=== PATIENT | female | born 1970 | race Two or more races ===

== ENCOUNTER 2024-09-27 08:01 | Outpatient (OUT) | payer OTHER, SELFPAY | END 2024-09-27 08:02 | disposition home or self-care (01) | LOC: PST 08:06 | PROVIDERS: PCP Internal Medicine; Visit Provider Obstetrics & Gynecology | DX: Z01.818 Encounter for other preprocedural examination (principal); N95.0 Postmenopausal bleeding; R93.89 Abnormal findings on diagnostic imaging of other specified body structures ==

== ENCOUNTER 2024-09-29 14:51 | Outpatient (OUT) | payer OTHER, SELFPAY ==
--- NOTE | 2024-09-28 12:00 | ECG_ITS ---
[facility] Test Date: 2024-09-28 Pat Name: ILDA MORAN Department: Room: - Gender: Female [employer] Observer: : 1970 Requested By: COURTNEY NEWMAN Order Number: [id number] Reading MD: CHRISTINA STRINGER Measurements Intervals [place] Rate: 60 P: 60 AK: 174 QRS: -18 QRSD: 101 T: 22 QT: 397 QTc: 397 Interpretive Statements SINUS RHYTHM Borderline sinus bradycardia No previous ECG available for comparison Electronically Signed On 09-28-2024 15:44:13 EST by CHRISTINA STRINGER
--- OUTSIDE RECORDS SUMMARY | 2024-09-29 15:05 | XMS_ITS | CCD ---
Author Organization [facility] Care Team Providers Care Production Line Manager Name Role Phone DR ABEL MURRY Attending Unavailable SHARIESTSUMMER, DR ABEL Grossman Consulting Unavailable SHARIESTSUMMER, DR ABEL Grossman Admitting Unavailable Gely Deng Unavailable Theo Woodall Attending Unavaila Theo Johns Admitting Unavaila Abel Stallings Primary Care Unavailable Theo Woodall Unavailable MD Abel Murry Primary Care Provider PREETI Woodall Attending Provider Abel Murry MD Primary Care Provider ABEL MURRY Attending Unavailable ABEL MURRY Referring Unavailable ABEL MURRY Primary Care Unavailable ABEL MURRY Attending Unavailable ABEL MURRY Referring Unavailable ABEL MURRY Primary Care Unavailable Abel Murry MD Primary Care Provider [phone] TERA MONTERO Admitting Unavailable TERA MONTERO Attending Unavailable TERA MONTERO Attending Unavailable MARIANO SEVILLA Attending Unavailable DI, MARIANO Referring Unavailable DI, MARIANO Referring Unavailable GINA RUSH Attending Unavailable JHONY, MARIANO Referring Unavailable GINA RUSH Attending Unavailable DI, MARIANO Referring Unavailable TERA MONTERO Attending Unavailable DI, MARIANO Attending Unavailable GO JOHNSON Attending Unavailable ASHOK REYES Attending Unavailable ASHOK REYES Attending Unavailable LALI COLLINS Attending Unavailable ABEL MURRY Referring Unavailable ABEL MURRY Primary Care Unavailable REINALDO MAI Admitting Unavailable REINALDO MAI Attending Unavailable ABEL MURRY Referring Unavailable ABEL MURRY Primary Care Unavailable ABEL MURRY Referring Unavailable ABEL MURRY Primary Care Unavailable REINALDO MAI Admitting Unavailable REINALDO MAI Attending Unavailable REINALDO MAI Referring Unavailable HIESTAND, ABEL Grossman Primary Care Unavailable REINALDO MAI Attending Unavailable REINALDO MAI Referring Unavailable HIESTAND, ABEL Grossman Primary Care Unavailable DINA COLLINS M Attending Unavailable HIESTAND, ABEL Grossman Referring Unavailable HIESTAND, ABEL Grossman Primary Care Unavailable DINA COLLINS M Attending Unavailable SHIVANI COLLINSA M Referring Unavailable HIESTAND, ABEL Grossman Primary Care Unavailable ROBERT, DINA M Referring Unavailable HIESTAND, ABEL Grossman Primary Care Unavailable HIESTAND, ABEL Grossman Referring Unavailable HIESTAND, ABEL Grossman Primary Care Unavailable DINA COLLINS M Referring Unavailable HIESTAND, ABEL Grossman Primary Care Unavailable DINA COLLINS M Attending Unavailable HIESTAND, ABEL Grossman Referring Unavailable HIESTAND, ABEL Grossman Primary Care Unavailable HIESTAND, ABEL Grossman Referring Unavailable HIESTAND, ABEL Grossman Primary Care Unavailable ASHOK REYES Referring Unavailable HIESTAND, ABEL Grossman Primary Care Unavailable DINA COLLINS M Referring Unavailable HIESTAND, ABEL Grossman Primary Care Unavailable DINA COLLINS M Attending Unavailable HIESTAND, ABEL Grossman Referring Unavailable HIESTAND, ABEL Grossman Primary Care Unavailable Allergies Allergy Classification Reported Allergen(s) Allergy Type Date of Onset Reaction(s) Facility (5 sources) Clarithromycin; Translations: [CLARITHROMYCIN] Drug Allergy 11-27-19 Swelling of Lip/Tongue/Thr oat [facility] (6 sources) Clarithromycin Drug Allergy 03-08-20 [facility] (2 sources) Clarithromycin Propensity to adverse reactions 03-08-20 [facility] Medications Current Medications Medication Drug Class(es) Dates Sig (Normalized) Sig (Original) amoxicillin 875 mg / clavulanate 125 mg oral tablet (1 source) Penicillin-class Antibacterial Start: 12-12-2023 End: 12-22-2023 take 1 tablet by mouth once in the morning amoxicillin-pot clavulanate (AUGMENTIN) 875-125 mg per tablet Indications: Non-recurrent acute serous otitis media of both ears Take 1 tablet by mouth in the morning and 1 tablet before bedtime. Do all this for 10 days. 20 tablet 0 12/12/2023 12/22/2023 Active baclofen 10 mg oral tablet (2 sources) gamma-Aminobutyric Acid-ergic Agonist Start: 08-10-2024 take 0.5 tablet by mouth twice daily as needed for muscle spasms and muscle spasms, then take 1-2 tablets by mouth twice daily as needed for muscle spasms and muscle spasms baclofen (LIORESAL) 10 mg tablet Indications: Thoracic spine pain , Lumbar spine pain Take 0.5 tablets (5 mg total) by mouth 2 (two) times a day as needed for muscle spasms (Take 1-2 tabs PO BID PRN muscle spasm). 60 tablet 08/10/2024 Active 12 hr buPROPion hydrochloride 90 mg / naltrexone hydrochloride 8 mg extended release oral tablet (2 sources) Opioid Antagonist, Aminoketone Start: 07-27-2024 End: 09-28-2024 naltrexone-buPROP ion 8-90 mg tablet extended release Indications: Class 3 severe obesity due to excess calories without serious comorbidity with body mass index (BMI) of 45.0 to 49.9 in adult ([facility]) 1 tablet daily for 7 days, then 1 tablet bid for 7 days 21 tablet 07/27/2024 09/28/2024 Discontinued (Patient Stopped On Own) Centrum Silver 50+Women - (2 sources) Centrum Silver 50+Women - as directed Orally Active cholecalciferol 0.025 mg oral capsule (2 sources) Vitamin D take 1 capsule by mouth in the morning cholecalciferol, vitamin D3, (VITAMIN D3) 25 mcg (1,000 unit) capsule Take 1 capsule (1,000 Units total) by mouth in the morning. Active citalopram 20 mg oral tablet (7 sources) Serotonin Reuptake Inhibitor Start: 08-15-2023 End: 11-21-2023 take 1 tablet by mouth once daily citalopram (CeleXA) 20 mg tablet Indications: Anxiety Take 1 tablet by mouth nightly 30 tablet 0 11/21/2023 Active take 1 tablet by fady th every twenty-four hours Citalopram Hydrobromide 20 MG 1 tablet Orally Once a day Active dexamethasone 4 mg oral tablet (1 source) Corticosteroid Start: 12-12-2023 End: 12-12-2023 take 2 tablets by mouth once dexAMETHasone (DECADRON) 4 mg tablet Indications: Laryngitis Take 2 tablets (8 mg total) by mouth once for 1 dose. 2 tablet 0 12/12/2023 12/12/2023 Active ergocalciferol 0.05 mg oral capsule (2 sources) Provitamin D2 Compound Start: 10-21-2023 ergocalciferol (Vitamin D-2) 50 MCG (1999 UT) capsule 10/21/2023 Active esomeprazole 20 mg delayed release oral capsule (7 sources) Proton Pump Inhibitor take 1 capsule by mouth once daily before breakfast esomeprazole (NexIUM) 20 mg capsule Take 1 capsule (20 mg total) by mouth every morning before breakfast. Active Esomeprazole Mag nesium Active fluconazole 150 mg oral tablet (1 source) Azole Antifungal Start: 12-12-2023 End: 12-12-2023 take 1 tablet by mouth once fluconazole (DIFLUCAN) 150 mg tablet Take 1 tablet (150 mg total) by mouth once for 1 dose. 1 tablet 0 12/12/2023 12/12/2023 Active levothyroxine sodium 0.05 mg oral tablet (5 sources) l-Thyroxine Start: 07-14-2024 End: 09-07-2024 take 1 tablet by mouth in the morning levothyroxine (SYNTHROID, LEVOTHROID) 50 MCG tablet Indications: Acquired hypothyroidism take 1 tablet by mouth in the morning 90 tablet 09/07/2024 Active meloxicam 15 mg oral tablet (5 sources) Nonsteroidal Anti-inflammatory Drug Start: 10-24-2023 End: 11-25-2023 take 1 tablet by mouth in the morning meloxicam (MOBIC) 15 mg tablet Take 1 tablet (15 mg total) by mouth in the morning. 30 tablet 2 11/25/2023 Active Multivitamin preparation (3 sources) multivitamin (MULTI-DAY ORAL) Take by mouth daily. Active multivitamin (MU LTI-DAY ORAL) Take by mouth daily. 0 Active multivitamin with minerals (Centrum) 9-200 mg-mcg tablet split tablet (2 sources) multivitamin wit h minerals (Centrum) 9-200 mg-mcg tablet split tablet Take by mouth Daily Active nabumetone 500 mg oral tablet (5 sources) Nonsteroidal Anti-inflammatory Drug Start: End: take 1 tablet by mouth in the morning, then take 1 tablet by mouth at bedtime nabumetone (RELAFEN) 500 mg tablet TAKE 1 TABLET BY MOUTH IN THE MORNING AND 1 AT BEDTIME 180 tablet 09/07/2024 Active nitrofurantoin, macrocrystals 25 mg / nitrofurantoin, monohydrate 75 mg oral capsule (2 sources) Nitrofuran Antibacterial Start: take 1 capsule by mouth every twelve hours Macrobid 100 MG 1 capsule with food Orally every 12 hrs for 7 day(s) March, Active phenazopyridine hydrochloride 200 mg oral tablet (2 sources) Start: take 1 tablet by mouth every eight hours Pyridium 200 MG 1 tablet after meals Orally Three times a day for 2 day(s) March, Active rivaroxaban 20 mg oral tablet (1 source) Factor Xa Inhibitor Start: take 1 tablet by mouth at dinner Rivaroxaban (Xarelto) 15 mg (42)- 20 mg (9) tablets,dose pack Active 0 PO .COMPLEX November 28, 2019 1:00am must administer with evening meal traMADol hydrochloride 50 mg oral tablet (1 source) Opioid Agonist Start: End: take 1 tablet by mouth in the morning, then take 1 tablet by mouth at bedtime traMADoL (ULTRAM) 50 mg tablet Indications: Disc displacement, lumbar , Chronic bilateral low back pain without sciatica Take 1 tablet (50 mg total) by mouth in the morning and 1 tablet (50 mg total) before bedtime. Do all this for 10 days. 20 tablet 09/28/2024 10/08/2024 Active triamcinolone acetonide 1 mg/ml topical cream (2 sources) Corticosteroid triamcinolone (Kenalog) 0.1 % cream Apply topically. Active Completed/Discontinued Medications Medication Drug Class(es) Dates Sig (Normalized) Sig (Original) [id number] 200 actuat albuterol 0.09 mg/actuat metered dose inhaler (3 sources) beta2-Adrenergic Agonist Start: 12-28-2022 take 2 puff(s) by inhalation four times daily as needed Albuterol Sulfate HFA 108 (90 Base) MCG/ACT 2 puffs Inhalation 4 times a day prn Dec, Not-Taking Norgestimate-Ethin yl Estradiol (1 source) Progestin, Estrogen Start: 11-27-2019 End: 11-28-2019 Norgestimate-Ethin yl Estradiol (Sprintec (28)) 0.25-35 mg-mcg tablet Discontinued TABLET November 27, 2019 1:00am November 28, 2019 3:22pm FLUoxetine 10 mg oral tablet (1 source) Serotonin Reuptake Inhibitor Start: 11-27-2019 End: 11-27-2019 Fluoxetine Discontinued TABLET November 27, 2019 1:00am November 27, 2019 6:33pm gabapentin 300 mg oral capsule (4 sources) Anti-epileptic Agent End: 12-12-2023 take 1 capsule by mouth once daily gabapentin (NEURONTIN) 300 mg capsule Take 1 capsule (300 mg total) by mouth nightly. 0 12/12/2023 Discontinued (Therapy completed) Ketorolac (3 sources) Nonsteroidal Anti-inflammatory Drug, Cyclooxygenase Inhibitor Start: 01-18-2021 Toradol per 15 mg Dec, 60 mg pantoprazole 40 mg delayed release oral tablet (3 sources) Proton Pump Inhibitor Start: 10-24-2023 End: 11-25-2023 take 1 tablet by mouth in the morning pantoprazole (PROTONIX) 40 mg EC tablet Take 1 tablet (40 mg total) by mouth in the morning. 30 tablet 0 10/24/2023 11/25/2023 Discontinued (Patient Stopped On Own) predniSONE 20 mg oral tablet (3 sources) Start: 12-28-2022 take 1 tablet by mouth every twelve hours predniSONE 20 MG 1 tablet Orally 2 times a day for 5 day(s) Dec, Not-Taking Problems Active Problems Problem Classification Problem Date Documented Date Episodic/Chronic Abdominal hernia (1 source) Hiatal hernia; Translations: [Diaphragmatic hernia without obstruction or gangrene] 11-28-2019 Episodic Anxiety disorders (1 source) Anxiety; Translations: [Anxiety disorder, unspecified] 11-21-2023 Chronic Benign neoplasm of uterus (4 sources) Subserous leiomyoma of uterus; Translations: [Subserosal leiomyoma of uterus] Onset: 08-09-2024 08-09-2024 Episodic Chronic obstructive pulmonary disease and bronchiectasis (1 source) Bronchitis, not specified as acute or chronic Episodic Genitourinary symptoms and ill-defined conditions (2 sources) Dysuria; Translations: [Dysuria] Onset: 04-21-2023 Episodic Headache; including migraine (6 sources) Migraine; Translations: [Migraine, unspecified, not intractable, without status migrainosus] 06-14-2021 Chronic Menopausal disorders (4 sources) Postmenopausal bleeding; Translations: [Postmenopausal bleeding] Onset: 08-09-2024 08-09-2024 Chronic Menstrual disorders (1 source) Excessive and frequent menstruation with regular cycle; Translations: [Excessive and frequent menstruation with regular cycle] Onset: 08-16-2024 Chronic Other aftercare (1 source) Long-term current use of opiate analgesic drug; 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] 09-28-2024 Episodic Other aftercare (1 source) [facility] (current) use of opiate analgesic; 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] Onset: 09-28-2024 Episodic Other connective tissue disease (2 sources) Trigger finger, unspecified finger; Translations: [Trigger finger, unspecified finger] Onset: 09-07-2024 Episodic Other nervous system disorders (3 sources) Carpal tunnel syndrome, bilateral upper limbs; Translations: [Carpal tunnel syndrome, bilateral upper limbs] Onset: 05-04-2024 Chronic Other nervous system disorders (1 source) Other chronic pain; Translations: [Other chronic pain] Onset: 11-06-2020 Chronic Other nervous system disorders (1 source) Polyneuropathy, unspecified; Translations: [Polyneuropathy, unspecified] Onset: 11-10-2023 Chronic Other nutritional; endocrine; and metabolic disorders (1 source) Morbid obesity; Translations: [Morbid (severe) obesity due to excess calories] 11-28-2019 Chronic Other nutritional; endocrine; and metabolic disorders (2 sources) Obesity; Translations: [Obesity, unspecified] 07-12-2024 Chronic Other screening for suspected conditions (not mental disorders or infectious disease) (1 source) Endometrium thickened; Translations: [Abnormal findings on diagnostic imaging of other specified body structures] 09-13-2024 Chronic Other upper respiratory infections (1 source) Sinusitis Onset: 07-12-2024 Chronic Other upper respiratory infections (1 source) Laryngitis; Translations: [Acute laryngitis] 12-12-2023 Episodic Otitis media and related conditions (1 source) Acute non-suppurative otitis media - serous; Translations: [Acute serous otitis media, bilateral] 12-12-2023 Episodic Spondylosis; intervertebral disc disorders; other back problems (10 sources) Lumbosacral spondylosis without myelopathy; Translations: [Spondylosis without myelopathy or radiculopathy, lumbosacral region] Onset: 05-04-2024 05-04-2024 Chronic Spondylosis; intervertebral disc disorders; other back problems (17 sources) Chronic low back pain; Translations: [Chronic bilateral low back pain] Onset: 11-06-2020 11-06-2020 Episodic Thyroid disorders (2 sources) Acquired hypothyroidism; Translations: [Hypothyroidism, unspecified] Onset: 07-12-2024 09-07-2024 Chronic Unclassified (1 source) discuss changing meloxicam Onset: 07-12-2024 Unclassified (1 source) Earache Onset: 12-12-2023 Unclassified (1 source) Low back pain, unspecified; Translations: [Low back pain, unspecified] Onset: 11-06-2020 Unclassified (1 source) Extremity Pain Onset: 05-04-2024 Urinary tract infections (1 source) Acute cystitis with hematuria Episodic Past or Other Problems Problem Classification Problem Date Documented Da te Episodic/Chronic Mood disorders (6 sources) Mood disorders Onset: 12-21-2022 12-21-2022 Other non-traumatic joint disorders (1 source) Shoulder pain Onset: 05-04-2024 Episodic Other upper respiratory disease (1 source) Hoarse Onset: 12-12-2023 Episodic Phlebitis; thrombophlebitis and thromboembolism (7 sources) Deep venous thrombosis of lower extremity; Translations: [Acute embolism and thrombosis of unspecified deep veins of right lower extremity] Onset: 03-10-2020 11-28-2019 Episodic Pulmonary heart disease (7 sources) Pulmonary embolism; Translations: [Other pulmonary embolism without acute cor pulmonale] Onset: 03-10-2020 11-28-2019 Episodic Residual codes; unclassified (6 sources) FH: Thrombosis; Translations: [Family history of ischemic heart disease and other diseases of the circulatory system] Onset: 03-10-2020 03-10-2020 Episodic Results Test Name Value Interpretation Reference Range Facility Office Visiton 09-07-2024 Follow-up visit [id number] Vickie Hernandez sa 1970 F Date Provider Department Center 09/07/2024 [facility] Family History Problem Relation Age of Onset Cancer Mother Cancer Father Cancer Sister Cancer Sister Diabetes Sister Family Status - Relation Status Age at Mother Father Sister Sister Sister Level of Service:07146 MO POSTOP FOLLOW UP VISIT RELATED TO ORIGINAL PX (GC) Reason for Visit and Comments: Post-op [483] Post-op [483] Normal [facility] HPon 08-25-2024 History Of Present Illness Munira Hernandez is a 54 y.o. female presenting with B CTS and a R ring trigger digit. Roberto Carlos is scheduled for B CTR and R RF trigger release. Past Medical History She has a past medical history of Adverse effect of anesthesia, Arthritis (Just recent), Back pain, CTS (carpal tunnel syndrome) (Dr Rush), Delayed emergence from general anesthesia, Foot pain, Hypothyroidism, Lumbosacral disc disease, Neck pain, Obesity, PONV (postoperative nausea and vomiting), and Trigger finger. Surgical History She has a past surgical history that includes Dilation and curettage of uterus; Hysteroscopy; and Cholecystectomy. Social History She reports that she has never smoked. She has never been exposed to tobacco smoke. She has never used smokeless tobacco. She reports that she does not drink alcohol and does not use drugs. Family History Family History Problem Relation Name Age of Onset ??? Cancer Mother Jessica Hernandez ??? Cancer Father Ty hernandez ??? Cancer Sister Marzena Aguillon ??? Cancer Sister Claribel rodriguez ??? Diabetes Sister Sharmaine perez Allergies Clarithromycin Medications Medications Prior to Admission Medication Sig Dispense Refill Last Dose ??? baclofen (Lioresal) 10 mg tablet Take by mouth at bedtime. Past Week ??? cholecalciferol, vitamin D3, (VITAMIN D3 ORAL) Take by mouth. Past Week ??? esomeprazole (NexIUM) [address] capsule Take 20 mg by mouth before breakfast. 08/25/2024 ??? levothyroxine (Synthroid, Levoxyl) 50 mcg tablet Take 50 mcg by mouth before breakfast. 08/25/2024 ??? multivit-minerals/foli c acid (CENTRUM ADULT 50 PLUS ORAL) Past Week ??? nabumetone (Relafen) 500 mg tablet Take 500 mg by mouth twice a day. Past Week ??? albuterol 90 mcg/actuation inhaler As needed for shortness of breath Unknown ??? apixaban (Eliquis) 5 mg tablet Take 2.5 mg by mouth twice a day. Unknown ??? citalopram (CeleXA) 20 mg tablet TAKE 1 TABLET BY MOUTH NIGHTLY Oral for 30 Days Unknown ??? cyclobenzaprine (Flexeril) 10 mg tablet Oral for 30 Days Unknown ??? ergocalciferol, vitamin D2, (VITAMIN D2 ORAL) Unknown ??? gabapentin (Neurontin) 100 mg capsule Take 1 capsule (100 mg) by mouth in the morning, at noon, and at bedtime for 7 days. 21 capsule 0 ??? gabapentin (Neurontin) 100 mg capsule Take 1 capsule (100 mg) by mouth three times daily. 90 capsule 0 ??? gabapentin (Neurontin) 300 mg capsule Take 1 capsule (300 mg) by mouth in the morning, at noon, and at bedtime. AFTER FINISHING 100MG SCRIPT 90 capsule 0 ??? hydrocortisone-acetic acid (Vosol-HC) otic solution Administer 3 drops into affected ear(s) twice a day. Unknown ??? ibuprofen 600 mg tablet Take 600 mg by mouth every 6 (six) hours if needed. Unknown ??? meloxicam (Mobic) 15 mg tablet TAKE 1 TABLET BY MOUTH IN THE MORNING FOR 21 DAYS Unknown ??? methylPREDNISolone (Medrol Dospak) 4 mg tablets See administration instructions. Unknown ??? omeprazole (PriLOSEC) [address] capsule 1 (one) time each day at the same time. Unknown ??? phenazopyridine (Pyridium) 200 mg tablet TAKE 1 TABLET BY MOUTH THREE TIMES DAILY AFTER A MEAL FOR 2 DAYS Unknown ??? predniSONE (Deltasone) 20 mg tablet Unknown ??? triamcinolone (Kenalog) 0.1 % cream Apply topically. Unknown Review of Systems Last Recorded Vitals Visit Vitals BP 162/67 Pulse 74 Temp 36 ???C (96.8 ???F) (Temporal) Resp 16 Ht 1.676 m (5' 6 ) Wt 129 kg (283 lb 8.2 oz) SpO2 100% BMI 45.76 kg/m??? OB Status Postmenopausal Smoking Status Never BSA 2.45 m??? Physical Exam Constitutional: Appearance: Normal appearance. Cardiovascular: Rate and Rhythm: Normal rate. Pulmonary: Effort: Pulmonary effort is normal. Musculoskeletal: Comments: B (+) Tinel's, Tender over A1 R RF. Neurological: Mental Status: She is alert. Relevant Lab Results No results found for: NA , K , CL , CO2 , BUN , CREATININE , GLUCOSE , CALCIUM , ANIONGAP , EGFR , BCR Relevant Imaging Results MR transfer of outside films This order has been auto-finalized and does not contain a result. Assessment/Plan Principal Problem: Bilateral carpal tunnel syndrome B CTR, R RF A1 release Normal [facility] OPNOTEon 08-25-2024 OPNOTE Operative Note Patient: Munira Hernandez Date of Surgery: 08/25/2024 : 1970 Pre-operative Diagnosis: 1. Carpal Tunnel Syndrome Both Hands 2. Trigger Digit Right Ring Finger Post-operative Diagnosis: same Operation: 1. Carpal Tunnel Release, Bilateral (63751) 2. Trigger Digit Release Right Ring Finger (20551) Surgeon: Tera Montero MD [employer]: Fan De Leon MD Staff: Porter [employer]: Shiloh Calvin RN Scrub Person: Ella Tapia CST [employer] Porter [employer]: Ismael Frazier RN Anesthesia Type: MAC Indications: The patient is an 54 y.o. female with a history of night pain and numbness of the both hands. The physical examination and work-up are consistent with that of carpal tunnel syndrome. This has been an ongoing, and worsening, problem despite nonoperative means of treatment. She also has a symptomatic trigger digit of the right ring finger that has not improved with nonoperative treatments. It is felt that surgical management is appropriate at this point in time. The patient is brought to the operating room today for that purpose.The risks and benefits of the procedure were explained preoperatively, and with good understanding it is agreed to proceed. Procedure: The patient is brought to the operating room and placed on the table in a supine position. The right arm was placed on a hand table. The right arm is formally prepped and draped out in a sterile fashion. To begin the procedure, after a standard timeout, she is sedated per the anesthesia service. We did a brief ultrasound examination to identify our anatomic landmarks, the median nerve, and the recurrent motor branch. Once we are satisfied with the anatomy we marked out a proposed incision site in the center of the safe zone just proximal to the wrist crease. Using a syringe and 25-gauge needle we anesthetized that skin site with 1% lidocaine with epinephrine, and then under ultrasound guidance used our lidocaine to hydrodissect along the ulnar aspect of the median nerve through the carpal tunnel. A 15 blade was used to make a 7 to 8 mm long incision. A freer elevator was inserted into the carpal tunnel and under ultrasound guidance cleared a path through the safe zone to the distal end of the ligament using the hook of the hamate as a landmark delete. The [employer] carpal tunnel release device was inserted into the carpal tunnel and advanced to the distal end of the transverse carpal ligament. The balloons were inflated. We then went back and identified the median nerve in the transverse plane and followed it distally to make sure the third common digital was safe, as well as the superficial palmar arch. Once satisfied with that the cutting blade was deployed and, using a standard inching technique, we followed the blade as it cut the ligament from distal to proximal with the median nerve being visualized throughout. The device was removed. Our freer elevator was placed in the tunnel and used to confirm that the release was complete. We then turned our attention to the ring finger. A new incision is made over the A1 region. Blunt dissection was carried out through the subcutaneous tissue, and again superficial blood vessels were cauterized with the Bovie. Three Ragnell retractors were used to expose the flexor tendon sheath. The A1 nura is initially opened up with a knife blade, in line with the tendon sheath. Switching back to a tenotomy scissor, the sheath was split distally to about the MP flexion crease on the skin and proximally until the sheath is completely free. On this finger, the tendons are also pulled out into the wound and have free excursion. This wound was irrigated with normal saline and closed with 5-0 Prolene suture. The incision on the wrist was closed with benzoin and Steri-Strips. A sterile dressing of a 2 x 2, OpSite and an Thierno bandage was applied. While the trigger injection was being closed and the dressing applied to the right hand I went and turned my attention to the left hand. I did a brief ultrasound examination to identify our anatomic landmarks, the median nerve, and the recurrent motor branch. Once we are satisfied with the anatomy we marked out a proposed incision site in the center of the safe zone just proximal to the wrist crease. Using a syringe and 25-gauge needle we anesthetized that skin site with 1% lidocaine with epinephrine, and then under ultrasound guidance used our lidocaine to hydrodissect along the ulnar aspect of the median nerve through the carpal tunnel. A 15 blade was used to make a 7 to 8 mm long incision. A freer elevator was inserted into the carpal tunnel and under ultrasound guidance cleared a path through the safe zone to the distal end of the ligament using thehook of the hamate as a landmark delete. The [employer] carpal tunnel release device was inserted into the carpal tunnel and advanced to the distal end of the transverse carpal liga (more content not included)... Normal [facility] POCT GLUCOSE METER UNSOLICIT ED RESULTSon 08-25-2024 Glucose [Mass/Vol] 92 mg/dL Normal 70-[address] [facility] Comment on above: Order Comment: Waive d Testing in the ED is performed under the ED CLIA certificate #[id number]. Result Comment: jhag eman Performed By: #### L [id number] ####[facility] [place] [address] Orders Onlyon 08-18-2024 Orders Only [id number] Vickie Hernandez sa 1970 F Date Provider Department Center 08/18/2024 803-CHINO URIAS MP ORTHO [facility] Family History Problem Relation Age of Onset Cancer Mother Cancer Father Cancer Sister Cancer Sister Diabetes Sister Family Status - Relation Status Age at Mother Father Sister Sister Sister Normal [facility] CBC AND AUTO DIFFon 08-16-20 24 ABSOLUTE BASOPHIL 0.0 X10E9/L Normal 0.0-0.2 [facility] Comment on above: Performed By: #### C BCA, THYR, 2132-9, 26010-2 #### [facility] ([id number]) [address] [facility], [address] [place] [address] #### TTAG, 2900-9 #### [facility] ([id number]) [address] [place] [address] ABSOLUTE NEUTROPHIL 4.4 X10E9/L Normal 1.5-6.6 [facility] Comment on above: Performed By: #### C PAULINA, THYR, 2132-07, 78480-6 #### [facility] ([id number]) [address] [place] [address] #### KASEY, 2909 #### [facility] ([id number]) [address] [place] [address] 66283 Basophils/100 WBC (Bld) 0.7 % Normal [facility] Comment on above: Performed By: #### C PAULINA, THYR, 2132-07, 22853-4 #### [facility] ([id number]) [address], [address] [place] [address] #### KASEY, 9 #### [facility] ([id number]) [address] [place] [address] 31381 Eosinophils (Bld) [#/Vol] 0.1 10*3/uL Normal 0.0-0.4 [facility] Comment on above: Performed By: #### C PAULINA, THYR, 2132-07, 17249-5 #### [facility] ([id number]) [address] [place] [address] #### KASEY, 2909 #### [facility] ([id number]) [address] [place] [address] 07630 Eosinophils/100 WBC (Bld) 1.8 % Normal [facility] Comment on above: Performed By: #### Velma GALLARDO, THYR, 2132-07, 32855-3 #### [facility] ([id number]) [address] [place] [address] #### KASEY, 9 #### [facility] ([id number]) [address] [place] [address] 34653 Erythrocyte distribution width (RBC) [Ratio] 14.9 % Normal 11.5-15.0 [facility] Comment on above: Performed By: #### C BCA, THYR, 2132-07, 52147-2 #### [facility] ([id number]) [address], [address] [place] [address] #### TTAG, 2900-9 #### [facility] ([id number]) [address] [place] [address] 79822 Hematocrit (Bld) [Volume fraction] 41.8 % Normal 35-47 [facility] Comment on above: Performed By: #### C BCA, THYR, 2132-07, 76996-7 #### [facility] ([id number]) [address], [address] [place] [address] #### TTAG, 2900-9 #### [facility] ([id number]) [address] [place] [address] 97343 Hemoglobin (Bld) [Mass/Vol] 13.9 g/dL Normal 11.7-15.5 [facility] Comment on above: Performed By: #### C BCA, THYR, 2132-07, 50754-3 #### [facility] ([id number]) [address], [address] [place] [address] #### TTAG, 2900-9 #### [facility] ([id number]) [address] [place] [address] 70574 Lymphocytes (Bld) [#/Vol] 1.2 10*3/uL Normal 1.0-3.5 [facility] Comment on above: Performed By: #### C BCA, THYR, 2132-07, 11829-0 #### [facility] ([id number]) [address] [facility], [address] [place] [address] #### TTAG, 2900-9 #### [facility] ([id number]) [address] [place] [address] 61553 Lymphocytes/100 WBC (Bld) 19.7 % Normal [facility] Comment on above: Performed By: #### C BCA, THYR, 2132-07, 89139-0 #### [facility] ([id number]) [address] [place] [address], [facility] [address] [place] [address] #### TTAG, 29[address] #### [facility] ([id number]) [address] [place] [address] 18302 MCH (RBC) [Entitic mass] 27.3 pg Normal 27-34 [facility] Comment on above: Performed By: #### C BCA, THYR, 2132-07, 77629-4 #### [facility] ([id number]) [address] [facility], [address] [address] #### TTAG, 29[address] #### [facility] ([id number]) [address] [place] [address] 14503 MCHC (RBC) [Mass/Vol] 33.2 g/dL Normal 32-36 [facility] Comment on above: Performed By: #### C BCA, THYR, 2132-07, 10859-7 #### [facility] ([id number]) [address] [facility], [address] [place] [address] #### TTAG, 29[address] #### [facility] ([id number]) [address] [place] [address] 81714 MCV (RBC) [Entitic vol] 82 fL Normal 80-100 [facility] Comment on above: Performed By: #### C BCA, THYR, 2132-07, 62119-2 #### [facility] ([id number]) [facility] [address], [address] [place] [address] #### TTAG, 2900-9 #### [facility] ([id number]) [address] [place] [address] 42092 Monocytes (Bld) [#/Vol] 0.5 10*3/uL Normal 0-0.9 [facility] Comment on above: Performed By: #### C BCA, THYR, 2132-07, 23126-3 #### [facility] ([id number]) [address] [facility], [address] [place] [address] #### TTAMichael, 29[address] #### [facility] ([id number]) [address] [place] [address] 39919 Monocytes/100 WBC (Bld) 7.6 % Normal [facility] Comment on above: Performed By: #### Velma BCA, THYR, 2132-07, 89740-0 #### [facility] ([id number]) [address] [facility], [address] [place] [address] #### TTAMichael, 29009 #### [facility] ([id number]) [address] [place] [address] 46833 Neutrophils/100 WBC (Bld) 70.2 % Normal [facility] Comment on above: Performed By: #### Velma BCA, THYR, 2132-07, 16848-5 #### [facility] ([id number]) [address], [address] [place] [address] #### TTAG, 29009 #### [facility] ([id number]) [address] [place] [address] 45758 Platelet mean volume (Bld) [Entitic vol] 6.9 fL Low 7-12 [facility] Comment on above: Performed By: #### C BCA, THYR, 2132-07, 42052-5 #### [facility] ([id number]) [address] [facility], [address] [place] [address] #### TTAG, 2900-9 #### [facility] ([id number]) [address] [place] [address] 04100 Platelets (Bld) [#/Vol] 245 10*3/uL Normal 150-450 [facility] Comment on above: Performed By: #### C BCA, THYR, 2132-07, 04794-5 #### [facility] ([id number]) [address] [facility], [address] [place] [address] #### TTAG, 2900-9 #### [facility] ([id number]) [address] [place] [address] 06468 RBC COUNT 5.10 X10E12/L Normal 3.80-5.20 [facility] Comment on above: Performed By: #### C BCA, THYR, 2132-07, 14603-3 #### [facility] ([id number]) [address] [facility], [address] [place] [address] #### TTAG, 2900-9 #### [facility] ([id number]) [address] [place] [address] 81101 WBC (Bld) [#/Vol] 6.3 10*3/uL Normal 4.0-11.0 [facility] Comment on above: Performed By: #### C BCA, THYR, 2132-07, 67582-0 #### [facility] ([id number]) [address] [facility], [address] [place] [address] #### TTAG, 2900-9 #### [facility] ([id number]) [address] [place] [address] 89008 HGB A1C (GLYCO-HGB)on 2023 Glucose [Mass/Vol] 114 mg/dL Normal [facility] Comment on above: Performed By: #### C BCA, THYR, 2132-07, 58951-1 #### [facility] ([id number]) [address] [facility], [address] [place] [address] #### TTAG, 29009 #### [facility] ([id number]) [address] [place] [address] 28477 HbA1c (Bld) [Mass fraction] 5.6 % Normal 4.4-5.6 [facility] Comment on above: Result Comment: NOTE ADA Guidelines Result HgbA1c Normal : less than 5.7 % Prediabetes : 5.7 % to 6.4 % Diabetes : > 6.4 % Use with caution in patients with abnormal hemoglobin variants as the half-life of red blood cells and in vivo glycation rates are affected. Performed By: #### C BCA, THYR, 2132-07, 91488-9 #### [facility] ([id number]) [address] [facility], [facility] [address] [place] [address] #### TTAMichael, 9 #### [facility] ([id number]) [address] [place] [address] 23940 THYROID PROFILEon 08-16-2024 Free T4 [Mass/Vol] 0.81 ng/dL Normal 0.61-1.60 [facility] Comment on above: Performed By: #### C BCA, THYR, 2132-07, 32191-8 #### [facility] ([id number]) [address] [facility], [facility] [address] [place] [address] #### TTAG, 29009 #### [facility] ([id number]) [address] [place] [address] TSH 3.36 uIU/mL Normal 0.49-4.67 [facility] Comment on above: Performed By: #### C BCA, THYR, 2132-9, 38857-7 #### [facility] ([id number]) [address] [place] [address] #### TTAG, 2900-9 #### [facility] ([id number]) [address] [place] [address] 29549 US PELVIC WITH TRANSVAGINALo 08-16-2024 US PELVIC WITH TRANSVAGINAL US PELVIC WITH TRANSVAGINAL PELVIC ULTRASOUND HISTORY: Postmenopausal bleeding COMPARISON: 04/14/2023 TECHNIQUE: Transabdominal and transvaginal sonographic evaluation of the pelvis. Transabdominal imaging performed to evaluate for extra adnexal pelvic pathology. Transvaginal imaging performed for better delineation of the adnexal and endometrial contents. FINDINGS: The uterus measures 8.2 x 5.7 x 4.6 cm. The endometrium measures 0.6 cm in thickness. Posterior intramural uterine fibroid measuring 3.1 x 3.2 x 2.9 cm. The left ovary measures 3.0 x 1.7 x 2.6 cm and right ovary measures 3.3 x 2.2 x 2.6 cm. The ovaries are normal. No free fluid in the pelvis. IMPRESSION: * The endometrium measures 0.6 cm in thickness, just above normal limits for a postmenopausal patient. * Posterior intramural uterine fibroid measuring 3.2 cm. Finalized by Arash Horton MD on 08/16/2024 2:30 PM Normal [facility] THYROID PROFILEon 07-12-2024 Free T4 [Mass/Vol] 0.81 ng/dL Normal 0.61-1.60 [facility] Comment on above: Performed By: #### T HYR #### [facility] ([id number]) [address] [place] [address] TSH 8.06 uIU/mL High 0.49-4.67 [facility] Comment on above: Performed By: #### T HYR #### [facility] ([id number]) [address], [address] [place] [address] XR LUMBAR SPINE AP, LATERAL, FLEXION AND EXTENSION ONLYon 07-06-2024 XR LUMBAR SPINE AP, LATERAL, FLEXION AND EXTENSION ONLY XR LUMBAR SPINE AP, LATERAL, FLEXION AND EXTENSION ONLY XR LUMBAR SPINE AP, LATERAL, FLEXION AND EXTENSION ONLY Lumbosacral spondylosis without myelopathy Findings: There is no fracture or destructive lesion. Impression: * No acute findings. * Diffuse disc disease and facet arthritis demonstrated. * Stable flexion-extension views * Consider MRI if you suspect occult process. * Finalized by Martin Bryan MD on 07/06/2024 6:05 PM Normal [facility] XR SPINE THORACIC MIN 4 VWSo n 07-06-2024 XR SPINE THORACIC MIN 4 VWS XR SPINE THORACIC MIN 4 VWS XR SPINE THORACIC MIN 4 VWS History: Thoracic spondylosis without myelopathy Impression: * No acute findings. * No fracture or destructive lesion. * Diffuse disc disease and facet arthritis. . Stable flexion-extension * Consider MRI if you suspect occult process Finalized by Martin Bryan MD on 07/06/2024 4:53 PM Normal [facility] 36on 06-22-2024 36 Sent to [facility] Follow-Upon 06-22-2024 Follow-Up [id number] Vickie Hernandez sa A 1970 F Date Provider Department Center 06/22/2024 438-TERA MONTERO MP ORTHO MPORTHO Family History Problem Relation Age of Onset Cancer Mother Cancer Father Cancer Sister Cancer Sister Diabetes Sister Family Status - Relation Status Age at Mother Father Sister Sister Sister Level of Service:85096 MO OFFICE/OUTPATIENT ESTABLISHED LOW MDM 20 MIN () Reason for Visit and Comments: Pain [136] Pain [136] Normal [facility] Follow-Upon 04-21-2024 Follow-Up [id number] Vickie Hernandez sa A 1970 F Date Provider Department Center 04/21/2024 266-MARIANO SEVILLA MP ORTHO MPORTHO No family history on file Level of Service:15083 MO OFFICE/OUTPATIENT ESTABLISHED LOW MDM 20 MIN Reason for Visit and Comments: Follow-up [121802] - Patient here today to go MRI results. Pain [136] - Patient here today to go MRI results. [facility] 3602-25-2024 36 VM left advising patient we need the actual CD, not just the report. Asked to return call with any questions/concerns. [facility] 36on 02-24-2024 36 Returned call and le ft message with patient [facility] 36 Patient wanting to know if pdi sent report of cervical spine mri [facility] 36on 01-28-2024 36 Spoke to [facility] Denial reason states need 6 weeks pt within past 6 months. I dont see that this has been completed. Will refer patient to PT. Call to patient - notified of referral, she verbalized understanding. She will call [facility] facility to cancel everything. [facility] 36 Per phone encounter on 01/02 the patient told me this was approved. Per phone encounter 01/14, message was sent back asking what they needed and I received no response. If it was denied they need to send me a denial letter so I have information to submit an appeal. [facility] 36 Mri denied and sandoval d office back on 01/16 and nothing was ever done by staff per the insurance company now urbano denney is wanting further clarity, please return call PATIENT IS SCHEDULE THIS UPCOMING Friday02/02/24 [facility] 36on 01-14-2024 36 What do they need [facility] 36 Appeals number: [phone] Tracking number :[id number] Patient reschedule :02/02/24 Khadijah Schulz precert call if needed [facility] 3601-02-2024 36 See previous encounter. [facility] 36 Patient states she h as talked to the facility and this has been approved. Advised her to call me if she has any issues. [facility] 3612-31-2023 36 [facility] pre cert calling- mri denied MRI cervical spine- peer to peer is available for up to 5 business days Denied on 12/29/2023 Wanting 6 weeks of neck pt or chiropractor treatment in the past 6 months Normal [facility] Follow-Upon 12-03-2023 Follow-Up [id number] Vickie Henrandez sa Franco 1970 F Date Provider Department Center 12/03/2023 266-MARIANO SEVILLA MP ORTHO MPORTHO No family history on file Level of Service:23093 MO OFFICE/OUTPATIENT ESTABLISHED LOW MDM 20 MIN (GC) Reason for Visit and Comments: Follow-up [975585] - EMG results Follow-up [11000124] Normal [facility] CBC AND AUTO DIFFon 11-10-20 ABSOLUTE BASOPHIL 0.0 X10E9/L Normal 0.0-0.2 [facility] Comment on above: Performed By: #### C BCA, THYR, 9, 66024-5 #### [facility] ([id number]) [address] [place] [address], [facility] [address] [place] [address] #### TTAG, 2900-9 #### [facility] ([id number]) [address] [place] [address] 13090 ABSOLUTE NEUTROPHIL 5.2 X10E9/L Normal 1.5-6.6 [facility] Comment on above: Performed By: #### C BCA, THYR, 9, 80628-6 #### [facility] ([id number]) [address] [place] [address], [address] [place] [address] #### TTAG, 2900-9 #### [facility] ([id number]) [address] [place] [address] 51143 Basophils/100 WBC (Bld) 0.4 % Normal [facility] Comment on above: Performed By: #### C BCA, THYR, 2132-07, 11179-1 #### [facility] ([id number]) [address] [place] [address], [address] [place] [address] #### TTAG, 290 #### [facility] ([id number]) [address] [place] [address] 04066 Eosinophils (Bld) [#/Vol] 0.1 10*3/uL Normal 0.0-0.4 [facility] Comment on above: Performed By: #### C BCA, THYR, 2132-07, 79020-7 #### [facility] ([id number]) [address] [place] [address], [address] [place] [address] #### TTAG, 2909 #### [facility] ([id number]) [address] [place] [address] 05156 Eosinophils/100 WBC (Bld) 1.8 % Normal [facility] Comment on above: Performed By: #### C BCA, THYR, 2132-07, 73731-9 #### [facility] ([id number]) [address] [place] [address], [address] [place] [address] #### TTAG, 29009 #### [facility] ([id number]) [address] [place] [address] 82803 Erythrocyte distribution width (RBC) [Ratio] 15.1 % High 11.5-15.0 [facility] Comment on above: Performed By: #### Velma BCA, THYR, 2132-07, 55174-5 #### [facility] ([id number]) [address] [place] [address], [address] [place] [address] #### TTAG, 29009 #### [facility] ([id number]) [address] [place] [address] 32033 Hematocrit (Bld) [Volume fraction] 38.2 % Normal 35-47 [facility] Comment on above: Performed By: #### C BCA, THYR, 2132-07, 04827-1 #### [facility] ([id number]) [address] [place] [address], [address] [place] [address] #### TTAG, 29009 #### [facility] ([id number]) [address] [place] [address] 34302 Hemoglobin (Bld) [Mass/Vol] 12.8 g/dL Normal 11.7-15.5 [facility] Comment on above: Performed By: #### C BCA, THYR, 2132-07, 02190-8 #### [facility] ([id number]) [address] [facility], [address] [place] [address] #### TTAG, 2909 #### [facility] ([id number]) [address] [place] [address] 10288 Lymphocytes (Bld) [#/Vol] 1.3 10*3/uL Normal 1.0-3.5 [facility] Comment on above: Performed By: #### Velma BCA, THYR, 2132-07, 31156-0 #### [facility] ([id number]) [address] [place] [address], [facility] [address] [place] [address] #### TTAG, 2909 #### [facility] ([id number]) [address] [place] [address] 41167 Lymphocytes/100 WBC (Bld) 18.4 % Normal [facility] Comment on above: Performed By: #### Velma BCA, THYR, 2132-07, 18897-8 #### [facility] ([id number]) [address] [facility], [address] [place] [address] #### TTAG, 2909 #### [facility] ([id number]) [address] [place] [address] 60295 MCH (RBC) [Entitic mass] 27.1 pg Normal 27-34 [facility] Comment on above: Performed By: #### C BCA, THYR, 2132-07, 50915-1 #### [facility] ([id number]) [address], [address] [place] [address] #### TTAMichael, 2900-9 #### [facility] ([id number]) [address] [place] [address] 36736 MCHC (RBC) [Mass/Vol] 33.5 g/dL Normal 32-36 [facility] Comment on above: Performed By: #### C BCA, THYR, 2132-07, 97394-9 #### [facility] ([id number]) [address], [address] [place] [address] #### TTAMichael, 29009 #### [facility] ([id number]) [address] [place] [address] 25150 MCV (RBC) [Entitic vol] 81 fL Normal 80-100 [facility] Comment on above: Performed By: #### C BCA, THYR, 2132-07, 77941-6 #### [facility] ([id number]) [address], [address] [place] [address] #### KASEY, 29009 #### [facility] ([id number]) [address] [place] [address] 72590 Monocytes (Bld) [#/Vol] 0.5 10*3/uL Normal 0-0.9 [facility] Comment on above: Performed By: #### C BCA, THYR, 2132-07, 08967-4 #### [facility] ([id number]) [address], [address] [place] [address] #### TTAG, 29009 #### [facility] ([id number]) [address] [place] [address] 54196 Monocytes/100 WBC (Bld) 7.2 % Normal [facility] Comment on above: Performed By: #### C BCA, THYR, 2132-07, 56184-8 #### [facility] ([id number]) [address] [facility], [address] [place] [address] #### TTAG, 2900-9 #### [facility] ([id number]) [address] [place] [address] 70548 Neutrophils/100 WBC (Bld) 72.2 % Normal [facility] Comment on above: Performed By: #### C BCA, THYR, 2132-07, 15354-1 #### [facility] ([id number]) [address] [facility], [address] [place] [address] #### TTAG, 2900-9 #### [facility] ([id number]) [address] [place] [address] 28635 Platelet mean volume (Bld) [Entitic vol] 6.8 fL Low 7-12 [facility] Comment on above: Performed By: #### C BCA, THYR, 2132-07, 41368-9 #### [facility] ([id number]) [address] [facility], [address] [place] [address] #### TTAG, 2900-9 #### [facility] ([id number]) [address] [place] [address] 93846 Platelets (Bld) [#/Vol] 254 10*3/uL Normal 150-450 [facility] Comment on above: Performed By: #### C BCA, THYR, 2132-07, 18602-3 #### [facility] ([id number]) [address] [facility], [facility] [address] [place] [address] #### TTAG, 2900-9 #### [facility] ([id number]) [address] [place] [address] 50094 RBC COUNT 4.73 X10E12/L Normal 3.80-5.20 [facility] Comment on above: Performed By: #### C BCA, THYR, 2132-07, 86076-9 #### [facility] ([id number]) [address] [place] [address], [address] [place] [address] #### TTAG, 2900-9 #### [facility] ([id number]) [address] [place] [address] 40268 WBC (Bld) [#/Vol] 7.2 10*3/uL Normal 4.0-11.0 [facility] Comment on above: Performed By: #### C BCA, THYR, 2132-07, 72010-3 #### [facility] ([id number]) [address] [place] [address] [address] [place] [address] #### TTAG, 2900-9 #### [facility] ([id number]) [address] [place] [address] 22891 Nuclear Ab IA Ql (S)on 11-10 SAMRA Screen w/reflex Negative Normal NEG [facility] Comment on above: Result Comment: Testing performed using multiplex flow immunoassay. Eleven different antigens associated with systemic autoimmune diseases (dsDNA,Sm,Sm/LIFE GUARD,LIFE GUARD,Chromatin, SSA,SSB,Yumiko-1,Scl70,Ribo P,Centromere B) are included in this screening test. Performed By: #### C BCA, THYR, 2132-07, 23854-4 #### [facility] ([id number]) [address] [place] [address], [facility] [address] [place] [address] #### TTAG, 2900-9 #### [facility] ([id number]) [address] [place] [address] 65435 Pyridoxine [Mass/Vol]on 10-24 VITAMIN B6 16.9 nmol/L Low 20.0-125.0 [facility] Comment on above: Result Comment: NOTE INTERPRETIVE INFORMATION: Vitamin B6 (Pyridoxal 5-Phosphate) Pyridoxal 5'-phosphate measured in a specimen collected following an 8-hour or overnight fast accurately indicates vitamin B6 nutritional status. Non-fasting specimen concentration reflects recent vitamin intake. This test was developed and its performance characteristics determined by [facility]. It has not been cleared or approved by the US Food and Drug Administration. This test was performed in a CLIA certified laboratory and is intended for clinical purposes. Performed By: [facility] [address] [place] [address] Print Finisher: Bryan Murray MD, PhD CLIA Number: [id number] Performed By: #### C BCA, THYR, 2132-9, 85908-5 #### [facility] ([id number]) [address] [place] [address] [address] [place] [address] #### TTAG, 2900-9 #### [facility] ([id number]) [address] [facility] [address], [place] [address] Reference Lab Test IDon 12- HEAVY METALS SCR See Below Normal [facility] Comment on above: Result Comment: NOTE TEST RESULT FLAG UNIT REF.RANGE ---- Arsenic Blood <10.0 ug/L <=12.0 INTERPRETIVE INFORMATION: Arsenic, Blood Elevated results may be due to skin or collection-related contamination, including the use of a noncertified metal-free collection/transport tube. If contamination concerns exist due to elevated levels of blood arsenic, confirmation with a second specimen collected in a certified metal-free tube is recommended. Potentially toxic ranges for blood arsenic: Greater than or equal to 600 ug/L. Blood arsenic is for the detection of recent exposure poisoning only. Blood arsenic levels in healthy subjects vary considerably with exposure to arsenic in the diet and the environment. A 24-hour urine arsenic is useful for the detection of chronic exposure. This test was developed and its performance characteristics determined by [facility]. It has not been cleared or approved by the [place] Food and Drug Administration. This test was performed in a CLIA certified laboratory and is intended for clinical purposes. Cadmium, Blood <1.0 ug/L <=5.0 INTERPRETATION INFORMATION: Cadmium, Blood Elevated results may be due to skin or collection-related contamination, including the use of a noncertified metal-free collection/transport tube. If contamination concerns exist due to elevated levels of blood cadmium, confirmation with a second specimen collected in a certified metal-free tube is recommended. Blood cadmium levels can be used to monitor acute toxicity and in combination with cadmium urine and B-2 microglobulin is the preferred method for monitoring occupational exposure. Symptoms associated with cadmium toxicity vary based upon route of exposure and may include tubular proteinuria, fever, headache, dyspnea, chest pain, conjunctivitis, rhinitis, sore throat and cough. Ingestion of cadmium in high concentration may cause vomiting, diarrhea, salivation, cramps, and abdominal pain. This test was developed and its performance characteristics determined by [facility]. It has not been cleared or approved by the US Food and Drug Administration. This test was performed in a CLIA certified laboratory and is intended for clinical purposes. Lead Blood <2.0 ug/dL <=4.9 INTERPRETIVE INFORMATION: Lead, Blood (Venous) Analysis performed by Inductively Coupled Plasma-Mass Spectrometry (ICP-MS). Elevated results may be due to skin or collection-related contamination, including the use of a noncertified lead-free tube. If contamination concerns exist due to elevated levels of blood lead, confirmation with a second specimen collected in a certified lead-free tube is recommended. Information sources for blood lead reference intervals and interpretive comments include the CDC's Childhood Lead Poisoning Prevention: Recommended Actions Based on Blood Lead Level and the Adult Blood Lead Epidemiology and Surveillance: Reference Blood Lead Levels (BLLs) for Adults in the [place] Thresholds and time intervals for retesting, medical evaluation, and response vary by state and regulatory body. Contact your State Department of Health and/or applicable regulatory agency for specific guidance on medical management recommendations. This test was developed and its performance characteristics determined by [facility]. It has not been cleared or approved by the U.S. Food and Drug Administration. This test was performed in a CLIA-certified laboratory and is intended for clinical purposes. Group Concentration Comment Children 3.5-19.9 ug/dL Children under the age of 6 years are the most vulnerable to the harmful effects of lead exposure. Environmental investigation and exposure history to identify potential sources of lead. Biological and nutritional monitoring are recommended. Follow-up blood lead monitoring is recommended. 20-44.9 ug/dL Lead hazard reduction and prompt medical evaluation are recommended. Contact a Pediatric Environmental Health Specialty Unit or poison control center for guidance. Greater than Critical. Immediate medical 44.9 ug/dL evaluation, including detailed neurological exam is recommended. Consider chelation therapy when symptoms of lead toxicity are present. Contact a Pediatric Environmental Health Specialty Unit or poison control center for assistance. Adult 5-19.9 ug/dL Medical removal is recommended for women or those who are trying or may become . Adverse health effects are possible. Reduced lead exposure and increased blood lead monitoring are recommended. 20-69.9 ug/dL Adverse health effects are indicated. Medical removal from lead exposure is required by OSHA if blood lead level exceeds 50 ug/dL. Prompt medical evaluation is recommended. Greater than Critical. Immediate medi (more content not included)... Performed By: #### 3 0896-5 #### [facility] ([id number]) [address] [place] [address] 66614 THYROID PROFILEon 11-10-2023 Free T4 [Mass/Vol] 0.63 ng/dL Normal 0.61-1.60 [facility] Comment on above: Performed By: #### C BCA, THYR, 2132-07, 17130-9 #### [facility] ([id number]) [address], [address] [place] [address] #### TTAG, 2900-9 #### [facility] ([id number]) [address] [place] [address] 52949 TSH 4.88 uIU/mL High 0.49-4.67 [facility] Comment on above: Performed By: #### C BCA, THYR, 2132-07, 44490-0 #### [facility] ([id number]) [address], [address] [place] [address] #### TTAG, 2900-9 #### [facility] ([id number]) [address] [place] [address] 32820 TTG AB IGA IGGon 11-10-2023 TTG AB IGA <1.2 Normal <4.0 (Negative) [facility] Comment on above: Performed By: #### C BCA, THYR, 2132-07, 49024-6 #### [facility] ([id number]) [address], [address] [place] [address] #### TTAG, 29009 #### [facility] ([id number]) [address] [place] [address] 60034 TTG AB IGG 4.9 U/mL Normal <6.0 (Negative) [facility] Comment on above: Result Comment: NOTE Test Performed by: [facility] [address] [place] [address] Hydro Excavation Operator: Reinaldo Hare M.D. Ph.D.; CLIA# [id number] Performed By: #### C BCA, THYR, 2132-07, 00896-7 #### [facility] ([id number]) [address] [facility], [address] [place] [address] #### TTAG, 29009 #### [facility] ([id number]) [address] [place] [address] 62992 VITAMIN B12on 11-10-2023 Cobalamin (Vitamin B12) [Mass/Vol] 487 pg/mL Normal 180-914 [facility] Comment on above: Performed By: #### C BCA, THYR, 2132-07, 63729-4 #### [facility] ([id number]) [address], [address] [place] [address] #### TTAG, 2900-9 #### [facility] ([id number]) [address] [place] [address] 89142 Procedure Visiton 10-27-2023 Procedure Visit [id number] Vickie Hernandez sa A 1970 F Date Provider Department Center 10/27/2023 GINA YE MP PHYS MED Medical [facility]avi No family history on file Level of Service:64620 MO OFFICE/OUTPT VISIT,PROCEDURE ONLY Reason for Visit and Comments: EMG [Other] - EMG-BLE [facility] 36on 10-02-2023 36 scheduled [facility] 36 She will need to sierra k to Dr. Sevilla at her next appointment. [facility] 36 Patient was informed and will schedule EMG. Pt was also asking about some labs for neuropathy ??? [facility] 36on 10-01-2023 36 Ordered, please let patient know. [facility] 36 Patient had bilatera l UPPER EMG done yesterday but she is now requesting bilateral LOWER as well... Are you ok to order this or do you want her to be seen first? [facility] 36on 09-30-2023 36 She had an EMG today . Please schedule her an appointment for the first available for results and I will add her to my cancellation list. [facility] 36 Patient would like t o get an order for [place] lower extremities EMG recommended by PM&R [facility] Telephoneon 09-30-2023 Telephone [id number] Vickie Hernandez sa A 1970 F Date Provider Department Center 09/30/2023 Hailee-ARTUR MORALES MP ORTHO MPORTHO No family history on file Reason for Visit and Comments: Request For Order(s) [706] [facility] Procedure Visiton 09-22-2023 Procedure Visit [id number] Vickie Hernandez sa A 1970 F Date Provider Department Center 09/22/2023 GINA YE MP PHYS MED Medical [facility] No family history on file Level of Service:91361 MO OFFICE/OUTPT VISIT,PROCEDURE ONLY Reason for Visit and Comments: EMG [Other] - BUE [facility] Urinalysis - AUTOMATEDon Appearance (U) clear [employer] Other Bilirubin Ql (U) Negative [employer] Other Color (U) yellow [employer] Other Glucose Ql (U) Negative [employer] Other Hemoglobin Ql (U) Large DLS Other Ketones Ql (U) Negative [employer] Other Leukocyte esterase Test strip Ql (U) Small [employer] Other Nitrite Ql (U) Negative [employer] Other pH (U) 6.0 [pH] [employer] Other Protein Ql (U) Negative [employer] Other Specific gravity (U) [Rel density] 1.010 [employer] Other Urobilinogen (U) [Mass/Vol] 0.2 E.U./dL [facility] Other Urinalysis - AUTOMATED [employer] Other Urine Cultureon 04-21-2023 Bacteria identified Cx Nom (U) Reason for Exam Dysuria Urine Reason for Exam: Dysuria : Urine ORGANISM: Escherichia coli (O:ESCCOL) [place] Count 20,000 Aerobic JEAN Charge ([id number]) --- SUSCEPTIBILITY -- ORGANISM: O:ESCCOL ANTIBIOTIC INTERPRETATION JEAN Amikacin S <16 Amoxacillin/K Clavulanate S <8 Ampicillin S <8 Ampicillin/Sulbactam S <4 Aztreonam S <4 Cefazolin S <2 Cefepime I 4 Ceftazidime S <1 Ceftazidime/Avibactam S <4 Ceftolozane/Tazobactam S <2 Ceftriaxone S <1 Cefuroxime S <4 Ciprofloxacin S <0.25 Ertapenem S <0.5 Gentamicin S <2 Levofloxacin S <0.5 Meropenem S <1 Meropenem/Vaborbactam S <2 Nitrofurantoin S <32 Piperacillin/Tazobacta m S <8 Tetracycline S <4 Tigecycline S <2 Tobramycin S <2 Trimethoprim/Sulfameth oxazole S <0.5 S = SUSCEPTIBLE I = INTERMEDIATE R = RESISTANT BLANK = DATA NOT AVAILABLE, OR DRUG NOT ADVISABLE OR TESTED R* = RESISTANCE DUE TO EXTENDED SPECTRUM BETA-LACTAMASES ESBL = EXTENDED SPECTRUM BETA-LACTAMASE TFG = THYMIDINE-DEPENDENT STRAIN HERMES = BETA-LACTAMASE POSITIVE IB = INDUCIBLE BETA-LACTAMASE. APPEARS IN PLACE OF 'S' WITH SPECIES KNOWN TO POSSESS INDUCIBLE BETA-LACTAMASES. POTENTIALLY THEY MAY BECOME RESISTANT TO ALL B-LACTAM DRUGS. PERFORMED BY: [place] [id number] PATHOLOGIST GEOGRAPHY TEACHER GRICEL HICKS M.D. [facility] Comment on above: Performed By: #### C UU #### [facility] [address] [place] [id number] [facility] CERVICAL SPINE 4 OR 5 VIEWS [facility] Department of Radiology [address] [place] [address] ======== Patient Name: MUNIRA HERNANDEZ : 1970 Sex: F Age: Race: White Pt. Location: Patient Status: D Ordered Date: 05/31/2022 1:25:00 PM Completed Date: 05/31/2022 01:33 PM Requesting Provider: MARIANO SEVILLA Attending Provider: MARIANO SEVILLA Report Copy To: Signs & Symptoms: M54.2 Cervicalgia I10 History: Debi Comments: Exam: CERVICAL SPINE 4 OR 5 VIEWS ======== CERVICAL SPINE 4 OR 5 VIEWS 05/31/2022 1:34 PM CLINICAL INDICATIONS: M54.2 Cervicalgia I10 TECHNOLOGIST COMMENTS: Pt stated having neck and arms numbness , no known injury. PROTOCOL: AP,Odontoid, Lateral, Flexion and Extension views. COMPARISON: None FINDINGS: No cervical ribs identified. Extreme lung apices appear clear. Mild degenerative change noted. Vertebral body heights and alignment are well-maintained. Prevertebral soft tissues appear normal. Flexion-extension views show minimal flexion. No abnormal vertebral body motion identified the odontoid process is intact and lateral masses of C1 and C2 appear well aligned. IMPRESSION: Mild degenerative disc change. No acute findings. Electronically signed: Marian Theodore. Transcribed by: [email or web address], User Resident: Electronically Signed by: MARIAN THEODORE @ 06/01/2022 07:47 AM Normal [facility] LUMBAR SPINE 4 OR 5 [facility] LUMBAR SPINE 4 OR 5 [facility] Department of Radiology [address] [place] [id number] ======== Patient Name: MUNIRA HERNANDEZ : 1970 Sex: F Age: Race: White Pt. Location: Patient Status: D Ordered Date: 05/31/2022 11:55:00 AM Completed Date: 05/31/2022 11:57 AM Requesting Provider: MARIANO SEVILLA Attending Provider: Report Copy To: Signs & Symptoms: M54.50 Low back pain, unspecified I10 History: Weld Comments: , , , Ordering Provider - MARIANO SEVILLA MD , Exam: LUMBAR SPINE 4 OR 5 VWS ======== LUMBAR SPINE 4 OR 5 S 05/31/2022 11:57 AM CLINICAL INDICATIONS: M54.50 Low back pain, unspecified I10 TECHNOLOGIST COMMENTS: Patient has lower back pain for 4-5 years. QUESTION FOR RADIOLOGIST: , , , Ordering Provider - MARIANO SEVILLA MD , PROTOCOL: AP,Lateral,L5-S1 spot,Flexion and Extension views were obtained. COMPARISON: None. FINDINGS: 5 lumbar type vertebral bodies are present. Arcuate lines of sacrum appear intact. Moderate degenerative change noted greatest at lower thoracic levels. There is increased lumbar lordosis on the neutral view. There are marked facet degenerative changes at L4-5 and L5-S1. No abnormal vertebral body motion identified with flexion and extension. IMPRESSION: Exaggerated lumbar lordosis in neutral position. Marked facet degenerative changes caudally. Degenerative disc change greatest about lower thoracic upper lumbar regions. Electronically signed: Marian Theodore. Transcribed by: [email or web address], User Resident: Electronically Signed by: MARIAN THEODORE @ 06/01/2022 07:41 AM Normal [facility] Comment on above: Order Comment: , , = ========= , Ordering Provider - MARIANO SEVILLA MD , CBC AUTO DIFFon 08-20-2021 BASO # 0.0 103/ul Normal 0.0-0.1 [facility] Comment on above: Performed By: #### C BC #### [facility] [address] [place] [address] Dr. Becky Fishman Basophils/100 WBC (Bld) 0.5 % Normal 0.2-2.0 [facility] Comment on above: Performed By: #### C BC #### [facility] [address] [place] [address] Dr. Becky Fishman EO # 0.1 103/ul Normal 0.0-0.7 [facility] Comment on above: Performed By: #### C BC #### [facility] [address] [place] [address] Dr. Becky Fishman Eosinophils/100 WBC (Bld) 1.8 % Normal 0.9-7.0 [facility] Comment on above: Performed By: #### C BC #### [facility] [address] [place] [address] Dr. Becky Fishman Erythrocyte distribution width (RBC) [Ratio] 14.6 % Normal 11.0-15.0 [facility] Comment on above: Performed By: #### C BC #### [facility] [address] [place] [address] Dr. Becky Fishman Hematocrit (Bld) [Volume fraction] 46.3 % Normal 36.0-48.0 [facility] Comment on above: Performed By: #### C BC #### [facility] [address] [place] [address] Dr. Becky Fishman Hemoglobin (Bld) [Mass/Vol] 14.4 g/dL Normal 12.0-16.0 [facility] Comment on above: Performed By: #### C BC #### [facility] [address] [place] [address] Dr. Becky Fishman IG # 0.01 10e3/ul Normal 0.00-0.03 [facility] Comment on above: Performed By: #### C BC #### [facility] [address] [place] [address] Dr. Becky Fishman IG % 0.2 % Normal 0.0-0.5 [facility] Comment on above: Performed By: #### C BC #### [facility] [address] [place] [address] Dr. Becky Fishman LYMPH # 1.4 103/ul Normal 1.2-3.8 [facility] Comment on above: Performed By: #### C BC #### [facility] [address] [place] [address] Dr. Becky Fishman Lymphocytes/100 WBC (Bld) 23.9 % Normal 20.5-60.0 [facility] Comment on above: Performed By: #### C BC #### [facility] [address] [place] [address] Dr. Becky Fishman MANUAL DIFF REQ NO Normal [facility] Comment on above: Performed By: #### C BC #### [facility] [address] [place] [address] Dr. Becky Fishman MCH (RBC) [Entitic mass] 26.4 pg Critically low 26.7-34.0 [facility] Comment on above: Performed By: #### C BC #### [facility] [address] [place] [address] Dr. Becky Fishman MCHC (RBC) [Mass/Vol] 31.1 g/dL Normal 29.9-35.2 [facility] Comment on above: Performed By: #### C BC #### [facility] [address] [place] [address] Dr. Becky Fishman MCV (RBC) [Entitic vol] 85.0 fL Normal 81.0-99.0 [facility] Comment on above: Performed By: #### C BC #### [facility] [address] [place] [address] Dr. Becky Fishman MONO # 0.5 103/ul Normal 0.3-0.8 [facility] Comment on above: Performed By: #### C BC #### [facility] [address] [place] [address] Dr. Becky Fishman Monocytes/100 WBC (Bld) 9.0 % Normal 1.7-12.0 [facility] Comment on above: Performed By: #### C BC #### [facility] [address] [place] [address] Dr. Becky Fishman NEUT # 3.7 103/ul Normal 1.4-6.5 [facility] Comment on above: Performed By: #### C BC #### [facility] [address] [address] [address] Becky Fishman Neutrophils/100 WBC (Bld) 64.6 % Normal 43.0-75.0 [facility] Comment on above: Performed By: #### C BC #### [facility] [address] [place] [address] [address] Becky Fishman Platelet mean volume (Bld) [Entitic vol] 9.1 fL Critically low 9.5-13.5 [facility] Comment on above: Performed By: #### C BC #### [facility] [address] [place] [address] Dr. Becky Fishman PLT 257 103/ul Normal 150-450 [facility] Comment on above: Performed By: #### C BC #### [facility] [address] [place] [address] Dr. Becky Fishman RBC 5.45 106/ul Critically high 4.20-5.40 [facility] Comment on above: Performed By: #### C BC #### [facility] [address] [place] [address] [address] Becky Fishman WBC 5.7 103/ul Normal 4.0-11.0 [facility] Comment on above: Performed By: #### C BC #### [facility] [address] [place] [address] Dr. Becky Fishman GLYCOHEMOGLOBIN A1Con 2020 ADA RECOMMENDATION ADA THERAPEUTIC TARG ET 6.0 - 7.0 ACTION SUGGESTED > 7.0 Normal [facility] Comment on above: Performed By: #### A 1C #### [facility] [address] [place] [address] Dr. Becky Fishman Glucose [Mass/Vol] 108 mg/dL Normal [facility] Comment on above: Performed By: #### A 1C #### [facility] [address] [place] [address] Dr. Becky Fishman HbA1c (Bld) [Mass fraction] 5.4 % Normal <=6.0 [facility] Comment on above: Performed By: #### A 1C #### [facility] [address] [place], [place] [address] Dr. Becky Fishman LIPID PROFILEon 08-20-2021 CHOL-HDL RATIO NORM SEE BELOW Normal [facility] Comment on above: Result Comment: 3.3 - 4.4 LOW RISK 4.4 - 7.1 AVERAGE RISK 7.1 - 11.0 MODERATE RISK >11.0 HIGH RISK Performed By: #### B MP, LIPID, TSH #### [facility] [address] [address] [address] Becky Fishman Cholesterol [Mass/Vol] 159 mg/dL Normal <=200 [facility] Comment on above: Performed By: #### B MP, LIPID, TSH #### [facility] [address] [address] [address] Becky Fishman Cholesterol in HDL [Mass/Vol] 53 mg/dL Normal [facility] Comment on above: Performed By: #### B MP, LIPID, TSH #### [facility] [address] [address] [address] Becky Fishman Cholesterol in LDL [Mass/Vol] 88.0 mg/dL Normal [facility] Comment on above: Performed By: #### B MP, LIPID, TSH #### [facility] [address] [address] [address] Becky Fishman Cholesterol.total/C holesterol in HDL [Mass ratio] 3.0 {ratio} Normal [facility] Comment on above: Performed By: #### B MP, LIPID, TSH #### [facility] [address] [address] [address] Becky Fishman HDL NORMAL > or = 60 mg/dl - LO W CARDIOVASCULAR RISK <40 mg/dl - HIGH CARDIOVASCULAR RISK Normal [facility] Comment on above: Performed By: #### B MP, LIPID, TSH #### [facility] [address] [address] [address] Becky Fishman LDL CALC NORMAL SEE BELOW Normal [facility] Comment on above: Result Comment: <100 mg/dl OPTIMAL 100 - 129 mg/dl NEAR OR ABOVE OPTIMAL 130 - 159 mg/dl BORDERLINE HIGH 160 - 189 mg/dl HIGH >190 mg/dl VERY HIGH Performed By: #### B MP, LIPID, TSH #### [facility] [address] [place] [address] Dr. Becky Fishman Triglyceride [Mass/Vol] 90 mg/dL Normal <=150 [facility] Comment on above: Performed By: #### B MP, LIPID, TSH #### [facility] [address] [place] [address] Dr. Becky Fishman VLDL CALC 18.0 mg/dL Normal [facility] Comment on above: Performed By: #### B MP, LIPID, TSH #### [facility] [address] [place] [address] Dr. Becky Fishman PROF CHEM 8 (BAS METB)on Anion gap [Moles/Vol] 10.0 mmol/L Normal [facility] Comment on above: Performed By: #### B MP, LIPID, TSH #### [facility] [address] [place] [address] Dr. Becky Fishman Calcium [Mass/Vol] 9.4 mg/dL Normal 8.4-10.2 [facility] Comment on above: Performed By: #### B MP, LIPID, TSH #### [facility] [address] [place] [address] Dr. Becky Fishman Chloride [Moles/Vol] 106 mmol/L Normal 98-107 [facility] Comment on above: Performed By: #### B MP, LIPID, TSH #### [facility] [address] [place] [address] Dr. Becky Fishman CO2 [Moles/Vol] 28.0 mmol/L Normal 22.0-30.0 [facility] Comment on above: Performed By: #### B MP, LIPID, TSH #### [facility] [address] [place] [address] Dr. Becky Fishman Creatinine [Mass/Vol] 0.99 mg/dL Normal 0.52-1.04 [facility] Comment on above: Performed By: #### B MP, LIPID, TSH #### [facility] [address] [address] [address] Becky Fishman EGFR-AF MALAYSIAN >60 Normal >=60 [facility] Comment on above: Performed By: #### B MP, LIPID, TSH #### [facility] [address] [address] [address] Becky Fishman EGFR-NON AF MALAYSIAN 59 mL/min/1.73m2 Critically low >=60 [facility] Comment on above: Performed By: #### B MP, LIPID, TSH #### [facility] [address] [address] [address] Becky Fishman Glucose [Mass/Vol] 88 mg/dL Normal 74-106 [facility] Comment on above: Performed By: #### B MP, LIPID, TSH #### [facility] [address] [place] [address] Dr. Becky Fishman Potassium [Moles/Vol] 4.0 mmol/L Normal 3.4-5.0 [facility] Comment on above: Performed By: #### B MP, LIPID, TSH #### [facility] [address] [place] [address] Dr. Becky Fishman Sodium [Moles/Vol] 140 mmol/L Normal 137-145 [facility] Comment on above: Performed By: #### B MP, LIPID, TSH #### [facility] [address] [place] [address] Dr. Becky Fishman Urea nitrogen [Mass/Vol] 20.0 mg/dL Critically high 7.0-17.0 [facility] Comment on above: Performed By: #### B MP, LIPID, TSH #### [facility] [address] [place] [address] Dr. Becky Fishman Urea nitrogen/Creatinine [Mass ratio] 20.2 mg/mg Normal [facility] Comment on above: Performed By: #### B MP, LIPID, TSH #### [facility] [address] [place] [address] Dr. Becky Fishman TSHon 08-20-2021 TSH 5.466 uIU/mL Critically high 0.470-4.680 [facility] Comment on above: Performed By: #### B MP, LIPID, TSH #### [facility] [address] [place], [place] [address] Dr. Becky Fishman TSH RANGE SEE BELOW Normal [facility] Comment on above: Result Comment: <0.3 4 UIU/ml HYPERTHYROID 0.34-5.60 UIU/ml EUTHYROID >5.60 UIU/ml HYPOTHYROID Performed By: #### B MP, LIPID, TSH #### [facility] [id number] Becky Fishman Vital Signs Date Time Vital Sign Value Performing Clinician Facility 09-28-2024 08:46-0500 Body height 167.6 cm Dina Collins VETERINARY LABORATORY DIAGNOSTICIAN-TAXONOMY TEACHER Work Phone: [facility] 09-28-2024 08:46-0500 Body mass index (BMI) [Ratio] 46.79 kg/m2 Dina Collins VETERINARY LABORATORY DIAGNOSTICIAN-TAXONOMY TEACHER Work Phone: [facility] 09-28-2024 08:46-0500 Body weight 131.5 kg Dina Collins VETERINARY LABORATORY DIAGNOSTICIAN-TAXONOMY TEACHER Work Phone: [facility] 09-28-2024 08:46-0500 Diastolic blood pressure 74 mm[Hg] Dina Collins VETERINARY LABORATORY DIAGNOSTICIAN-TAXONOMY TEACHER Work Phone: [facility] 09-28-2024 08:46-0500 Heart rate 62 /min Dina Collins VETERINARY LABORATORY DIAGNOSTICIAN-TAXONOMY TEACHER Work Phone: [facility] 09-28-2024 08:46-0500 Respiratory rate 18 /min Dina Collins VETERINARY LABORATORY DIAGNOSTICIAN-TAXONOMY TEACHER Work Phone: [facility] 09-28-2024 08:46-0500 SaO2% (BldA) [Mass fraction] 98 % Dina Collins VETERINARY LABORATORY DIAGNOSTICIAN-TAXONOMY TEACHER Work Phone: [facility] 09-28-2024 08:46-0500 Systolic blood pressure 120 mm[Hg] Dina Collins VETERINARY LABORATORY DIAGNOSTICIAN-TAXONOMY TEACHER Work Phone: [facility] 09-13-2024 11:52-0400 Body mass index (BMI) [Ratio] 47.19 kg/m2 Ashok Eric DO Work Phone: [facility] 09-13-2024 11:52-0400 Body weight 132.63 kg Ashok Eric DO Work Phone: [facility] 09-13-2024 11:52-0400 Diastolic blood pressure 72 mm[Hg] Ashok Eric DO Work Phone: [facility] 09-13-2024 11:52-0400 Systolic blood pressure 116 mm[Hg] Ashok Eric DO Work Phone: [facility] 12-12-2023 14:25-0500 Body mass index (BMI) [Ratio] 47.61 kg/m2 Abel Murry MD Work Phone: [facility] 12-12-2023 14:25-0500 Body temperature 90.81 [degF] Abel Murry MD Work Phone: [facility] 12-12-2023 14:25-0500 Body weight 133.81 kg Abel Murry MD Work Phone: [facility] 12-12-2023 14:25-0500 Diastolic blood pressure 73 mm[Hg] Abel Murry MD Work Phone: [facility] 12-12-2023 14:25-0500 Heart rate 65 /min Abel Murry MD Work Phone: [facility] 12-12-2023 14:25-0500 Systolic blood pressure 131 mm[Hg] Abel Murry MD Work Phone: [facility] [employer] 04-21-2023 14:25-0400 Body height 167.64 cm Theo Woodall Other [facility] Other 04-21-2023 14:25-0400 Body mass index (BMI) [Ratio] 43.57 kg/m2 Theo Woodall Other [facility] Other 04-21-2023 14:25-0400 Body temperature 98.1 [degF] Theo Woodall Other [facility] Other 04-21-2023 14:25-0400 Body weight 122.47 kg Theo Woodall Other [facility] Other 04-21-2023 14:25-0400 Respiratory rate 18 /min Theo Woodall Other [facility] Other 04-21-2023 14:25-0400 SaO2% (BldA) [Mass fraction] 98 % Theo Woodall Other [facility] Other 12-28-2022 14:25-0500 Body height 167.64 cm Gely Deng Other [facility] Other 12-28-2022 14:25-0500 Body mass index (BMI) [Ratio] 42.77 kg/m2 Gely Valenciamond Other [facility] Other 12-28-2022 14:25-0500 Body temperature 98.2 [degF] Gely Valenciamond Other [facility] Other 12-28-2022 14:25-0500 Body weight 120.2 kg Gely Valenciamond Other [facility] Other 12-28-2022 14:25-0500 Diastolic blood pressure 72 mm[Hg] Gely Sowmya Other [facility] Other 12-28-2022 14:25-0500 Respiratory rate 16 /min Gely Valenciamond Other [facility] Other 12-28-2022 14:25-0500 SaO2% (BldA) [Mass fraction] 100 % Gely Deng Other [facility] Other 12-28-2022 14:25-0500 Systolic blood pressure 115 mm[Hg] Gely Deng Other [facility] Other Encounters Encounter Date Encounter Type Care Provider Facility Start: 09-28-2024 End: 09-28-2024 ambulatory [facility] Start: 09-28-2024 End: 09-28-2024 Office outpatient visit 25 minutes Dina Kristine Quinonesmathew VETERINARY LABORATORY DIAGNOSTICIAN-TAXONOMY TEACHER Work Phone: [facility] Comment on above: Disc displacement, l umbar (Primary Dx); Chronic bilateral low back pain without sciatica; [facility] current use of opiate analgesic Start: 09-13-2024 End: 09-13-2024 Bamboo flowsheet Ashok Eric DO Work Phone: [facility] Start: 09-13-2024 End: 09-13-2024 Bamboo flowsheet Ashok Eric DO Work Phone: [facility] Start: 09-13-2024 End: 09-13-2024 Office outpatient visit 15 minutes Ashok Eric DO Work Phone: [facility] Comment on above: Pre-op examination; Postmenopausal bleeding; Thickened endometrium; Uterine leiomyoma, unspecified location Start: 09-13-2024 End: 09-13-2024 Preprocedural examination done Ashok Eric DO Work Phone: [facility] Start: 09-13-2024 End: 09-13-2024 ambulatory ASHOK ERIC Not Available Start: 09-07-2024 End: 09-07-2024 Refjanina Murry MD Work Phone: [facility] Comment on above: Acquired hypothyroid ism Start: 09-07-2024 ambulatory [facility] Start: 08-25-2024 End: 08-25-2024 ambulatory [facility] Start: 08-24-2024 ambulatory [facility] Start: 08-16-2024 End: 08-16-2024 ambulatory ASHOK REYES [facility] Start: 08-10-2024 End: 08-10-2024 ambulatory [facility] Start: 08-09-2024 End: 08-09-2024 ambulatory ASHOK REYES Not Available Start: 07-27-2024 ambulatory [facility] Start: 07-12-2024 End: 07-12-2024 ambulatory [facility] Start: 07-12-2024 End: 07-12-2024 ambulatory [facility] Ambulatory [facility] Start: 07-06-2024 End: 07-25-2024 ambulatory [facility] Start: 07-06-2024 End: 07-06-2024 ambulatory [facility] Start: 06-25-2024 End: 06-25-2024 ambulatory [facility] Start: 06-22-2024 ambulatory [facility] Start: 05-21-2024 End: 05-21-2024 ambulatory [facility] Start: 05-04-2024 End: 05-04-2024 ambulatory [facility] Start: 04-30-2024 End: 04-30-2024 ambulatory [facility] Start: 04-27-2024 End: 04-27-2024 ambulatory [facility] Start: 04-21-2024 End: 04-21-2024 ambulatory [facility] Start: 12-22-2023 End: 12-22-2023 ambulatory GO JOHNSON Not Available Start: 12-12-2023 End: 12-12-2023 Office outpatient visit 15 minutes Abel Murry MD Work Phone: [facility] Comment on above: Laryngitis (Primary Dx); Non-recurrent acute serous otitis media of both ears Start: 12-12-2023 End: 12-12-2023 ambulatory [facility] Start: 12-03-2023 End: 12-03-2023 ambulatory [facility] Start: 11-25-2023 Telephone encounter Mamie Lobato [facility] Start: 11-21-2023 Refill Abel beck MD Work Phone: [facility] Comment on above: Anxiety Start: 11-19-2023 Telephone encounter Lili Diaz [facility] Comment on above: Results Start: 11-10-2023 End: 11-10-2023 ambulatory [facility] Start: 10-27-2023 ambulatory [facility] Start: 09-22-2023 ambulatory [facility] Start: 04-26-2023 End: 04-26-2023 ambulatory Theo Woodall Other [facility] Other Start: 04-26-2023 Telephone encounter [facility] [address] Start: 04-21-2023 End: 04-21-2023 ambulatory MD Abel Murry Work Phone: [facility] Work Phone: Start: 04-21-2023 End: 04-21-2023 Departed Referred MD Abel Murry Work Phone: [facility] [place] Work Phone: Start: 04-21-2023 End: 04-21-2023 ambulatory Theo Woodall Facility:[facility] Start: 04-21-2023 Office outpatient vi sit 15 minutes Theo Talisha [facility] Start: 12-28-2022 End: 12-28-2022 ambulatory Gely Deng Other [facility] Other Start: 12-28-2022 Office outpatient vi sit 15 minutes Gely Deng [facility] Start: 08-20-2021 End: 08-21-[address] ABEL MURRY Facility:[facility] Procedures Date Procedure Procedure Detail Performing Clinician Start: 10-27-2023 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 Start: 12-21-2022 Adult depression scr eening assessment Lili Diaz 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 Start: 05-30-2022 Colonoscopy Lili Diaz 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 Plan of Treatment Date Care Activity Detail Author Start: 05-30-2032 Screening for malign ant neoplasm of colon [facility] Start: 09-28-2025 Adult BMI Screening Adult BMI Screen ing [facility] Start: 09-28-2025 Tobacco Screening Tobacco Screening [facility] Start: 08-10-2025 Adult BMI Screening Adult BMI Screen ing [facility] Start: 08-10-2025 Tobacco Screening Tobacco Screening [facility] Start: 10-27-2024 Adult BMI Screening Adult BMI Screen ing [facility] Start: 10-27-2024 Screening for malign ant neoplasm of breast Mammogram [facility] Start: 10-25-2024 End: 10-25-2024 Patient encounter procedure 10/25/2024 8:40 AM EST [facility] Visit [facility] [address] [facility] [place] [id number] Ashok Reyes, DO [address] [place] [address] [facility] Start: 10-20-2024 Tobacco Screening Tobacco Screening [facility] Start: 09-28-2024 End: 09-28-2025 MR Lumbar spine WO contrast MR lumbar spine without contrast Imaging Routine Disc displacement, lumbar Chronic bilateral low back pain without sciatica Expected: 09/28/2024, Expires: 09/28/2025 [facility] Work Phone: Comment on above: Expected: 09/28/2024 , Expires: 09/28/2025 Start: 09-28-2024 End: 09-28-2024 Patient encounter procedure 09/28/2024 8:15 AM EST Office Visit [facility] [address] [place] [id number] Dina Collins, VETERINARY LABORATORY DIAGNOSTICIAN-TAXONOMY TEACHER [address] [place] [address] [facility] Start: 09-13-2024 End: 09-13-2024 Patient encounter procedure 09/13/2024 11:20 AM EDT Consult [facility] [address] [facility] [phone] Ashok Reyes DO [address] [facility] [place] [address] Arrived [facility] Comment on above: Arrived Start: 07-25-2024 COVID-19 Vaccine ( season) COVID-19 Vaccine ( season) [facility] Start: 07-25-2024 COVID-19 Vaccine ( season) COVID-19 Vaccine ( season) [facility] Start: 07-25-2024 Influenza vaccination [facility] Start: 12-21-2023 Depression Screening Depression Scre ening [facility] Start: 07-25-2023 COVID-19 Vaccine ( season) COVID-19 Vaccine ( season) [facility] Start: 07-25-2023 Influenza vaccination Influenza Vacc ine [facility] Start: 04-21-2023 Bacteria identified in Urine by Culture [facility] Start: 2019 Administration of varicella zoster vaccine Zoster (Shingles) Vaccine (1 of 2) [facility] Start: 1999 Screening for malign ant neoplasm of cervix [facility] Start: 1990 Screening for malign ant neoplasm of cervix Pap Smear [facility] Start: 02-01-1988 DTaP,Tdap and Td Vac cines (1 - Tdap) DTaP,Tdap and Td Vaccines (1 - Tdap) [facility] Start: 1987 Adult BMI Follow Up Plan Adult BMI Follow Up Plan [facility] Start: 1969 Screening for malign ant neoplasm of colon [facility] End: 09-28-2025 Controlled Substance Monitoring, U Controlled Substance Monitoring, U Lab Routine [facility] current use of opiate analgesic 1 Occurrences starting 09/28/2024 until 09/28/2025 [facility] Comment on above: 1 Occurrences starti ng 09/28/2024 until 09/28/2025 Immunizations Immunization Date Immunization Notes Care Provider Laura rhodesty 10-19-2022 influenza, injectabl e, quadrivalent, preservative free Ashok Eric DO Work Phone: [facility] 10-19-2022 influenza virus vaccine, unspecified formulation Lili Emily [facility] 09-24-2021 influenza, injectabl e, quadrivalent, preservative free Lili Emily [facility] 10-16-2020 influenza, injectabl e, quadrivalent, preservative free Ashok Eric DO Work Phone: [facility] 09-11-2020 influenza, seasonal, injectable, preservative free Lili Emily [facility] 10-20-2018 influenza, injectabl e, quadrivalent, preservative free Lili Emily [facility] Payers Date Payer Category Payer Self-pay 2022 Private Health Insurance [employer] [id number] 2021 Managed Care HMO (unspecified) [facility] [id number] 2021 Unknown [facility] [id number] 2021-Present [phone] [address] [place] [address] [id number] 2021 Unknown [id number] 2..[id number] 1970 Unknown [id number] 2.16840.1.882909.3.579. 2.1286 1969 Unknown [id number] 2.16.840.1.774815.3.579. 2.1286 1969 Unknown [id number] 2.16.840.1.882982.3.579. 2.1259 1969 Unknown [id number] 2.16.840.1.740724.3.579. 2.1259 1969 Unknown [id number] 2.16.840.1.065975.3.579. 2.1259 1969 Unknown [id number] 2.16.840.1.214814.3.579. 2.1285 1969 Unknown [id number] 2.16.840.1.588225.3.579. 2.1285 1969 Unknown [id number] 2.16.840.1.866697.3.579. 2.1285 1969 Unknown [id number] 2.16.840.1.495325.3.579. 2.1285 1969 Unknown [id number] 2.16.840.1.038676.3.579. 2.1285 1969 Unknown [id number] 2..840.1.565958.3.579. 2.1285 1969 Unknown [id number] 2.16.840.1.985572.3.579. 2.1285 1969 Unknown [id number] 2..840.1.768907.3.579. 2.1285 1969 Unknown [id number] 2.16.840.1.887026.3.579. 2.1285 1969 Unknown [id number] 2.16.840.1.012647.3.579. 2.1285 1969 Unknown [id number] 2.16.840.1.508354.3.579. 2.1285 1969 Unknown [id number] 2.16.840.1.094166.3.579. 2.1285 1969 Unknown [id number] 2.16.840.1.067354.3.579. 2.1285 1969 Unknown [id number] 2.16.840.1.981421.3.579. 2.1285 1969 Unknown [id number] 2.16.840.1.291762.3.579. 2.1285 1969 Unknown [id number] 2.16.840.1.881029.3.579. 2.1286 1959 Self-pay [id number] Unknown [id number] 2.16.840.1.823821.3.579. 2.593 Unknown [id number] 2.16.840.1.985867.3.579. 2.531 Unknown HCAP/HFA/FAP Active [id number] Social History Date Type Detail Facility Unknown if ever smoked [facility] Other Start: 12-21-2022 End: 09-28-2024 Sex Assigned At [facility] Start: 11-27-2019 End: 12-03-2022 Tobacco smoking status NHIS Never smoked tobacco (finding) [facility] Start: 1970 Sex Assigned At Female [facility] Start: 12-03-2022 End: 05-19-2023 Tobacco use and exposure Smokeless tobacco non-user [facility] Start: 10-27-2023 End: 09-28-2024 Alcohol intake Current drinker of alcohol (finding) [facility] Start: 12-21-2022 End: 09-28-2024 History of Social function [facility] Do you belong to any clubs or organizations such as restoration groups, unions, fraternal or athletic groups, or school groups? No [facility] Are you now , , , , never or living with a partner? Living with partner [facility] How often to you hav e a drink containing alcohol? Monthly or less [facility] How many standard dr inks containing alcohol do you have on a typical day? 1 or 2 [facility] How often do you hav e 6 or more drinks on 1 occasion? Less than monthly [facility] How hard is it for y ou to pay for the very basics like food, housing, medical care, and heating Somewhat hard [facility] Adolescent depressio n screening assessment 0 [facility] Do you feel stress - tense, restless, nervous, or anxious, or unable to sleep at night because your mind is troubled all the time - these days [OSQ] To some extent [facility] Start: 12-21-2022 Education 15 [facility] [employer] [facility] Start: 05-29-2022 Alcohol Comment occasional [facility] Start: 1970 Sex Assigned At Not on file [facility] Start: 08-09-2024 Alcohol Comment Not very often [facility] Start: 06-29-2015 Sex Female (finding) [facility] Clinical Notes 12-13-2022 to 09-28-2024 Dina Collins, VETERINARY LABORATORY DIAGNOSTICIAN-TAXONOMY TEACHER - 09/28/2024 8:15 AM ESTMiranda Cici - 09/13/2024 11:20 AM EDTTelephone Encounter - Lili Diaz CMA - 09/07/2024 5:41 AM EDT Note Date & Type Note Facility 09-28-2024 History of Present illness Narrative [facility] [address] [place] [address] Patient: Munira Hernandez Sex: female : 1970 Age: 54 y.o. PCP: Abel Murry MD 09/28/2024 Munira Hernandez is here for a(n) follow up. Patient completed PT in August and was given home exercises to do at home that she continues to do. Patient rates pain 4/10 currently and can increase to 8/10 with increased activity. She reports no relief from Baclofen. Chief Complaint Patient presents with Neck Pain Back Pain HPI: 09/28/24 Patient has completed PT for her low back with HEP daily- little relief 2022- Chiropractor visit x2 for neck pain with minimal relief then didn't help anymore PT 2022- Massage therapy x3-4 visits with relief for that day TENS unit used randomly with minimal relief Back: 06-25-2024 Bilateral L 4/5, 5/1 Medial Branch Block with 10% relief x 2 hours and 0% relief today. Pre procedure pain 4/10. Post procedure pain 3/10. Neck: Patient had surgery consult and having bilateral carpal tunnel surgery on 08/25/[address] [facility] [address] Montero Back Pain This is a chronic problem. The current episode started more than 1 year ago (5+ years (as of 2023)). The problem occurs constantly (worsens with activity). The problem has been gradually worsening since onset. The pain is present in the lumbar spine, thoracic spine, sacro-iliac and gluteal (right side is worse than left). Quality: nagging , aching, take your breath away pain , occasional sharp pain left buttock. The pain does not radiate. The pain is at a severity of 3/10 (4/10 currently and can increase to 8/10 with activity). The pain is moderate. The pain is The same all the time (varies thoughout). The symptoms are aggravated by stress (transitioning from laying/sitting to standing, bending, twisting, standing, sitting,). Stiffness is present In the morning. Associated symptoms include numbness (bilateral feet, center of neck spine, left shoulder), tingling (bilateral feet, center of neck spine, left shoulder) and weakness (bilateral arms and hands). Pertinent negatives include no abdominal pain, fever or leg pain. Treatments tried: meloxicam, tylenol, advil, aleve w/ no relief; ice/heat with moderate relief; Neck Pain This is a chronic problem. Episode onset: 2021. The problem occurs intermittently. The problem has been unchanged. The pain is associated with nothing. The pain is present in the left side and midline. The quality of the pain is described as burning. The pain is at a severity of 0/10 (numbing sensation). The patient is experiencing no pain. Exacerbated by: work, lifting arms at shoulder level, stress, stairs, standing, walking, stairs, bending, lifting, lying, twisting, pushing/pulling, cough/sneeze, transitioning. The pain is Worse during the day (when working pain is worse). Stiffness is present: na. Associated symptoms include numbness (bilateral feet, center of neck spine, left shoulder), tingling (bilateral feet, center of neck spine, left shoulder) and weakness (bilateral arms and hands). Pertinent negatives include no fever or leg pain. Associated symptoms comments: . Treatments tried: Heat with moderate relief; ice, Mobic, seth topical cream with minimal relief; tylenol, NSAIDs (ibuprofen, aleve), gabapentin, salonpas with no relief; The effect of pain on patient's ADLS: Moderate Impairment. Past Medical History: Diagnosis Date Deep vein thrombosis ([facility]) Extremity pain GERD (gastroesophageal reflux disease) Hiatal hernia Hypothyroid Low back pain Migraine Neck pain Obesity PONV (postoperative nausea and vomiting) Pulmonary embolism ([facility]) Visual impairment Past Surgical History: Procedure Laterality Date BIOPSY VULVA, labia majora and minora Right 12/18/2022 Performed by Lucien Clarke MD at [facility] CARPAL TUNNEL RELEASE Bilateral and trigger finger release CHOLECYSTECTOMY COLONOSCOPY COLONOSCOPY N/A 05/30/2022 Performed by Laci Jackson MD at [facility] HYSTEROSCOPY DILATION CURETTAGE N/A 07/16/2023 Performed by Lucien Clarke MD at [facility] HYSTEROSCOPY DILATION CURETTAGE N/A 12/18/2022 Performed by Lucien Clarke MD at [facility] HYSTEROSCOPY MYOMECTOMY MYOSURE N/A 07/16/2023 Performed by Lucien Clarke MD at [facility] HYSTEROSCOPY MYOMECTOMY MYOSURE N/A 12/18/2022 Performed by Lucien Clarke MD at [facility] INCISION DRAINAGE GROIN Right 07/16/2023 Performed by Lucien Clarke MD at [facility] INJECTION BLOCK NERVE MEDIAL BRANCH: bilat L 4, 03/24 Bilateral 06/25/2024 Performed by Reinaldo Mai MD at [facility] Allergies Allergen Reactions Clarithromycin Hives Biaxin Family History Problem Relation Age of Onset Kidney disease Mother COPD Mother Heart failure Mother Macular degeneration Mother Cancer Father esophageal with brain mets, prostate Heart disease Father Atrial fibrillation Father Deep vein thrombosis Sister Breast cancer Sister 50 Breast cancer Sister 68 Deep vein thrombosis Brother [place] Breast Cancer Neg Hx Social History Socioeconomic History Marital status: Single Spouse name: Not on file Number of children: Not on file Years of education: Not on file Highest education level: Associate degree: occupational, technical, or vocational program Occupational History Not on file Tobacco Use Smoking status: Never Smokeless tobacco: Never Vaping Use Vaping status: Never Used Substance and Sexual Activity Alcohol use: Yes Comment: occasional Drug use: Never Sexual activity: Defer Partners: Male Other Topics Concern Not on file Social History Narrative Not on file Social Drivers of Health Financial Resource Strain: Low Risk (07/11/2024) Overall Financial Resource Strain (CARDIA) Difficulty of Paying Living Expenses: Not hard at all Food Insecurity: No Food Insecurity (09/28/2024) Hunger Screening Food Insecurity - Worry: Never True Food Insecurity - Inability: Never True Transportation Needs: No Transportation Needs (07/11/2024) PRAPARE - Transportation Lack of Transportation (Medical): No Lack of Transportation (Non-Medical): No Physical Activity: Patient Declined (12/21/2022) Exercise Vital Sign Days of Exercise per Week: Patient declined Minutes of Exercise per Session: Patient declined Stress: Stress Concern Present (12/21/2022) [employer] [place] [employer] - Occupational Stress Questionnaire Feeling of Stress : To some extent Social Connections: Moderately Isolated (12/21/2022) Social Connection and Isolation Panel [NHANES] Frequency of Communication with Friends and Family: More than three times a week Frequency of Social Gatherings with Friends and Family: Three times a week Attends Caodaism Services: Never Active Member of Clubs or Organizations: No Attends Club or Organization Meetings: Never Marital Status: Living with partner Interpersonal Safety: Not At Risk (06/22/2024) Received from [facility] Humiliation, Afraid, Rape, and Kick questionnaire Fear of Current or Ex-Partner: No Emotionally Abused: No Physically Abused: No Sexually Abused: No Housing Instability: Low Risk (07/11/2024) Housing Instability Housing Instability: No Review of Systems Constitutional: Negative. Negative for chills, fatigue and fever. HENT: Negative. Negative for congestion and sore throat. Eyes: Negative. Respiratory: Negative. Negative for shortness of breath. Cardiovascular: Negative. Gastrointestinal: Negative. Negative for abdominal pain. Endocrine: Negative. Genitourinary: Negative. Musculoskeletal: Positive for back pain and neck pain. Skin: Negative. Allergic/Immunologic: Negative. Neurological: Positive for tingling (bilateral feet, center of neck spine, left shoulder), weakness (bilateral arms and hands) and numbness (bilateral feet, center of neck spine, left shoulder). Hematological: Negative. Psychiatric/Behavioral: Negative. Vital Signs: BP 120/74 (BP Site: Right Arm, BP Postition: Sitting) Pulse 62 Resp 18 Ht 167.6 cm (5' 6 ) Wt 131.5 kg (289 lb 14.4 oz) LMP 07/10/2023 (Exact Date) Comment: constant bleeding SpO2 98% BMI 46.79 kg/m Physical Exam: GENERAL - Healthy patient that appears stated age. HEENT - Normocephalic / Atraumatic, Extraoccular movements intact, trachea midline, thyroid within normal limits. CV - pulse regular, Warm extremities with appropriate color of nailbeds. RESP - No obvious wheezing, No Shortness of Breath, No overexertion response to exam maneuvers. COORDINATION - remains intact. PSYCH - Alert and Oriented x4, Attentive and appropriate, constitutionally normal, displays normal mood and affect per situation, answered questions appropriately during examination, demonstrated appropriate attention during discussion, demonstrated appropriate cognitive reasoning and understanding of the medical condition by asking appropriate questions regarding the diagnosis and risks/benefits/alternatives of treatment modalities. No obvious deficits in memory, reasoning, or intellect. Lumbar: SKIN - No rashes or bruising in the area of the patient s pain. LYMPH NODES - demonstrate no obvious enlargement. EXTREMITIES - Lower extremities are warm, with minimal edema and palpable pulses. Tenderness to palpation noted in the lumbar spine and paraspinal musculature. Pain is elicited with flexion, extension, and lateral rotation of the lumbar spine. Range of motion is diminished with these motions due to pain. Facet palpation is noted to be somewhat tender and facet loading maneuvers are mildly positive, but not concordant with the patient s normal pain complaints. STRENGTH - noted to be 5 out of 5 all muscle groups bilateral lower extremities including muscles involving hip flexion and abduction, knee flexion and extension, as well as foot dorsiflexion and plantarflexion. No notable atrophy, fasciculations or spasm. SENSORY - No notable sensory deficits in the bilateral lower extremities to touch or pinprick in all dermatomal distributions with exception to increased sensation in the Bilateral L4 levels. Straight Leg Raise is negative. Gait is antalgic. Assessment/Treatment Plan: Munira was seen today for neck pain and back pain. Diagnoses and all orders for this visit: Disc displacement, lumbar - MR lumbar spine without contrast; Future - traMADoL (ULTRAM) 50 mg tablet; Take 1 tablet (50 mg total) by mouth in the morning and 1 tablet (50 mg total) before bedtime. Do all this for 10 days. Chronic bilateral low back pain without sciatica - MR lumbar spine without contrast; Future - traMADoL (ULTRAM) 50 mg tablet; Take 1 tablet (50 mg total) by mouth in the morning and 1 tablet (50 mg total) before bedtime. Do all this for 10 days. 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 This should provide symptomatic pain relief as part of the comprehensive pain management strategy outlined. Risks, Benefits, Side effects, and possible interactions of these medications were reviewed and the medication agreement has been discussed, agreed upon, and signed. The patient understands compliance concerns and the requirement of pill counts and drug screens while taking medications prescribed by this clinic. Urine Drug Screen - To monitor the safety of chronic medication therapy, we will order a Urine Drug Screen. This screen will test for illegal substances as well as prescription medications that we are providing to the patient. As part of our medication policy and contract, the patient has agreed to use only the medications provided by our office in the manner recommended and any deviation of that use can result in discontinuation of the medications from our clinic. Lumbar spine MRI - It is felt that additional diagnostic testing is necessary to further evaluate the patients current pain pathology. For this reason, we will order additional imaging noted above. It is hopeful that this study will identify a significant pain generator that will be amenable to therapy. It is felt that this modality is necessary due to the severity and chronicity of symptoms and physical exam findings combined with the lack of recent imaging of the area. An MRI is specifically felt to be necessary due to the physical exam findings noted above and the patient s description of refractory pain in a neuropathic distribution that is not relieved by change in body position and interferes with the patient s activities of daily living Follow up after MRI The medications I have prescribed have been reviewed for medication interactions/contraindications and/or for upcoming procedures: continue current medication regimen without any changes. DISCUSSION: Treatment options discussed with patient and all questions answered to patient's satisfaction. Discussed the rules and regulations surrounding prescription of opioids and compliance at length. Failure to follow the rules and regulation will result in tapering and discontinuation of medications if applicable. Prescribed medication that requires intensive monitoring for toxicity Tramadol. Treatment plans discussed but not opted for at this time: Lumbar epidural steroid injections. Patient would like to proceed with the current outlined treatment plan before moving forward with any other options. The spine model was demonstrated and Xray, MRI, and EMG was reviewed and used to explain the condition. Chronic conditions not treated during this visit that affected my overall medical decision making: Obesity OARRS: Reviewed. Scribe Statement: Scribed for and in the presence of KAREN REEVES by Mamie Mcgowan CNA. Provider Statement: I, KAREN REEVES, personally performed the services described in the documentation, as scribed by Mamie Mcgowan CNA in my presence, and it is both accurate and complete. Mamie Mcgowan CNA 09/28/24 0939 KAREN Reeves 09/28/24 1004 documented in this encounter [facility] 09-13-2024 History of Present illness Narrative Reason for Appointment: Patient ID: Munira Hernandez is a 54 y.o. female who presents for Pre-op Visit Patient presents today for Pre Op appointment. Patient is scheduled to undergo D&C Hysteroscopy, possible Myosure on 10/08/[address] Reyes at [facility]. MEDICATIONS Current Outpatient Medications Medication Instructions ergocalciferol (Vitamin D-2) 50 MCG (1999) capsule esomeprazole (NEXIUM) 20 mg, Oral, Daily before breakfast levothyroxine (SYNTHROID, LEVOXYL) 50 mcg, Oral, Daily RT multivitamin with minerals (Centrum) 9-200 mg-mcg tablet split tablet Oral, Daily RT nabumetone (Relafen) 500 MG tablet triamcinolone (Kenalog) 0.1 % cream Topical ALLERGIES Allergies Allergen Reactions Clarithromycin Hives Other Reaction(s): Unknown Biaxin PROBLEMS Active Ambulatory Problems Diagnosis Date Noted Postmenopausal bleeding 08/09/2024 Subserous leiomyoma of uterus 08/09/2024 Resolved Ambulatory Problems Diagnosis Date Noted No Resolved Ambulatory Problems Past Medical History: Diagnosis Date Abnormal Pap smear of cervix Disease of thyroid gland (CMS/HCC) -2023 DVT (deep venous thrombosis) (CMS/HCC) Fibroid Foot fracture, right History of DVT (deep vein thrombosis) History of pulmonary embolism Hypothyroidism (CMS/HCC) Hypothyroidism (CMS/HCC) Irregular menses 3 yrs ago Menopause ovarian failure Peripheral neuropathy HISTORY PAST MEDICAL HISTORY SOCIAL HISTORY Past Medical History: Diagnosis Date Abnormal Pap smear of cervix Disease of thyroid gland (CMS/HCC) DVT (deep venous thrombosis) (CMS/HCC) PE Fibroid Foot fracture, right History of DVT (deep vein thrombosis) History of pulmonary embolism Hypothyroidism (CMS/HCC) Hypothyroidism (CMS/HCC) Irregular menses 3 yrs ago Menopause ovarian failure Peripheral neuropathy pt relates not diabetic Social History Tobacco Use Smoking status: Never Smokeless tobacco: Never Vaping Use Vaping status: Never Used Substance Use Topics Alcohol use: Yes Alcohol/week: 2.0 standard drinks of alcohol Types: 2 Standard drinks or equivalent per week Comment: Not very often Drug use: Never FAMILY HISTORY Family History Problem Relation Name Age of Onset Cancer Mother Jessica hernandez Hypertension Mother Jessica hernandez Cancer Father Ty Hernandez SURGICAL HISTORY Past Surgical History: Procedure Laterality Date CHOLECYSTECTOMY [address] Guerra COLPOSCOPY DILATION AND CURETTAGE OF UTERUS 12/18/2022 HYSTEROSCOPY REVIEW OF SYSTEMS Review of Systems: Review of Systems Constitutional: Negative. HENT: Negative. Eyes: Negative. Respiratory: Negative. Cardiovascular: Negative. Gastrointestinal: Negative. Genitourinary: Positive for pelvic pain and vaginal bleeding. Musculoskeletal: Negative. Skin: Negative. Neurological: Negative. All other systems reviewed and are negative. Hematological: Negative. Endocrine: Negative. Allergic/Immunologic: Negative. OBJECTIVE Objective: Physical Exam Constitutional: Appearance: Normal appearance. She is well-developed. Cardiovascular: Rate and Rhythm: Normal rate and regular rhythm. Pulmonary: Effort: Pulmonary effort is normal. Breath sounds: Normal breath sounds. Abdominal: General: Bowel sounds are normal. There is no distension. Palpations: Abdomen is soft. Tenderness: There is no abdominal tenderness. There is no guarding or rebound. Musculoskeletal: General: No swelling. Normal range of motion. Right lower leg: No edema. Left lower leg: No edema. Neurological: Mental Status: She is alert and oriented to person, place, and time. Skin: General: Skin is warm and dry. Psychiatric: Mood and Affect: Mood normal. Behavior: Behavior normal. Vitals and nursing note reviewed. Exam conducted with a legal billing clerk present. Vitals: Estimated body mass index is 47.45 kg/m as calculated from the following: Height as of 08/09/24: 5' 6 . Weight as of 08/09/24: 294 lb. BP: No LMP recorded. Patient is postmenopausal. ASSESSMENT & PLAN ICD-10-CM 1. Pre-op examination Z01.818 2. Postmenopausal bleeding N95.0 3. Thickened endometrium R93.89 4. Uterine leiomyoma, unspecified location D25.9 Pre Op: Patient is doing well but has complaints of postmenopausal bleeding. I have discussed conservative management vs. surgical management with the patient in detail and patient desires surgical management at this time. Patient will undergo D&C Hysteroscopy, possible Myosure on 10/08/2024. Surgical consents were signed, mmc was reviewed, and patient is to proceed to [facility] OR. Reviewed patients results of ultrasound with patient and PVU results and plan of care with procedure. Follow Up: Patient is to follow up between 1-2 weeks post operative to assess proper healing and recovery from procedure. Documented by Allyssa Salcedo LPN on behalf of: Ashok Reyes DO documented in this encounter [facility] 09-07-2024 Note Orthopedic Surgery Subjective 08/25/2024 Release,carpal Tunnel Ultrasound Guided (sonex) - Bilateral and Release, Trigger Finger-ring - Right 09/07/24 Munira Hernandez is here for two week post-op visit after Release,carpal Tunnel Ultrasound Guided (sonex) - Bilateral and Release, Trigger Finger-ring - Right. States that she is doing with minimal concerns. Does have some stiffness in the right ring finger after trigger finger release, but this is improving. Previous numbness her hands has resolved with carpal tunnel procedure and can sleep throughout the night without disturbance. She is very happy with her surgical results. Patient History Past Surgical History: Procedure Laterality Date CHOLECYSTECTOMY DILATION AND CURETTAGE OF UTERUS HYSTEROSCOPY Past Medical History: Diagnosis Date Adverse effect of anesthesia Arthritis Just recent Back pain CTS (carpal tunnel syndrome) Dr Rush Delayed emergence from general anesthesia Foot pain Hypothyroidism Lumbosacral disc disease Neck pain Obesity PONV (postoperative nausea and vomiting) Trigger finger Objective Exam: - Incision clean, dry, and intact. No drainage or erythema - Mild pain around incision sites No triggering, palpable nodule, or extensor tendon subluxation of right ring finger - Reasonable post-surgical ROM, swelling, and tenderness - Sensation grossly intact distally - Brisk capillary refill Assessment/Plan Munira Hernandez is a 54 y.o. 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 Kale Mcgregor MS4 Department of Orthopedic Surgery 09/07/24 9:21 AM [place] Avery MD Orthopedic Surgery Resident Orthopedic Surgery Pager: [phone] 09/07/24 9:40 AM I did not personally examine the patient. I discussed the case with the resident and agree with the plan. [facility] 09-07-2024 Miscellaneous Notes Refill request documented in this encounter [facility] 09-07-2024 Telephone encounter Note Refill request [facility] 08-25-2024 Note Patient: Munira montes Procedure Summary Date: 08/25/24 Room / Location: [facility] OR [address] [place] [address] GIS OR Anesthesia Start: 919 Anesthesia Stop: 100 Procedures: RELEASE,CARPAL TUNNEL ULTRASOUND GUIDED (SONEX) (Bilateral: Wrist) RELEASE, TRIGGER FINGER-RING (Right: Ring Finger) Diagnosis: Bilateral carpal tunnel syndrome (Bilateral carpal tunnel syndrome [G56.03]) Surgeons: Tera Montero MD Responsible Provider: Jewel Garner MD Anesthesia Type: MAC ASA Status: 3 Anesthesia Type: MAC Vitals Value Taken Time BP 141/70 08/25/24 1050 Temp 36 ???C (96.8 ???F) 08/25/24 1005 Pulse 64 08/25/24 1050 Resp 16 08/25/24 1050 SpO2 100 % 08/25/24 1050 Anesthesia Post Evaluation Patient location during evaluation: PACU Patient participation: complete - patient participated Level of consciousness: awake Pain score: 1 Pain management: adequate Airway patency: patent Cardiovascular status: acceptable Respiratory status: acceptable Patient is hemodynamically stable and is able to be discharged from PACU per anesthesia protocol. No notable events documented. [facility] 08-25-2024 Note Patient: Munira montes Procedure Summary Date: 08/25/24 Room / Location: [address] OR Anesthesia Start: 919 Anesthesia Stop: 1004 Procedures: RELEASE,CARPAL TUNNEL ULTRASOUND GUIDED (SONEX) (Bilateral: Wrist) RELEASE, TRIGGER FINGER-RING (Right: Ring Finger) Diagnosis: Bilateral carpal tunnel syndrome (Bilateral carpal tunnel syndrome [G56.03]) Surgeons: Tera Montero MD Responsible Provider: Jewel Garner MD Anesthesia Type: MAC ASA Status: 3 Anesthesia Post Transport Note Transport to: [facility] PACU O2 Route: face mask Oxygen Flow (L/min): 8 Patient Monitor: direct observation Transport: uneventful Patient condition is: stable Comments: Patient arousable, VSS, SV well, report to RN [facility] 08-25-2024 Note Patient: Munira montes Procedure Information Date/Time: 08/25/24 0930 Procedures: RELEASE,CARPAL TUNNEL ULTRASOUND GUIDED (SONEX) (Bilateral: Wrist) RELEASE, TRIGGER FINGER-RING (Right: Ring Finger) Location: [address] OR Surgeons: Tera Montero MD Relevant Problems Anesthesia (within normal limits) Cardio Denies chest pain/SOB Endo BMI 46, not known to have DM /Renal (within normal limits) Neuro/Psych (within normal limits) Pulmonary (within normal limits) Clinical information reviewed: Tobacco Allergies Meds Med Hx Surg Hx Fam Hx Soc Hx Physical Exam Airway Mallampati: II TM distance: >3 FB Neck ROM: full Cardiovascular - normal exam Dental - normal exam Pulmonary - normal exam Abdominal Anesthesia Plan ASA 3 MAC The patient is not a current smoker. Patient was not previously instructed to abstain from smoking on day of procedure. Patient did not smoke on day of procedure. intravenous induction Anesthetic plan and risks discussed with patient. Plan discussed with CAA. Additional Equipment Requests [facility] 06-22-2024 Note Subjective 06/22/24 Munira Hernandez is a 54 y.o. year old female presents for evaluation of her bilateral hands. 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 She has tried bracing which has not been helpful in alleviating her symptoms. She also has a trigger finger on the right ring finger. She notes that she previously did have an injection at the ring finger trigger finger but her symptoms have returned. She denies any numbness or tingling to her small finger. Patient History History reviewed. No pertinent surgical history. Past Medical History: Diagnosis Date Arthritis Just recent CTS (carpal tunnel syndrome) Dr Rush Lumbosacral disc disease Trigger finger Objective General: Body mass index is 45.19 kg/m???. No acute distress, comfortable Respiratory: Unlabored breathing with normal rate, no cough Cardiovascular: Warm well perfused extremities Psych: Appropriate mood and behavior Right hand: Positive carpal compression test, negative Tinel's test at the elbow. The digits are warm well-perfused. She does have a palpable nodule at the right ring finger A1 nura with triggering. Sensation grossly intact light touch in median, ulnar, radial nerves. Digits are warm and well-perfused. Left hand: Positive carpal compression test, negative Tinel's of the elbow. No palpable nodules at the A1 pulleys or triggering. Sensation grossly intact tolight touch in the median, ulnar, radial nerves. Digits are warm and well-perfused. Left hand: Positive carpal compression test, negative Tinel's test at the elbow. Imaging: None Assessment/Plan Munira Hernandez is a 54 y.o. year old female with bilateral carpal tunnel syndrome, right ring finger trigger finger which have failed conservative treatment. -Informed consent obtained today for ultrasound-guided bilateral carpal tunnel release, right ring finger trigger release. Saqib Pitt, PGY5 Orthopedic Surgery Resident By using the attestations below, the signing clinician agrees that I have read and verify that the documentation has been personally reviewed by me and ensure that the documentation accurately reflects the encounter. GC: I personally saw this patient on the day of the encounter, performed the rhodes portion(s) of the service and participated in the management and confirm the resident's documentation. Please note there may be an additional personal documentation from me. [facility] 04-21-2024 Note Chief Complaint: nec k and low back pain HPI When did this problem begin: Long time Timing/frequency of occurrence: Constant Pain description: dull ache Pain severity: 5 Radicular pain: both arms Numbness/tingling: both hands Pain is getting: rapidly worsening Weakness: No What improves symptoms: Rest What makes symptoms worse: Activity Gait disturbance: No Fine hand dexterity problem: No Previous treatment for this problem: No ROS Constitutional: Fatigue: No Weight loss: No Fever: No Chills: No No past surgical history on file. No past medical history on file. No past surgical history on file. Allergies Allergen Reactions Clarithromycin Hives Other Reaction(s): Unknown Biaxin Biaxin Current Outpatient Medications: apixaban (Eliquis) 5 mg tablet, Take 2.5 mg by mouth twice a day., Disp: , Rfl: citalopram (CeleXA) 20 mg tablet, TAKE 1 TABLET BY MOUTH NIGHTLY Oral for 30 Days, Disp: , Rfl: ergocalciferol, vitamin D2, (VITAMIN D2 ORAL), , Disp: , Rfl: esomeprazole (NexIUM) [address] capsule, Take 20 mg by mouth., Disp: , Rfl: ibuprofen 600 mg tablet, Take 600 mg by mouth every 6 (six) hours if needed., Disp: , Rfl: meloxicam (Mobic) 15 mg tablet, TAKE 1 TABLET BY MOUTH IN THE MORNING FOR 21 DAYS, Disp: , Rfl: multivit-minerals/folic acid (CENTRUM ADULT 50 PLUS ORAL), , Disp: , Rfl: triamcinolone (Kenalog) 0.1 % cream, Apply topically., Disp: , Rfl: albuterol 90 mcg/actuation inhaler, As needed for shortness of breath, Disp: , Rfl: cyclobenzaprine (Flexeril) 10 mg tablet, Oral for 30 Days, Disp: , Rfl: gabapentin (Neurontin) 100 mg capsule, Take 1 capsule (100 mg) by mouth in the morning, at noon, and at bedtime for 7 days., Disp: 21 capsule, Rfl: 0 gabapentin (Neurontin) 100 mg capsule, Take 1 capsule (100 mg) by mouth three times daily., Disp: 90 capsule, Rfl: 0 gabapentin (Neurontin) 300 mg capsule, Take 1 capsule (300 mg) by mouth in the morning, at noon, and at bedtime. AFTER FINISHING 100MG SCRIPT, Disp: 90 capsule, Rfl: 0 hydrocortisone-acetic acid (Vosol-HC) otic solution, Administer 3 drops into affected ear(s) twice a day., Disp: , Rfl: methylPREDNISolone (Medrol Dospak) 4 mg tablets, See administration instructions., Disp: , Rfl: omeprazole (PriLOSEC) [address] capsule, 1 (one) time each day at the same time., Disp: , Rfl: phenazopyridine (Pyridium) 200 mg tablet, TAKE 1 TABLET BY MOUTH THREE TIMES DAILY AFTER A MEAL FOR 2 DAYS, Disp: , Rfl: predniSONE (Deltasone) 20 mg tablet, , Disp: , Rfl: Social History Socioeconomic History Marital status: Single Spouse name: Not on file Number of children: Not on file Years of education: Not on file Highest education level: Not on file Occupational History Not on file Tobacco Use Smoking status: Never Passive exposure: Never Smokeless tobacco: Never Vaping Use Vaping Use: Never used Substance and Sexual Activity Alcohol use: Never Drug use: Never Sexual activity: Defer Other Topics Concern Not on file Social History Narrative Not on file Social Determinants of Health Financial Resource Strain: Low Risk (10/27/2023) Overall Financial Resource Strain (CARDIA) Difficulty of Paying Living Expenses: Not hard at all Food Insecurity: No Food Insecurity (10/27/2023) Hunger Vital Sign Worried About Running Out of Food in the Last Year: Never true Ran Out of Food in the Last Year: Not on file Transportation Needs: No Transportation Needs (10/27/2023) Transportation Lack of Transportation (Medical): No Lack of Transportation (Non-Medical): Not on file Physical Activity: Not on file Stress: Not on file Social Connections: Not on file Intimate Partner Violence: Not At Risk (12/03/2023) [place] Safety & [place] Fear of Current or Ex-Partner: No Emotionally Abused: No Physically Abused: No Sexually Abused: No Physically or Sexually Abused: Not on file Housing Stability: Low Risk (10/27/2023) Housing Stability Vital Sign Unable to Pay for Housing in the Last Year: Not on file Number of Places Lived in the Last Year: Not on file Unstable Housing in the Last Year: No No family history on file. Physical Exam There were no vitals taken for this visit. Musculoskeletal Ortho spine musculoskeletal examination: Alignment spine: normal Tenderness: cervical and lumbar paraspinal Range of motion Cervical spine: limited Range of motion lumbar spine: limited Spurling Test: Positive Neurological Biceps strength: 5 Wrist extension: 5 Triceps strength: 5 Finger flexor: 5 Finger abduction strength: 5 Flexion at the hip strength: 5 Quadriceps strength: 5 Tibialis anterior strength: 5 Plantar flexion strength: 5 Extensor Hallicis Longus strength: 5 Sensory Exam: intact Straight leg raising: Negative DTR/ Pathologic reflexes Biceps reflex- 2 Brachioradialis reflex- 2 Triceps reflex- 2 Patellar reflex- 2 Achilles reflex- 2 Babins (more content not included)... [facility] 12-12-2023 History of Present illness Narrative Subjective Patient ID: Munira Hernandez is a 53 y.o. female. She has been having upper respiratory congestion in the last couple of days her voice has been hoarse and squeaky. A little bit of sore throat but not intense. No high fever. She feels congestion and pressure in her ears. No chest symptoms. Surprisingly little cough. The following portions of the patient's history were reviewed and updated as appropriate: allergies, current medications, past medical history, past social history, and problem list. Review of Systems Objective Physical Exam Constitutional: Comments: Afebrile. Not toxic. HENT: Ears: Comments: Fluid in both ears, the left TM has some erythema. Nose: Congestion present. Mouth/Throat: Comments: Voice is hoarse. No erythema or exudate. Pulmonary: Effort: Pulmonary effort is normal. Breath sounds: Normal breath sounds. Lymphadenopathy: Cervical: No cervical adenopathy. Neurological: Mental Status: She is alert. Assessment/Plan She tends to get yeast infections with antibiotics and will send her a Diflucan. If her laryngitis and otitis symptoms are not resolved she will let me know. Diagnoses and all orders for this visit: Laryngitis - dexAMETHasone (DECADRON) 4 mg tablet; Take 2 tablets (8 mg total) by mouth once for 1 dose. Non-recurrent acute serous otitis media of both ears - amoxicillin-pot clavulanate (AUGMENTIN) 875-125 mg per tablet; Take 1 tablet by mouth in the morning and 1 tablet before bedtime. Do all this for 10 days. Other orders - fluconazole (DIFLUCAN) 150 mg tablet; Take 1 tablet (150 mg total) by mouth once for 1 dose. documented in this encounter [facility] 12-03-2023 Note Attestation signed by Mariano Sevilla MD at 12/03/2023 6:00 PM I personally saw and examined the patient on the same date of service as resident/fellow [place] A[place]. I discussed the findings and therapeutic plan with the resident/fellow [place] Avery. I agree with the documentation, except for any edits/updates below. Orthopedic Outpatient Visit Visit Description: follow up Chief Complaint: neck and back pain Patient is a 53-year-old female who presents for follow-up evaluation of bilateral neck radicular pain and low back pain. Patient states that her neck pain is present on and off all day long and worse at night she will occasionally go ahead and shake her hands out. She has seen Dr. Elizabeth in the past with told her that she has carpal tunnel syndrome is mild. Patient states that she has tried using ice packs with out any significant relief. 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 She denies any significant instability or of her gait while ambulating. Patient states that her low back pain is present in the middle of her back and is not on radiating nature. She does feel like her gait slightly wobbly. She was sent for EMG of her bilateral upper extremities which did show evidence of peripheral neuropathy. Patient does report she has decreased in fine motor skills of her hand and worsening of her handwriting. She also continues to have some lumbar back pain which radiates along her bilateral hips. When did this problem begin: last 1.5 years Timing/frequency of occurrence: Constant Pain description: dull ache, burning Pain severity: 2 Radicular pain: yes Numbness/tingling: No Pain is getting: gradually worsening Weakness: No What improves symptoms: Rest What makes symptoms worse: Activity Gait disturbance: No Fine hand dexterity problem: No Previous surgeries for this problem: No ROS Constitutional: Fatigue: No Weight loss: No Fever: No Chills: No Musculoskeletal: Neck Stiffness: No Neck Pain: No Back Stiffness: No Back Pain: No Neurologic: Headache: No Weakness: No Numbness: No Paresthesia: No Tremor: No Physical Exam Musculoskeletal Ortho spine musculoskeletal examination: Alignment spine: normal Tenderness: paraspinal Range of motion Cervical spine: normal Range of motion lumbar spine: not tested Spurling Test: negative Neurological Left Side Biceps strength: 5 Wrist extension: 5 Triceps strength: 5 Finger flexors: 5 Finger abduction strength: 5 Flexion at the hip strength: 5 Quadriceps strength: 5 Tibialis anterior strength: 5 Plantar flexion strength: 5 Extensor Hallicis Longus strength: 5 Sensory Exam: intact Straight leg raising: negative DTR/ Pathologic reflexes Biceps reflex- 2 Brachioradialis reflex- 2 Triceps reflex- 2 Patellar reflex- 2 Achilles reflex- 2 Babinski- negative Flores reflex: Absent Right Side Biceps strength: 5 Wrist extension: 5 Triceps strength: 5 Finger flexor: 5 Finger abduction strength: 5 Flexion at the hip strength: 5 Quadriceps strength: 5 Tibialis anterior strength: 5 Plantar flexion strength: 5 Extensor Hallicis Longus strength: 5 Sensory Exam: intact Straight leg raising: negative DTR/ Pathologic reflexes Biceps reflex- 2 Brachioradialis reflex- 2 Triceps reflex- 2 Patellar reflex- 2 Achilles reflex- 2 Babinski- negative Flores reflex: Absent Gait and station Gait and station: normal Tandem gait: not tested Patient also has positive Tinel's sign and Phalen's bilaterally in her wrist. Images: X-ray patient's cervical spine x-ray was obtained in clinic was reviewed demonstrated patient to have mild degenerative changes in the C6-7 disc with anterior osteophytes as well as facet hypertrophy. Patient has appropriate alignment of her cervical spine. 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 Patient has no significant evidence of spondylolisthesis Assessment and Plan Patient is a 53-year-old female who presents with worsening radicular cervical neck pain bilaterally as well as low back pain without radiculopathy concerning evidence of possible stenosis. Patient also has evidence of bilateral carpal tunnel syndrome. Discussed clinical and radiographic findings along with the EMG findings. Due to the patient's continued symptoms of neck pain along with upper extremity numbness and tingling and decreased in fine motor dexterity we will order MRI of the cervical spine. Will see the patient octaviano (more content not included)... [facility] 11-25-2023 Miscellaneous Notes Patient wanted to know if she could get a refill of the meloxicam if okay to continue taking. She believes it is helping with her hips. She also states she is not taking pantoprazole anymore, flagged for removal. Please advise. documented in this encounter [facility] 11-25-2023 Telephone encounter Note Patient wanted to know if she could get a refill of the meloxicam if okay to continue taking. She believes it is helping with her hips. She also states she is not taking pantoprazole anymore, flagged for removal. Please advise. [facility] 11-21-2023 Miscellaneous Notes Refill request documented in this encounter [facility] 11-21-2023 Telephone encounter Note Refill request [facility] 11-19-2023 Miscellaneous Notes Patient is concerned about her abnormal results, specifically her B6 level. Any changes to do. I think a multivitamin daily should be sufficient. Spoke with patient, gave results and told to take a multivitamin documented in this encounter [facility] 11-19-2023 Telephone encounter Note Patient is concerned about her abnormal results, specifically her B6 level. Any changes to do. [facility] 11-19-2023 Telephone encounter Note I think a multivitamin daily should be sufficient. [facility] 11-19-2023 Telephone encounter Note Spoke with patient, gave results and told to take a multivitamin [facility] 10-27-2023 Note ASSESSMENT/PLAN: Munira was seen today for emg. 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 But if patient were to develop back pain with radicular symptoms, consider MRI of the lumbar spine to correlate for L4/5 findings. Plan: EMG and NCS was consistent with peripheral neuropathy. Some work up has already been ordered for this condition, and she demonstrated low Vitamin D and is getting replacement by mouth. Additional lab studies to consider would be: Heavy metal screening, SAMRA, Celiac sprue testing, CBC, B6, B1, TSH. Could consider treatment for symptoms including physical therapy focusing on balance deficits as well as medications for pain. She did not tolerate gabapentin, so could consider alpha lipoic acid. Gina Rush MD SUBJECTIVE: Munira Hernandez is a 53 y.o. female who presents to [facility] today for EMG nerve conduction study HPI: This patient has a longstanding history of numbness and tingling in the hands, EMG nerve conduction study was consistent with possible peripheral neuropathy. Patient also reported numbness and tingling in the lower limbs as well as balance deficits. For this reason EMG and nerve conduction study was ordered of the lower extremities. Review of Systems No fever no chills Patient Active Problem List Diagnosis Bilateral carpal tunnel syndrome Outpatient Medications Prior to Visit Medication Sig Dispense Refill albuterol 90 mcg/actuation inhaler As needed for shortness of breath apixaban (Eliquis) 5 mg tablet Take 2.5 mg by mouth twice a day. citalopram (CeleXA) 20 mg tablet TAKE 1 TABLET BY MOUTH NIGHTLY Oral for 30 Days cyclobenzaprine (Flexeril) 10 mg tablet Oral for 30 Days esomeprazole (NexIUM) [address] capsule Take 20 mg by mouth. gabapentin (Neurontin) 100 mg capsule Take 1 capsule (100 mg) by mouth in the morning, at noon, and at bedtime for 7 days. 21 capsule 0 gabapentin (Neurontin) 300 mg capsule Take 1 capsule (300 mg) by mouth in the morning, at noon, and at bedtime. AFTER FINISHING 100MG SCRIPT 90 capsule 0 hydrocortisone-acetic acid (Vosol-HC) otic solution Administer 3 drops into affected ear(s) twice a day. ibuprofen 600 mg tablet Take 600 mg by mouth every 6 (six) hours if needed. meloxicam (Mobic) 15 mg tablet TAKE 1 TABLET BY MOUTH IN THE MORNING FOR 21 DAYS methylPREDNISolone (Medrol Dospak) 4 mg tablets See administration instructions. omeprazole (PriLOSEC) [address] capsule 1 (one) time each day at the same time. phenazopyridine (Pyridium) 200 mg tablet TAKE 1 TABLET BY MOUTH THREE TIMES DAILY AFTER A MEAL FOR 2 DAYS predniSONE (Deltasone) 20 mg tablet triamcinolone (Kenalog) 0.1 % cream Apply topically. No facility-administered medications prior to visit. Allergies Allergen Reactions Clarithromycin Hives Other Reaction(s): Unknown Biaxin Biaxin OBJECTIVE: Vitals: 10/27/23 1406 BP: 123/61 Pulse: 62 Weight: 122 kg (270 lb) Height: 1.676 m (5' 6 ) Body mass index is 43.58 kg/m???. Physical Exam: No obvious atrophy, decreased sensation in the feet and to the mid julio area Studies Reviewed: X-ray of the lumbar spine, no MRI Procedures: Patient ID: Munira Hernandez is a 53 y.o. female. EMG Date/Time: 10/27/2023 3:25 PM Performed by: Gina Rush MD Authorized by: Mariano Sevilla MD [place] Protocol / Time: Immediately prior to the procedure a time out was called. Relevant documents were present and verified. Site/side verified. Patient identity confirmed verbally with patient. This timeout verifies correct patient, procedure, equipment, lab support service tech and site/side were marked as required. Verbal consent was obtained, and consent given by patient. Risks of the procedure and alternatives discussed as below and include bleeding, infection and pain. Pneumothorax is an additional risk for needle studies near the lung area. Patient was agreeable to proceed with testing. Please see the scanned copy of the EMG report in the chart for additional details regarding the findings on today's electrodiagnostic study. Peroneal motor: Normal bilaterally Tibial motor: Low amplitude bilaterally, normal latency Sural: Absent bilaterally Needle findings: Some subtle recruitment changes in the tibialis anterior Impression: See above This note was completed using a voice pocket grinder operator system. Every effort was made to ensure accuracy; however, inadvertent computerized pocket grinder operator errors may be present, please contact MD if any information is unclear. [facility] 09-22-2023 Note ASSESSMENT/PLAN: Munira was seen today for emg . Diagnoses and all orders for this visit: Bilateral carpal tunnel syndrome (Primary) Intervertebral disc disorders with radiculopathy, lumbar region - EMG Assessment: Bilateral severe carpal tunnel syndrome Evidence of sensory peripheral neuropathy, consider testing lower limbs (to confirm this DX) and peripheral neuropathy work up No clear evidence to support a cervical radiculopathy at this time, however it is important to note that cervical myelopathy typically does not demonstrate significant electrodiagnostic findings (if this is being considered as a cause to her gait abnormalities and upper limb symptoms). It is also pertinent to note that patient had evidence of peripheral neuropathy on today's study, which could account for some of her difficulties with balance. Plan: - Follow up with Dr Sevilla Risks, benefits, and alternatives to all new medications were discussed with patient. Continue all other medications as prescribed. All questions answered to patient's satisfaction. The patient was instructed to call if symptoms are worsening or not improving. The patient was counseled regarding impressions, instructions for management and importance of compliance with treatment. No follow-ups on file. Procedure Attestation: I was present for the entire procedure, or at minimum was present for rhodes and critical portions and I was otherwise immediately available to assist. The EMG nerve conduction study demonstrated severe carpal tunnel syndrome, with some evidence to support an underlying sensory peripheral neuropathy. Consider work-up for this condition or at minimum testing a lower limb to confirm the diagnosis. Gina Rush MD SUBJECTIVE: Munira Hernandez is a 53 y.o. female who presents to [facility] today for bilateral UE EMG/NCS Patient reports numbness, tingling, pain, and weakness for the past year and a half that starts in the neck and goes to bilateral fingers. She also notes difficulty walking on occasion as the feet feel different and can have weakness. Review of Systems Constitutional: Positive for fatigue. Negative for diaphoresis and fever. Respiratory: Negative for shortness of breath. Cardiovascular: Negative for chest pain and palpitations. Gastrointestinal: Negative for abdominal pain, nausea and vomiting. Musculoskeletal: Positive for back pain and neck pain. Neurological: Positive for dizziness and weakness. Negative for syncope, light-headedness and headaches. Psychiatric/Behavioral: Negative for confusion. Denies fevers, chills, nausea Patient Active Problem List Diagnosis Bilateral carpal tunnel syndrome Outpatient Medications Prior to Visit Medication Sig Dispense Refill albuterol 90 mcg/actuation inhaler As needed for shortness of breath apixaban (Eliquis) 5 mg tablet Take 2.5 mg by mouth twice a day. citalopram (CeleXA) 20 mg tablet TAKE 1 TABLET BY MOUTH NIGHTLY Oral for 30 Days cyclobenzaprine (Flexeril) 10 mg tablet Oral for 30 Days esomeprazole (NexIUM) [address] capsule Take 20 mg by mouth. gabapentin (Neurontin) 100 mg capsule Take 1 capsule (100 mg) by mouth in the morning, at noon, and at bedtime for 7 days. 21 capsule 0 gabapentin (Neurontin) 300 mg capsule Take 1 capsule (300 mg) by mouth in the morning, at noon, and at bedtime. AFTER FINISHING 100MG SCRIPT 90 capsule 0 hydrocortisone-acetic acid (Vosol-HC) otic solution Administer 3 drops into affected ear(s) twice a day. ibuprofen 600 mg tablet Take 600 mg by mouth every 6 (six) hours if needed. meloxicam (Mobic) 15 mg tablet TAKE 1 TABLET BY MOUTH IN THE MORNING FOR 21 DAYS methylPREDNISolone (Medrol Dospak) 4 mg tablets See administration instructions. omeprazole (PriLOSEC) [address] capsule 1 (one) time each day at the same time. phenazopyridine (Pyridium) 200 mg tablet TAKE 1 TABLET BY MOUTH THREE TIMES DAILY AFTER A MEAL FOR 2 DAYS predniSONE (Deltasone) 20 mg tablet triamcinolone (Kenalog) 0.1 % cream Apply topically. No facility-administered medications prior to visit. Allergies Allergen Reactions Clarithromycin Hives Other Reaction(s): Unknown Biaxin Biaxin OBJECTIVE: Vitals: 09/22/23 1428 BP: 153/77 BP Location: Right arm Patient Position: Sitting BP Cuff Size: Adult Pulse: 58 Weight: 122 kg (270 lb) Height: 1.676 m (5' 6 ) Body mass index is 43.58 kg/m???. Physical Exam: General: Pleasant, sitting comfortably in the room in no acute distress HEENT: No obvious deformities CVS: Extremities well perfused, no peripheral cyanosis in exposed areas Lung: Normal effort of breathing, no accessory muscle usage Psyche: Mood and affect appropriate and normal Skin: There is no petechiae, purpura noted. Skin is also warm and dry to touch. No erythema, infection, or wound at EMG/NCS sites Neurologically: Alert, oriented, followed commands, decreased sens (more content not included)... [facility] 04-21-2023 Evaluation note Encounter Date Diagnosis Assessment Notes March, Dysuria (ICD-10 - R30.0) March, Acute cystitis with hematuria (ICD-10 - N30.01) Take medication as directed. Urine analysis shows abnormalities today in office. Urine culture will be sent to lab. Will call with results if resistance present to antibiotic. Increase fluid intake. Follow hygiene guidelines such as wiping front to back, avoid using perfumed lotions, bath beads, bubble bath. Prevention tips inlcude urinating after sexual intercourse. Follow up with primary care provider or equipment technician if no improvement of symptoms. [facility] Other 02-04-2023 Evaluation note* Encounter Date Diagnosis Assessment Notes Treatment Notes Treatment Clinical Notes Dec, Bronchitis (ICD-10 - J40) Acute bronchitis material was printed Drink plenty fluids, get plenty of rest. Take the prednisone as prescribed until gone. Use the albuterol inhaler as prescribed as needed for cough or shortness of breath. Follow-up with your family physician if no improvement in 2 to 3 days. [facility] Other 01-20-2023 History general Narrative - Reported* Type Description Date Medical History acid reflux Medical History hx of blood clots in right leg a nd lung Medical History vertigo Surgical History cholecystectomy 1998 Hospitalization History blood clot in leg and rhina ngs 12/13 [facility] Other Evaluation noteNo assessment information available [facility] Work Phone: Evhmqtowrd noteNo InformationNort [facility] Other evaluation note* Diagnosis Anxiety Anxiety state, unspecified documented in this encounter [facility]* Diagnosis Laryngitis- Primary Acute laryngitis, without mention of obstruction Non-recurrent acute serous otitis media of both ears documented in this encounter [facility]* Diagnosis Acquired hypothyroidism Unspecified hypothyroidism [facility] Diagnosis Pre-op examination Postmenopausal bleeding Thickened endometrium Nonspecific (abnormal) findings on radiological and other examination of genitourinary organs Uterine leiomyoma, unspecified location [facility] Diagnosis Disc displacement, lumbar- Primary Displacement of lumbar intervertebral disc without myelopathy Chronic bilateral low back pain without sciatica [facility] current use of opiate analgesic [facility] N[facility]ative - Reported* Type Description Date Medical History acid reflux Medical History hx of blood clots in right leg a nd lung Medical History vertigo Medical History Anxiety Surgical History cholecystectomy 1998 Hospitalization History blood clot in leg and rhina ngs 12/13 [facility] Other InstructionsNot on filedocumented in this encounter [facility] filedocumented in this encounter [facility] on filedocumented in this encounter [facility] filedocumented in this [facility] filedocumented in this [facility] Summary Purpose Family History No Family History Records Found Relationship Condition Age at Onset Recorded Date/T lara father Heart disease Unknown Not Specified Deep vein thrombosis (DVT) Unknown Advance Directives No Advanced Directives Records Found Advance Directive Response Recorded Date/ Time Advance Directives No November 27, 2019 12:40pm Chief Complaint and Reason for Visit Chief Complaint R30.0 Additional Source Comments INFORMATION SOURCE (unrecogn ized section and content) DATE CREATED AUTHOR 08/20/2021 [facility] DATE CREATED AUTHOR AUTHOR'S ORGANIZ ATION 06/13/2022 [facility] DATE CREATED AUTHOR AUTHOR'S ORGANIZ ATION 05/02/2023 [facility] DATE CREATED AUTHOR AUTHOR'S ORGANIZ ATION 07/13/2024 [facility] DATE CREATED AUTHOR AUTHOR'S ORGANIZ ATION 09/13/2024 [facility] DATE CREATED AUTHOR AUTHOR'S ORGANIZ ATION 09/14/2024 [facility] DATE CREATED AUTHOR AUTHOR'S ORGANIZ ATION 09/29/2024 [facility] REASON FOR VISIT (unrecogniz ed section and content) Reason Onset Date Comments Results 11/19/2023 Reason Comments Med Refill Reason Comments Hoarse Feels like vocal cor ds are strained, no other symptoms Earache bilateral Reason Comments Pre-op Visit Reason Comments Neck Pain Back Pain Care Teams (unrecognized sec tion and content) Team Status: Active Member Role Status Dates Abel Murry MD Primary Care Provider Active Team Status: Inactive Member Role Status Dates Abel Murry MD Primary Care Provider Active Theo Woodall , WEB DESIGNER-C Attending Provider Activ e Production Line Manager Relationship Specialty Start Date End Date Abel Murry MD [address] [place] [address], [address] [place] [address] PCP - General Pediatrics 08/03/18 Production Line Manager Relationship Specialty Start Date End Date Abel Murry MD [address] [place] [address], [address] [place] [address] PCP - General Pediatrics 08/03/18 Production Line Manager Relationship Specialty Start Date End Date Abel Murry MD [address] [place] [address], [address] [place] [address] PCP - General Pediatrics 08/03/18 Production Line Manager Relationship Specialty Start Date End Date Abel Murry MD [address] [place] [address], [address] [place] [address] PCP - General Pediatrics 08/03/18 Production Line Manager Relationship Specialty Start Date End Date Abel Murry MD [address] [place] [address], [address] [place] [address] PCP - General Pediatrics 08/03/18 Production Line Manager Relationship Specialty Start Date End Date Abel Murry MD [address] [place] [address], [address] [place] [address] PCP - General Family Medicine 05/02/23 Production Line Manager Relationship Specialty Start Date End Date Abel Murry MD [address] [place] [address], [address] [place] [address] PCP - General Family Medicine 05/02/23 Production Line Manager Relationship Specialty Start Date End Date Abel Murry MD [address] [place] [address], [address] [place], [place] [id number] PCP - General Pediatrics 08/03/18 Goals (unrecognized section and content) Goals may be documented in a n alternate section FOR RECORDS PERTAINING TO PATIENTS WHO ARE OR HAVE BEEN ENROLLED IN A CHEMICAL DEPENDENCY/SUBSTANCEABUSE PROGRAM, SOME INFORMATION MAY BE OMITTED. This clinical summary was aggregated from multiple sources. Caution should be exercised in using it in the provision of clinical care. This summary normalizes information from multiple sources, and as a consequence, information in this document may materially change the coding, format and clinical context of patient data. In addition, data may be omitted in some cases. CLINICAL DECISIONS SHOULD BE BASED ON THE PRIMARY CLINICAL RECORDS. [employer] provides no warranty or guarantee of the accuracy or completeness of information in this document.
== END 2024-09-29 14:52 | disposition home or self-care (01) ==
LOC: PST 14:51
PROVIDERS: PCP Internal Medicine; Visit Provider Obstetrics & Gynecology
DX: Z01.810 Encounter for preprocedural cardiovascular examination (principal); N95.0 Postmenopausal bleeding; R93.89 Abnormal findings on diagnostic imaging of other specified body structures; D25.9 Leiomyoma of uterus, unspecified
CPT/HCPCS: 93005

== ENCOUNTER 2024-10-08 08:39 | Day surgery (SDC) | payer OTHER, SELFPAY ==
[2024-09-27 08:52] VITALS: BP 118/82; PULSE 52; TEMP 36.3; O2SAT 99; BMI 46.6
[2024-10-08] VITALS (9 sets, daily range): BP systolic 128–159; BP diastolic 69–91; PULSE 67–78; TEMP 36.4; O2SAT 93–98; BMI 46.4
--- OUTSIDE RECORDS SUMMARY | 2024-10-08 08:54 | XMS_ITS | CCD ---
Author Organization [facility] Care Team Providers Care Assembler Finger Buffs Name Role Phone DR ABEL MURRY Attending Unavailable LOVELY, DR ABEL Grossman Consulting Unavailable LOVELY, DR ABEL Grossman Admitting Unavailable Gely Deng Unavailable Theo Woodall Attending Unavaila Theo Johns Admitting UnavailAbel Lenz Primary Care Unavailable Theo Woodall Unavailable MD Abel Murry Primary Care Provider PREETI Woodall Attending Provider Abel Murry MD Primary Care Provider ABEL MURRY Attending Unavailable ABEL MURRY Referring Unavailable ABEL MURRY Primary Care Unavailable ABEL MURRY Attending Unavailable ABEL MURRY Referring Unavailable ABEL MURRY Primary Care Unavailable Abel Murry MD Primary Care Provider TERA MONTERO Admitting Unavailable TERA MONTERO Attending Unavailable TERA MONTERO Attending Unavailable MARIANO BURCH Attending Unavailable DI, MARIANO Referring Unavailable ID, MARIANO Referring Unavailable GINA SANTANA Attending Unavailable DI, MARIANO Referring Unavailable GINA SANTANA Attending Unavailable DI, MARIANO Referring Unavailable TERA MONTERO Attending Unavailable KEVIN BURCHIN Attending Unavailable GO JOHNSON Attending Unavailable ASHOK REYES Attending Unavailable ASHOK REYES Attending Unavailable LALI JONES Attending Unavailable ABEL MURRY Referring Unavailable ABEL MURRY Primary Care Unavailable REINALDO MAI Admitting Unavailable REINALDO MAI Attending Unavailable ABEL MURRY Referring Unavailable MILANDABEL Primary Care Unavailable HICKAND, ABEL Grossman Referring Unavailable HIESTAND, ABEL Grossman Primary Care Unavailable REINALDO MAI Admitting Unavailable REINALDO MAI Attending Unavailable REINALDO MAI Referring Unavailable HIESTAND, ABEL Grossman Primary Care Unavailable REINALDO MAI Attending Unavailable REINALDO MAI Referring Unavailable HIESTAND, ABEL Grossman Primary Care Unavailable DINA JONES Attending Unavailable HIESTAND, ABEL Grossman Referring Unavailable HIESTAND, ABEL Grossman Primary Care Unavailable DINA JONES M Attending Unavailable SHIVANI JONESA M Referring Unavailable HIESTAND, ABEL Grossman Primary Care Unavailable DINA JONES M Referring Unavailable HIESTAND, ABEL Grossman Primary Care Unavailable HIESTAND, ABEL Grossman Referring Unavailable HIESTAND, ABEL Grossman Primary Care Unavailable ROBERT, DINA M Referring Unavailable HIESTAND, ABEL Grossman Primary Care Unavailable DINA JONES M Attending Unavailable HIESTAND, ABEL Grossman Referring Unavailable HIESTAND, ABEL Grossman Primary Care Unavailable HIESTAND, ABEL Grossman Referring Unavailable HIESTAND, ABEL Grossman Primary Care Unavailable ASHOK REYES Referring Unavailable HIESTAND, ABEL Grossman Primary Care Unavailable SHIVANI JONESA M Referring Unavailable HIESTAND, ABEL Grossman Primary Care Unavailable DINA JONES M Attending Unavailable MILANDABEL Referring Unavailable HIESTAND, ABEL Grossman Primary Care Unavailable ROBERT, DINA M Referring Unavailable HIESTAND, ABEL Grossman Primary Care Unavailable Allergies Allergy Classification Reported Allergen(s) Allergy Type Date of Onset Reaction(s) Facility (6 sources) Clarithromycin; Translations: [CLARITHROMYCIN] Drug Allergy 11-27-19 Swelling of Lip/Tongue/Thr oat [facility] Repository (6 sources) Clarithromycin Drug Allergy 03-08-20 [facility] (2 sources) Clarithromycin Propensity to adverse reactions 03-08-20 [facility] Healthcare Medications Current Medications Medication Drug [...] (BMI) of 45.0 to 49.9 in adult (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 Creatinine, U 217.3 mg/dL Specific [place] 1.027 pH 5.6 Oxidants Negative -- REFERENCE VALUE -- Cutoff: 200 mg/L Comment Normal Barbiturates Negative ng/mL Cutoff: 200 Cocaine Negative ng/mL Cutoff: 150 This cocaine immunoassay targets benzoylecgonine the primary metabolite of cocaine. Tetrahydrocannabinol Negative ng/mL Cutoff: 50 This immunoassay targets delta-9 tetrahydrocannabinol carboxylic acid (THC-COOH), a metabolite of delta-9 tetrahydrocannabinol the main psychoactive ingredient of marijuana. ADDITIONAL INFORMATION This report is intended for use in clinical monitoring or management of patients. It is not intended for use in employment-related testing. Codeine Not Detected ng/mL Cutoff: 25 Tylenol 3 Ctwyklf-5-jepy- Not Detected ng/mL Cutoff: 100 glucuronide Metabolite of codeine Morphine Not Detected ng/mL Cutoff: 25 Rhianna Cole, MS Contin; Also a minor metabolite (10%) of codeine and can be seen in low concentrations (<2,000 ng/mL) with poppy seed ingestion. Ogythcfq-6-vlmb- Not Detected ng/mL Cutoff: 100 glucuronide Metabolite of morphine 6-monoacetylmorphine Not Detected ng/mL Cutoff: 25 Metabolite of heroin Hydrocodone Not Detected ng/mL Cutoff: 25 Lortab, [place], Vicodin; Also a very minor metabolite of codeine and impurity (<1%) of oxycodone. Norhydrocodone Not Detected ng/mL Cutoff: 25 Metabolite of hydrocodone Dihydrocodeine Not Detected ng/mL Cutoff: 25 Metabolite of hydrocodone Hydromorphone Not Detected ng/mL Cutoff: 25 Dilaudid, Exalgo; Also a metabolite of hydrocodone and a minor (<5%) metabolite of morphine. Fzaqlofrnucoa-2-qknq- Not Detected ng/mL Cutoff: 100 glucuronide Metabolite of hydromorphone Oxycodone Not Detected ng/mL Cutoff: 25 Endocet, Percocet, Oxycontin Noroxycodone Not Detected ng/mL Cutoff: 25 Metabolite of oxycodone Oxymorphone Not Detected ng/mL Cutoff: 25 Numorphan, Opana; Also a metabolite of oxycodone. Dijiqzyzmnu-4-klmi- Not Detected ng/mL Cutoff: 100 glucuronide Metabolite of oxymorphone and/or naloxone (nornaloxone) Noroxymorphone Not Detected ng/mL Cutoff: 25 Metabolite of oxymorphone and/or naloxone (nornaloxone) Fentanyl Not Detected ng/mL Cutoff: 2 Actiq, Duragesic, Fentora Norfentanyl Not Detected ng/mL Cutoff: 2 Metabolite of fentanyl Meperidine Not Detected ng/mL Cutoff: 25 Demerol Normeperidine Not Detected ng/mL Cutoff: 25 Metabolite of meperidine Naloxone Not Detected ng/mL Cutoff: 25 Narcan Fxuwbhfg-2-kdys- Not Detected ng/mL Cutoff: 100 glucuronide Metabolite of naloxone Methadone Not Detected ng/mL Cutoff: 25 Dolophine EDDP Not Detected ng/mL Cutoff: 25 Metabolite of methadone Propoxyphene Not Detected ng/mL Cutoff: 25 Darvon, Darvocet Norpropoxyphene Not Detected ng/mL Cutoff: 25 Metabolite of propoxyphene Tramadol Not Detected ng/mL Cutoff: 25 Tradol, Ultram, Ultracet O-desmethyltramadol Not Detected ng/mL Cutoff: 25 Metabolite of tramadol Tapentadol Not Detected ng/mL Cutoff: 25 Nucynta N-desmethyltapentadol Not Detected ng/mL Cutoff: 50 Metabolite of tapentadol Tapentadol-beta- Not Detected ng/mL Cutoff: 100 glucuronide Metabolite of tapentadol Buprenorphine Not Detected ng/mL Cutoff: 5 Buprenex, Suboxone Norbuprenorphine See Note ng/mL Cutoff: 5 Metabolite of buprenorphine Unknown interfering substance present; unable to obtain results. Norbuprenorphine Not Detected ng/mL Cutoff: 20 glucuronide Metabolite of buprenorphine Opioid Interpretation See Note No opioids were detected. The absence of expected drug(s) and/or drug metabolite(s) may indicate non-compliance, altered pharmacokinetics, inappropriate timing of specimen collection relative to drug administration, diluted/adulterated urine, or limitations of testing. ADDITIONAL INFORMATION This test was developed and its performance characteristics determined by [facility] in a manner consistent with CLIA requirements. This test has not been cleared or approved by the U.S. Food and Drug Administration. Alprazolam Not Detected ng/mL Cutoff: 10 Xanax Alpha-Hydroxyalprazolam Not Detected ng/mL Cutoff: 10 Metabolite of Alprazolam Alpha-Hydroxyalprazolam Not Detected ng/mL Cutoff: 50 Glucuronide Metabolite of Alprazolam Chlordiazepoxide Not Detected ng/mL Cutoff: 10 Librium Clobazam Not Detected ng/mL Cutoff: 10 Frisium, Onfi N-Desmethylclobazam Not Detected ng/mL Cutoff: 200 Metabolite of (more content not included)... Office Visiton 09-07-2024 Follow-up visit [id number] IsabelleVickiekellen Franco 1970 F Date Provider Department Center 09/07/2024 TERA [facility] Family History Problem Relation Age of Onset Cancer Mother Cancer Father Cancer Sister Cancer Sister Diabetes Sister Family Status - Relation Status Age at Mother Father Sister Sister Sister Level of Service:73190 [place] POSTOP FOLLOW UP VISIT RELATED TO ORIGINAL PX (GC) Reason for Visit and Comments: Post-op [483] Post-op [483] Normal [facility] HPon 08-25-2024 HP History Of Present Illness Munira Hernandez is a 54 y.o. female presenting with B CTS and a R ring trigger digit. [facility] is scheduled for B CTR and R RF trigger release. Past Medical History She has a past medical history of Adverse effect of anesthesia, Arthritis (Just recent), Back pain, CTS (carpal tunnel syndrome) (Dr Santana), Delayed emergence from general anesthesia, Foot pain, [...] mcg by mouth before breakfast. 08/25/2024 ??? multivit-minerals/folic acid (CENTRUM ADULT 50 PLUS ORAL) Past [...] B CTR, R RF A1 release Normal [facility] OPNOTEon 08-25-2024 OPNOTE Operative Note Patient: Munira Hernandez Date of Surgery: 08/25/2024 : 1970 Pre-operative Diagnosis: 1. Carpal Tunnel Syndrome Both Hands 2. Trigger Digit Right Ring Finger Post-operative Diagnosis: same Operation: 1. Carpal Tunnel Release, Bilateral (85507) 2. Trigger Digit Release Right Ring Finger (81971) Surgeon: Tera Montero MD Printing Agent: Fan De Leon MD Staff: Indian Trader: Shiloh Calvin RN Scrub Person: Ella Tapia CST [place] Indian Trader: Ismael Frazier RN Anesthesia Type: MAC Indications: [...] the hamate as a landmark delete. The ScoopStake carpal tunnel release device was inserted into [...] a 2 x 2, OpSite and an Binh bandage was applied. While the trigger injection [...] the hamate as a landmark delete. The ScoopStake carpal tunnel release device was inserted into the carpal tunnel and advanced to the distal end of the transverse carpal liga (more content not included)... Normal [facility] POCT GLUCOSE METER UNSOLICIT ED RESULTSon 08-25-2024 Glucose [Mass/Vol] 92 mg/dL Normal 70-105 [facility] Comment on above: Order Comment: Waive d Testing in the ED is performed under the ED CLIA certificate #[id number]. Result Comment: jhag eman Performed By: #### L [id number] ####[facility] ([facility]AK[facility])[address] [place] [address] Orders Onlyon 08-18-2024 Orders Only [id number] Vickie Hernandez sa A 1970 F Date Provider Department Center 08/18/2024 803-CASE, CHINO RAO ORTHO MPORTHO Family History Problem Relation Age of Onset Cancer Mother Cancer Father Cancer Sister Cancer Sister Diabetes Sister Family Status - Relation Status Age at Mother Father Sister Sister Sister Normal [facility] CBC AND AUTO DIFFon 08-16-20 24 ABSOLUTE BASOPHIL 0.0 X10E9/L Normal 0.0-0.2 [facility] Comment on above: Performed By: #### C BCA, THYR, 2132-07, 01735-6 #### [facility] ([id number]) [address] [place] [address], [address] [place] [address] #### TTAG, 2900-9 #### [facility] ([id number]) [address] [place] [address] ABSOLUTE NEUTROPHIL 4.4 X10E9/L Normal 1.5-6.6 [facility] Comment on above: Performed By: #### C BCA, THYR, 2132-07, 60032-1 #### [facility] ([id number]) [address] [place] [address], [address] [place] [address] #### TTAG, 2900-9 #### [facility] ([id number]) [address] [place] [address] 82878 Basophils/100 WBC (Bld) 0.7 % Normal [facility] Comment on above: Performed By: #### C PAULINA, THYR, 2132-07, 89916-3 #### [facility] ([id number]) [address], [address] [place] [address] #### KASEY, 2909 #### [facility] ([id number]) [address] [place] [address] 86549 Eosinophils (Bld) [#/Vol] 0.1 10*3/uL Normal 0.0-0.4 [facility] Comment on above: Performed By: #### C PAULINA, THYR, 2132-07, 45075-9 #### [facility] ([id number]) [address] [facility], [address] [place] [address] #### KASEY, 9 #### [facility] ([id number]) [address] [place] [address] 21659 Eosinophils/100 WBC (Bld) 1.8 % Normal [facility] Comment on above: Performed By: #### C PAULINA, THYR, 2132-07, 03343-0 #### [facility] ([id number]) [address] [facility], [address] [place] [address] #### KASEY, 9 #### [facility] ([id number]) [address] [place] [address] 92163 Erythrocyte distribution width (RBC) [Ratio] 14.9 % Normal 11.5-15.0 [facility] Comment on above: Performed By: #### Velma GALLARDO, THYR, 2132-07, 80239-5 #### [facility] ([id number]) [address], [address] [place] [address] #### KASEY, 9 #### [facility] ([id number]) [address] [place] [address] 82441 Hematocrit (Bld) [Volume fraction] 41.8 % Normal 35-47 [facility] Comment on above: Performed By: #### C BCA, THYR, 2132-07, 79575-9 #### [facility] ([id number]) [address], [address] [place] [address] #### TTAG, 29009 #### [facility] ([id number]) [address] [place] [address] 76452 Hemoglobin (Bld) [Mass/Vol] 13.9 g/dL Normal 11.7-15.5 [facility] Comment on above: Performed By: #### C BCA, THYR, 2132-07, 79190-1 #### [facility] ([id number]) [address] [facility], [address] [place] [address] #### TTAG, 29009 #### [facility] ([id number]) [address] [place] [address] 69529 Lymphocytes (Bld) [#/Vol] 1.2 10*3/uL Normal 1.0-3.5 [facility] Comment on above: Performed By: #### C BCA, THYR, 2132-07, 41852-5 #### [facility] ([id number]) [address], [address] [place] [address] #### TTAG, 2900-9 #### [facility] ([id number]) [address] [place] [address] 58306 Lymphocytes/100 WBC (Bld) 19.7 % Normal [facility] Comment on above: Performed By: #### C BCA, THYR, 2132-07, 37660-3 #### [facility] ([id number]) [address], [address] [place] [address] #### TTAG, 29009 #### [facility] ([id number]) [address] [place] [address] 11376 MCH (RBC) [Entitic mass] 27.3 pg Normal 27-34 [facility] Comment on above: Performed By: #### C BCA, THYR, 2132-07, 66718-2 #### [facility] ([id number]) [address] [place] [address], [address] [place] [address] #### TTAG, 29009 #### [facility] ([id number]) [address] [place] [address] 24476 MCHC (RBC) [Mass/Vol] 33.2 g/dL Normal 32-36 [facility] Comment on above: Performed By: #### Velma BCA, THYR, 2132-07, 88780-1 #### [facility] ([id number]) [address] [place] [address], [address] [place] [address] #### TTAG, 29009 #### [facility] ([id number]) [address] [place] [address] 09191 MCV (RBC) [Entitic vol] 82 fL Normal 80-100 [facility] Comment on above: Performed By: #### C BCA, THYR, 2132-07, 79846-0 #### [facility] ([id number]) [address] [place] [address], [address] [place] [address] #### TTAG, 29009 #### [facility] ([id number]) [address] [place] [address] 69581 Monocytes (Bld) [#/Vol] 0.5 10*3/uL Normal 0-0.9 [facility] Comment on above: Performed By: #### Velma BCA, THYR, 2132-07, 63056-5 #### [facility] ([id number]) [address] [facility], [address] [place] [address] #### TTAG, 2900-9 #### [facility] ([id number]) [address] [place] [address] 63590 Monocytes/100 WBC (Bld) 7.6 % Normal [facility] Comment on above: Performed By: #### C BCA, THYR, 2132-07, 65008-2 #### [facility] ([id number]) [address] [facility], [address] [place] [address] #### TTAG, 2900-9 #### [facility] ([id number]) [address] [place] [address] 66405 Neutrophils/100 WBC (Bld) 70.2 % Normal [facility] Comment on above: Performed By: #### Velma GALLARDO, THYR, 2132-07, 28670-4 #### [facility] ([id number]) [address] [facility], [address] [place] [address] #### TTAG, 2900-9 #### [facility] ([id number]) [address] [place] [address] 52554 Platelet mean volume (Bld) [Entitic vol] 6.9 fL Low 7-12 [facility] Comment on above: Performed By: #### Velma BCA, THYR, 2132-07, 91441-8 #### [facility] ([id number]) [address] [facility], [address] [place] [address] #### TTAG, 2900-9 #### [facility] ([id number]) [address] [place] [address] 55345 Platelets (Bld) [#/Vol] 245 10*3/uL Normal 150-450 [facility] Comment on above: Performed By: #### C BCA, THYR, 2132-07, 61897-1 #### [facility] ([id number]) [address], [address] [place] [address] #### TTAG, 29009 #### [facility] ([id number]) [address] [place] [address] 74840 RBC COUNT 5.10 X10E12/L Normal 3.80-5.20 [facility] Comment on above: Performed By: #### C BCA, THYR, 2132-07, 37482-7 #### [facility] ([id number]) [address] [facility], [address] [place] [address] #### TTAG, 2909 #### [facility] ([id number]) [address] [place] [address] 04517 WBC (Bld) [#/Vol] 6.3 10*3/uL Normal 4.0-11.0 [facility] Comment on above: Performed By: #### C BCA, THYR, 2132-07, 02818-3 #### [facility] ([id number]) [address] [facility], [address] [place] [address] #### TTAG, 2909 #### [facility] ([id number]) [address] [place] [address] 54580 HGB A1C (GLYCO-HGB)on 2023 Glucose [Mass/Vol] 114 mg/dL Normal [facility] Comment on above: Performed By: #### C BCA, THYR, 2132-07, 47028-4 #### [facility] ([id number]) [address], [address] [place] [address] #### TTAG, 29009 #### [facility] ([id number]) [address] [place] [address] 27957 HbA1c (Bld) [Mass fraction] 5.6 % Normal 4.4-5.6 [facility] Comment on above: Result Comment: NOTE ADA Guidelines Result HgbA1c Normal : less than 5.7 % Prediabetes : 5.7 % to 6.4 % Diabetes : > 6.4 % Use with caution in patients with abnormal hemoglobin variants as the half-life of red blood cells and in vivo glycation rates are affected. Performed By: #### C BCA, THYR, 2132-07, 23309-9 #### [facility] ([id number]) [address] [facility], [address] [place] [address] #### TTAG, 2900-9 #### [facility] ([id number]) [address] [place] [address] 22434 THYROID PROFILEon 08-16-2024 Free T4 [Mass/Vol] 0.81 ng/dL Normal 0.61-1.60 [facility] Comment on above: Performed By: #### C BCA, THYR, 2132-07, 48538-7 #### [facility] ([id number]) [address] [facility], [address] [place] [address] #### TTAG, 2900-9 #### [facility] ([id number]) [address] [place] [address] 11244 TSH 3.36 uIU/mL Normal 0.49-4.67 [facility] Comment on above: Performed By: #### C BCA, THYR, 2132-07, 19034-7 #### [facility] ([id number]) [address] [facility], [address] [place] [address] #### TTAG, 2900-9 #### [facility] ([id number]) [address] [place] [address] 98715 US PELVIC WITH TRANSVAGINALo 08-16-2024 US PELVIC [...] Horton MD on 08/16/2024 2:30 PM Normal [facility] THYROID PROFILEon 07-12-2024 Free T4 [Mass/Vol] 0.81 ng/dL Normal 0.61-1.60 [facility] Comment on above: Performed By: #### T HYR #### [facility] ([id number]) [address], [address] [place] [address] TSH 8.06 uIU/mL High 0.49-4.67 [facility] Comment on above: Performed By: #### T HYR #### [facility] ([id number]) [address], [address] [place] [address] XR LUMBAR SPINE AP, LATERAL, FLEXION AND [...] Bryan MD on 07/06/2024 6:05 PM Normal [facility] XR SPINE THORACIC MIN 4 VWSo [...] Martin Bryan MD on 07/06/2024 4:53 PM [facility] 36on 06-22-2024 36 Sent to [facility] Follow-Upon 06-22-2024 Follow-Up [id number] Vickie Hernandez sa A 1970 F Date Provider Department Center 06/22/2024 438-TERA MONTERO MP ORTHO MPORTHO Family History Problem Relation Age of Onset Cancer Mother Cancer Father Cancer Sister Cancer Sister Diabetes Sister Family Status - Relation Status Age at Mother Father Sister Sister Sister Level of Service:96026 [place] OFFICE/OUTPATIENT ESTABLISHED LOW MDM 20 MIN (GC) Reason for Visit and Comments: Pain [136] Pain [136] [facility] Follow-Upon 04-21-2024 Follow-Up [id number] IsabelleVickie ralph A 1970 F Date Provider Department Center 04/21/2024 266-MARIANO BURCH MP ORTHO MPORTHO No family history on file Level of Service:78714 [place] OFFICE/OUTPATIENT ESTABLISHED LOW MDM 20 MIN Reason for Visit and Comments: Follow-up [167498] - Patient here today to go MRI results. Pain [136] - Patient here today to go MRI results. Normal [facility] 36on 02-25-2024 36 VM left advising patient we need the actual CD, not just the report. Asked to return call with any questions/concerns. Normal [facility] 36on 02-24-2024 36 Returned call and le ft message with patient [facility] 36 Patient wanting to k now if pdi sent report of cervical spine mri Normal [facility] 36on 01-28-2024 36 Spoke to Chase Estes reason states need 6 weeks pt within past 6 months. I dont see that this has been completed. Will refer patient to PT. Call to patient - notified of referral, she verbalized understanding. She will call [facility] facility to cancel everything. [facility] 36 Per phone encounter on 01/02 the patient told me this was approved. Per phone encounter 01/14, message was sent back asking what they needed and I received no response. If it was denied they need to send me a denial letter so I have information to submit an appeal. [facility] 36 Mri denied and sandoval d office back on 01/16 and nothing was ever done by staff per the insurance company now [facility] precert is wanting further clarity, please return call PATIENT IS SCHEDULE THIS UPCOMING Friday02/02/24 [facility] 36on 01-14-2024 36 What do they need [facility] 36 Appeals number: [phone] Tracking number :[id number] Patient reschedule :02/02/24 [facility] precert call if needed [facility] 36on 01-02-2024 36 [facility] encounter. [facility] Patient states she h as talked to the facility and this has been approved. Advised her to call me if she has any issues. [facility] 36on 12-31-2023 36 [facility] pre cert calling- mri denied MRI cervical spine- peer to peer is available for up to 5 business days Denied on 12/29/2023 Wanting 6 weeks of neck pt or chiropractor treatment in the past 6 months [facility] Follow-Upon 12-03-2023 Follow-Up [id number] Vickie Hernandez sa 1970 F Date Provider Department Center 12/03/2023 Jackeline-MARIANO BURCH MP ORTHO MPORTHO No family history on file Level of Service:24876 [place] OFFICE/OUTPATIENT ESTABLISHED LOW MDM 20 MIN (GC) Reason for Visit and Comments: Follow-up [575841] - EMG results Follow-up [505632] Normal [facility] CBC AND AUTO DIFFon 11-10-20 23 ABSOLUTE BASOPHIL 0.0 X10E9/L Normal 0.0-0.2 [facility] Comment on above: Performed By: #### C PAULINA, THYR, 2132-07, 56331-3 #### [facility] ([id number]) [address] [facility], [address] [place] [address] #### KASEY, 29009 #### [facility] ([id number]) [address] [place] [address] 22253 ABSOLUTE NEUTROPHIL 5.2 X10E9/L Normal 1.5-6.6 [facility] Comment on above: Performed By: #### C PAULINA, THYR, 2132-07, 40968-9 #### [facility] ([id number]) [address] [facility], [address] [place] [address] #### KASEY, 29009 #### [facility] ([id number]) [address] [place] [address] 32704 Basophils/100 WBC (Bld) 0.4 % Normal [facility] Comment on above: Performed By: #### C PAULINA, THYR, 2132-07, 38245-6 #### [facility] ([id number]) [address] [facility], [address] [place] [address] #### TTAG, 29009 #### [facility] ([id number]) [address] [place] [address] 20802 Eosinophils (Bld) [#/Vol] 0.1 10*3/uL Normal 0.0-0.4 [facility] Comment on above: Performed By: #### C BCA, THYR, 2132-07, 32917-6 #### [facility] ([id number]) [address] [facility], [address] [place] [address] #### TTAG, 29009 #### [facility] ([id number]) [address] [place] [address] 97109 Eosinophils/100 WBC (Bld) 1.8 % Normal [facility] Comment on above: Performed By: #### C BCA, THYR, 2132-07, 76862-9 #### [facility] ([id number]) [address] [facility], [address] [place] [address] #### TTAG, 2909 #### [facility] ([id number]) [address] [place] [address] 03908 Erythrocyte distribution width (RBC) [Ratio] 15.1 % High 11.5-15.0 [facility] Comment on above: Performed By: #### C BCA, THYR, 2132-07, 65694-4 #### [facility] ([id number]) [address] [facility], [address] [place] [address] #### TTAG, 29009 #### [facility] ([id number]) [address] [place] [address] 60394 Hematocrit (Bld) [Volume fraction] 38.2 % Normal 35-47 [facility] Comment on above: Performed By: #### C BCA, THYR, 2132-07, 57542-3 #### [facility] ([id number]) [address] [facility], [address] [place] [address] #### TTAG, 29009 #### [facility] ([id number]) [address] [place] [address] 81552 Hemoglobin (Bld) [Mass/Vol] 12.8 g/dL Normal 11.7-15.5 [facility] Comment on above: Performed By: #### C BCA, THYR, 2132-07, 10752-8 #### [facility] ([id number]) [address] [place] [address], [address] [place] [address] #### TTAG, 29009 #### [facility] ([id number]) [address] [place] [address] 78373 Lymphocytes (Bld) [#/Vol] 1.3 10*3/uL Normal 1.0-3.5 [facility] Comment on above: Performed By: #### C BCA, THYR, 2132-07, 56413-1 #### [facility] ([id number]) [address] [place] [address], [address] [place] [address] #### TTAMichael, 2909 #### [facility] ([id number]) [address] [place] [address] 01607 Lymphocytes/100 WBC (Bld) 18.4 % Normal [facility] Comment on above: Performed By: #### C BCA, THYR, 2132-07, 75436-2 #### [facility] ([id number]) [address] [place] [address], [address] [place] [address] #### KASEY, 2909 #### [facility] ([id number]) [address] [place] [address] 47262 MCH (RBC) [Entitic mass] 27.1 pg Normal 27-34 [facility] Comment on above: Performed By: #### Velma BCA, THYR, 2132-07, 12316-1 #### [facility] ([id number]) [address] [place] [address], [address] [place] [address] #### TTAG, 29009 #### [facility] ([id number]) [address] [place] [address] 33591 MCHC (RBC) [Mass/Vol] 33.5 g/dL Normal 32-36 [facility] Comment on above: Performed By: #### C BCA, THYR, 2132-07, 27788-0 #### [facility] ([id number]) [address], [address] [place] [address] #### TTAG, 29009 #### [facility] ([id number]) [address] [place] [address] 65808 MCV (RBC) [Entitic vol] 81 fL Normal 80-100 [facility] Comment on above: Performed By: #### C BCA, THYR, 2132-07, 84644-5 #### [facility] ([id number]) [address] [facility], [address] [place] [address] #### KASEY, 29009 #### [facility] ([id number]) [address] [place] [address] 01263 Monocytes (Bld) [#/Vol] 0.5 10*3/uL Normal 0-0.9 [facility] Comment on above: Performed By: #### C BCA, THYR, 2132-07, 19406-7 #### [facility] ([id number]) [address] [facility], [address] [place] [address] #### KASEY, 9 #### [facility] ([id number]) [address] [place] [address] 44361 Monocytes/100 WBC (Bld) 7.2 % Normal [facility] Comment on above: Performed By: #### C BCA, THYR, 2132-07, 74022-6 #### [facility] ([id number]) [address] [facility], [address] [place] [address] #### TTAG, 2909 #### [facility] ([id number]) [address] [place] [address] 62750 Neutrophils/100 WBC (Bld) 72.2 % Normal [facility] Comment on above: Performed By: #### C BCA, THYR, 2132-07, 83271-4 #### [facility] ([id number]) [address] [place] [address] #### TTAG, 2900-9 #### [facility] ([id number]) [address] [place] [address] 33320 Platelet mean volume (Bld) [Entitic vol] 6.8 fL Low 7-12 [facility] Comment on above: Performed By: #### C BCA, THYR, 2132-07, 44931-5 #### [facility] ([id number]) [address] [facility], [address] [place] [address] #### TTAMichael, 2900-9 #### [facility] ([id number]) [address] [place] [address] 31428 Platelets (Bld) [#/Vol] 254 10*3/uL Normal 150-450 [facility] Comment on above: Performed By: #### C BCA, THYR, 2132-07, 83488-5 #### [facility] ([id number]) [address] [facility], [facility] [address] [place] [address] #### TTAG, 2900-9 #### [facility] ([id number]) [address] [place] [address] 33363 RBC COUNT 4.73 X10E12/L Normal 3.80-5.20 [facility] Comment on above: Performed By: #### C BCA, THYR, 2132-07, 53786-6 #### [facility] ([id number]) [address] [facility], [facility] [address] [place] [address] #### TTAG, 2900-9 #### [facility] ([id number]) [address] [place] [address] 08417 WBC (Bld) [#/Vol] 7.2 10*3/uL Normal 4.0-11.0 [facility] Comment on above: Performed By: #### C BCA, THYR, 2132-07, 81575-8 #### [facility] ([id number]) [address] [place] [address], [address] [place] [address] #### TTAG, 2900-9 #### [facility] ([id number]) [address] [place] [address] 19620 Nuclear Ab IA Ql (S)on 11-10 SAMRA Screen w/reflex Negative Normal NEG [facility] Comment on above: Result Comment: Testing performed using multiplex flow immunoassay. Eleven different antigens associated with systemic autoimmune diseases (dsDNA,Sm,Sm/EMPLOYEE RELATION MANAGER,EMPLOYEE RELATION MANAGER,Chromatin, SSA,SSB,Yumiko-1,Scl70,Ribo P,Centromere B) are included in this screening test. Performed By: #### C BCA, THYR, 2132-07, 71775-8 #### [facility] ([id number]) [address] [place] [address], [facility] [address] [place] [address] #### TTAG, 29009 #### [facility] ([id number]) [address] [place] [address] 64278 Pyridoxine [Mass/Vol]on 10-24 VITAMIN B6 16.9 nmol/L Low 20.0-125.0 [facility] Comment on above: Result Comment: NOTE INTERPRETIVE INFORMATION: Vitamin B6 (Pyridoxal 5-Phosphate) Pyridoxal 5'-phosphate measured in a specimen collected following an 8-hour or overnight fast accurately indicates vitamin B6 nutritional status. Non-fasting specimen concentration reflects recent vitamin intake. This test was developed and its performance characteristics determined by [employer]. It has not been cleared or approved by the US Food and Drug Administration. This test was performed in a CLIA certified laboratory and is intended for clinical purposes. Performed By: [employer] [address] [place] [address] College And Career Counselor: Bryan Murray MD, PhD CLIA Number: [id number] Performed By: #### C BCA, THYR, 2132-07, 25536-1 #### [facility] ([id number]) [address] [facility], [address] [place] [address] #### TTAG, 2900-9 #### [facility] ([id number]) [address] [facility] [place] [address] Reference Lab Test IDon 12-1 HEAVY METALS SCR See Below Normal [facility] Comment on above: Result Comment: [...] developed and its performance characteristics determined by [employer]. It has not been cleared or approved [...] developed and its performance characteristics determined by [employer]. It has not been cleared or approved [...] developed and its performance characteristics determined by [employer]. It has not been cleared or approved [...] included)... Performed By: #### 3 0896-5 #### [facility] ([id number]) [address] [place] [address] 33452 THYROID PROFILEon 11-10-2023 Free T4 [Mass/Vol] 0.63 ng/dL Normal 0.61-1.60 [facility] Comment on above: Performed By: #### C BCA, THYR, 2132-07, 47176-9 #### [facility] ([id number]) [address] [facility], [address] [place] [address] #### TTAG, 29009 #### [facility] ([id number]) [address] [place] [address] 82782 TSH 4.88 uIU/mL High 0.49-4.67 [facility] Comment on above: Performed By: #### C BCA, THYR, 2132-07, 06606-2 #### [facility] ([id number]) [address] [facility], [address] [place] [address] #### TTAG, 29009 #### [facility] ([id number]) [address] [place] [address] 03070 TTG AB IGA IGGon 11-10-2023 TTG AB IGA <1.2 Normal <4.0 (Negative) [facility] Comment on above: Performed By: #### C BCA, THYR, 2132-07, 86747-9 #### [facility] ([id number]) [address] [facility], [address] [place] [address] #### TTAG, 29009 #### [facility] ([id number]) [address] [place] [address] 61165 TTG AB IGG 4.9 U/mL Normal <6.0 (Negative) [facility] Comment on above: Result Comment: NOTE Test Performed by: [facility] [address] [place] [address] Roll Forming Supervisor: Reinaldo Hare M.D. Ph.D.; CLIA# [id number] Performed By: #### C BCA, THYR, 9, 17349-7 #### [facility] ([id number]) [address] [place] [address], [address] [place] [address] #### TTAG, 2900-9 #### [facility] ([id number]) [address] [place] [address] 60044 VITAMIN B12on 11-10-2023 Cobalamin (Vitamin B12) [Mass/Vol] 487 pg/mL Normal 180-914 [facility] Comment on above: Performed By: #### C BCA, THYR, 2132-07, 36974-3 #### [facility] ([id number]) [address] [place] [address], [address] [place] [address] #### TTAG, 2900-9 #### [facility] ([id number]) [address] [place] [address] 85590 Procedure Visiton 10-27-2023 Procedure Visit [id number] Vickie Hernandez sa A 1970 F Date Provider Department Center 10/27/2023 GINA YE MP PHYS MED Medical Pavi No family history on file Level of Service:43242 [place] OFFICE/OUTPT VISIT,PROCEDURE ONLY Reason for Visit and Comments: EMG [Other] - EMG-BLE [facility] 36on 10-02-2023 36 scheduled [address] [facility] 36 She will need to sierra k to Dr. Burch at her next appointment. Normal [facility] 36 Patient was informed and will schedule EMG. Pt was also asking about some labs for neuropathy ??? [facility] 36on 10-01-2023 36 Ordered, please let patient know. [facility] 36 Patient had bilatera l UPPER EMG done yesterday but she is now requesting bilateral LOWER as well... Are you ok to order this or do you want her to be seen first? [facility] 36on 09-30-2023 36 She had an EMG today . Please schedule her an appointment for the first available for results and I will add her to my cancellation list. [facility] 36 Patient would like t o get an order for [place] lower extremities EMG recommended by PM&R [facility] Telephoneon 09-30-2023 Telephone [id number] Vickie Hernandez sa A 1970 F Date Provider Department Center 09/30/2023 ARTUR CHRISTIE MP ORTHO MPORTHO No family history on file Reason for Visit and Comments: Request For Order(s) [706] [facility] Procedure Visiton 09-22-2023 Procedure Visit [id number] Vickie Hernandez sa A 1970 F Date Provider Department Center 09/22/2023 GINA YE MP PHYS MED Medical Pavi No family history on file Level of Service:12310 [place] OFFICE/OUTPT VISIT,PROCEDURE ONLY Reason for Visit and Comments: EMG [Other] - BUE [facility] Urinalysis - AUTOMATEDon Appearance (U) clear [employer] Other Bilirubin Ql (U) Negative [employer] Other Color (U) yellow [employer] Other Glucose Ql (U) Negative [employer] Other Hemoglobin Ql (U) Large [employer] Other Ketones Ql (U) Negative [employer] Other Leukocyte esterase Test strip Ql (U) Small [employer] Other Nitrite Ql (U) Negative [employer] Other pH (U) 6.0 [pH] [employer] Other Protein Ql (U) Negative [employer] Other Specific gravity (U) [Rel density] 1.010 [employer] Other Urobilinogen (U) [Mass/Vol] 0.2 E.U./dL [employer] Other Urinalysis - AUTOMATED [employer] Other Urine Cultureon 04-21-2023 Bacteria identified Cx Nom (U) Reason for Exam Dysuria Urine Reason for Exam: Dysuria : Urine ORGANISM: Escherichia coli (O:ESCCOL) Barnard Count 20,000 Aerobic JEAN Charge (NMIC56) -- SUSCEPTIBILITY - ORGANISM: O:ESCCOL ANTIBIOTIC INTERPRETATION JEAN Amikacin S <16 Amoxacillin/K Clavulanate S <8 Ampicillin S <8 Ampicillin/Sulbactam S <4 Aztreonam S <4 Cefazolin S <2 Cefepime I 4 Ceftazidime S <1 Ceftazidime/Avibactam S <4 Ceftolozane/Tazobactam S <2 Ceftriaxone S <1 Cefuroxime S <4 Ciprofloxacin S <0.25 Ertapenem S <0.5 Gentamicin S <2 Levofloxacin S <0.5 Meropenem S <1 Meropenem/Vaborbactam S <2 Nitrofurantoin S <32 Piperacillin/Tazobactam S <8 Tetracycline S <4 Tigecycline S <2 Tobramycin S <2 Trimethoprim/Sulfametho xazole S <0.5 S = SUSCEPTIBLE I = [...] RESISTANT TO ALL B-LACTAM DRUGS. PERFORMED BY: [facility] [address] [place] [address] PATHOLOGIST BULLET ASSEMBLY PRESS SETTER OPERATOR GRICEL HICKS M.D. Normal [facility] Comment on above: Performed By: #### C UU #### [facility] [id number] [facility] CERVICAL SPINE 4 OR [address] [facility] Department of Radiology [address] [place] [address] ===== Patient Name: MUNIRA HERNANDEZ : 1970 Sex: F Age: Race: White Pt. Location: Patient Status: D Ordered Date: 05/31/2022 1:25:00 PM Completed Date: 05/31/2022 01:33 PM Requesting Provider: MARIANO BURCH Attending Provider: MARIANO BURCH Report Copy To: Signs & Symptoms: M54.2 Cervicalgia I10 History: [place] Comments: Exam: CERVICAL SPINE 4 OR 5 VIEWS ===== CERVICAL SPINE 4 OR 5 VIEWS 05/31/2022 [...] change. No acute findings. Electronically signed: Marian Bacon. Transcribed by: [email or web address], User Resident: Electronically Signed by: MARIAN BACON @ 06/01/2022 07:47 AM Normal [facility] LUMBAR SPINE 4 OR 5 [facility] LUMBAR SPINE 4 OR 5 [facility] Department of Radiology [address] [place] [address] ===== Patient Name: MUNIRA HERNANDEZ : 1970 Sex: F Age: Race: White Pt. Location: Patient Status: D Ordered Date: 05/31/2022 11:55:00 AM Completed Date: 05/31/2022 11:57 AM Requesting Provider: MARIANO BURCH Attending Provider: Report Copy To: Signs & Symptoms: M54.50 Low back pain, unspecified I10 History: Debi Comments: , , , Ordering Provider - MARIANO BURCH MD , Exam: LUMBAR SPINE 4 OR 5 [facility] ===== LUMBAR SPINE 4 OR 5 VWS 05/31/2022 11:57 AM CLINICAL INDICATIONS: M54.50 Low back pain, unspecified I10 TECHNOLOGIST COMMENTS: Patient has lower back pain for 4-5 years. QUESTION FOR RADIOLOGIST: , , , Ordering Provider - MARIANO BURCH MD , PROTOCOL: AP,Lateral,L5-S1 spot,Flexion and Extension [...] thoracic upper lumbar regions. Electronically signed: Marian Bacon. Transcribed by: [email or web address], User Resident: Electronically Signed by: MARIAN BACON @ 06/01/2022 07:41 AM Normal [facility] Comment on above: Order Comment: , , = ========= , Ordering Provider - MARIANO BURCH MD , CBC AUTO DIFFon 08-20-2021 BASO # 0.0 103/ul Normal 0.0-0.[address] [facility] Comment on above: Performed By: #### C BC #### [facility] [address] [place] [address] Dr. Becky Fishman Basophils/100 WBC (Bld) 0.5 % Normal 0.2-2.[address] [facility] Comment on above: Performed By: #### C BC #### [facility] [address] [place] [address] Dr. Becky Fishman EO # 0.1 103/ul Normal 0.0-0.[address] [facility] Comment on above: Performed By: #### C BC #### [facility] [address] [place] [address] Dr. Becky Fishman Eosinophils/100 WBC (Bld) 1.8 % Normal 0.9-7.[address] [facility] Comment on above: Performed By: #### C BC #### [facility] [address] [place] [address] Dr. Becky Fishman Erythrocyte distribution width (RBC) [Ratio] 14.6 % Normal 11.0-15.[address] [facility] Comment on above: Performed By: #### C BC #### [facility] [address] [place] [address] Dr. Becky Fishman Hematocrit (Bld) [Volume fraction] 46.3 % Normal 36.0-48.[address] [facility] Comment on above: Performed By: #### C BC #### [facility] [address] [place] [address] Dr. Becky Fishman Hemoglobin (Bld) [Mass/Vol] 14.4 g/dL Normal 12.0-16.[address] [facility] Comment on above: Performed By: #### C BC #### [facility] [address] [place] [address] Dr. Becky Fishman IG # 0.01 10e3/ul Normal 0.00-0.[address] [facility] Comment on above: Performed By: #### C BC #### [facility] [address] [place] [address] Dr. Becky Fishman IG % 0.2 % Normal 0.0-0.[address] [facility] Comment on above: Performed By: #### C BC #### [facility] [address] [place] [address] Dr. Becky Fishman LYMPH # 1.4 103/ul Normal 1.2-3.[address] [facility] Comment on above: Performed By: #### C BC #### [facility] [address] [place] [address] Dr. Becky Fishman Lymphocytes/100 WBC (Bld) 23.9 % Normal 20.5-60.[address] [facility] Comment on above: Performed By: #### C BC #### [facility] [address] [place] [address] Dr. Becky Fishman MANUAL DIFF REQ NO Normal [facility] Comment on above: Performed By: #### C BC #### [facility] [address] [place] [address] Dr. Becky Fishman MCH (RBC) [Entitic mass] 26.4 pg Critically low 26.7-34.[address] [facility] Comment on above: Performed By: #### C BC #### [facility] [address] [place] [address] Dr. Becky Fishman MCHC (RBC) [Mass/Vol] 31.1 g/dL Normal 29.9-35.[address] [facility] Comment on above: Performed By: #### C BC #### [facility] [address] [place] [address] Dr. Becky Fishman MCV (RBC) [Entitic vol] 85.0 fL Normal 81.0-99.[address] [facility] Comment on above: Performed By: #### C BC #### [facility] [address] [place] [address] Dr. Becky Fishman MONO # 0.5 103/ul Normal 0.3-0.[address] [facility] Comment on above: Performed By: #### C BC #### [facility] [address] [place] [address] Dr. Becky Fishman Monocytes/100 WBC (Bld) 9.0 % Normal 1.7-12.[address] [facility] Comment on above: Performed By: #### C BC #### [facility] [address] [place] [address] Dr. Becky Fishman NEUT # 3.7 103/ul Normal 1.4-6.[address] [facility] Comment on above: Performed By: #### C BC #### [facility] [address] [place] [address] Dr. Becky Fishman Neutrophils/100 WBC (Bld) 64.6 % Normal 43.0-75.[address] [facility] Comment on above: Performed By: #### C BC #### [facility] [address] [place] [address] Dr. Becky Fishman Platelet mean volume (Bld) [Entitic vol] 9.1 fL Critically low 9.5-13.[address] [facility] Comment on above: Performed By: #### C BC #### [facility] [address] [address] [address] Becky Fishman PLT 257 103/ul Normal 150-[address] [facility] Comment on above: Performed By: #### C BC #### [facility] [address] [address] [address] Becky Fishman RBC 5.45 106/ul Critically high 4.20-5.40 [facility] Comment on above: Performed By: #### C BC #### [facility] [address] [address] [address] Becky Fishman WBC 5.7 103/ul Normal 4.0-11.[address] [facility] Comment on above: Performed By: #### C BC #### [facility] [address] [address] [address] Becky Fishman GLYCOHEMOGLOBIN A1Con 2020 ADA RECOMMENDATION ADA THERAPEUTIC TARG ET 6.0 - 7.0 ACTION SUGGESTED > 7.[address] [facility] Comment on above: Performed By: #### A 1C #### [facility] [address] [place] [address] Dr. Becky Fishman Glucose [Mass/Vol] 108 mg/dL Normal [facility] Comment on above: Performed By: #### A 1C #### [facility] [address] [address] [address] Becky Fishman HbA1c (Bld) [Mass fraction] 5.4 % Normal <=6.[address] [facility] Comment on above: Performed By: #### A 1C #### [facility] [address] [address] [address] Becky Fishman LIPID PROFILEon 08-20-2021 CHOL-HDL RATIO NORM SEE BELOW Normal [facility] Comment on above: Result Comment: 3.3 - 4.4 LOW RISK 4.4 - 7.1 AVERAGE RISK 7.1 - 11.0 MODERATE RISK >11.0 HIGH RISK Performed By: #### B MP, LIPID, TSH #### [facility] [address] [address] [address] Becky Fishman Cholesterol [Mass/Vol] 159 mg/dL Normal <=[address] [facility] Comment on above: Performed By: #### B MP, LIPID, TSH #### [facility] [address] [address] [address] Becky Fishman Cholesterol in HDL [Mass/Vol] 53 mg/dL Normal [facility] Comment on above: Performed By: #### B MP, LIPID, TSH #### [facility] [address] [address] [address] Becky Fishman Cholesterol in LDL [Mass/Vol] 88.0 mg/dL Normal [facility] Comment on above: Performed By: #### B MP, LIPID, TSH #### [facility] [address] [address] [address] Becky Fishman Cholesterol.total/C holesterol in HDL [Mass ratio] 3.0 {ratio} Normal [facility] Comment on above: Performed By: #### B MP, LIPID, TSH #### [facility] [address] [address] [address] Becky Fishman HDL NORMAL > or = 60 mg/dl - LO W CARDIOVASCULAR RISK <40 mg/dl - HIGH CARDIOVASCULAR RISK Normal [facility] Comment on above: Performed By: #### B MP, LIPID, TSH #### [facility] [address] [address] [address] Becky Fishman LDL CALC NORMAL SEE BELOW Normal [facility] Comment on above: Result Comment: <100 mg/dl OPTIMAL 100 - 129 mg/dl NEAR OR ABOVE OPTIMAL 130 - 159 mg/dl BORDERLINE HIGH 160 - 189 mg/dl HIGH >190 mg/dl VERY HIGH Performed By: #### B MP, LIPID, TSH #### [facility] [address] [address] [address] Becky Fishman Triglyceride [Mass/Vol] 90 mg/dL Normal <=[address] [facility] Comment on above: Performed By: #### B MP, LIPID, TSH #### [facility] [address] [address] [address] Becky Fishman VLDL CALC 18.0 mg/dL Normal [facility] Comment on above: Performed By: #### B MP, LIPID, TSH #### [facility] [address] [place] [address] Dr. Becky Fishman PROF CHEM 8 (BAS METB)on Anion gap [Moles/Vol] 10.0 mmol/L Normal [facility] Comment on above: Performed By: #### B MP, LIPID, TSH #### [facility] [address] [place] [address] Dr. Becky Fishman Calcium [Mass/Vol] 9.4 mg/dL Normal 8.4-10.2 [facility] Comment on above: Performed By: #### B MP, LIPID, TSH #### [facility] [address] [place] [address] Dr. Becky Fishman Chloride [Moles/Vol] 106 mmol/L Normal 98-107 [facility] Comment on above: Performed By: #### B MP, LIPID, TSH #### [facility] [address] [place] [address] Dr. Becky Fishman CO2 [Moles/Vol] 28.0 mmol/L Normal 22.0-30.0 [facility] Comment on above: Performed By: #### B MP, LIPID, TSH #### [facility] [address] [place] [address] Dr. Becky Fishman Creatinine [Mass/Vol] 0.99 mg/dL Normal 0.52-1.[address] [facility] Comment on above: Performed By: #### B MP, LIPID, TSH #### [facility] [address] [place] [address] Dr. Becky Fishman EGFR-AF MACANESE >60 Normal >=60 [facility] Comment on above: Performed By: #### B MP, LIPID, TSH #### [facility] [address] [place] [address] Dr. Becky Fishman EGFR-NON AF MACANESE 59 mL/min/1.73m2 Critically low >=60 [facility] Comment on above: Performed By: #### B MP, LIPID, TSH #### [facility] [address] [place] [address] Dr. Becky Fishman Glucose [Mass/Vol] 88 mg/dL Normal 74-106 [facility] Comment on above: Performed By: #### B MP, LIPID, TSH #### [facility] [address] [place] [address] Dr. Becky Fishman Potassium [Moles/Vol] 4.0 mmol/L Normal 3.4-5.[address] [facility] Comment on above: Performed By: #### B MP, LIPID, TSH #### [facility] [address] [place] [address] Dr. Becky Fishman Sodium [Moles/Vol] 140 mmol/L Normal 137-145 [facility] Comment on above: Performed By: #### B MP, LIPID, TSH #### [facility] [address] [place] [address] Dr. Becky Fishman Urea nitrogen [Mass/Vol] 20.0 mg/dL Critically high 7.0-17.[address] [facility] Comment on above: Performed By: #### B MP, LIPID, TSH #### [facility] [address] [place] [address] Dr. Becky Fishman Urea nitrogen/Creatinine [Mass ratio] 20.2 mg/mg Normal [facility] Comment on above: Performed By: #### B MP, LIPID, TSH #### [facility] [address] [place] [address] Dr. Becky Fishman TSHon 08-20-2021 TSH 5.466 uIU/mL Critically high 0.470-4.680 [facility] Comment on above: Performed By: #### B MP, LIPID, TSH #### [facility] [address] [place] [address] Dr. Becky Fishman TSH RANGE SEE BELOW Normal [facility] Comment on above: Result Comment: <0.3 4 UIU/ml HYPERTHYROID 0.34-5.60 UIU/ml EUTHYROID >5.60 UIU/ml HYPOTHYROID Performed By: #### B MP, LIPID, TSH #### [facility] [address] [place] [address] Dr. Becky Fishman Vital Signs Date Time Vital Sign Value Performing Clinician Facility 09-28-2024 08:46-0500 Body height 167.6 cm Dina Jones DOOR TO DOOR FUNDRAISING COLLECTOR-DISHROOM ATTENDANT Work Phone: [facility] 09-28-2024 08:46-0500 Body mass index (BMI) [Ratio] 46.79 kg/m2 Dina Nienberg DOOR TO DOOR FUNDRAISING COLLECTOR-DISHROOM ATTENDANT Work Phone: [facility] 09-28-2024 08:46-0500 Body weight 131.5 kg Dina Nienberg DOOR TO DOOR FUNDRAISING COLLECTOR-DISHROOM ATTENDANT Work Phone: [facility] 09-28-2024 08:46-0500 Diastolic blood pressure 74 mm[Hg] Dina Nienberg DOOR TO DOOR FUNDRAISING COLLECTOR-DISHROOM ATTENDANT Work Phone: [facility] 09-28-2024 08:46-0500 Heart rate 62 /min Dina Nienberg DOOR TO DOOR FUNDRAISING COLLECTOR-DISHROOM ATTENDANT Work Phone: [facility] 09-28-2024 08:46-0500 Respiratory rate 18 /min Dina Nienberg DOOR TO DOOR FUNDRAISING COLLECTOR-DISHROOM ATTENDANT Work Phone: [facility] 09-28-2024 08:46-0500 SaO2% (BldA) [Mass fraction] 98 % Dina Nienberg DOOR TO DOOR FUNDRAISING COLLECTOR-DISHROOM ATTENDANT Work Phone: [facility] 09-28-2024 08:46-0500 Systolic blood pressure 120 mm[Hg] Dina Nienberg DOOR TO DOOR FUNDRAISING COLLECTOR-DISHROOM ATTENDANT Work Phone: [facility] 09-13-2024 11:52-0400 Body mass index (BMI) [Ratio] 47.19 kg/m2 Ashok Eric DO Work Phone: [facility] 09-13-2024 11:52-0400 Body weight 132.63 kg Ashok Eric DO Work Phone: [facility] 09-13-2024 11:52-0400 Diastolic blood pressure 72 mm[Hg] Ashok Eric DO Work Phone: [facility] 09-13-2024 11:52-0400 Systolic blood pressure 116 mm[Hg] Ashok Reyes DO Work Phone: [facility] 12-12-2023 14:25-0500 Body mass index (BMI) [Ratio] 47.61 kg/m2 Abel Murry MD Work Phone: [facility] [employer] 12-12-2023 14:25-0500 Body temperature 90.81 [degF] Abel Murry MD Work Phone: [facility] [employer] 12-12-2023 14:25-0500 Body weight 133.81 kg Abel [facility] 12-12-2023 14:25-0500 Diastolic blood pressure 73 mm[Hg] Abel Murry MD Work Phone: [facility] [employer] 12-12-2023 14:25-0500 Heart rate 65 /min Abel Murry MD Work Phone: [facility] [employer] 12-12-2023 14:25-0500 Systolic blood pressure 131 mm[Hg] Abel [facility] 04-21-2023 14:25-0400 Body height 167.64 cm Theo Woodall Other [employer] Other 04-21-2023 14:25-0400 Body mass index (BMI) [Ratio] 43.57 kg/m2 Theo Woodall Other [facility] Other 04-21-2023 14:25-0400 Body temperature 98.1 [degF] Theo Woodall Other [employer] Other 04-21-2023 14:25-0400 Body weight 122.47 kg Theo Woodall Other [facility] Other 04-21-2023 14:25-0400 Respiratory rate 18 /min Theo Woodall Other [employer] Other 04-21-2023 14:25-0400 SaO2% (BldA) [Mass fraction] 98 % Theo Woodall Other [facility] Other 12-28-2022 14:25-0500 Body height 167.64 cm Gely Sowmya Other [employer] Other 12-28-2022 14:25-0500 Body mass index (BMI) [Ratio] 42.77 kg/m2 Gely Sowmya Other [facility] Other 12-28-2022 14:25-0500 Body temperature 98.2 [degF] Gely Sowmya Other [employer] Other 12-28-2022 14:25-0500 Body weight 120.2 kg Gely Sowmya Other [employer] Other 12-28-2022 14:25-0500 Diastolic blood pressure 72 mm[Hg] Gely Sowmya Other [employer] Other 12-28-2022 14:25-0500 Respiratory rate 16 /min Gely Sowmya Other [facility] Other 12-28-2022 14:25-0500 SaO2% (BldA) [Mass fraction] 100 % Gely Sowmya Other [employer] Other 12-28-2022 14:25-0500 Systolic blood pressure 115 mm[Hg] Gely Sowmya Other [employer] Other Encounters Encounter Date Encounter Type Care Provider Facility Start: 09-28-2024 End: 09-28-2024 ambulatory [facility] Start: 09-28-2024 End: 09-28-2024 ambulatory [facility] Start: 09-28-2024 End: 09-28-2024 Office outpatient visit 25 minutes Dina Jones DOOR TO DOOR FUNDRAISING COLLECTOR-DISHROOM ATTENDANT Work Phone: [facility] Comment on above: Disc displacement, l umbar (Primary Dx); Chronic bilateral low back pain without sciatica; 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 Start: 09-13-2024 End: 09-13-2024 Bamboo flowsheet Ashok Eric DO Work Phone: [facility] Start: 09-13-2024 End: 09-13-2024 Bamboo flowsheet Ashok Eric DO Work Phone: [facility] Start: 09-13-2024 End: 09-13-2024 Office outpatient visit 15 minutes Ashok Eric DO Work Phone: [facility] Comment on above: Pre-op examination; Postmenopausal bleeding; Thickened endometrium; Uterine leiomyoma, unspecified location Start: 09-13-2024 End: 09-13-2024 Preprocedural examination done Ashok Eric DO Work Phone: [facility] Start: 09-13-2024 End: 09-13-2024 ambulatory ASHOK ERIC Not Available Start: 09-07-2024 End: 09-07-2024 Jesus Murry MD Work Phone: [facility] Comment on above: Acquired hypothyroid ism Start: 09-07-2024 ambulatory [facility] Start: 08-25-2024 End: 08-25-2024 ambulatory [facility] Start: 08-24-2024 ambulatory [facility] Start: 08-16-2024 End: 08-16-2024 ambulatory ASHOK R ERIC [facility] Start: 08-10-2024 End: 08-10-2024 ambulatory [facility] Start: 08-09-2024 End: 08-09-2024 ambulatory ASHOK REYES Not Available Start: 07-27-[address] [facility] Start: 07-12-2024 End: 07-12-2024 ambulatory [facility] Start: 07-12-2024 End: 07-12-2024 ambulatory [facility] Start: 07-06-2024 End: 07-25-2024 ambulatory [facility] Start: 07-06-2024 End: 07-06-2024 ambulatory [facility] Start: 06-25-2024 End: 06-25-2024 ambulatory [facility] Start: 06-22-2024 ambulatory [facility] Start: 05-21-2024 End: 05-21-2024 ambulatory [facility] Start: 05-04-2024 End: 05-04-2024 ambulatory [facility] Start: 04-30-2024 End: 04-30-[address] [facility] Start: 04-27-2024 End: 04-27-[address] [facility] Start: 04-21-2024 End: 04-21-[address] [facility] Start: 12-22-2023 End: 12-22-2023 ambulatory GO JOHNSON Not Available Start: 12-12-2023 End: 12-12-2023 Office outpatient visit 15 minutes Abel Murry MD Work Phone: [facility] Comment on above: Laryngitis (Primary Dx); Non-recurrent acute serous otitis media of both ears Start: 12-12-2023 End: 12-12-2023 ambulatory ABEL Grossman [facility] Start: 12-03-2023 End: 12-03-2023 [facility] Start: 11-25-2023 Telephone encounter Mamie Lobato [facility] Start: 11-21-2023 Refill Abel beck MD Work Phone: [facility] Comment on above: Anxiety Start: 11-19-2023 Telephone encounter Lilialfreda Diaz CMA [facility] Comment on above: Results Start: 11-10-2023 End: 11-10-2023 ambulatory [facility] Start: 10-27-2023 ambulatory [facility] Start: 09-22-2023 ambulatory [facility] Start: 04-26-2023 End: 04-26-2023 ambulatory Theo Woodall Other [employer] Other Start: 04-26-2023 Telephone encounter Theo Rosales [facility] Start: 04-21-2023 End: 04-21-2023 ambulatory MD Abel Murry Work Phone: [facility] Work Phone: Start: 04-21-2023 End: 04-21-2023 Departed Referred MD Abel Murry Work Phone: [facility] [place] Work Phone: Start: 04-21-2023 End: 04-21-2023 ambulatory Theo Woodall Facility:[facility] Start: 04-21-2023 Office outpatient vi sit 15 minutes Theo Woodall [facility] Start: 12-28-2022 End: 12-28-2022 ambulatory Gely Deng Other [facility] Other Start: 12-28-2022 Office outpatient vi sit 15 minutes Gely Deng [facility] [place] Start: 08-20-2021 End: 08-21-[address] ABEL MURRY Facility: Procedures Date Procedure Procedure Detail Performing Clinician Start: 10-27-2023 Mammography Lili Diaz TRACTOR DISTRIBUTOR Start: 12-21-2022 Adult depression scr eening assessment Lili Diaz TRACTOR DISTRIBUTOR Start: 05-30-2022 Colonoscopy Lili Diaz TRACTOR DISTRIBUTOR Plan of Treatment Date Care Activity Detail Author Start: 05-30-2032 Screening for malign ant neoplasm of colon [facility] Start: 09-28-2025 Adult BMI Screening Adult BMI Screen ing [facility] Start: 09-28-2025 Tobacco Screening Tobacco Screening [facility] Start: 08-10-2025 Adult BMI Screening Adult BMI Screen ing [facility] Start: 08-10-2025 Tobacco Screening Tobacco Screening [facility] Start: 10-27-2024 Adult BMI Screening Adult BMI Screen ing [facility] Start: 10-27-2024 Screening for malign ant neoplasm of breast Mammogram [facility] Start: 10-25-2024 End: 10-25-2024 Patient encounter procedure 10/25/2024 8:40 AM EST Office Visit [facility] [address] [place] [address] Ashok Reyes, DO [address] [place] [address] [facility] Start: 10-20-2024 Tobacco Screening Tobacco Screening [facility] Start: 09-28-2024 End: 09-28-2025 MR Lumbar spine WO contrast MR lumbar spine without contrast Imaging Routine Disc displacement, lumbar Chronic bilateral low back pain without sciatica Expected: 09/28/2024, Expires: 09/28/2025 [facility] Work Phone: Comment on above: Expected: 09/28/2024 , Expires: 09/28/2025 Start: 09-28-2024 End: 09-28-2024 Patient encounter procedure 09/28/2024 8:15 AM EST Office Visit [facility] [address] [place] [id number] Dina Jones, DOOR TO DOOR FUNDRAISING COLLECTOR-DISHROOM ATTENDANT [address] [place] [address] [facility] Start: 09-13-2024 End: 09-13-2024 Patient encounter procedure 09/13/2024 11:20 AM EDT Consult [facility] [address] [place] [address] Ashok Reyes, DO [address] [place] [address] Arrived [facility] Comment on above: Arrived Start: 07-25-2024 COVID-19 Vaccine ( season) COVID-19 Vaccine ( season) [facility] Start: 07-25-2024 COVID-19 Vaccine ( season) COVID-19 Vaccine ( season) [facility] Start: 07-25-2024 Influenza vaccination [facility] Start: 12-21-2023 [facility]: 07-25-2023 COVID-19 Vaccine ( season) COVID-19 Vaccine ( season) [facility] Start: 07-25-2023 Influenza vaccination Influenza Vacc ine [facility] Start: 04-21-2023 Bacteria identified in Urine by Culture [facility] Start: 2019 Administration of varicella zoster vaccine Zoster (Shingles) Vaccine (1 of 2) [facility] Start: 1999 Screening for malign ant neoplasm of cervix [facility] Start: 1990 Screening for malign ant neoplasm of cervix Pap Smear [facility] Start: 02-01-1988 DTaP,Tdap and Td Vac cines (1 - Tdap) DTaP,Tdap and Td Vaccines (1 - Tdap) [facility] Start: 1987 Adult BMI Follow Up Plan Adult BMI Follow Up Plan [facility] Start: 1969 Screening for malign ant neoplasm of colon [facility] End: 09-28-2025 Controlled Substance Monitoring, U Controlled Substance Monitoring, U Lab Routine 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 1 Occurrences starting 09/28/2024 until 09/28/2025 [facility] Comment on above: 1 Occurrences starti ng 09/28/2024 until 09/28/2025 Immunizations Immunization Date Immunization Notes Care Provider Fa cility 10-19-2022 influenza, injectabl e, quadrivalent, preservative free Asohk Eric DO Work Phone: [facility] 10-19-2022 influenza virus vaccine, unspecified formulation Lili Emily [facility] 09-24-2021 influenza, injectabl e, quadrivalent, preservative free Lili Emily [facility] 10-16-2020 influenza, injectabl e, quadrivalent, preservative free Ashok Eric DO Work Phone: [facility] 09-11-2020 influenza, seasonal, injectable, preservative free Lili Emily [facility] 10-20-2018 influenza, injectabl e, quadrivalent, preservative free Lili Emily [facility] Payers Date Payer Category Payer Self-pay 2022 Private Health Insurance [employer] [id number] 2021 Managed Care O (unspecified) [employer] [id number] 2021 Unknown [facility] [id number] 2021-Present [phone] [address] [facility] [place] [address] [id number] [id number] 2021 Unknown [id number] 2.16.840.1.922493.19 1969 Unknown [id number] 2.16.840.1.982053.3.579. 2.1285 1969 Unknown [id number] 2.16.840.1.912836.3.579. 2.1285 1969 Unknown [id number] 2.16.840.1.020209.3.579. 2.1258 1969 Unknown [id number] 2.16.840.1.167594.3.579. 2.1259 1969 Unknown [id number] 2.16.840.1.519440.3.579. 2.1258 1969 Unknown [id number] 2.16.840.1.344057.3.579. 2.1285 1969 Unknown [id number] 2.16.840.1.368815.3.579. 2.1285 1969 Unknown [id number] 2.16.840.1.749857.3.579. 2.1285 1969 Unknown [id number] 2.16.840.1.837037.3.579. 2.1285 1969 Unknown [id number] 2.16.840.1.169612.3.579. 2.1285 1969 Unknown [id number] 2.16.840.1.608808.3.579. 2.1285 1969 Unknown [id number] 2.16.840.1.545626.3.579. 2.1285 1969 Unknown [id number] 2.16.840.1.662033.3.579. 2.1285 1969 Unknown [id number] 2.16.840.1.603807.3.579. 2.1285 1969 Unknown [id number] 2..840.1.518239.3.579. 2.1285 1969 Unknown [id number] 2.16.840.1.876683.3.579. 2.1285 1969 Unknown [id number] 2.16.840.1.782663.3.579. 2.1285 1969 Unknown [id number] 2.16.840.1.738065.3.579. 2.1285 1969 Unknown [id number] 2.16.840.1.250850.3.579. 2.1285 1969 Unknown [id number] 2.16.840.1.138136.3.579. 2.1285 1969 Unknown [id number] 2.16.840.1.212869.3.579. 2.1285 1969 Unknown [id number] 2.16.840.1.479794.3.579. 2.1285 1959 Self-pay [id number] Unknown [id number] 2.16.840.1.942787.3.579. 2.593 Unknown [id number] 2.16.840.1.295807.3.579. 2.531 Unknown HCAP/HFA/FAP Active [id number] Social History Date Type Detail Facility Unknown if ever smoked [employer] Other Start: 12-21-2022 End: 09-28-2024 [facility] Start: 11-27-2019 End: 12-03-2022 Tobacco smoking status NHIS Never smoked tobacco (finding) [facility] Start: 1970 Sex Assigned At Female [facility] Start: 12-03-2022 End: 05-19-2023 Tobacco use and exposure Smokeless tobacco non-user [facility] Start: 10-27-2023 End: 09-28-2024 Alcohol intake Current drinker of alcohol (finding) [facility] [employer] Start: 12-21-2022 End: 09-28-2024 History of Social function [facility] Do you belong to any clubs or organizations such as christianity groups, unions, fraternal or athletic groups, or school groups? No [facility] Are you now , , , , never or living with a partner? Living with partner [facility] How often to you hav e a drink containing alcohol? Monthly or less [facility] How many standard dr inks containing alcohol do you have on a typical day? 1 or 2 [facility] How often do you hav e 6 or more drinks on 1 occasion? Less than monthly [facility] How hard is it for y ou to pay for the very basics like food, housing, medical care, and heating Somewhat hard [facility] Adolescent depressio n screening assessment 0 [facility] Do you feel stress - tense, restless, nervous, or anxious, or unable to sleep at night because your mind is troubled all the time - these days [OSQ] To some extent [facility] Start: 12-21-2022 Education [facility] Start: 05-29-2022 Alcohol Comment occasional [facility] Start: 1970 Sex Assigned At Not on file [facility] Start: 08-09-2024 Alcohol Comment Not very often [facility] Start: 06-29-2015 Sex Female (finding) [facility] Clinical Notes 12-13-2022 to 09-28-2024 Dina Jones, DOOR TO DOOR FUNDRAISING COLLECTOR-DISHROOM ATTENDANT - 09/28/2024 8:15 AM ESTMiranda Angelone - 09/13/2024 11:20 AM EDTTelephone Encounter - Lili Lamson, NEENA - 09/07/2024 5:41 AM EDT Note Date & Type Note Facility 09-28-2024 History of Present illness Narrative [facility] [address] [place] [address] Patient: Munira Hernandez Sex: female : 1970 [...] minimal relief Back: 06-25-2024 Bilateral L 4/5, 5/ Medial Branch Block with 10% relief x 2 hours and 0% relief today. Pre procedure pain 4/10. Post procedure pain 3/10. Neck: Patient had surgery consult and having bilateral carpal tunnel surgery on 08/25/2024 at [facility] per Dr Montero Back Pain This is [...] Medical History: Diagnosis Date Deep vein thrombosis ([facility]) Extremity pain GERD (gastroesophageal reflux disease) Hiatal hernia Hypothyroid Low back pain Migraine Neck pain Obesity PONV (postoperative nausea and vomiting) Pulmonary embolism ([facility]) Visual impairment Past Surgical History: Procedure Laterality Date BIOPSY VULVA, labia majora and minora Right 12/18/2022 Performed by Lucien Clakre MD at [facility] CARPAL TUNNEL RELEASE Bilateral and trigger finger release CHOLECYSTECTOMY COLONOSCOPY COLONOSCOPY N/A 05/30/2022 Performed by Laci Jackson MD at [facility] HYSTEROSCOPY DILATION CURETTAGE N/A 07/16/2023 Performed by Lucien Clarke MD at [facility] HYSTEROSCOPY DILATION CURETTAGE N/A 12/18/2022 Performed by Lucien Clarke MD at [facility] HYSTEROSCOPY MYOMECTOMY MYOSURE N/A 07/16/2023 Performed by Lucien Clarke MD at [facility] HYSTEROSCOPY MYOMECTOMY MYOSURE N/A 12/18/2022 Performed by Lucien Clarke MD at [facility] INCISION DRAINAGE GROIN Right 07/16/2023 Performed by Lucien Clarke MD at [facility] INJECTION BLOCK NERVE MEDIAL BRANCH: bilat L 4, 03/24 Bilateral 06/25/2024 Performed by Reinaldo Mai MD at [facility] Allergies Allergen Reactions Clarithromycin Hives Biaxin [...] Patient declined Stress: Stress Concern Present (12/21/2022) [facility] [employer] Occupational Health - Occupational Stress Questionnaire Feeling of Stress : To some extent Social Connections: Moderately Isolated (12/21/2022) Social Connection and Isolation Panel [NHANES] Frequency of Communication with Friends and Family: More than three times a week Frequency of Social Gatherings with Friends and Family: Three times a week Attends Anglican Services: Never Active Member of Clubs or Organizations: No Attends Club or Organization Meetings: Never Marital Status: Living with partner Interpersonal Safety: Not At Risk (06/22/2024) Received from [facility] Humiliation, Afraid, Rape, and Kick questionnaire Fear [...] bedtime. Do all this for 10 days. nursing home current use of opiate analgesic - Controlled [...] Scribed for and in the presence of DINA JONES APRNHAFSA by Mamie Mcgowan CNA. Provider Statement: I, KAREN GARCIA, personally performed the services described in the documentation, as scribed by Mamie Mcgowan CNA in my presence, and it is both accurate and complete. Mamie Mcgowan CNA 09/28/24 0939 KAREN Garcia 09/28/24 1004 documented in this encounter [facility] 09-13-2024 History of Present illness Narrative Reason for Appointment: Patient ID: Munira Hernandez is a 54 y.o. female who presents for Pre-op Visit Patient presents today for Pre Op appointment. Patient is scheduled to undergo D&C Hysteroscopy, possible Myosure on 10/08/[address] Reyes at [facility]. MEDICATIONS Current Outpatient Medications Medication Instructions ergocalciferol [...] (CMS/HCC) -2023 DVT (deep venous thrombosis) (CMS/HCC) PE Fibroid [...] nursing note reviewed. Exam conducted with a stove installer present. Vitals: Estimated body mass index is [...] reviewed, and patient is to proceed to [facility] OR. Reviewed patients results of ultrasound with patient and PVU results and plan of care with procedure. Follow Up: Patient is to follow up between 1-2 weeks post operative to assess proper healing and recovery from procedure. 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 Kale Mcgregor, MS4 Department of Orthopedic Surgery 09/07/24 9:21 AM Montana Avery MD Orthopedic Surgery Resident Orthopedic Surgery Pager: [phone] 09/07/24 9:40 AM I did not personally examine the patient. I discussed the case with the resident and agree with the plan. [facility] 09-07-2024 Miscellaneous Notes Refill request [facility]24 [facility]phone [facility] Note Patient: Munira montes Procedure Summary Date: 08/25/24 Room / Location: [facility] OR [address] [place] [address] GIS OR Anesthesia Start: 919 Anesthesia Stop: [...] per anesthesia protocol. No notable events documented. [facility] 08-25-2024 Note Patient: Munira montes Procedure Summary Date: 08/25/24 Room / Location: [facility] OR [address] [place] [address] OR Anesthesia Start: 919 Anesthesia Stop: 1004 Procedures: RELEASE,CARPAL TUNNEL ULTRASOUND GUIDED (SONEX) (Bilateral: Wrist) RELEASE, TRIGGER FINGER-RING (Right: Ring Finger) Diagnosis: Bilateral carpal tunnel syndrome (Bilateral carpal tunnel syndrome [G56.03]) Surgeons: Tera Montero MD Responsible Provider: Jewel Garner MD Anesthesia Type: MAC ASA Status: 3 Anesthesia Post Transport Note Transport to: [place] PACU O2 Route: face mask Oxygen Flow (L/min): 8 Patient Monitor: direct observation Transport: uneventful Patient condition is: stable Comments: Patient arousable, VSS, SV well, report to RN [facility] 08-25-2024 Note Patient: Munira montes Procedure Information Date/Time: 08/25/24 09 Procedures: RELEASE,CARPAL TUNNEL ULTRASOUND GUIDED (SONEX) (Bilateral: Wrist) RELEASE, TRIGGER FINGER-RING (Right: Ring Finger) Location: [facility] OR [address] [place] [address] OR Surgeons: Tera Montero MD Relevant Problems [...] Plan discussed with CAA. Additional Equipment Requests [facility] 06-22-2024 Note Subjective 06/22/24 Munira Hernandez is [...] Just recent CTS (carpal tunnel syndrome) Dr Santana Lumbosacral disc disease Trigger finger Objective General: [...] be an additional personal documentation from me. [facility] 04-21-2024 Note Chief Complaint: nec k and [...] Intimate Partner Violence: Not At Risk (12/03/2023) [place] Safety & Environment Fear of Current or [...] reflex- 2 Babins (more content not included)... [facility] 12-12-2023 History of Present illness Narrative Subjective [...] for 1 dose. documented in this encounter [facility] [employer] 12-03-2023 Note Attestation signed by Mariano Burch MD at 12/03/2023 6:00 PM I personally [...] the patient octaviano (more content not included)... [facility] 11-25-2023 Miscellaneous Notes Patient wanted to know if she could get a refill of the meloxicam if okay to continue taking. She believes it is helping with her hips. She also states she is not taking pantoprazole anymore, flagged for removal. Please advise. documented in this encounter [facility] 11-25-2023 Telephone encounter Note Patient wanted to know if she could get a refill of the meloxicam if okay to continue taking. She believes it is helping with her hips. She also states she is not taking pantoprazole anymore, flagged for removal. Please advise. [facility] 11-21-2023 Miscellaneous Notes Refill request documented in this encounter [facility] 11-21-2023 Telephone encounter Note Refill request [facility] 11-19-2023 Miscellaneous Notes Patient is concerned about her abnormal results, specifically her B6 level. Any changes to do. I think a multivitamin daily should be sufficient. Spoke with patient, gave results and told to take a multivitamin documented in this encounter [facility] 11-19-2023 Telephone encounter Note Patient is concerned about her abnormal results, specifically her B6 level. Any changes to do. [facility] 11-19-2023 Telephone encounter Note I think a multivitamin daily should be sufficient. [facility] 11-19-2023 Telephone encounter Note Spoke with patient, gave results and told to take a multivitamin [facility] 10-27-2023 Note ASSESSMENT/PLAN: Munira was seen today for emg. Diagnoses and all orders for this visit: Intervertebral disc disorders with radiculopathy, lumbar region - EMG Mariano Burch MD Assessment: Bilateral lower extremity numbness and [...] so could consider alpha lipoic acid. Gina Santana MD SUBJECTIVE: Munira Hernandez is a 53 y.o. female who presents to [facility] today for EMG nerve conduction [...] Date/Time: 10/27/2023 3:25 PM Performed by: Gina Santana MD Authorized by: Mariano Burch MD [place] Protocol / Time: Immediately prior to the procedure a time out was called. Relevant documents were present and verified. Site/side verified. Patient identity confirmed verbally with patient. This timeout verifies correct patient, procedure, equipment, supportive employment case manager and site/side were marked as required. Verbal [...] This note was completed using a voice gatekeeper system. Every effort was made to ensure accuracy; however, inadvertent computerized gatekeeper errors may be present, please contact MD if any information is unclear. [facility] 09-22-2023 Note ASSESSMENT/PLAN: Munira was seen today [...] balance. Plan: - Follow up with Dr Burch Risks, benefits, and alternatives to all new [...] lower limb to confirm the diagnosis. Gina Santana MD SUBJECTIVE: Munira Hernandez is a 53 y.o. female who presents to [facility] today for bilateral UE EMG/NCS [...] commands, decreased sens (more content not included)... [facility] 04-21-2023 Evaluation note Encounter Date Diagnosis Assessment [...] Follow up with primary care provider or emergency department physician if no improvement of symptoms. [facility] Other 02-04-2023 Evaluation note* Encounter Date Diagnosis [...] no improvement in 2 to 3 days. [facility] Other 01-20-2023 History general Narrative - Reported* Type Description Date Medical History acid reflux Medical History hx of blood clots in right leg a nd lung Medical History vertigo Surgical History cholecystectomy 1998 Hospitalization History blood clot in leg and rhina ngs 12/13 [facility] Other evaluation noteNo assessment information available [facility] Work Phone: evaluation noteNo InformationNort [employer] Other evaluation note* Diagnosis Anxiety Anxiety state, unspecified [facility] Diagnosis Laryngitis- Primary Acute laryngitis, without mention of obstruction Non-recurrent acute serous otitis media of both ears [facility] Diagnosis Acquired hypothyroidism Unspecified hypothyroidism [facility]* Diagnosis Pre-op examination Postmenopausal bleeding Thickened endometrium Nonspecific (abnormal) findings on radiological and other examination of genitourinary organs Uterine leiomyoma, unspecified location documented in this encounter [facility]* Diagnosis Disc displacement, lumbar- Primary Displacement of lumbar intervertebral disc without myelopathy Chronic bilateral low back pain without sciatica nursing home current use of opiate analgesic [facility] - [facility]* Type Description Date Medical History acid reflux Medical History hx of blood clots in right leg a nd lung Medical History vertigo Medical History Anxiety Surgical History cholecystectomy 1998 Hospitalization History blood clot in leg and rhina ngs 12/13 [facility] Other InstructionsNot on filedocumented in this encounter [facility] filed[facility]ed in this [facility] filedocumented in this encounter [facility] filedocumented in this [facility] filedocumented in this [facility] filedocumented in this encounter [facility] Summary Purpose Family History No Family [...] section and content) DATE CREATED AUTHOR 08/20/2021 [facility] DATE CREATED AUTHOR AUTHOR'S ORGANIZ ATION 06/13/2022 [facility] DATE CREATED AUTHOR AUTHOR'S ORGANIZ ATION 05/02/2023 [facility] DATE CREATED AUTHOR AUTHOR'S ORGANIZ ATION 07/13/2024 [facility] DATE CREATED AUTHOR AUTHOR'S ORGANIZ ATION 09/13/2024 [facility] DATE CREATED AUTHOR AUTHOR'S ORGANIZ ATION 09/14/2024 [facility] EPIC DATE CREATED AUTHOR AUTHOR'S ORGANIZ ATION 09/29/2024 [facility] DATE CREATED AUTHOR AUTHOR'S ORGANIZ ATION 10/04/2024 [facility] REASON FOR VISIT (unrecogniz ed section and [...] Primary Care Provider Active Theo Woodall , ELECTRIC CONTAINER TESTER-C Attending Provider Activ e Assembler Finger Buffs Relationship Specialty Start Date End Date Abel Murry MD [address] [place] [address], [address] [place] [address] PCP - General Pediatrics 08/03/18 Assembler Finger Buffs Relationship Specialty Start Date End Date Abel Murry MD [address] [place] [address], [address] [place] [address] PCP - General Pediatrics 08/03/18 Assembler Finger Buffs Relationship Specialty Start Date End Date Abel Murry MD [address] [place] [address], [address] [place] [address] PCP - General Pediatrics 08/03/18 Assembler Finger Buffs Relationship Specialty Start Date End Date Abel Murry MD [address] [place] [address], [address] [place] [address] PCP - General Pediatrics 08/03/18 Assembler Finger Buffs Relationship Specialty Start Date End Date Abel Murry MD [address] [place] [address], [address] [place] [address] PCP - General Pediatrics 08/03/18 Assembler Finger Buffs Relationship Specialty Start Date End Date Abel Murry MD [address] [place] [address], [address] [place] [address] PCP - General Family Medicine 05/02/23 Assembler Finger Buffs Relationship Specialty Start Date End Date Abel Murry MD [address] [place] [address], [address] [place] [address] PCP - General Family Medicine 05/02/23 Assembler Finger Buffs Relationship Specialty Start Date End Date Abel Murry MD [address] [place] [address], [address] [place], [place] [id number] PCP - General Pediatrics 08/03/18 Goals (unrecognized [...] BE BASED ON THE PRIMARY CLINICAL RECORDS. [employer] provides no warranty or guarantee of the accuracy or completeness of information in this document.
[2024-10-08 09:00] LABS: Basophils Percent Auto 0.5 % (0.2-2.0); Eosinophils Absolute Auto 0.1 10^3/uL (0.0-0.7); Eosinophils Percent Auto 1.4 % (0.9-7.0); Hemoglobin 13.8 g/dL (12.0-16.0); Immature Granulocytes Abs Auto 0.05 10^3/uL (0.00-0.03); Immature Granulocytes Pct Auto 0.7 % (0.0-0.5); Lymphocytes Absolute Auto 1.4 10^3/uL (1.2-3.8); Lymphocytes Percent Auto 17.8 % (20.5-60.0); Mean Corpuscular HGB Conc 32.9 g/dL (29.9-35.2); Mean Corpuscular Hemoglobin 27.3 pg (26.7-34.0); Mean Corpuscular Volume 83.2 fL (81.0-99.0); Mean Platelet Volume 8.2 fL (9.5-13.5); Monocytes Absolute Auto 0.7 10^3/uL (0.3-0.8); Monocytes Percent Auto 8.6 % (1.7-12.0); Neutrophils Absolute Auto 5.4 10^3/uL (1.4-6.5); Platelet Count 227 10^3/uL (150-450); Red Blood Count 5.05 10^6/uL (4.20-5.40); Red Cell Distribution Width 13.9 % (11.0-15.0); White Blood Count 7.7 10^3/uL (4.0-11.0)
[2024-10-08] MEDS: SCOPOLAMINE 1 MG/3 DAYS TRANSDERM PATCH 1 PATCH TD (09:44)
[2024-10-08] MEDS: LACTATED RINGER'S SOLUTION 1,000 ML 50 ML IV ×2 (09:44→11:36)
[2024-10-08] MEDS: FAMOTIDINE/PF 20 MG/2 ML VIAL IV (09:45)
--- NOTE | 2024-10-08 11:02 | PM.ONB ---
Brief Operative Note Date of procedure: 10/08/24 Pre-op diagnosis general: pmb, uterine fibroids Post-op diagnosis: same as pre-op Procedure: NAME OF PROCEDURE: [ D&c hysteroscopy with myosure] PROCEDURE: The patient was taken back to the Operating Room where she was prepped and draped in normal sterile fashion after being placed under general anesthesia without difficulty. She was also placed in the dorsal lithotomy position. A weighted speculum was placed in the patient?s vagina. The anterior lip of the cervix was identified and grasped with a single tooth tenaculum. The patient?s uterus was then sounded roughly to [? 8] cm. The patient was then gently dilated using Hegar dilators. The hysteroscope was passed through the patient?s cervix into the uterus. Both ostia were identified. fluffy appearing endometrium. No gross evidence of malignancy, no gross evidence of polyps or fibroids. The myosure apparatus was placed through the scope, The myosure was engaged and endometrial curretting were removed along with endometrial polyp, The hysteroscope was then removed from the uterus. The endometrial curettings were sent out to pathology. The single tooth tenaculum was then removed from the patient's anterior lip of the cervix where excellent hemostasis was noted. All instruments were removed from the patient?s vagina. The patient tolerated the procedure well. Sponge, lap and needle counts were correct times two. The patient was taken to the Recovery Room in stable condition.Room in stable condition. Anesthesia: PRATIBHA Surgeon: Ashok Reyes Estimated blood loss (mL): 10 Pathology: other (endometrial currettings) Condition: stable Disposition: PACU
[2024-10-08] MEDS: HYDROCODONE/ACET 5-325 MG TABLET 1 TAB PO (12:11)
== END 2024-10-08 12:30 | disposition home or self-care (01) ==
PROVIDERS: PCP Internal Medicine; Visit Provider Obstetrics & Gynecology
PROC: (CPT 952; principal; 2024-10-08 10:05)
DX: N95.0 Postmenopausal bleeding (principal); N84.0 Polyp of corpus uteri; R93.89 Abnormal findings on diagnostic imaging of other specified body structures; D25.9 Leiomyoma of uterus, unspecified
CPT/HCPCS: 58558; 36415; 85025; 88305; J1100; J1885; J2250; J2405; J2704; J3010

== ENCOUNTER 2024-11-08 07:52 | Outpatient (OUT) | payer OTHER, SELFPAY ==
--- OUTSIDE RECORDS SUMMARY | 2024-11-08 08:07 | XMS_ITS | CCD ---
Author Organization [facility] Inform ion [facility] Care Team Providers Care Broaching Machine Set Up Operator Name Role Phone DR ABEL MURRY Attending Unavailable LOVELY, DR ABEL Grossman Consulting Unavailable LOVELY, DR ABEL Grossman Admitting Unavailable Gely Deng Unavailable Theo Woodall Unavailable MD Abel Murry [...] MONTERO Attending Unavailable TERA MONTERO Attending Unavailable DI, MARIANO Attending Unavailable DI, MARIANO Referring Unavailable DI, MARIANO Referring Unavailable GINA SANTANA Attending Unavailable ROMMELFY, MARIANO Referring Unavailable GINA SANTANA Attending Unavailable RAFFAELEGAFY, MARIANO Referring Unavailable TERA MONTERO Attending Unavailable DI, MARIANO Attending Unavailable DINA JONES Referring Unavailable ABEL MURRY Primary Care Unavailable Abel Murry MD Primary Care Provider Ashok Reyes DO Attending Provider [phone] Abel Murry Primary Care Unavailable Ashok Reyes Attending Unavailable Ashok Reyes Admitting Unavailable GO JOHNSON Attending Unavailable ASHOK REYES Attending Unavailable ASHOK REYES Attending Unavailable ASHOK REYES Attending Unavailable SHARIESTANDABEL Referring Unavailable HIESTAND, ABEL Grossman Primary Care Unavailable LALI JONES Attending Unavailable HIESTAND, ABEL Grossman Referring Unavailable HIESTAND, ABEL Grossman Primary Care Unavailable REINALDO MAI Admitting Unavailable REINALDO MAI Attending Unavailable HIESTAND, ABEL Grossman Referring Unavailable HIESTAND, ABEL Grossman Primary Care Unavailable HIESTAND, ABEL Grossman Primary Care Unavailable REINALDO MAI Admitting Unavailable REINALDO MAI Attending Unavailable REINALDO MAI Referring Unavailable HIESTAND, ABEL Grossman Primary Care Unavailable REINALDO MAI Attending Unavailable REINALDO MAI Referring Unavailable HIESTAND, ABEL Grossman Referring Unavailable HIESTAND, ABEL Grossman Primary Care Unavailable DINA JONES M Attending Unavailable HIESTAND, ABEL Grossman Primary Care Unavailable DINA JONES M Attending Unavailable SHIVANI JONESA M Referring Unavailable HIESTAND, ABEL Grossman Primary Care Unavailable DINA JONES M Referring Unavailable HIESTAND, ABEL Grossman Referring Unavailable HIESTAND, ABEL Grossman Primary Care Unavailable HIESTAND, ABEL Grossman Primary Care Unavailable ROBERT, DINA M Referring Unavailable HIESTAND, ABEL Grossman Referring Unavailable HIESTAND, ABEL Grossman Primary Care Unavailable DINA JONES M Attending Unavailable HIESTABEL WHEELER Referring Unavailable HIESTAND, ABEL Grossman Primary Care Unavailable HIESTAND, ABEL Grossman Primary Care Unavailable ASHOK REYES Referring Unavailable HIESTAND, ABEL Grossman Primary Care Unavailable ROBERT, DINA M Referring Unavailable HIESTAND, ABEL Grossman Referring Unavailable HIESTAND, ABEL Grossman Primary Care Unavailable DINA JONES M Attending Unavailable HIESTAND, ABEL Grossman Primary Care Unavailable ROBERT, DINA M Attending Unavailable ROBERT, DINA M Referring Unavailable HIESTAND, ABEL Grossman Referring Unavailable HIESTAND, ABEL Grossman Primary Care Unavailable DINA JONES M Attending Unavailable SHARIESTABEL WHEELER Referring Unavailable HIESTAND, ABEL Grossman Primary Care Unavailable ISAURA COSTELLO Attending Unavailable HIESTAND, ABEL Grossman Attending Unavailable HIESTAND, ABEL Grossman Referring Unavailable HIESTAND, ABEL Grossman Primary Care Unavailable HIESTAND, ABEL Grossman Referring Unavailable HIESTAND, ABEL Grossman Primary Care Unavailable Allergies Allergy Classification Reported Allergen(s) Allergy Type Date of Onset Reaction(s) Facility (20 sources) Clarithromycin; Translations: [CLARITHROMYCIN] Drug Allergy 11-27-2019 [facility] Medications Current Medications Medication Drug Class(es) Dates [...] days. 20 tablet 0 12/12/2023 12/22/2023 Active apixaban 5 mg oral tablet (7 sources) Factor Xa Inhibitor Start: 10-28-2024 End: 11-27-2024 take 1 tablet by mouth in the morning, then take 1 tablet by mouth at bedtime apixaban (ELIQUIS) 5 mg tablet Take 1 tablet (5 mg total) by mouth in the morning and 1 tablet (5 mg total) before bedtime. Do all this for 30 days. 60 tablet 10/28/2024 11/27/2024 Active End: 08-09-2024 take 2.5 mg by mouth in the morning apixaban (Eliquis) 5 MG tablet Take 2.5 mg by mouth in the morning and 2.5 mg before bedtime. 08/09/2024 Discontinued baclofen 10 mg oral tablet (8 sources) gamma-Aminobutyric Acid-ergic Agonist Start: 08-10-2024 take [...] (BMI) of 45.0 to 49.9 in adult ([facility]) 1 tablet daily for 7 days, then 1 tablet bid for 7 days 21 tablet 07/27/2024 09/28/2024 Discontinued (Patient Stopped On Own) Centrum Silver 50+Women - (2 sources) Centrum Silver 50+Women - as directed Orally Active cholecalciferol 0.025 mg oral capsule (8 sources) Vitamin D take 1 capsule by mouth in the morning cholecalciferol, vitamin D3, (VITAMIN D3) 25 mcg (1,000 unit) capsule Take 1 capsule (1,000 Units total) by mouth in the morning. Active citalopram 20 mg oral tablet (10 sources) Serotonin Reuptake Inhibitor Start: 08-15-2023 End: 08-09-2024 take 1 tablet by mouth once daily citalopram (CeleXA) 20 mg tablet Indications: Anxiety Take 1 tablet by mouth nightly 30 tablet 0 11/21/2023 Active dexamethasone 4 mg oral tablet (1 source) Corticosteroid Start: 12-12-2023 End: 12-12-2023 take 2 tablets by mouth once dexAMETHasone (DECADRON) 4 mg tablet Indications: Laryngitis Take 2 tablets (8 mg total) by mouth once for 1 dose. 2 tablet 0 12/12/2023 12/12/2023 Active 0.4 ml enoxaparin sodium 100 mg/ml prefilled syringe (4 sources) Low Molecular Weight Heparin Start: 10-28-2024 inject 0.4 mL by subcutaneous injection in the morning enoxaparin (LOVENOX) 40 mg/0.4 mL syringe Indications: Acute deep vein thrombosis (DVT) of distal vein of right lower extremity ([facility]) , Other acute pulmonary embolism without acute cor pulmonale ([facility]) Inject 0.4 mL (40 mg total) under the skin in the morning. 2 mL 10/28/2024 Active ergocalciferol 0.05 mg oral capsule (9 sources) Provitamin D2 Compound Start: 10-21-2023 ergocalciferol (Vitamin D-2) 50 MCG (1999 UT) capsule 10/21/2023 Active esomeprazole 20 mg delayed release oral capsule (20 sources) Proton Pump Inhibitor take 1 capsule [...] Active levothyroxine sodium 0.05 mg oral tablet (17 sources) l-Thyroxine Start: 07-14-2024 End: 09-07-2024 take 1 tablet by mouth in the morning levothyroxine (SYNTHROID, LEVOTHROID) 50 MCG tablet Indications: Acquired hypothyroidism take 1 tablet by mouth in the morning 90 tablet 09/07/2024 Active meloxicam 15 mg oral tablet (8 sources) Nonsteroidal Anti-inflammatory Drug Start: 05-19-2023 End: 08-09-2024 take 1 tablet by mouth in the morning meloxicam (MOBIC) 15 mg tablet Take 1 tablet (15 mg total) by mouth in the morning. 30 tablet 2 11/25/2023 Active Multivitamin preparation (9 sources) multivitamin (MULTI-DAY ORAL) Take by mouth daily. Active multivitamin (MU LTI-DAY ORAL) Take by mouth daily. 0 Active multivitamin with minerals (Centrum) 9-200 mg-mcg tablet split tablet (9 sources) multivitamin wit h minerals (Centrum) 9-200 mg-mcg tablet split tablet Take by mouth Daily Active nabumetone 500 mg oral tablet (17 sources) Nonsteroidal Anti-inflammatory Drug Start: 024 End: 024 take 1 tablet by mouth in the morning, then take 1 tablet by mouth at bedtime nabumetone (RELAFEN) 500 mg tablet TAKE 1 TABLET BY MOUTH IN THE MORNING AND 1 AT BEDTIME 180 tablet 09/07/2024 Active nitrofurantoin, macrocrystals 25 mg / nitrofurantoin, monohydrate 75 mg oral capsule (2 sources) Nitrofuran Antibacterial Start: 023 take 1 capsule by mouth every twelve hours Macrobid 100 MG 1 capsule with food Orally every 12 hrs for 7 day(s) March, Active phenazopyridine hydrochloride 200 mg oral tablet (2 sources) Start: 023 take 1 tablet by mouth every eight hours Pyridium 200 MG 1 tablet after meals Orally Three times a day for 2 day(s) March, Active rivaroxaban 20 mg oral tablet (2 sources) Factor Xa Inhibitor Start: 020 take 1 tablet by mouth at dinner Rivaroxaban (Xarelto) 15 mg (42)- 20 mg (9) tablets,dose pack Active 0 PO .COMPLEX 51 November 28, 2019 12:00am must administer with evening meal traMADol hydrochloride 50 mg oral tablet (6 sources) Opioid Agonist Start: End: take 1 tablet [...] Active triamcinolone acetonide 1 mg/ml topical cream (9 sources) Corticosteroid triamcinolone (Kenalog) 0.1 % cream Apply topically. Active Completed/Discontinued Medications Medication Drug Class(es) Dates Sig (Normalized) Sig (Original) [id number] 200 actuat albuterol 0.09 mg/actuat metered dose inhaler (3 sources) beta2-Adrenergic Agonist Start: 12-28-2022 take 2 puff(s) by inhalation four times daily as needed Albuterol Sulfate HFA 108 (90 Base) MCG/ACT 2 puffs Inhalation 4 times a day prn Dec, Not-Taking Norgestimate-Ethin yl Estradiol (2 sources) Progestin, Estrogen Start: 11-27-2019 End: 11-28-2019 Norgestimate-Ethiny l Estradiol (Sprintec (28)) 0.25-35 mg-mcg tablet Discontinued TABLET November 27, 2019 12:00am November 28, 2019 2:22pm Start: 11-27-2019 End: 11-28-2019 Norgestimate-Ethinyl Estradi ol (Sprintec (28)) 0.25-35 mg-mcg tablet Discontinued TABLET November 27, 2019 1:00am November 28, 2019 3:22pm fexofenadine (3 sources) Histamine-1 Receptor Antagonist End: 08-09-2024 take 1 tablet by mouth once daily in the morning Fexofenadine HCl (JORY PO) 1 tablet Orally daily, in the morning for 30 day(s) 08/09/2024 Discontinued take 1 tablet by fady th once daily in the morning Fexofenadine HCl (JORY PO) 1 tablet Orally daily, in the morning for 30 day(s) Active FLUoxetine 10 mg oral tablet (2 sources) Serotonin Reuptake Inhibitor Start: 11-27-2019 End: 11-27-2019 Fluoxetine 10 mg tablet Discontinued TABLET November 27, 2019 12:00am November 27, 2019 5:33pm Start: 11-27-2019 End: 11-27-2019 Fluoxetine Discontinued TABL ET November 27, 2019 1:00am November 27, 2019 6:33pm gabapentin 300 mg oral capsule (4 sources) Anti-epileptic Agent End: 12-12-2023 take 1 capsule by mouth once daily gabapentin (NEURONTIN) 300 mg capsule Take 1 capsule (300 mg total) by mouth nightly. 0 12/12/2023 Discontinued (Therapy completed) Ketorolac (3 sources) Nonsteroidal Anti-inflammatory Drug, Cyclooxygenase Inhibitor Start: 01-18-2021 Toradol per 15 mg Dec, 60 mg methylPREDNISolone (3 sources) Corticosteroid Start: 05-19-2023 End: 08-09-2024 methylPREDNISolone (Medrol Dospak) 4 MG tablets Indications: Posterior tibialis tendinitis of both lower extremities Take as directed on package. 21 tablet 05/19/2023 08/09/2024 Discontinued Start: 05-19-2023 methylPREDNISo lone (Medrol Dospak) 4 MG tablets Indications: Posterior tibialis tendinitis of both lower extremities Take as directed on package. 21 tablet 05/19/2023 Active pantoprazole 40 mg delayed release oral tablet [...] Problem Date Documented Date Episodic/Chronic Abdominal hernia (2 sources) Hiatal hernia; Translations: [Diaphragmatic hernia without obstruction or gangrene] 11-28-2019 Episodic Comment on above: Problem List clean-u p per request of Phys. EHR Cmte Abdominal pain (2 sources) Pain in female pelvis; Translations: [Pelvic and perineal pain] 10-25-2024 Episodic Anxiety disorders (1 source) Anxiety; Translations: [Anxiety disorder, unspecified] 11-21-2023 Chronic Benign neoplasm of uterus (12 sources) Subserous leiomyoma of uterus; Translations: [Subserosal leiomyoma of uterus] Onset: 08-09-2024 08-09-2024 Episodic Chronic obstructive pulmonary disease and bronchiectasis (1 source) Bronchitis, not specified as acute or chronic Episodic Genitourinary symptoms and ill-defined conditions (1 source) Dysuria Episodic Headache; including migraine (12 sources) Migraine; Translations: [Migraine, unspecified, not intractable, without status migrainosus] 06-14-2021 Chronic Menopausal disorders (14 sources) Postmenopausal bleeding; Translations: [Postmenopausal bleeding] Onset: 08-09-2024 08-09-2024 Chronic Menstrual disorders (5 sources) Menorrhagia; Translations: [Excessive and frequent menstruation with regular cycle] Onset: 08-16-2024 10-25-2024 Chronic Other aftercare (1 source) Long-term current use of opiate analgesic drug; Translations: [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) use of opiate analgesic] 09-28-2024 Episodic Other aftercare (2 sources) 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) use of 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 analgesic; Translations: [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) use of opiate analgesic] Onset: 09-28-2024 Episodic Other connective tissue disease (2 sources) Trigger finger, unspecified finger; Translations: [Trigger finger, unspecified finger] Onset: 09-07-2024 Episodic Other diseases of kidney and ureters (1 source) Renal mass; Translations: [Other specified disorders of kidney and ureter] 10-28-2024 Chronic Other diseases of kidney and ureters (1 source) Other specified disorders of kidney and ureter; Translations: [Other specified disorders of kidney and ureter] Onset: 11-01-2024 Chronic Other female genital disorders (2 sources) Pain in female genitalia on intercourse; Translations: [Unspecified dyspareunia] 10-25-2024 Chronic Other nervous system disorders (3 sources) Carpal tunnel syndrome, bilateral upper limbs; Translations: [Carpal tunnel syndrome, bilateral upper limbs] Onset: 05-04-2024 Chronic Other nervous system disorders (1 source) Other chronic pain; Translations: [Other chronic pain] Onset: 11-06-2020 Chronic Other nervous system disorders (1 source) Polyneuropathy, unspecified; Translations: [Polyneuropathy, unspecified] Onset: 11-10-2023 Chronic Other nutritional; endocrine; and metabolic disorders (2 sources) Morbid obesity; Translations: [Morbid (severe) obesity due to excess calories] 11-28-2019 Chronic Comment on above: Problem List clean-u p per request of Phys. EHR Cmte Other nutritional; endocrine; and metabolic disorders (8 sources) Obesity; Translations: [Obesity, unspecified] 07-12-2024 Chronic Other screening for suspected conditions (not mental disorders or infectious disease) (1 source) Endometrium thickened; Translations: [Abnormal findings on diagnostic imaging of other specified body structures] 09-13-2024 Chronic Other screening for suspected conditions (not mental disorders or infectious disease) (1 source) Encounter for screening mammogram for malignant neoplasm of breast; Translations: [Encounter for screening mammogram for malignant neoplasm of breast] Onset: 11-01-2024 Episodic Other upper respiratory infections (1 source) Sinusitis Onset: 07-12-2024 Chronic Other upper respiratory infections (1 source) Laryngitis; Translations: [Acute laryngitis] 12-12-2023 Episodic Otitis media and related conditions (1 source) Acute non-suppurative otitis media - serous; Translations: [Acute serous otitis media, bilateral] 12-12-2023 Episodic Spondylosis; intervertebral disc disorders; other back problems (16 sources) Lumbosacral spondylosis without myelopathy; Translations: [Spondylosis without myelopathy or radiculopathy, lumbosacral region] Onset: 05-04-2024 05-04-2024 Chronic Spondylosis; intervertebral disc disorders; other back problems (20 sources) Chronic low back pain; Translations: [Chronic [...] Date Documented Da te Episodic/Chronic Mood disorders (12 sources) Mood disorders Onset: 12-21-2022 12-21-2022 Other non-traumatic joint disorders (1 source) Shoulder pain Onset: 05-04-2024 Episodic Other upper respiratory disease (1 source) Hoarse Onset: 12-12-2023 Episodic Phlebitis; thrombophlebitis and thromboembolism (16 sources) Deep venous thrombosis of lower extremity; Translations: [Acute embolism and thrombosis of unspecified deep veins of right lower extremity] Onset: 03-10-2020 11-28-2019 Episodic Comment on above: Problem List clean-u p per request of Phys. EHR Cmte Pulmonary heart disease (16 sources) Pulmonary embolism; Translations: [Other pulmonary embolism without acute cor pulmonale] Onset: 03-10-2020 11-28-2019 Episodic Comment on above: Problem List clean-u p per request of Phys. 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 Computer aided detection was utilized. FINDINGS: The breasts are almost entirely fatty. There are no suspicious masses, calcifications, or areas of architectural distortion. IMPRESSION: No mammographic evidence of malignancy. BI-RADS: BI-RADS 1 - Negative RECOMMENDATION: Routine screening mammogram in 1 year. Given personal elevated risk of malignancy (see below), MRI may be considered for supplemental screening. This is recommended to be performed at alternating 6 month intervals with screening mammography. RISK ASSESSMENT: TC Lifetime risk: 24.2%. The patient's reported personal and family medical history was used calculate their Tyrer-zi lifetime risk of malignancy. Scores greater than 20% are considered high risk, and patient should consider supplemental screening with MRI per ACR guidelines. Patient may discuss this option with their healthcare provider. Finalized by Siddharth Lowery MD on 11/02/2024 12:13 PM 1 a MAMM 1 YR Normal [facility] US RETROPERITONEAL COMPLETEo n 11-01-2024 US RETROPERITONEAL COMPLETE US RETROPERITONEAL COMPLETE US RETROPERITONEAL COMPLETE HISTORY: Right renal mass COMPARISON: MRI 10/18/2024 TECHNIQUE: Grayscale and color Doppler sonographic images of the urinary bladder and bilateral kidneys. FINDINGS: Exam limited by patient body habitus and overlying bowel gas. Right kidney: Not visualized on this exam. Normal right kidney also not visualized on the MRI. Left kidney: * 12.4 x 5.5 x 5.2 cm * Cortex: 1.1 cm. Normal echogenicity. * No hydronephrosis, mass, or calculi. The urinary bladder is within normal limits. Only the left ureteral jet was visualized. No visualization of right ureteral jet. Bladder volume estimated at 474 mL. Post void residual measured at 61 mL. IMPRESSION: No left hydronephrosis. Nonvisualization of right kidney, may be absent or atrophied. Consider CT if clinically indicated. Approved by Tommy Harris DO on 11/01/2024 9:29 AM Siddharth Doyle MD have personally reviewed the image(s) and agree with and/or edited the report Finalized by Siddharth Lowery MD on 11/01/2024 10:22 AM Normal [facility] MR LUMBAR SPINE WO CONTon 11 -25-2024 MR LUMBAR SPINE WO CONT MR LUMBAR SPINE WO CONT MR LUMBAR SPINE WO CONT 10/18/2024 7:32 AM INDICATION: Disc displacement, lumbar; Chronic bilateral low back pain without sciatica COMPARISON: None TECHNIQUE: Multiplanar multisequence MR images of the lumbar spine without contrast were obtained. FINDINGS: NUMBERING/ALIGNMENT: There are 5 lumbar type vertebrae. Mild approximately 2 mm of anterolisthesis of L4 and L5. Facet alignment is appropriate. Vertebral body heights are well-maintained. BONE MARROW: Bone marrow signal is heterogeneous throughout. Focal T1 bright lesion of the L2 vertebral body, likely hemangioma. There are degenerative endplate changes present. Suggestion of small synovial cyst adjacent to lower lumbar facets. SPINAL CORD: Visualized portions of the spinal cord are unremarkable. Conus medullaris tip is at L1-2. Cauda equina nerve roots are normal in morphology and configuration. SACRUM: Visualized portions of the sacrum are unremarkable. SOFT TISSUES: Multiple indeterminate lesions of the right and kidney versus adrenal gland measuring up to at least 17 mm, majority a T2 bright. Prominence of the common bile duct, favored to be due to postcholecystectomy state. DEGENERATIVE FINDINGS: Mild to moderate degenerative disc disease throughout. Mild intraspinous degenerative changes. L1-L2: No significant neural foraminal or thecal sac narrowing. L2-L3: No significant neural foraminal or thecal sac narrowing. Minimal disc bulge. Mild facet degeneration. L3-L4: Mild disc bulge and mild facet degeneration as well as mild ligamentum flavum hypertrophy. There is mild spinal canal stenosis. There is mild bilateral neural foraminal stenosis. L4-L5: Mild disc bulge, mild to moderate facet degeneration, and mild to moderate ligamentum flavum vertebrae. There is mild to moderate spinal canal stenosis. There is mild to moderate bilateral neural foraminal stenosis. L5-S1: Mild disc bulge and mild facet degeneration. There is mild bilateral neural foraminal stenosis. IMPRESSION: 1. Multiple mild to moderate degenerative changes of the lumbar spine as described, most prominent at L4-L5. 2. Multiple indeterminate right kidney or adrenal lesions. If arising from right kidney, would be severely atrophic kidney. Further evaluation with MRI with and without contrast versus ultrasound recommended.? Finalized by Thomas Dempsey DO on 10/18/2024 1:54 PM Normal [facility] ALL CBC WITH AUTO DIFFon BASOPHILS ABSOLUTE AUTO 0 [facility] Basophils/100 WBC (Bld) 0.5 % 0.2 - 2.0 % [facility] Eosinophils/100 WBC (Bld) 1.4 % 0.9 - 7.0 % [facility] Erythrocyte distribution width (RBC) [Ratio] 13.9 % 11.0 - 15.0 % [facility] Hematocrit (Bld) [Volume fraction] 42 % 36.0 - 48.0 % [facility] Hemoglobin (Bld) [Mass/Vol] 13.8 g/dL 12.0 - 16.0 g/dL [facility] IMMATURE GRANULOCYTES ABS AUTO 0.05 High [facility] Immature granulocytes/100 WBC (Bld) 0.7 % High 0.0 - 0.5 % [facility] Interpretation and review of laboratory results [facility] LYMPHOCYTES ABSOLUTE AUTO 1.4 [facility] Lymphocytes/100 WBC (Bld) 17.8 % Low 20.5 - 60.0 % [facility] MCH (RBC) [Entitic mass] 27.3 pg 26.7 - 34.0 pg [facility] MCHC (RBC) [Mass/Vol] 32.9 g/dL 29.9 - 35.2 g/dL [facility] MCV (RBC) [Entitic vol] 83.2 fL 81.0 - 99.0 fL [facility] MONOCYTES ABSOLUTE AUTO 0.7 [facility] Monocytes/100 WBC (Bld) 8.6 % 1.7 - 12.0 % [facility] NEUTROPHILS ABSOLUTE AUTO 5.4 [facility] Neutrophils/100 WBC (Bld) 71 % 43.0 - 75.0 % [facility] Platelet mean volume (Bld) [Entitic vol] 8.2 fL Low 9.5 - 13.5 fL [facility] TBH EO # 0.1 [facility] PLT 227 [facility] TB RBC 5.05 [facility] WBC 7.7 [facility] Brian 10-08-2024 L --- Specimen: [id number] Received: 10/11/24 Status: OG Jw Num: [id number] Spec Type: Surgical Subm Dr: Ashok Reyes Tissues: A Endometrium - Curettings (ENDOMETRIAL CURETTINGS) Procedures: HE/2, Gross/Micro L4 Age/ Patient Sex Location Account Attending Physician Munira Hernandez 54/F [facility] [id number] Ashok Reyes SPEC NUM: [id number] RECD: 10/11/24 STATUS: OG JW NUM: [id number] GREGORY: 10/08/24-[address]: Ashok Reyes ENTERED: 10/11/[address]: Cori Jones SPEC TYPE: Surgical DEPT: YANET REYES ENTERED BY: [id number] RECV BY: [id number] ORDERED: HE/2, Gross/Micro L4 ORDERED: HE/2, Gross/Micro L4 Pathological Diagnosis Endometrial curettings, -Multiple small strips of slightly disordered proliferative type endometrium, including at least 4 small polypoid strips of endometrial polyp, and with patchy mildly associated simple cystic hyperplasia, and at least 2 small foci of atypical complex hyperplasia (1.5 mm each) are also identified, suggesting a need for continuous close patient surveillance follow-up as appropriate Clinical Information Postmenopausal bleeding, thickened endometrium, uterine fibroid Gross Description Part A is received in formalin labeled with the patients name, date of , and endometrial curettings is an aspiration device with wilson-regan to pink, focally erythematous, delicate tissue fragments, 1.5 x 1 x 0.2 cm in aggregate. The specimen is filtered and entirely submitted in a single cassette. (1, ns, [id number]) PRINCESS Specimen: [id number] Received: 10/11/24 Status: OG Awad Num: [id number] Spec Type: Surgical Subm Dr: Ashok Reyes Tissues: A Endometrium - Curettings (ENDOMETRIAL CURETTINGS) Procedures: /2, Gross/Micro L4 Patient: Munira Hernandez [id number] (Continued) Specimen: [id number] Received: 10/11/24 (Continued) Signed (signature on file) Rin Fishman MD 10/12/24 1359 Specimen: [id number] Received: 10/11/24 Status: OG Awad Num: [id number] Spec Type: Surgical Subm Dr: Ashok Reyes Tissues: A Endometrium - Curettings (ENDOMETRIAL CURETTINGS) Procedures: MICHELLE/Cesar Haile/Filiberto L4 Patient: Munira Hernandez [id number] (Continued) Specimen: [id number] Received: 10/11/24 (Continued) Microscopic Description Microscopic examinations are performed supporting the above interpretation CPT Codes 33144 Specimen: [id number] Received: 10/11/24 Status: OG Awad Num: [id number] Spec Type: Surgical Subm Dr: Ashok Reyes Tissues: A Endometrium - Curettings (ENDOMETRIAL CURETTINGS) Procedures: Cesar MOORE/Filiberto L4 Patient: Munira Hernandez [id number] (Continued) Signed (signature on file) Rin Fishman MD 10/12/24 8453 Normal [facility] Drugs of abuse panel Screen (U)on 09-28-2024 Control Substance Panel, Urine SEE COMMENTS 10/02/2024 11:08 AM Normal [facility] Comment on above: Result Comment: NOTE Test Result Flag Unit RefValue Controlled Substance Monitoring, U List Patient's Current SEE ATTACHMENT Medications ADDITIONAL INFORMATION Accuracy and completeness of declared medications on reports solely dependent on information submitted by client. Creatinine, U 217.3 mg/dL Specific [place] 1.027 pH 5.6 Oxidants Negative -- REFERENCE [...] Not Detected ng/mL Cutoff: 25 Tylenol 3 Elygmxm-5-dhhp- Not Detected ng/mL Cutoff: 100 glucuronide Metabolite of codeine Morphine Not Detected ng/mL Cutoff: 25 Rhianna Cole, Contin; Also a minor metabolite (10%) of codeine and can be seen in low concentrations (<2,000 ng/mL) with poppy seed ingestion. Rxabxwof-2-fdau- Not Detected ng/mL Cutoff: 100 glucuronide Metabolite of morphine 6-monoacetylmorphine Not Detected ng/mL Cutoff: 25 Metabolite of heroin Hydrocodone Not Detected ng/mL Cutoff: 25 Lortab, [place], Vicodin; Also a very minor metabolite of codeine and impurity (<1%) of oxycodone. Norhydrocodone Not Detected ng/mL Cutoff: 25 Metabolite of hydrocodone Dihydrocodeine Not Detected ng/mL Cutoff: 25 Metabolite of hydrocodone Hydromorphone Not Detected ng/mL Cutoff: 25 Dilaudid, Exalgo; Also a metabolite of hydrocodone and a minor (<5%) metabolite of morphine. Mvonrldvbzymn-6-tkuq- Not Detected ng/mL Cutoff: 100 glucuronide Metabolite of hydromorphone Oxycodone Not Detected ng/mL Cutoff: 25 Endocet, Percocet, Oxycontin Noroxycodone Not Detected ng/mL Cutoff: 25 Metabolite of oxycodone Oxymorphone Not Detected ng/mL Cutoff: 25 Numorphan, Opana; Also a metabolite of oxycodone. Rtpkvkwnxjp-4-wjpv- Not Detected ng/mL Cutoff: 100 glucuronide Metabolite [...] Naloxone Not Detected ng/mL Cutoff: 25 Narcan Ytcdiagh-8-uqor- Not Detected ng/mL Cutoff: 100 glucuronide Metabolite [...] developed and its performance characteristics determined by [facility] in a manner consistent with CLIA [...] not included)... Office Visiton 09-07-2024 Follow-up visit [id number] Vickie Hernandez sa Franco 1970 F Date Provider Department Center 09/07/2024 [facility] Family History Problem Relation Age of Onset Cancer Mother Cancer Father Cancer Sister Cancer Sister Diabetes Sister Family Status - Relation Status Age at Mother Father Sister Sister Sister Level of Service:92196 [place] POSTOP FOLLOW UP VISIT RELATED TO ORIGINAL PX (GC) Reason for Visit and Comments: Post-op [483] Post-op [483] Normal [facility] HPon 08-25-2024 HP History Of Present Illness Munira Hernandez is a 54 y.o. female presenting with B CTS and a R ring trigger digit. [facility] is scheduled for B CTR and R [...] B CTR, R RF A1 release Normal [facility] OPNOTEon 08-25-2024 OPNOTE Operative Note Patient: Munira Hernandez Date of Surgery: 08/25/2024 : 1970 Pre-operative Diagnosis: 1. Carpal Tunnel Syndrome Both Hands 2. Trigger Digit Right Ring Finger Post-operative Diagnosis: same Operation: 1. Carpal Tunnel Release, Bilateral (51183) 2. Trigger Digit Release Right Ring Finger (31989) Surgeon: Tera Montero MD Fabrication Specialist: Fan De Leon MD Staff: Manager Data Center: Shiloh Calvin RN Scrub Person: Ella Tapia CST Orientee Manager Data Center: Ismael Frazier RN Anesthesia Type: MAC Indications: [...] the hamate as a landmark delete. The Rosum carpal tunnel release device was inserted into [...] the hamate as a landmark delete. The Rosum carpal tunnel release device was inserted into the carpal tunnel and advanced to the distal end of the transverse carpal liga (more content not included)... Normal [facility] POCT GLUCOSE METER UNSOLICIT ED RESULTSon 08-25-2024 Glucose [Mass/Vol] 92 mg/dL Normal 70-105 [facility] Comment on above: Order Comment: Waive d Testing in the ED is performed under the ED CLIA certificate #[id number]. Result Comment: jhag eman Performed By: #### L [id number] ####[facility] (BEAK[facility])[address] [place] [address] Orders Onlyon 08-18-2024 Orders Only [id number] Vickie Hernandez sa A 1970 F Date Provider Department Center 08/18/2024 803-CHINO URIAS MP [facility] Family History Problem Relation Age of Onset Cancer Mother Cancer Father Cancer Sister Cancer Sister Diabetes Sister Family Status - Relation Status Age at Mother Father Sister Sister Sister Normal [facility] CBC AND AUTO DIFFon 08-16-20 24 ABSOLUTE BASOPHIL 0.0 X10E9/L Normal 0.0-0.2 [facility] Comment on above: Performed By: #### C BCA, THYR, 9, 80894-6 #### [facility] ([id number]) [address] [place] [address], [address] [address] #### TTAG, 2900-9 #### [facility] ([id number]) [address] [place] [address] ABSOLUTE NEUTROPHIL 4.4 X10E9/L Normal 1.5-6.6 [facility] Comment on above: Performed By: #### C BCA, THYR, 2132-07, 15631-4 #### [facility] ([id number]) [address] [place] [address], [address] [place] [address] #### TTAG, 2900-9 #### [facility] ([id number]) [address] [place] [address]131 Basophils/100 WBC (Bld) 0.7 % Normal [facility] Comment on above: Performed By: #### C PAULINA, THYR, 2132-07, 09008-5 #### [facility] ([id number]) [address] [facility] [address], [address] [place] [address] #### TTAG, 2909 #### [facility] ([id number]) [address] [place] [address] Eosinophils (Bld) [#/Vol] 0.1 10*3/uL Normal 0.0-0.4 [facility] Comment on above: Performed By: #### C PAULINA, THYR, 2132-07, 08007-6 #### [facility] ([id number]) [address] [place] [address], [address] [place] [address] #### KASEY, 9 #### [facility] ([id number]) [address] [place] [address]57 Eosinophils/100 WBC (Bld) 1.8 % Normal [facility] Comment on above: Performed By: #### C PAULINA, THYR, 2132-07, 58702-2 #### [facility] ([id number]) [address] [facility], [address] [place] [address] #### KASEY, 9 #### [facility] ([id number]) [address] [place] [address]65[address] Erythrocyte distribution width (RBC) [Ratio] 14.9 % Normal 11.5-15.0 [facility] Comment on above: Performed By: #### Velma GALLARDO, THYR, 2132-07, 61340-7 #### [facility] ([id number]) [address], [address] [place] [address] #### KASEY, 9 #### [facility] ([id number]) [address] [place] [address] Hematocrit (Bld) [Volume fraction] 41.8 % Normal 35-47 [facility] Comment on above: Performed By: #### C PAULINA, THYR, 2132-07, 39781-2 #### [facility] ([id number]) [address], [address] [place] [address] #### TTAMichael, 2909 #### [facility] ([id number]) [address] [place] [address]9814 Hemoglobin (Bld) [Mass/Vol] 13.9 g/dL Normal 11.7-15.5 [facility] Comment on above: Performed By: #### C PAULINA, THYR, 2132-07, 88590-3 #### [facility] ([id number]) [address], [address] [place] [address] #### TTAMichael, 9 #### [facility] ([id number]) [address] [place] [address] Lymphocytes (Bld) [#/Vol] 1.2 10*3/uL Normal 1.0-3.5 [facility] Comment on above: Performed By: #### C PAULINA, THYR, 2132-07, 59054-0 #### [facility] ([id number]) [address], [address] [place] [address] #### TTAG, 2909 #### [facility] ([id number]) [address] [place] [address] 67224 Lymphocytes/100 WBC (Bld) 19.7 % Normal [facility] Comment on above: Performed By: #### C BCA, THYR, 2132-07, 80731-5 #### [facility] ([id number]) [address], [address] [place] [address] #### TTAG, 9 #### [facility] ([id number]) [address] [place] [address] 97527 MCH (RBC) [Entitic mass] 27.3 pg Normal 27-34 [facility] Comment on above: Performed By: #### C BCA, THYR, 2132-07, 62526-5 #### [facility] ([id number]) [address] [place] [address], [address] [place] [address] #### TTAG, 9 #### [facility] ([id number]) [address] [place] [address] 80749 MCHC (RBC) [Mass/Vol] 33.2 g/dL Normal 32-36 [facility] Comment on above: Performed By: #### C BCA, THYR, 2132-07, 68320-5 #### [facility] ([id number]) [address] [place] [address], [facility] [address] [place] [address] #### TTAG, 9 #### [facility] ([id number]) [address] [place] [address] 59626 MCV (RBC) [Entitic vol] 82 fL Normal 80-100 [facility] Comment on above: Performed By: #### C BCA, THYR, 2132-07, 03850-9 #### [facility] ([id number]) [address] [place] [address], [address] [place] [address] #### TTAG, [address] #### [facility] ([id number]) [address] [place] [address] 86551 Monocytes (Bld) [#/Vol] 0.5 10*3/uL Normal 0-0.9 [facility] Comment on above: Performed By: #### Velma BCA, THYR, 2132-07, 13002-5 #### [facility] ([id number]) [address] [place] [address], [address] [place] [address] #### TTAG, 2900-9 #### [facility] ([id number]) [address] [place] [address] 64772 Monocytes/100 WBC (Bld) 7.6 % Normal [facility] Comment on above: Performed By: #### C BCA, THYR, 2132-07, 40645-5 #### [facility] ([id number]) [address] [place] [address], [address] [place] [address] #### TTAG, 2900-9 #### [facility] ([id number]) [address] [place] [address] 19257 Neutrophils/100 WBC (Bld) 70.2 % Normal [facility] Comment on above: Performed By: #### Velma GALLARDO, THYR, 2132-07, 25305-9 #### [facility] ([id number]) [address] [place] [address], [address] [place] [address] #### TTAG, 2900-9 #### [facility] ([id number]) [address] [place] [address]1173 Platelet mean volume (Bld) [Entitic vol] 6.9 fL Low 7-12 [facility] Comment on above: Performed By: #### Velma BCA, THYR, 2132-07, 91777-6 #### [facility] ([id number]) [address] [place] [address], [address] [place] [address] #### TTAG, 2900-9 #### [facility] ([id number]) [address] [place] [address] 34683 Platelets (Bld) [#/Vol] 245 10*3/uL Normal 150-450 [facility] Comment on above: Performed By: #### C BCA, THYR, 2132-07, 71027-3 #### [facility] ([id number]) [address], [address] [place] [address] #### TTAG, 29009 #### [facility] ([id number]) [address] [place] [address]403 RBC COUNT 5.10 X10E12/L Normal 3.80-5.20 [facility] Comment on above: Performed By: #### C BCA, THYR, 2132-07, 89432-2 #### [facility] ([id number]) [address], [address] [place] [address] #### TTAG, 29009 #### [facility] ([id number]) [address] [place] [address] 620[address] WBC (Bld) [#/Vol] 6.3 10*3/uL Normal 4.0-11.0 [facility] Comment on above: Performed By: #### C BCA, THYR, 2132-07, 26020-0 #### [facility] ([id number]) [address], [address] [place] [address] #### TTAG, 29009 #### [facility] ([id number]) [address] [place] [address] 96946 HGB A1C (GLYCO-HGB)on 2023 Glucose [Mass/Vol] 114 mg/dL Normal [facility] Comment on above: Performed By: #### C BCA, THYR, 2132-07, 80478-6 #### [facility] ([id number]) [address] [facility] [address], [address] [place] [address] #### TTAG, 29009 #### [facility] ([id number]) [address] [place] [address] 84611 HbA1c (Bld) [Mass fraction] 5.6 % Normal 4.4-5.6 [facility] Comment on above: Result Comment: NOTE ADA Guidelines Result HgbA1c Normal : less than 5.7 % Prediabetes : 5.7 % to 6.4 % Diabetes : > 6.4 % Use with caution in patients with abnormal hemoglobin variants as the half-life of red blood cells and in vivo glycation rates are affected. Performed By: #### C BCA, THYR, 2132-07, 62335-4 #### [facility] ([id number]) [address] [place] [address], [address] [place] [address] #### TTAMichael, 2900-9 #### [facility] ([id number]) [address] [place] [address]47[address] THYROID PROFILEon 08-16-2024 Free T4 [Mass/Vol] 0.81 ng/dL Normal 0.61-1.60 [facility] Comment on above: Performed By: #### C BCA, THYR, 2132-07, 80069-9 #### [facility] ([id number]) [address] [place] [address], [address] [place] [address] #### TTAG, 2900-9 #### [facility] ([id number]) [address] [place] [address] 34984 TSH 3.36 uIU/mL Normal 0.49-4.67 [facility] Comment on above: Performed By: #### C BCA, THYR, 2132-07, 42940-1 #### [facility] ([id number]) [address] [facility] [facility] [address], [address] [place] [address] #### TTAG, 2900-9 #### [facility] ([id number]) [address] [place] [address]157 US PELVIC WITH TRANSVAGINALo 08-16-2024 US PELVIC [...] Horton MD on 08/16/2024 2:30 PM Normal [facility] THYROID PROFILEon 07-12-2024 Free T4 [Mass/Vol] 0.81 ng/dL Normal 0.61-1.60 [facility] Comment on above: Performed By: #### T HYR #### [facility] ([id number]) [address], [address] [place] [address] TSH 8.06 uIU/mL High 0.49-4.67 [facility] Comment on above: Performed By: #### T HYR #### [facility] ([id number]) [address], [address] [place] [address] XR LUMBAR SPINE AP, LATERAL, FLEXION AND [...] Bryan MD on 07/06/2024 6:05 PM Normal [facility] XR SPINE THORACIC MIN 4 VWSo [...] Martin Bryan MD on 07/06/2024 4:53 PM [facility] 36on 06-22-2024 36 Sent to [facility] Follow-Upon 06-22-2024 Follow-Up [id number] HernandezThalia fraserkellen ralph A 1970 F Date Provider Department Center 06/22/2024 Clara-TERA MONTERO MP ORTHO MPORTHO Family History Problem Relation Age of Onset Cancer Mother Cancer Father Cancer Sister Cancer Sister Diabetes Sister Family Status - Relation Status Age at Mother Father Sister Sister Sister Level of Service:48913 [place] OFFICE/OUTPATIENT ESTABLISHED LOW MDM 20 MIN (GC) Reason for Visit and Comments: Pain [136] Pain [136] [facility] Follow-Upon 04-21-2024 Follow-Up [id number] HernandezVickie fraser A 1970 F Date Provider Department Center 04/21/2024 266-MARIANO BURCH MP ORTHO MPORTHO No family history on file Level of Service:60762 [place] OFFICE/OUTPATIENT ESTABLISHED LOW MDM 20 MIN Reason for Visit and Comments: Follow-up [[id number]] - Patient here today to go MRI results. Pain [136] - Patient here today to go MRI results. [facility] 3602-25-2024 36 VM left advising patient we need the actual CD, not just the report. Asked to return call with any questions/concerns. [facility] 3602-24-2024 36 Returned call and le ft message with patient [facility] 36 Patient wanting to k now if pdi sent report of cervical spine mri [facility] 36on 01-28-2024 36 Spoke to Chase Estes reason states need 6 weeks pt within past 6 months. I dont see that this has been completed. Will refer patient to PT. Call to patient - notified of referral, she verbalized understanding. She will call [facility] facility to cancel everything. [facility] 36 Per phone encounter on 01/02 the patient told me this was approved. Per phone encounter 01/14, message was sent back asking what they needed and I received no response. If it was denied they need to send me a denial letter so I have information to submit an appeal. [facility] 36 Mri denied and sandoval d office back on 01/16 and nothing was ever done by staff per the insurance company now [facility] precert is wanting further clarity, please return call PATIENT IS SCHEDULE THIS UPCOMING Friday02/02/24 [facility] 36on 01-14-2024 36 What do they need [facility] 36 Appeals number: [phone] Tracking number :[id number] Patient reschedule :02/02/24 [facility] needed [facility] 36on 01-02-2024 36 [facility] encounter[facility] Patient states she h as talked to the facility and this has been approved. Advised her to call me if she has any issues. [facility] 36on 12-31-2023 36 [facility] pre cert calling- mri denied MRI cervical spine- peer to peer is available for up to 5 business days Denied on 12/29/2023 Wanting 6 weeks of neck pt or chiropractor treatment in the past 6 months [facility] Follow-Upon 12-03-2023 Follow-Up [id number] Vickie Hernandez sa 1970 F Date Provider Department Center 12/03/2023 266-MARIANO BURCH MP ORTHO MPORTHO No family history on file Level of Service:69523 [place] OFFICE/OUTPATIENT ESTABLISHED LOW MDM 20 MIN (GC) Reason for Visit and Comments: Follow-up [115230] - EMG results Follow-up [293765] [facility] CBC AND AUTO DIFFon 11-10-20 ABSOLUTE BASOPHIL 0.0 X10E9/L Normal 0.0-0.2 [facility] Comment on above: Performed By: #### C PAULINA, THYR, 2132-07, 39980-9 #### [facility] ([id number]) [address], [address] [place] [address] #### KASEY, 2909 #### [facility] ([id number]) [address] [place] [address]40[address] ABSOLUTE NEUTROPHIL 5.2 X10E9/L Normal 1.5-6.6 [facility] Comment on above: Performed By: #### C PAULINA, THYR, 2132-07, 72726-1 #### [facility] ([id number]) [address], [address] [place] [address] #### KASEY, 9 #### [facility] ([id number]) [address] [place] [address] 30541 Basophils/100 WBC (Bld) 0.4 % Normal [facility] Comment on above: Performed By: #### C PAULINA, THYR, 2132-07, 50717-4 #### [facility] ([id number]) [address], [address] [place] [address] #### KASEY, 9 #### [facility] ([id number]) [address] [place] [address] 36645 Eosinophils (Bld) [#/Vol] 0.1 10*3/uL Normal 0.0-0.4 [facility] Comment on above: Performed By: #### C PAULINA, THYR, 2132-07, 29097-9 #### [facility] ([id number]) [address], [address] [place] [address] #### TTAG, 9 #### [facility] ([id number]) [address] [place] [address] 20543 Eosinophils/100 WBC (Bld) 1.8 % Normal [facility] Comment on above: Performed By: #### C BCA, THYR, 2132-07, 06532-3 #### [facility] ([id number]) [address], [address] [place] [address] #### TTAG, 2909 #### [facility] ([id number]) [address] [place] [address] 73365 Erythrocyte distribution width (RBC) [Ratio] 15.1 % High 11.5-15.0 [facility] Comment on above: Performed By: #### C BCA, THYR, 2132-07, 43258-0 #### [facility] ([id number]) [address], [address] [place] [address] #### TTAG, 29009 #### [facility] ([id number]) [address] [place] [address] 75208 Hematocrit (Bld) [Volume fraction] 38.2 % Normal 35-47 [facility] Comment on above: Performed By: #### C BCA, THYR, 2132-07, 55918-7 #### [facility] ([id number]) [address], [address] [place] [address] #### TTAG, 2900-9 #### [facility] ([id number]) [address] [place] [address] 64765 Hemoglobin (Bld) [Mass/Vol] 12.8 g/dL Normal 11.7-15.5 [facility] Comment on above: Performed By: #### C BCA, THYR, 2132-07, 40572-7 #### [facility] ([id number]) [address] [facility] [address], [address] [place] [address] #### TTAG, 29009 #### [facility] ([id number]) [address] [place] [address] 90191 Lymphocytes (Bld) [#/Vol] 1.3 10*3/uL Normal 1.0-3.5 [facility] Comment on above: Performed By: #### C BCA, THYR, 2132-07, 47390-5 #### [facility] ([id number]) [address] [facility], [address] [place] [address] #### TTAG, 2909 #### [facility] ([id number]) [address] [place] [address] 66105 Lymphocytes/100 WBC (Bld) 18.4 % Normal [facility] Comment on above: Performed By: #### C BCA, THYR, 2132-07, 74936-1 #### [facility] ([id number]) [address] [facility], [address] [place] [address] #### TTAG, 29009 #### [facility] ([id number]) [address] [place] [address] 14166 MCH (RBC) [Entitic mass] 27.1 pg Normal 27-34 [facility] Comment on above: Performed By: #### Velma BCA, THYR, 2132-07, 32813-2 #### [facility] ([id number]) [address] [facility], [address] [place] [address] #### TTAG, 29009 #### [facility] ([id number]) [address] [place] [address] 69228 MCHC (RBC) [Mass/Vol] 33.5 g/dL Normal 32-36 [facility] Comment on above: Performed By: #### C BCA, THYR, 2132-07, 10974-6 #### [facility] ([id number]) [address], [address] [place] [address] #### KASEY, 29009 #### [facility] ([id number]) [address] [place] [address] 30912 MCV (RBC) [Entitic vol] 81 fL Normal 80-100 [facility] Comment on above: Performed By: #### C BCA, THYR, 2132-07, 51829-6 #### [facility] ([id number]) [address], [address] [place] [address] #### KASEY, [id number] #### [facility] ([id number]) [address] [place] [id number] Monocytes (Bld) [#/Vol] 0.5 10*3/uL Normal 0-0.9 [facility] Comment on above: Performed By: #### Velma BCA, THYR, 2132-07, 53221-0 #### [facility] ([id number]) [address], [address] [place] [address] #### KASEY, [id number] #### [facility] ([id number]) [address] [place] [id number] Monocytes/100 WBC (Bld) 7.2 % Normal [facility] Comment on above: Performed By: #### C BCA, THYR, 2132-07, 76803-7 #### [facility] ([id number]) [address], [address] [place] [address] #### TTAG, 29009 #### [facility] ([id number]) [address] [place] [address] Neutrophils/100 WBC (Bld) 72.2 % Normal [facility] Comment on above: Performed By: #### C BCA, THYR, 2132-07, 15059-0 #### [facility] ([id number]) [address], [address] [place] [address] #### TTAG, 2900-9 #### [facility] ([id number]) [address] [place] [address] Platelet mean volume (Bld) [Entitic vol] 6.8 fL Low 7-12 [facility] Comment on above: Performed By: #### C BCA, THYR, 2132-07, 14994-5 #### [facility] ([id number]) [address], [address] [place] [address] #### TTAMichael, 2900-9 #### [facility] ([id number]) [address] [place] [address] Platelets (Bld) [#/Vol] 254 10*3/uL Normal 150-450 [facility] Comment on above: Performed By: #### C BCA, THYR, 2132-07, 50672-9 #### [facility] ([id number]) [address], [address] [place] [address] #### TTAG, 2900-9 #### [facility] ([id number]) [address] [place] [address] RBC COUNT 4.73 X10E12/L Normal 3.80-5.20 [facility] Comment on above: Performed By: #### C BCA, THYR, 2132-07, 67853-9 #### [facility] ([id number]) [address], [address] [place] [address] #### TTAG, 2900-9 #### [facility] ([id number]) [address] [place] [address] WBC (Bld) [#/Vol] 7.2 10*3/uL Normal 4.0-11.0 [facility] Comment on above: Performed By: #### C BCA, THYR, 2132-07, 42549-6 #### [facility] ([id number]) [address] [place] [address], [address] [place] [address] #### TTAG, 2909 #### [facility] ([id number]) [address] [place] [address] Nuclear Ab IA Ql (S)on 11-10 SAMRA Screen w/reflex Negative Normal NE[facility] Comment on above: Result Comment: Testing performed using multiplex flow immunoassay. Eleven different antigens associated with systemic autoimmune diseases (dsDNA,Sm,Sm/TICKETING CLERK,TICKETING CLERK,Chromatin, SSA,SSB,Yumiko-1,Scl70,Ribo P,Centromere B) are included in this screening test. Performed By: #### C BCA, THYR, 2132-07, 34914-0 #### [facility] ([id number]) [address] [place] [address], [facility] [address] [place] [address] #### TTAG, 2909 #### [facility] ([id number]) [address] [place] [address] Pyridoxine [Mass/Vol]on 10-24 VITAMIN B6 16.9 nmol/L Low 20.0-125.0 [facility] Comment on above: Result Comment: NOTE INTERPRETIVE INFORMATION: Vitamin B6 (Pyridoxal 5-Phosphate) Pyridoxal 5'-phosphate measured in a specimen collected following an 8-hour or overnight fast accurately indicates vitamin B6 nutritional status. Non-fasting specimen concentration reflects recent vitamin intake. This test was developed and its performance characteristics determined by [facility]. It has not been cleared or approved by the [place] Food and Drug Administration. This test was performed in a CLIA certified laboratory and is intended for clinical purposes. Performed By: [facility] [address] [place] [address] Diabetes Education Coordinator: Bryan Murray MD, PhD CLIA Number: [id number] Performed By: #### C BCA, THYR, 2132-07, 83225-1 #### [facility] ([id number]) [address] [facility] [address], [address] [place] [address] #### TTAG, 2900-9 #### [facility] ([id number]) [address] [facility], [place] [address] Reference Lab Test IDon 12- HEAVY METALS SCR See Below Normal [facility] Comment on above: Result Comment: NOTE TEST [...] developed and its performance characteristics determined by [facility]. It has not been cleared or approved [...] developed and its performance characteristics determined by [facility]. It has not been cleared or approved [...] developed and its performance characteristics determined by [facility]. It has not been cleared or approved [...] included)... Performed By: #### 3 0896-5 #### [facility] ([id number]) [address] [place] [address] THYROID PROFILEon 11-10-2023 Free T4 [Mass/Vol] 0.63 ng/dL Normal 0.61-1.60 [facility] Comment on above: Performed By: #### C BCA, THYR, 2132-07, 11264-1 #### [facility] ([id number]) [address] [facility] [facility], [address] [place] [address] #### TTAG, 29009 #### [facility] ([id number]) [address] [place] [address] TSH 4.88 uIU/mL High 0.49-4.67 [facility] Comment on above: Performed By: #### C BCA, THYR, 2132-07, 57732-7 #### [facility] ([id number]) [address], [address] [place] [address] #### TTAG, 2909 #### [facility] ([id number]) [address] [place] [address] TTG AB IGA IGGon 11-10-2023 TTG AB IGA <1.2 Normal <4.0 (Negative) [facility] Comment on above: Performed By: #### C BCA, THYR, 2132-07, 66637-9 #### [facility] ([id number]) [address], [address] [place] [address] #### TTAG, 29009 #### [facility] ([id number]) [address] [place] [address] TTG AB IGG 4.9 U/mL Normal <6.0 (Negative) [facility] Comment on above: Result Comment: NOTE Test Performed by: [facility] [address] [place] [address] Medical Resident: Reinaldo Hare M.D. Ph.D.; CLIA# [id number] Performed By: #### C BCA, THYR, 2132-07, 12012-2 #### [facility] ([id number]) [address] [place] [address], [address] [place] [address] #### TTAG, 2900-9 #### [facility] ([id number]) [address] [place] [address] VITAMIN B12on 11-10-2023 Cobalamin (Vitamin B12) [Mass/Vol] 487 pg/mL Normal 180-914 [facility] Comment on above: Performed By: #### C BCA, THYR, 2132-07, 60378-5 #### [facility] ([id number]) [address] [place] [address], [address] [place] [address] #### TTAG, 2909 #### [facility] ([id number]) [address] [place] [address] Procedure Visiton 10-27-2023 Procedure Visit [id number] Vickie Hernandez sa A 1970 F Date Provider Department Center 10/27/2023 GINA YE MP PHYS MED Medical [facility]avi No family history on file Level of Service:34293 [place] OFFICE/OUTPT VISIT,PROCEDURE ONLY Reason for Visit and Comments: EMG [Other] - EMG-BLE [facility] 36on 10-02-2023 36 scheduled [facility] 36 She will need to sierra k to Dr. Burch at her next appointment. [facility] 36 Patient was informed and will schedule EMG. Pt was also asking about some labs for neuropathy ??? [facility] 36on 10-01-2023 36 Ordered, please let patient know. [facility] 36 Patient had bilatera l UPPER EMG done yesterday but she is now requesting bilateral LOWER as well... Are you ok to order this or do you want her to be seen first? [facility] 36on 09-30-2023 36 She had an EMG today . Please schedule her an appointment for the first available for results and I will add her to my cancellation list. [facility] 36 Patient would like t o get an order for [place] lower extremities EMG recommended by PM&R [facility] Telephoneon 09-30-2023 Telephone [id number] Vickie Hernandez sa A 1970 F Date Provider Department Center 09/30/2023 ARTUR CHRISTIE MP ORTHO MPORTHO No family history on file Reason for Visit and Comments: Request For Order(s) [706] [facility] Procedure Visiton 09-22-2023 Procedure Visit [id number] Vickie Hernandez sa A 1970 F Date Provider Department Center 09/22/2023 GINA YE MP PHYS MED Medical [facility]avi No family history on file Level of Service:47026 [place] OFFICE/OUTPT VISIT,PROCEDURE ONLY Reason for Visit and Comments: EMG [Other] - BUE [facility] Urinalysis - AUTOMATEDon Appearance (U) clear [employer] Other Bilirubin Ql (U) Negative [employer] Other Color (U) yellow [employer] Other Glucose Ql (U) Negative [employer] Other Hemoglobin Ql (U) Large [employer] C [employer] Other Ketones Ql (U) Negative [employer] Other Leukocyte esterase Test strip Ql (U) Small [employer] Other Nitrite Ql (U) Negative [employer] Other pH (U) 6.0 [pH] [employer] Other Protein Ql (U) Negative [employer] Other Specific gravity (U) [Rel density] 1.010 [employer] Other Urobilinogen (U) [Mass/Vol] 0.2 E.U./dL [employer] Other Urinalysis - AUTOMATED [employer] Other CERVICAL SPINE 4 OR 5 VIEWSo n 05-31-2022 CERVICAL SPINE [address] [facility] Department of Radiology [address] [place] [phone] ===== Patient Name: MUNIRA HERNANDEZ : [...] findings. Electronically signed: Marian Bacon. Transcribed by: [email or web address], User Resident: Electronically Signed by: MARIAN BACON @ 06/01/2022 07:[address] [facility] LUMBAR SPINE 4 OR 5 [facility] LUMBAR SPINE 4 OR 5 [facility] Department of Radiology [address] [place] [phone] ===== Patient Name: MUNIRA HERNANDEZ : [...] , Exam: LUMBAR SPINE 4 OR 5 [facility] ===== LUMBAR SPINE 4 OR 5 VWS [...] regions. Electronically signed: Marian Bacon. Transcribed by: [email or web address], User Resident: Electronically Signed by: MARIAN BACON @ 06/01/2022 07:[address] [facility] Comment on above: Order Comment: , , = ========= , Ordering Provider - MARIANO BURCH MD , CBC AUTO DIFFon 08-20-2021 BASO # 0.0 103/ul Normal 0.0-0.1 [facility] Comment on above: Performed By: #### C BC #### [facility] [address] [place] [address] Dr. Becky Fishman Basophils/100 WBC (Bld) 0.5 % Normal 0.2-2.0 [facility] Comment on above: Performed By: #### C BC #### [facility] [address] [place] [address] Dr. Becky Fishman EO # 0.1 103/ul Normal 0.0-0.7 [facility] Comment on above: Performed By: #### C BC #### [facility] [address] [place] [address] Dr. Becky Fishman Eosinophils/100 WBC (Bld) 1.8 % Normal 0.9-7.0 [facility] Comment on above: Performed By: #### C BC #### [facility] [address] [place] [address] Dr. Becky Fishman Erythrocyte distribution width (RBC) [Ratio] 14.6 % Normal 11.0-15.0 [facility] Comment on above: Performed By: #### C BC #### [facility] [address] [place] [address] Dr. Becky Fishman Hematocrit (Bld) [Volume fraction] 46.3 % Normal 36.0-48.0 [facility] Comment on above: Performed By: #### C BC #### [facility] [address] [place] [address] Dr. Becky Fishman Hemoglobin (Bld) [Mass/Vol] 14.4 g/dL Normal 12.0-16.0 [facility] Comment on above: Performed By: #### C BC #### [facility] [address] [place] [address] Dr. Becky Fishman IG # 0.01 10e3/ul Normal 0.00-0.03 [facility] Comment on above: Performed By: #### C BC #### [facility] [address] [place] [address] Dr. Becky Fishman IG % 0.2 % Normal 0.0-0.5 [facility] Comment on above: Performed By: #### C BC #### [facility] [address] [place] [address] Dr. Becky Fishman LYMPH # 1.4 103/ul Normal 1.2-3.8 [facility] Comment on above: Performed By: #### C BC #### [facility] [address] [place] [address] Dr. Becky Fishman Lymphocytes/100 WBC (Bld) 23.9 % Normal 20.5-60.0 [facility] Comment on above: Performed By: #### C BC #### [facility] [address] [place] [address] Dr. Becky Fishman MANUAL DIFF REQ NO Normal [facility] Comment on above: Performed By: #### C BC #### [facility] [address] [place] [address] Dr. Becky Fishman MCH (RBC) [Entitic mass] 26.4 pg Critically low 26.7-34.0 [facility] Comment on above: Performed By: #### C BC #### [facility] [address] [place] [address] Dr. Becky Fishman MCHC (RBC) [Mass/Vol] 31.1 g/dL Normal 29.9-35.2 [facility] Comment on above: Performed By: #### C BC #### [facility] [address] [place] [address] Dr. Becky Fishman MCV (RBC) [Entitic vol] 85.0 fL Normal 81.0-99.0 [facility] Comment on above: Performed By: #### C BC #### [facility] [address] [place] [address] Dr. Becky Fishman MONO # 0.5 103/ul Normal 0.3-0.8 [facility] Comment on above: Performed By: #### C BC #### [facility] [address] [place] [address] Dr. Becky Fishman Monocytes/100 WBC (Bld) 9.0 % Normal 1.7-12.0 [facility] Comment on above: Performed By: #### C BC #### [facility] [address] [place] [address] Dr. Becky Fishman NEUT # 3.7 103/ul Normal 1.4-6.5 [facility] Comment on above: Performed By: #### C BC #### [facility] [address] [place] [address] Dr. Becky Fishman Neutrophils/100 WBC (Bld) 64.6 % Normal 43.0-75.0 [facility] Comment on above: Performed By: #### C BC #### [facility] [address] [address] [address] Becky Fishman Platelet mean volume (Bld) [Entitic vol] 9.1 fL Critically low 9.5-13.5 [facility] Comment on above: Performed By: #### C BC #### [facility] [address] [address] [address] Becky Fishman PLT 257 103/ul Normal 150-450 [facility] Comment on above: Performed By: #### C BC #### [facility] [address] [address] [address] Becky Fishman RBC 5.45 106/ul Critically high 4.20-5.40 [facility] Comment on above: Performed By: #### C BC #### [facility] [address] [address] [address] Becky Fishman WBC 5.7 103/ul Normal 4.0-11.0 [facility] Comment on above: Performed By: #### C BC #### [facility] [address] [address] [address] Becky Fishman GLYCOHEMOGLOBIN A1Con 2020 ADA RECOMMENDATION ADA THERAPEUTIC TARG ET 6.0 - 7.0 ACTION SUGGESTED > 7.0 Normal [facility] Comment on above: Performed By: #### A 1C #### [facility] [address] [address] [address] Becky Fishman Glucose [Mass/Vol] 108 mg/dL Normal [facility] Comment on above: Performed By: #### A 1C #### [facility] [address] [place] [address] Dr. Becky Fishman HbA1c (Bld) [Mass fraction] 5.4 % Normal <=6.0 [facility] Comment on above: Performed By: #### A 1C #### [facility] [address] [place] [address] Dr. Becky Fishman LIPID PROFILEon 08-20-2021 CHOL-HDL RATIO NORM SEE BELOW Normal [facility] Comment on above: Result Comment: 3.3 - 4.4 LOW RISK 4.4 - 7.1 AVERAGE RISK 7.1 - 11.0 MODERATE RISK >11.0 HIGH RISK Performed By: #### B MP, LIPID, TSH #### [facility] [address] [address] [address] Becky Fishman Cholesterol [Mass/Vol] 159 mg/dL Normal <=200 [facility] Comment on above: Performed By: #### B MP, LIPID, TSH #### [facility] [address] [address] [address] Becky Fishman Cholesterol in HDL [Mass/Vol] 53 mg/dL Normal [facility] Comment on above: Performed By: #### B MP, LIPID, TSH #### [facility] [address] [address] [address] Becky Fishman Cholesterol in LDL [Mass/Vol] 88.0 mg/dL Normal [facility] Comment on above: Performed By: #### B MP, LIPID, TSH #### [facility] [address] [address] [address] Becky Fishman Cholesterol.total/C holesterol in HDL [Mass ratio] 3.0 {ratio} Normal [facility] Comment on above: Performed By: #### B MP, LIPID, TSH #### [facility] [address] [address] [address] Becky Fishman HDL NORMAL > or = 60 mg/dl - LO W CARDIOVASCULAR RISK <40 mg/dl - HIGH CARDIOVASCULAR RISK Normal [facility] Comment on above: Performed By: #### B MP, LIPID, TSH #### [facility] [address] [address] [address] Becky Fishman LDL CALC NORMAL SEE BELOW Normal [facility] Comment on above: Result Comment: <100 mg/dl OPTIMAL 100 - 129 mg/dl NEAR OR ABOVE OPTIMAL 130 - 159 mg/dl BORDERLINE HIGH 160 - 189 mg/dl HIGH >190 mg/dl VERY HIGH Performed By: #### B MP, LIPID, TSH #### [facility] [address] [address] [address] Becky Fishman Triglyceride [Mass/Vol] 90 mg/dL Normal <=150 [facility] Comment on above: Performed By: #### B MP, LIPID, TSH #### [facility] [address] [address] [address] Becky Fishman VLDL CALC 18.0 mg/dL Normal [facility] Comment on above: Performed By: #### B MP, LIPID, TSH #### [facility] [address] [address] [address] Becky Fishman PROF CHEM 8 (BAS METB)on Anion gap [Moles/Vol] 10.0 mmol/L Normal [facility] Comment on above: Performed By: #### B MP, LIPID, TSH #### [facility] [address] [address] [address] Becky Fishman Calcium [Mass/Vol] 9.4 mg/dL Normal 8.4-10.2 [facility] Comment on above: Performed By: #### B MP, LIPID, TSH #### [facility] [address] [place] [address] Dr. Becky Fishman Chloride [Moles/Vol] 106 mmol/L Normal 98-107 [facility] Comment on above: Performed By: #### B MP, LIPID, TSH #### [facility] [address] [address] [address] Becky Fishman CO2 [Moles/Vol] 28.0 mmol/L Normal 22.0-30.0 [facility] Comment on above: Performed By: #### B MP, LIPID, TSH #### [facility] [address] [address] [address] Becky Fishman Creatinine [Mass/Vol] 0.99 mg/dL Normal 0.52-1.04 [facility] Comment on above: Performed By: #### B MP, LIPID, TSH #### [facility] [address] [address] [address] Becky Fishman EGFR-AF TANZANIAN >60 Normal >=60 [facility] Comment on above: Performed By: #### B MP, LIPID, TSH #### [facility] [address] [place] [address] Dr. Becky Fishman EGFR-NON AF TANZANIAN 59 mL/min/1.73m2 Critically low >=60 [facility] Comment on above: Performed By: #### B MP, LIPID, TSH #### [facility] [address] [address] [address] Becky Fishman Glucose [Mass/Vol] 88 mg/dL Normal 74-106 [facility] Comment on above: Performed By: #### B MP, LIPID, TSH #### [facility] [address] [place] [address] Dr. Becky Fishman Potassium [Moles/Vol] 4.0 mmol/L Normal 3.4-5.0 [facility] Comment on above: Performed By: #### B MP, LIPID, TSH #### [facility] [address] [place] [address] Dr. Becky Fishman Sodium [Moles/Vol] 140 mmol/L Normal 137-145 [facility] Comment on above: Performed By: #### B MP, LIPID, TSH #### [facility] [address] [place] [address] Dr. Becky Fishman Urea nitrogen [Mass/Vol] 20.0 mg/dL Critically high 7.0-17.0 [facility] Comment on above: Performed By: #### B MP, LIPID, TSH #### [facility] [address] [place] [address] Dr. Becky Fishman Urea nitrogen/Creatinine [Mass ratio] 20.2 mg/mg Normal [facility] Comment on above: Performed By: #### B MP, LIPID, TSH #### [facility] [address] [place] [address] Dr. Becky Fishman TSHon 08-20-2021 TSH 5.466 uIU/mL Critically high 0.470-4.680 [facility] Comment on above: Performed By: #### B MP, LIPID, TSH #### [facility] [address] [place] [address] Dr. Becky Fishman TSH RANGE SEE BELOW Normal [facility] Comment on above: Result Comment: <0.3 4 UIU/ml HYPERTHYROID 0.34-5.60 UIU/ml EUTHYROID >5.60 UIU/ml HYPOTHYROID Performed By: #### B MP, LIPID, TSH #### [facility] [address] [place] [address] Dr. Becky Fishman Vital Signs Date Time Vital Sign Value Performing Clinician Facility 10-28-2024 08:50-0500 Body height 167.6 cm Isaura Costello MD Work Phone: [facility] 10-28-2024 08:50-0500 Body mass index (BMI) [Ratio] 46.38 kg/m2 Isaura Costello MD Work Phone: [facility] 10-28-2024 08:50-0500 Body temperature 97.3 [degF] Isaura Costello MD Work Phone: [facility] 10-28-2024 08:50-0500 Body weight 130.27 kg Isaura Costello MD Work Phone: [facility] 10-28-2024 08:50-0500 Diastolic blood pressure 62 mm[Hg] Isaura Costello MD Work Phone: [facility] 10-28-2024 08:50-0500 Heart rate 66 /min Isaura Costello MD Work Phone: [facility] 10-28-2024 08:50-0500 Respiratory rate 18 /min Isaura Costello MD Work Phone: [facility] 10-28-2024 08:50-0500 SaO2% (BldA) [Mass fraction] 100 % Isaura Costello MD Work Phone: [facility] 10-28-2024 08:50-0500 Systolic blood pressure 105 mm[Hg] Isaura Costello MD Work Phone: [facility] 10-26-2024 14:31-0500 Diastolic blood pressure 89 mm[Hg] Dina Jones OLDER WORKER SPECIALIST-IT WEB DEVELOPMENT CONSULTANT Work Phone: [facility] 10-26-2024 14:31-0500 Heart rate 64 /min Dina Jones OLDER WORKER SPECIALIST-IT WEB DEVELOPMENT CONSULTANT Work Phone: [facility] 10-26-2024 14:31-0500 Respiratory rate 18 /min Dina Jones OLDER WORKER SPECIALIST-IT WEB DEVELOPMENT CONSULTANT Work Phone: [facility] 10-26-2024 14:31-0500 SaO2% (BldA) [Mass fraction] 100 % Dina Jones OLDER WORKER SPECIALIST-IT WEB DEVELOPMENT CONSULTANT Work Phone: [facility] 10-26-2024 14:31-0500 Systolic blood pressure 145 mm[Hg] Dina Jones OLDER WORKER SPECIALIST-IT WEB DEVELOPMENT CONSULTANT Work Phone: [facility] 10-25-2024 08:49-0500 Body mass index (BMI) [Ratio] 46.55 kg/m2 Ashok Eric DO Work Phone: [facility] 10-25-2024 08:49-0500 Body weight 130.82 kg Ashok Eric DO Work Phone: [facility] 10-25-2024 08:49-0500 Diastolic blood pressure 76 mm[Hg] Ashok Eric DO Work Phone: [facility] 10-25-2024 08:49-0500 Systolic blood pressure 114 mm[Hg] Ashok Eric DO Work Phone: [facility] 09-28-2024 08:46-0500 Body height 167.6 cm Dina Jones OLDER WORKER SPECIALIST-IT WEB DEVELOPMENT CONSULTANT Work Phone: [facility] 09-28-2024 08:46-0500 Body mass index (BMI) [Ratio] 46.79 kg/m2 Dina Jones OLDER WORKER SPECIALIST-IT WEB DEVELOPMENT CONSULTANT Work Phone: [facility] 09-28-2024 08:46-0500 Body weight 131.5 kg Dina Jones OLDER WORKER SPECIALIST-IT WEB DEVELOPMENT CONSULTANT Work Phone: [facility] 09-28-2024 08:46-0500 Diastolic blood pressure 74 mm[Hg] Dina Jones OLDER WORKER SPECIALIST-IT WEB DEVELOPMENT CONSULTANT Work Phone: [facility] 09-28-2024 08:46-0500 Heart rate 62 /min Dina Jones OLDER WORKER SPECIALIST-IT WEB DEVELOPMENT CONSULTANT Work Phone: [facility] 09-28-2024 08:46-0500 Respiratory rate 18 /min Dina Jones APRN-IT WEB DEVELOPMENT CONSULTANT Work Phone: [facility] 09-28-2024 08:46-0500 SaO2% (BldA) [Mass fraction] 98 % Dina Jones APRN-IT WEB DEVELOPMENT CONSULTANT Work Phone: [facility] 09-28-2024 08:46-0500 Systolic blood pressure 120 mm[Hg] Dina Jones APRN-IT WEB DEVELOPMENT CONSULTANT Work Phone: [facility] 09-13-2024 11:52-0400 Body mass index (BMI) [Ratio] 47.19 kg/m2 Ashok Eric DO Work Phone: [facility] 09-13-2024 11:52-0400 Body weight 132.63 kg Ashok Eric DO Work Phone: [facility] 09-13-2024 11:52-0400 Diastolic blood pressure 72 mm[Hg] Ashok Eric DO Work Phone: [facility] 09-13-2024 11:52-0400 Systolic blood pressure 116 mm[Hg] Ashok Eric DO Work Phone: [facility] 08-09-2024 08:48-0400 Body height 167.6 cm Ashok Eric DO Work Phone: [facility] 08-09-2024 08:48-0400 Body mass index (BMI) [Ratio] 47.45 kg/m2 Ashok Eric DO Work Phone: [facility] 08-09-2024 08:48-0400 Body weight 133.36 kg Ashok Eric DO Work Phone: [facility] 08-09-2024 08:48-0400 Diastolic blood pressure 82 mm[Hg] Ashok Eric DO Work Phone: [facility] 08-09-2024 08:48-0400 Systolic blood pressure 128 mm[Hg] Ashok Eric DO Work Phone: [facility] 12-12-2023 14:25-0500 Body mass index (BMI) [Ratio] 47.61 kg/m2 Abel [facility] MD [facility] 12-12-2023 14:25-0500 Body temperature 90.81 [degF] Abel Murry MD Work Phone: [facility] 12-12-2023 14:25-0500 Body weight 133.81 kg Abel Murry MD Work Phone: [employer] 12-12-2023 14:25-0500 Diastolic blood pressure 73 mm[Hg] Abel Murry MD Work [facility] 12-12-2023 14:25-0500 Heart rate 65 /min Abel Murry MD Work Phone: [employer] 12-12-2023 14:25-0500 Systolic blood pressure 131 mm[Hg] Abel Murry MD Work Phone: [employer] 04-21-2023 14:25-0400 Body height 167.64 cm Theo Woodall Other [employer] Other 04-21-2023 14:25-0400 Body mass index (BMI) [Ratio] 43.57 kg/m2 Theo Woodall Other [employer] Other 04-21-2023 14:25-0400 Body temperature 98.1 [degF] Theo Woodall Other [employer] Other 04-21-2023 14:25-0400 Body weight 122.47 kg Theo Woodall Other [employer] Other 04-21-2023 14:25-0400 Respiratory rate 18 /min Theo Woodall Other [employer] Other 04-21-2023 14:25-0400 SaO2% (BldA) [Mass fraction] 98 % Theo Woodall Other [employer] Other 12-28-2022 14:25-0500 Body height 167.64 cm Gely Valenciamond Other [employer] Other 12-28-2022 14:25-0500 Body mass index (BMI) [Ratio] 42.77 kg/m2 Gely Valenciamond Other [employer] Other 12-28-2022 14:25-0500 Body temperature 98.2 [degF] Gely Valenciamond Other [employer] Other 12-28-2022 14:25-0500 Body weight 120.2 kg Gely Valenciamond Other [employer] Other 12-28-2022 14:25-0500 Diastolic blood pressure 72 mm[Hg] Gely Sowmya Other [employer] Other 12-28-2022 14:25-0500 Respiratory rate 16 /min Gely Sowmya Other [employer] Other 12-28-2022 14:25-0500 SaO2% (BldA) [Mass fraction] 100 % Gely Sowmya Other [employer] Other 12-28-2022 14:25-0500 Systolic blood pressure 115 mm[Hg] Gely Sowmya Other [employer] Other Encounters Encounter Date Encounter Type Care Provider Facility Start: 11-01-2024 End: 11-01-2024 ambulatory [facility] Start: 11-01-2024 End: 11-01-2024 ambulatory [facility] Start: 10-29-2024 End: 10-29-2024 Telephone encounter Lili Diaz CMA [facility] Internal [facility]ediatric[facility] Comment on above: US schedule Start: 10-28-2024 End: 10-28-2024 Documentation procedure Mireya Jaramillo [facility] Comment on above: Right kidney mass (P rimary Dx) Start: 10-28-2024 End: 10-28-2024 ambulatory [facility] Start: 10-28-2024 End: 10-28-2024 Office outpatient visit 40 minutes Isaura Costello MD Work Phone: Nayeli Jaramillo [facility] Comment on above: Acute deep vein thro mbosis (DVT) of distal vein of right lower extremity (CMS-HCC) (Primary Dx); Other acute pulmonary embolism without acute cor pulmonale (CMS-HCC) Start: 10-26-2024 End: 10-26-2024 Office outpatient visit 15 minutes Dina Jones APRN-IT WEB DEVELOPMENT CONSULTANT Work Phone: [facility] Comment on above: Spinal stenosis of l umbar region with neurogenic claudication (Primary Dx) Start: 10-26-2024 End: 10-26-2024 ambulatory [facility] Start: 10-25-2024 End: 10-25-2024 Bamboo flowsheet Ashok Eric DO Work Phone: [facility] Start: 10-25-2024 End: 10-25-2024 Bamboo flowsheet Ashok Eric DO Work Phone: [facility] Start: 10-25-2024 End: 10-25-2024 Office outpatient visit 15 minutes Ashok Eric DO Work Phone: [facility] Comment on above: Pre-op examination; Menorrhagia with regular cycle; Pelvic pain in female; Dyspareunia in female; Dysmenorrhea; Postmenopausal bleeding Start: 10-25-2024 End: 10-25-2024 Preprocedural examination done Ashok Caballeroo DO Work Phone: [facility] Start: 10-25-2024 End: 10-25-2024 ambulatory ASHOK CABALLEROO Not Available Start: 10-18-2024 End: 10-19-2024 Telephone encounter Dina Jones OLDER WORKER SPECIALIST-IT WEB DEVELOPMENT CONSULTANT Work Phone: [facility] Start: 10-18-2024 End: 10-18-2024 ambulatory ABEL Grossman [facility] Start: 10-08-2024 End: 10-08-2024 Clinisync Result Encounter Ashok Caballeroo DO Work Phone: [facility] Unsolicited Start: 10-08-2024 End: 10-08-2024 Clinisync Result Encounter Ashok Caballeroo DO Work Phone: [facility] Unsolicited Start: 10-08-2024 End: 10-08-2024 ambulatory Abel Murry MD Work Phone: [facility] Work Phone: Start: 10-08-2024 End: 10-08-2024 Departed Referred Abel Murry MD Work Phone: [facility] Start: 09-28-2024 End: 09-28-2024 ambulatory [facility] Kristine JONES [facility] Start: 09-28-2024 End: 09-28-2024 ambulatory ABEL Grossman [facility] Start: 09-28-2024 End: 09-28-2024 Office outpatient visit 25 minutes Dina Jones OLDER WORKER SPECIALIST-IT WEB DEVELOPMENT CONSULTANT Work Phone: [facility] Comment on above: Disc displacement, l umbar (Primary Dx); Chronic bilateral low back pain without sciatica; alf current use of opiate analgesic Start: 09-13-2024 End: 09-13-2024 Bamboo flowsheet Ashok Eric DO Work Phone: [facility] Start: 09-13-2024 End: 09-13-2024 Bamboo flowsheet Ashok Eric DO Work Phone: [facility] Start: 09-13-2024 End: 09-13-2024 Office outpatient visit 15 minutes Ashok Eric DO Work Phone: [facility] Comment on above: Pre-op examination; Postmenopausal bleeding; Thickened endometrium; Uterine leiomyoma, unspecified location Start: 09-13-2024 End: 09-13-2024 Preprocedural examination done Ashok Eric DO Work Phone: [facility] Start: 09-13-2024 End: 09-13-2024 ambulatory ASHOK ERIC Not Available Start: 09-07-2024 End: 09-07-2024 Refill Abel Murry MD Work Phone: [facility] Internal Medicine/Pediatric[facility] Comment on above: Acquired hypothyroid ism Start: 09-07-2024 ambulatory [facility] Start: 08-25-2024 End: 08-25-2024 ambulatory [facility] Start: 08-24-2024 ambulatory BR[facility]KS [facility] Start: 08-16-2024 End: 08-16-2024 ambulatory ABEL Grossman [facility] Start: 08-10-2024 End: 08-10-2024 ambulatory [facility] Start: 08-09-2024 End: 08-09-2024 Bamboo flowsheet Ashok Eric DO Work Phone: [facility] Start: 08-09-2024 End: 08-09-2024 Bamboo flowsheet Ashok Eric DO Work Phone: [facility] Start: 08-09-2024 End: 08-09-2024 Office outpatient visit 15 minutes Ashok Eric DO Work Phone: [facility] Comment on above: Postmenopausal bleed ing; Subserous leiomyoma of uterus Start: 08-09-2024 End: 08-09-2024 ambulatory ASHOK REYES Not Available Start: 07-27-2024 ambulatory [facility] Start: 07-12-2024 End: 07-12-2024 ambulatory [facility] Start: 07-12-2024 End: 07-12-2024 ambulatory [facility] Start: 07-06-2024 End: 07-25-2024 ambulatory [facility] Start: 07-06-2024 End: 07-06-2024 ambulatory [facility] Start: 06-25-2024 End: 06-25-2024 ambulatory [facility] Start: 06-22-2024 ambulatory [facility] Start: 05-21-2024 End: 05-21-2024 ambulatory [facility] Start: 05-04-2024 End: 05-04-2024 ambulatory [facility] Start: 04-30-2024 End: 04-30-2024 ambulatory [facility] Start: 04-27-2024 End: 04-27-2024 ambulatory [facility] Start: 04-21-2024 End: 04-21-2024 ambulatory [facility] Start: 12-22-2023 End: 12-22-2023 ambulatory GO JOHNSON Not Available Start: 12-12-2023 End: 12-12-2023 Office outpatient visit 15 minutes Abel Murry MD Work Phone: [facility] Comment on above: Laryngitis (Primary Dx); Non-recurrent acute serous otitis media of both ears Start: 12-12-2023 End: 12-12-2023 ambulatory [facility] Start: 12-03-2023 End: 12-03-2023 ambulatory MARIANO [facility] Start: 11-25-2023 Telephone encounter Mamie TINEO [facility] Start: 11-21-2023 Refill Abel beck MD Work Phone: [facility] Comment on above: Anxiety Start: 11-19-2023 Telephone encounter Lili Diaz [facility] Medicine[facility] Comment on above: Results Start: 11-10-2023 End: 11-10-2023 ambulatory [facility] Start: 10-27-2023 ambulatory [facility] Start: 09-22-2023 ambulatory [facility] Start: 04-26-2023 End: 04-26-2023 ambulatory Theo Woodall Other [employer] Other Start: 04-26-2023 Telephone encounter Theo Rosales [facility] Start: 04-21-2023 End: 04-21-2023 Departed Referred MD Abel Murry Work Phone: [facility] [place] Work Phone: Start: 04-21-2023 End: 04-21-2023 ambulatory MD Abel Murry Work Phone: [employer] Other Start: 04-21-2023 Office outpatient vi sit 15 minutes Theo Woodall [facility] Start: 12-28-2022 End: 12-28-2022 ambulatory Gely Deng Other [employer] Other Start: 12-28-2022 Office outpatient vi sit 15 minutes Gely Deng [facility] Start: 08-20-2021 End: 08-21-[address] ABEL MURRY Facility:H1 Procedures Date Procedure Procedure Detail Performing Clinician Start: 10-08-2024 ALL CBC WITH AUTO DIFF Ashok Reyes DO Work Phone: Start: 10-27-2023 Mammography Lili Diaz ZONE MAINTENANCE TECHNICIAN Start: 12-21-2022 Adult depression scr eening assessment Lili Diaz ZONE MAINTENANCE TECHNICIAN Start: 05-30-2022 Colonoscopy Lili Diaz ZONE MAINTENANCE TECHNICIAN Plan of Treatment Date Care Activity Detail Author Start: 05-30-2032 Screening for malign ant neoplasm of colon [facility] Start: 10-28-2025 Adult BMI Screening Adult BMI Screen ing [facility] Start: 10-28-2025 Tobacco Screening Tobacco Screening [facility] Start: 09-28-2025 Adult BMI Screening Adult BMI Screen ing [facility] Start: 09-28-2025 Tobacco Screening Tobacco Screening [facility] Start: 08-10-2025 Adult BMI Screening Adult BMI Screen ing [facility] Start: 08-10-2025 Tobacco Screening Tobacco Screening [facility] Start: 12-28-2024 End: 12-28-2024 Patient encounter procedure 12/28/2024 8:00 AM EST Office Visit [facility] [address] [place] [phone] Dina Jones, OLDER WORKER SPECIALIST-[facility] [address] [place] [address] [facility] Start: 11-01-2024 End: 11-01-2024 Patient encounter procedure 11/01/2024 1:30 PM EST Appointment [facility] [address] [place] [phone] [facility] Start: 11-01-2024 Subsequent hospital visit by physician 11/01/2024 1:30 PM EST Hospital Encounter [facility] [address] [place] [phone] [facility] Start: 10-28-2024 End: 10-28-2025 US Retroperitoneum Ultrasound retroperitoneal complete Imaging Routine Right kidney mass Expected: 10/28/2024, Expires: 10/28/2025 [facility] Work Phone: Comment on above: Expected: 10/28/2024 , Expires: 10/28/2025 Start: 10-27-2024 Adult BMI Screening Adult BMI Screen ing [facility] Start: 10-27-2024 Screening for malign ant neoplasm of breast Mammogram [facility] Start: 10-26-2024 End: 10-26-2024 Patient encounter procedure 10/26/2024 2:30 PM EST Office Visit [facility] [address] [place] [phone] Dina Jones, OLDER WORKER SPECIALIST-IT WEB DEVELOPMENT CONSULTANT [address] [facility] [place] [address] [facility] Start: 10-25-2024 End: 10-25-2024 Patient encounter procedure [facility] Comment on above: Arrived Start: 10-20-2024 Tobacco Screening Tobacco Screening [facility] Start: 09-28-2024 End: 09-28-2025 MR Lumbar spine WO contrast MR lumbar spine without contrast Imaging Routine Disc displacement, lumbar Chronic bilateral low back pain without sciatica Expected: 09/28/2024, Expires: 09/28/2025 [employer] Work Phone: Comment on above: Expected: 09/28/2024 , Expires: 09/28/2025 Start: 09-28-2024 End: 09-28-2024 Patient encounter procedure 09/28/2024 8:15 AM EST Office Visit [facility] [address] [place] [phone] Dina Jones, OLDER WORKER SPECIALIST-IT WEB DEVELOPMENT CONSULTANT [address] [facility] [place] [address] [facility] Start: 09-13-2024 End: 09-13-2024 Patient encounter procedure [facility] Comment on above: Arrived Start: 08-09-2024 End: 08-09-2025 CBC W Auto Differential panel - Blood CBC and differential Lab Routine Postmenopausal bleeding Subserous leiomyoma of uterus Expected: 08/09/2024 (Approximate), Expires: 08/09/2025 [facility] Comment on above: Expected: 08/09/2024 (Approximate), Expires: 08/09/2025 Start: 08-09-2024 End: 08-09-2025 Hemoglobin A1c/Hemoglobin.total in Blood Hemoglobin A1c Lab Routine Postmenopausal bleeding Subserous leiomyoma of uterus Expected: 08/09/2024 (Approximate), Expires: 08/09/2025 [facility] Comment on above: Expected: 08/09/2024 (Approximate), Expires: 08/09/2025 Start: 08-09-2024 End: 08-09-2025 US for US PELVIS-TRANSVAG IF INDICATED Imaging Routine Postmenopausal bleeding Expected: 08/09/2024 (Approximate), Expires: 08/09/2025 [facility] Work Phone: Comment on above: Expected: 08/09/2024 (Approximate), Expires: 08/09/2025 Start: 08-09-2024 End: 08-09-2024 Patient encounter procedure 08/09/2024 8:50 AM EDT Office Visit [facility] [address] [address] Ashok Reyes DO [address] [place] [address] Arrived [facility] Comment on above: Arrived Start: 07-25-2024 COVID-19 Vaccine ( season) COVID-19 Vaccine ( season) [facility] Start: 07-25-2024 COVID-19 Vaccine () COVID-19 Vaccine ( season) [facility] Start: 07-25-2024 Influenza vaccination P [facility] Start: 12-21-2023 Depression Screening Depression Scre ening [facility] Start: 07-25-2023 COVID-19 Vaccine ( season) COVID-19 Vaccine ( season) [facility] Start: 07-25-2023 Influenza vaccination Influenza Vacc ine [facility] Start: 04-21-2023 Bacteria identified in Urine by Culture [facility] Start: 2019 Administration of varicella zoster vaccine Zoster (Shingles) Vaccine (1 of 2) [facility] Start: 1999 Screening for malign ant neoplasm of cervix [facility] Start: 1990 Screening for malign ant neoplasm of cervix Pap Smear [facility] Start: 02-01-1988 DTaP,Tdap and Td Vac cines (1 - Tdap) DTaP,Tdap and Td Vaccines (1 - Tdap) [facility] Start: 1987 Adult BMI Follow Up Plan Adult BMI F ollow Up Plan [facility] Start: 1969 Screening for malign ant neoplasm of colon [facility] End: 09-28-2025 Controlled Substance Monitoring, U Controlled Substance Monitoring, U Lab Routine 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 current use of opiate analgesic 1 Occurrences starting 09/28/2024 until 09/28/2025 [facility] Comment on above: 1 Occurrences starti ng 09/28/2024 until 09/28/2025 End: 10-28-2025 D-Dimer D-Dimer Lab Routine Acute deep vein thrombosis (DVT) of distal vein of right lower extremity (CMS-HCC) Other acute pulmonary embolism without acute cor pulmonale (CMS-HCC) prn for 5 Occurrences starting 10/28/2024 until 10/28/2025 [facility] Work Phone: Comment on above: prn for 5 Occurrence s starting 10/28/2024 until 10/28/2025 Immunizations Immunization Date Immunization Notes Care Provider Fa mary ann 10-19-2022 influenza, injectabl e, quadrivalent, preservative free Ashok Reyes DO Work Phone: [facility] 10-19-2022 influenza virus vaccine, unspecified formulation [facility] 09-24-2021 influenza, injectabl e, quadrivalent, preservative free L[facility] 10-16-2020 influenza, injectabl e, quadrivalent, preservative free Ashok Reyes DO Work Phone: [facility] 09-11-2020 influenza, seasonal, injectable, preservative free Lili [facility] 10-20-2018 influenza, injectabl e, quadrivalent, preservative free Lili [facility] Payers Date Payer Category Payer Self-pay [id number] 2022 Private Health Insurance [employer]ATIE [employer]IE [id number] 5 2021 Managed Care O (unspecified) [facility] [id number] .[id number] 2021 Unknown [id number] 1.13.424 .2.7.3.562164.315 2021 Unknown [id number] 2.16840.1.535442.19 2021 Other Government (Federal, State, Local not specified) [facility] [id number] .[id number] 1969 Unknown [id number] 2.16840.1.436727.3.579 .2.1285 1969 Unknown [id number] 2.16.840.1.415073.3.579 .2.1285 1969 Unknown [id number] 2.16.840.1.959046.3.579 .2.1285 1969 Unknown [id number] 2.16.840.1.352517.3.579 .2.1258 1969 Unknown [id number] 2.16.840.1.929402.3.579 .2.1259 1969 Unknown [id number] 2.16.840.1.257931.3.579 .2.125 1969 Unknown [id number] 2.16.840.1.604878.3.579 .2.1258 1969 Unknown [id number] 2.16.840.1.268144.3.579 .2.1285 1969 Unknown [id number] 2.16.840.1.554247.3.579 .2.1285 1969 Unknown [id number] 2.16.840.1.746795.3.579 .2.1285 1969 Unknown [id number] 2.16.840.1.956886.3.579 .2.1285 1969 Unknown [id number] 2.16.840.1.245332.3.579 .2.1285 1969 Unknown [id number] 2.16.840.1.875907.3.579 .2.1285 1969 Unknown [id number] 2.16.840.1.944480.3.579 .2.1285 1969 Unknown [id number] 2..840.1.642689.3.579 .2.1285 1969 Unknown [id number] 2..840.1.043686.3.579 .2.1285 1969 Unknown [id number] 2.840.1.378362.3.579 .2.1285 1969 Unknown [id number] 2.840.1.209017.3.579 .2.1285 1969 Unknown [id number] 2..840.1.349365.3.579 .2.1285 1969 Unknown [id number] 2.16.840.1.328269.3.579 .2.1285 1969 Unknown [id number] 2.16.840.1.842595.3.579 .2.1285 1969 Unknown [id number] 2.16.840.1.092588.3.579 .2.1285 1969 Unknown [id number] .16.840.1.142416.3.579 .2.1285 1969 Unknown [id number] 2.16.840.1.898554.3.579 .2.1285 1969 Unknown [id number] 2.16.840.1.920483.3.579 .2.1286 1969 Unknown [id number] 2..840.1.812939.3.579 .2.1286 1969 Unknown [id number] 2.840.1.347871.3.579 .2.1286 1969 Unknown [id number] 2.840.1.853072.3.579 .2.1286 1959 Self-pay [id number] Unknown [id number] 2.840.1.178568.3.579 .2.593 Unknown HCAP/HFA/FAP Active [id number] Unknown [id number] 2.840.1.344390.3.579 .2.531 Social History Date Type Detail Facility Unknown if ever smoked [employer] Other Start: 12-21-2022 End: 12-22-2023 Sex Assigned At [facility] Start: 11-27-2019 End: 05-19-2023 Tobacco smoking status NHIS Never smoked tobacco (finding) [facility] Start: 1970 Sex Assigned At Female [facility] Start: 12-03-2022 End: 05-19-2023 Tobacco use and exposure Smokeless tobacco non-user [facility] Start: 10-27-2023 End: 12-22-2023 Alcohol intake Current drinker of alcohol (finding) [facility] Start: 12-21-2022 End: 12-22-2023 History of Social function [facility] Do you belong to any clubs or organizations such as scientology groups, unions, fraternal or athletic groups, or school groups? No [facility] Are you now , , , , never or living with a partner? Living with partner [facility] How often to you hav e a drink containing alcohol? Monthly or less [facility] How many standard dr inks containing alcohol do you have on a typical day? 1 or 2 [facility] How often do you hav e 6 or more drinks on 1 occasion? Less than monthly [facility] [facility] How hard is it for y ou to pay for the very basics like food, housing, medical care, and heating Somewhat hard [facility] Adolescent depressio n screening assessment 0 [facility] Do you feel stress - tense, restless, nervous, or anxious, or unable to sleep at night because your mind is troubled all the time - these days [OSQ] To some extent [facility] Start: 12-21-2022 [facility] Start: 05-29-2022 Alcohol Comment occasional [facility] Start: 1970 [facility] At [facility] file [facility] Start: 08-09-2024 Alcohol Comment Not very often [facility] Start: 06-29-2015 End: 10-12-2024 Sex Female (finding) [facility] Start: 06-13-2023 Alcohol Comment 1-2 drinks less than monthly in the past year [facility] Clinical Notes 12-13-2022 to 10-29-2024 Telephone Encounter - Lili Diaz CMA - 10/29/2024 11:43 AM ESTTelephone Encounter - Lili Diaz CMA - 10/29/2024 11:43 AM Stevo Monet RN - 10/28/2024 9:20 AM EST Note Date & Type Note Facility 10-29-2024 Miscellaneous Notes Spoke with patient, Dr Murry looked at MRI and ordered an US of the kidney. Patient said she will call and get it scheduled. documented in this encounter [facility] 10-29-2024 Telephone encounter Note Spoke with patient, Dr Murry looked at MRI and ordered an US of the kidney. Patient said she will call and get it scheduled. [facility] 10-28-2024 History of Present illness Narrative Patient is here today to see Dr. Costello for surgical clearance prior to hysterectomy surgery. Received the following orders: Lovenox 40 mg daily from 11/12-11/16. Teach pt how to do self injection. Start eliquis 5 mg bid from 11/17/2025 for 30 days. Check d-dimer 12/13/24. Patient will have overnight stay after surgery. She will have nurse instruct on how to administer Lovenox injections. She will start eliquis as directed and call the office with any questions or concerns regarding Lovenox or Eliquis. Lab order provided for D-dimer along with AVS. Patient will follow up as needed. Discharged in stable condition to private vehicle. documented in this encounter [facility] 10-28-2024 History of Present illness Narrative Images from the original note were not included. [facility] 10/28/24 Munira Hernandez is a 54 y.o. year old female seen today in the oncology clinic. History of Present Illness: Mrs. Hernandez is a 54 y.o. female with family history of thrombosis who presented with severe right lower leg pain and progressive shortness of breath in November 2019 while she is taking control pill. She has been on control pill for several years, recently was changed to a generic form. Lower extremity Doppler showed right superficial and popliteal thrombosis. CT angiogram showed multisegmental pulmonary embolism, no evidence of heart strain. The patient was initially started on Xarelto, switching to Eliquis 5 mg b.i.d. recently. The patient does not have insurance, she has been getting free treatment samples from doctor's office. Interval history: The patient received Eliquis 5 mg b.i.d. supply for a whole year until 04/2020. She is doing very well on Eliquis. Off control pill completely, no menstrual period since 11/2019. The patient continue her Eliquis until 04/2021 then she stopped. She is scheduled to have a hysterectomy for fibroids 11/11/24. Over the past 3 years she has no recurrent DVT or pulmonary embolism. She has been off control completely. Still has occasional right lower leg pain, occasional swelling after standing for long period of time. No shortness of breath, denies dyspnea during exertion. 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 Past Medical History: Diagnosis Date Deep vein thrombosis (CMS-HCC) Extremity pain GERD (gastroesophageal reflux disease) Hiatal hernia Hypothyroid Low back pain Migraine Neck pain Obesity PONV (postoperative nausea and vomiting) Pulmonary embolism (CMS-HCC) Visual impairment Past Surgical History: Procedure Laterality Date BIOPSY VULVA, labia majora and minora Right 12/18/2022 Performed by Lucien Clarke MD at [facility] CARPAL TUNNEL RELEASE Bilateral and trigger finger release CHOLECYSTECTOMY COLONOSCOPY COLONOSCOPY N/A 05/30/2022 Performed by Laci Jackson MD at [facility] HYSTEROSCOPY DILATION CURETTAGE N/A 07/16/2023 Performed by Lucien Clarke MD at [facility] HYSTEROSCOPY DILATION CURETTAGE N/A 12/18/2022 Performed by Lucien Clarke MD at [facility] HYSTEROSCOPY MYOMECTOMY MYOSURE N/A 07/16/2023 Performed by Lucien Clarke MD at [facility] HYSTEROSCOPY MYOMECTOMY MYOSURE N/A 12/18/2022 Performed by Lucien Clarke MD at [facility] INCISION DRAINAGE GROIN Right 07/16/2023 Performed by Lucien Clarke MD at [facility] INJECTION BLOCK NERVE MEDIAL BRANCH: bilat L 4/5, 5/1 Bilateral 06/25/2024 Performed by Reinaldo Mai MD at [facility] Family History Problem Relation Age of Onset Kidney disease Mother COPD Mother Heart failure Mother Macular degeneration Mother Cancer Father esophageal with brain mets, prostate Heart disease Father Atrial fibrillation Father Deep vein thrombosis Sister Breast cancer Sister 50 Breast cancer Sister 68 Deep vein thrombosis Brother [place] Breast Cancer Neg Hx Social History Socioeconomic History Marital status: Single Highest education level: Associate degree: occupational, technical, or vocational program Tobacco Use Smoking status: Never Smokeless tobacco: Never Vaping Use Vaping status: Never Used Substance and Sexual Activity Alcohol use: Yes Comment: occasional Drug use: Never Sexual activity: Defer Partners: Male Social Drivers of Health Financial Resource Strain: Low Risk (07/11/2024) Overall Financial Resource Strain (CARDIA) Difficulty of Paying Living Expenses: Not hard at all Food Insecurity: No Food Insecurity (10/26/2024) Hunger Screening Food Insecurity - Worry: Never True Food Insecurity - Inability: Never True Transportation Needs: No Transportation Needs (07/11/2024) PRAPARE - Transportation Lack of Transportation (Medical): No Lack of Transportation (Non-Medical): No Physical Activity: Patient Declined (12/21/2022) Exercise Vital Sign Days of Exercise per Week: Patient declined Minutes of Exercise per Session: Patient declined Stress: Stress Concern Present (12/21/2022) [employer] [place] [employer] - Occupational Stress Questionnaire Feeling of Stress : To some extent Social Connections: Moderately Isolated (12/21/2022) Social Connection and Isolation Panel [NHANES] Frequency of Communication with Friends and Family: More than three times a week Frequency of Social Gatherings with Friends and Family: Three times a week Attends Sikhism Services: Never Active Member of Clubs or Organizations: No Attends Club or Organization Meetings: Never Marital Status: Living with partner Interpersonal Safety: Not At Risk (06/22/2024) Received from [facility] Humiliation, Afraid, Rape, and Kick questionnaire Fear of Current or Ex-Partner: No Emotionally Abused: No Physically Abused: No Sexually Abused: No Housing Instability: Low Risk (07/11/2024) Housing Instability Housing Instability: No Allergies Allergen Reactions Clarithromycin Hives Biaxin Medication List Accurate as of October 28, 2024 10:38 AM. If you have any questions, ask your nurse or doctor. New Medications Ordered This Visit apixaban 5 mg tablet Quantity: 60 tablet Refills: 0 Dose: 5 mg Signed by: Isaura Costello 5 mg, oral, 2 times daily Commonly known as: ELIQUIS Started by: Isaura Costello enoxaparin 40 mg/0.4 mL syringe Quantity: 2 mL Refills: 0 For diagnoses: Acute deep vein thrombosis (DVT) of distal vein of right lower extremity (CMS-HCC), Other acute pulmonary embolism without acute cor pulmonale (CMS-HCC) Dose: 40 mg Signed by: Isaura Costello 40 mg, subcutaneous, Daily Commonly known as: LOVENOX Started by: Isaura Costello Medications Continued This Visit baclofen 10 mg tablet Quantity: 60 tablet Refills: 0 For diagnoses: Thoracic spine pain, Lumbar spine pain Dose: 5 mg Signed by: KAREN Minaya 5 mg, oral, 2 times daily PRN Commonly known as: LIORESAL esomeprazole 20 mg capsule Refills: 0 Dose: 20 mg Commonly known as: NexIUM levothyroxine 50 MCG tablet Quantity: 90 tablet Refills: 0 For diagnoses: Acquired hypothyroidism Dose: 50 mcg Signed by: Dr. Murry 50 mcg, oral Commonly known as: SYNTHROID, LEVOTHROID MULTI-DAY ORAL Refills: 0 nabumetone 500 mg tablet Quantity: 180 tablet Refills: 0 Signed by: Dr. Murry TAKE 1 TABLET BY MOUTH IN THE MORNING AND 1 AT BEDTIME Commonly known as: RELAFEN traMADoL 50 mg tablet Refills: 0 Dose: 50 mg Commonly known as: ULTRAM VITAMIN D3 25 mcg (1,000 unit) capsule Refills: 0 Dose: 1,000 Units Generic drug: cholecalciferol (vitamin D3) Review of Symptoms: Review of Systems Constitutional: Positive for fatigue. Respiratory: Positive for shortness of breath. Cardiovascular: Positive for leg swelling. All other systems reviewed and are negative. ECO- Symptomatic; fully ambulatory Physical Exam: General: Well appearing, in no acute distress. Vitals: BP 105/62 Pulse 66 Temp 36.3 C (97.3 F) (Oral) Resp 18 Ht 167.6 cm (5' 5.98 ) Wt 130.3 kg (287 lb 3.2 oz) LMP 07/10/2023 (Exact Date) Comment: constant bleeding SpO2 100% BMI 46.38 kg/m Body mass index is 46.38 kg/m . Eyes: No icterus, no conjuctival erythema ENT: Pharyngeal mucosa was moist without exudate and inflammation or ulcerations. Tongue was midline and appeared normal.Gums were unremarkable. Lymph nodes: No palpable adenopathy Neck: Supple. There were no masses, tenderness. Trachea was midline. Respiratory: Respirations were non-labored. Lungs were clear to auscultation. There was no dullness to percussion. Cardiac: Regular rate and rhythm, S1 and S2 sounds were normal. There were no rubs or gallops. Abdomen: Soft, non-tender, Nondistended. Bowel sounds audible in all four quadrants. There were no palpable masses. The liver and spleen were not enlarged. Extremities: There was no clubbing, Cyanosis, edema. Skin: There was no obvious rashes, bruising or ecchymosis. Back exam: No palpable tenderness was appreciated. Neurologic: There was no unilateral weakness. Mood and affect: Normal. Recent Imaging: No results found. Recent Labs: No results found for this or any previous visit (from the past 2 weeks). Diagnosis Problem list: Problem List Items Addressed This Visit Cardiovascular and Mediastinum Acute deep vein thrombosis (DVT) of distal vein of right lower extremity ([facility]) - Primary Relevant Medications enoxaparin (LOVENOX) 40 mg/0.4 mL syringe Other Relevant Orders D-Dimer Acute pulmonary embolism without acute cor pulmonale (CMS-HCC) Relevant Medications enoxaparin (LOVENOX) 40 mg/0.4 mL syringe Other Relevant Orders D-Dimer Impression: Provoked right lower extremity DVT while taking control pill 11/2019 Pulmonary embolism 11/2019 Family history of thrombosis (brother and sister, postop) Plan: I reviewed the patient's initial diagnosis, Doppler and CT scan imaging. Agree with full-dose anticoagulation for total of at least 6 months. Repeat Doppler study showed no evidence of DVT over left lower extremity, chronic thrombotic changes in right lower extremity. Given family history of thrombosis, consider hypercoagulable workup including factor 5 leiden, prothrombin gene mutation. Patient would like to defer the workup due to high cost of test. The patient will continue to finish a whole year of anticoagulation. She stopped anticoagulation after 04/2021. She is cleared for her hysterectomy, postop DVT prophylaxis was recommended as follow Lovenox 40 mg daily from 11/12-11/16. Teach pt how to do self injection. Start eliquis 5 mg bid from 11/17/2025 for 30 days. Check d-dimer 12/13/24, if patient's D-dimer is markedly elevated she will continue Eliquis for another 2 months. Otherwise she can stop Eliquis if her D-dimer is within normal range. Follow-up with Hematology as needed. Isaura Costello MD Please note that portions of this note were generated using voice recognition [employer]*Modal dictation software. Although every effort was made to ensure the accuracy of this automated rfid technician, some errors in rfid technician may have occurred. CC: Patient Care Team: Abel Murry MD as PCP - General (Pediatrics) Isaura Costello MD as Consulting Physician (Hematology) Melissa Forman APRN-MED SPA MANAGER as Nurse Practitioner (Internal Medicine) Ashok Reyes DO as Referring Physician (Obstetrics & Gynecology) PCP:Abel Murry Referring MD: Abel Murry MD documented in this encounter [facility] 10-28-2024 Instructions Isaura Costello MD - 10/28/2024 8:45 AM EST Lovenox 40 mg daily from 11/12-11/16. Teach pt how to do self injection. Start eliquis 5 mg bid from 11/17/2025 for 30 days. Check d-dimer 12/13/24 documented in this encounter [facility] 10-26-2024 History of Present illness Narrative [facility] [address] [place] [address] Patient: Munira Hernandez Sex: female : 1970 Age: 54 y.o. PCP: Abel Murry MD 10/26/2024 Munira Hernandez is here for a(n) follow up MRI lumbar spine. Patient reports back pain remains unchanged at a 3/10 and can increase to 10/10 with activity. Chief Complaint Patient presents with Back Pain HPI: 09/28/24 Patient has completed [...] bilateral carpal tunnel surgery on 08/25/2024 at [facility] per Dr Montero Back Pain [...] pain is at a severity of 3/10 (can increase to 8/10 with activity). The pain [...] Medical History: Diagnosis Date Deep vein thrombosis (CMS-HCC) Extremity pain GERD (gastroesophageal reflux disease) Hiatal hernia Hypothyroid Low back pain Migraine Neck pain Obesity PONV (postoperative nausea and vomiting) Pulmonary embolism (CMS-HCC) Visual impairment Past Surgical History: Procedure Laterality Date BIOPSY VULVA, labia majora and minora Right 12/18/2022 Performed by Lucien Clarke MD at [facility] CARPAL TUNNEL RELEASE Bilateral and trigger finger release CHOLECYSTECTOMY COLONOSCOPY COLONOSCOPY N/A 05/30/2022 Performed by Laci Jackson MD at [facility] HYSTEROSCOPY DILATION CURETTAGE N/A 07/16/2023 Performed by Lucien Clarke MD at [facility] HYSTEROSCOPY DILATION CURETTAGE N/A 12/18/2022 Performed by Lucien Clarke MD at [facility] HYSTEROSCOPY MYOMECTOMY MYOSURE N/A 07/16/2023 Performed by Lucien Clarke MD at [facility] HYSTEROSCOPY MYOMECTOMY MYOSURE N/A 12/18/2022 Performed by Lucien Clarke MD at [facility] INCISION DRAINAGE GROIN Right 07/16/2023 Performed by Lucien Clarke MD at [facility] INJECTION BLOCK NERVE MEDIAL BRANCH: bilat L 4/, 5 Bilateral 06/25/2024 Performed by Reinaldo Mai MD at [facility] Allergies Allergen Reactions Clarithromycin Hives Biaxin [...] at all Food Insecurity: No Food Insecurity (10/26/2024) Hunger Screening Food Insecurity - Worry: Never True Food Insecurity - Inability: Never True Transportation Needs: No Transportation Needs (07/11/2024) PRAPARE - Transportation Lack of Transportation (Medical): No Lack of Transportation (Non-Medical): No Physical Activity: Patient Declined (12/21/2022) Exercise Vital Sign Days of Exercise per Week: Patient declined Minutes of Exercise per Session: Patient declined Stress: Stress Concern Present (12/21/2022) [employer] [place] [employer] - Occupational Stress Questionnaire Feeling of Stress : To some extent Social Connections: Moderately Isolated (12/21/2022) Social Connection and Isolation Panel [NHANES] Frequency of Communication with Friends and Family: More than three times a week Frequency of Social Gatherings with Friends and Family: Three times a week Attends Sikhism Services: Never Active Member of Clubs or Organizations: No Attends Club or Organization Meetings: Never Marital Status: Living with partner Interpersonal Safety: Not At Risk (06/22/2024) Received from [facility] Humiliation, Afraid, Rape, and Kick questionnaire Fear [...] Hematological: Negative. Psychiatric/Behavioral: Negative. Vital Signs: BP 145/89 (BP Site: Right Arm, BP Postition: Sitting) Pulse 64 Resp 18 LMP 07/10/2023 (Exact Date) Comment: constant bleeding SpO2 100% Physical Exam: GENERAL - Healthy patient that [...] to touch or pinprick in all dermatomal distributions. Straight Leg Raise is negative. Gait is normal. Assessment/Treatment Plan: Munira was seen today for back pain. Diagnoses and all orders for this visit: Spinal stenosis of lumbar region with neurogenic claudication Follow up with PCP to evaluate incidental findings noted on Lumbar MRI Patient is scheduled for hysterectomy near future Monitor Follow up 8 weeks, sooner if needed The medications I have prescribed have been [...] tapering and discontinuation of medications if applicable. The patient has been instructed as to the type of medication prescribed along with directions for use. Potential side effects have been discussed, along with risks and benefits of taking this medication. (S)he was instructed as to what to do if (s)he experiences side effects, including when to discontinue the medication. (S)he was advised to call this office in this event. Also discussed at length safety and security of RX and medications. Due to the high risk nature of this patient's pain medication regimen, frequent office visit refill appointments (every 1-3 months) are medically necessary to monitor for an addiction disorder. Prescribed medication that requires intensive monitoring for toxicity Tramadol. OARRS and most recent UDS were reviewed, discussed and appropriate for medications prescribed. The spine model was demonstrated and MRI was reviewed and used to explain the condition. MRI has incidental finding of multiple indeterminate lesion of the right kidney versus adrenal gland. Patient advised to follow up with PCP to review these findings and determine next step. Chronic conditions not treated during this visit that affected my overall medical decision making: Obesity, Pulmonary embolism OARRS: Reviewed. Scribe Statement: Scribed for and in the presence of KAREN GARICA by Mamie Mcgowan CNA. Provider Statement: I, KAREN GARCIA, personally performed the services described in the documentation, as scribed by Mamie Mcgowan CNA in my presence, and it is both accurate and complete. Mamie Mcgowan CNA 10/26/24 1502 KAREN Garcia 10/26/24 1522 documented in this encounter [facility] 10-25-2024 History of Present illness Narrative Reason for Appointment: Patient ID: Munira Hernandez is a 54 y.o. female who presents for Post-op Visit and Pre-op Visit Patient presents today for Pre Op/Post Op Follow Up appointment. Patient is scheduled to undergo Da Leroy assisted Laparoscopic Hysterectomy, possible exploratory laparotomy, possible BSO, possible cystoscopy on 11/11/[address] Reyes at [facility]. MEDICATIONS Current Outpatient Medications Medication Instructions ergocalciferol (Vitamin D-2) 50 MCG (2000 UT) capsule esomeprazole (NEXIUM) 20 mg, Oral, Daily before breakfast levothyroxine (SYNTHROID, LEVOXYL) 50 mcg, Oral, Daily RT multivitamin with minerals (Centrum) 9-200 mg-mcg tablet split tablet Oral, Daily RT nabumetone (Relafen) 500 MG tablet triamcinolone (Kenalog) 0.1 % cream Topical ALLERGIES Allergies Allergen Reactions Clarithromycin Hives Other Reaction(s): Unknown Biaxin Other Reaction(s): Swelling of Lip/Tongue/Throat Other Reaction(s): Unknown Biaxin Biaxin feet swell PROBLEMS Active Ambulatory Problems Diagnosis Date Noted Postmenopausal bleeding 08/09/2024 Subserous leiomyoma of uterus 08/09/2024 Resolved Ambulatory Problems Diagnosis Date Noted No Resolved Ambulatory Problems Past Medical History: Diagnosis Date Abnormal Pap smear of cervix Disease of thyroid gland (CMS/HCC) DVT (deep venous thrombosis) (CMS/HCC) Fibroid Foot [...] Cardiovascular: Negative. Gastrointestinal: Negative. Genitourinary: Positive for dyspareunia, menstrual problem and pelvic pain. Musculoskeletal: Negative. Skin: Negative. Neurological: Negative. All [...] nursing note reviewed. Exam conducted with a diesel engine erector present. Vitals: Estimated body mass index is 46.55 kg/m as calculated from the following: Height as of 08/09/24: 5' 6 . Weight as of this encounter: 288 lb 6.4 oz. BP: 114/76 No LMP recorded. Patient is postmenopausal. ASSESSMENT & PLAN ICD-10-CM 1. Pre-op examination Z01.818 2. Menorrhagia with regular cycle N92.0 3. Pelvic pain in female R10.2 4. Dyspareunia in female N94.10 5. Dysmenorrhea N94.6 6. Postmenopausal bleeding N95.0 Post Op Follow Up: Patient presents today for a postop follow up after having a D&C Hysteroscopy performed at [facility] with Dr. Reyes. Pathology results was reviewed with the patient in great detail and all restrictions have been lifted. Pre Op: Patient is doing well but has complaints of pelvic pain. I have discussed conservative management vs. surgical management with the patient in detail and patient desires surgical management at this time. Patient will undergo Da Leroy assisted Laparoscopic Hysterectomy, possible exploratory laparotomy, possible BSO, possible cystoscopy on 11/11/2024. Surgical consents were signed, mmc was reviewed, and patient is to proceed to [facility] OR. Discussed possible second surgery if pathology returns cancerous. Pt understands risks and desires to continue with hysterectomy at [facility] with Dr Reyes. Pt has h/o blood clot from control. Pt to see power cutting machine operator for recommendations post surgery for anticoag treatment. Follow Up: Patient is to follow up at 1 & 6 weeks post operative to assess proper healing and recovery from procedure. Documented by Laura Cosby LPN on behalf of: Ashok Reyes DO documented in this encounter [facility] 10-18-2024 Miscellaneous Notes Lumbar MRI report forwarded to PCP for further review and evaluation. documented in this encounter [facility] 10-18-2024 Telephone encounter Note Lumbar MRI report forwarded to PCP for further review and evaluation. [facility] 09-28-2024 History of Present illness Narrative [facility] [address] [place] [address] Patient: Munira Hernandez Sex: female : 1970 [...] bilateral carpal tunnel surgery on 08/25/2024 at [facility] per Dr Montero Back Pain [...] Medical History: Diagnosis Date Deep vein thrombosis ([facility]) Extremity pain GERD (gastroesophageal reflux disease) Hiatal hernia Hypothyroid Low back pain Migraine Neck pain Obesity PONV (postoperative nausea and vomiting) Pulmonary embolism ([facility]) Visual impairment Past Surgical History: Procedure Laterality Date BIOPSY VULVA, labia majora and minora Right 12/18/2022 Performed by Lucien Clarke MD at [facility] CARPAL TUNNEL RELEASE Bilateral and trigger finger release CHOLECYSTECTOMY COLONOSCOPY COLONOSCOPY N/A 05/30/2022 Performed by Laci Jackson MD at [facility] HYSTEROSCOPY DILATION CURETTAGE N/A 07/16/2023 Performed by Lucien Clarke MD at [facility] HYSTEROSCOPY DILATION CURETTAGE N/A 12/18/2022 Performed by Lucien Clarke MD at [facility] HYSTEROSCOPY MYOMECTOMY MYOSURE N/A 07/16/2023 Performed by Lucien Clarke MD at [facility] HYSTEROSCOPY MYOMECTOMY MYOSURE N/A 12/18/2022 Performed by Lucien Clarke MD at [facility] INCISION DRAINAGE GROIN Right 07/16/2023 Performed by Lucien Clarke MD at [facility] INJECTION BLOCK NERVE MEDIAL BRANCH: bilat L 4/5, 5/ Bilateral 06/25/2024 Performed by Reinaldo Mai MD at [facility] Allergies Allergen Reactions Clarithromycin Hives Biaxin [...] Patient declined Stress: Stress Concern Present (12/21/2022) [employer] [place] [employer] - Occupational Stress Questionnaire Feeling of Stress : To some extent Social Connections: Moderately Isolated (12/21/2022) Social Connection and Isolation Panel [NHANES] Frequency of Communication with Friends and Family: More than three times a week Frequency of Social Gatherings with Friends and Family: Three times a week Attends Sikhism Services: Never Active Member of Clubs or Organizations: No Attends Club or Organization Meetings: Never Marital Status: Living with partner Interpersonal Safety: Not At Risk (06/22/2024) Received from [facility] Humiliation, Afraid, Rape, and Kick questionnaire Fear [...] bedtime. Do all this for 10 days. alf current use of opiate analgesic - Controlled [...] for and in the presence of KAREN GARCIA by Mamie Mcgowan CNA. Provider Statement: I, KAREN GARCIA, personally performed the services described in the documentation, as scribed by Mamie Mcgowan CNA in my presence, and it is both accurate and complete. Mamie Mcgowan CNA 09/28/24 [id number] KAREN Garcia 09/28/24 1004 documented in this encounter [facility] 09-13-2024 History of Present illness Narrative Reason for Appointment: Patient ID: Munira Hernandez is a 54 y.o. female who presents for Pre-op Visit Patient presents today for Pre Op appointment. Patient is scheduled to undergo D&C Hysteroscopy, possible Myosure on 10/08/[address] Reyes at [facility]. MEDICATIONS Current Outpatient Medications Medication Instructions ergocalciferol (Vitamin D-2) 50 MCG (1999 UT) capsule esomeprazole (NEXIUM) 20 mg, Oral, Daily [...] of cervix Disease of thyroid gland (CMS/HCC) 7 -2024 DVT (deep venous thrombosis) (CMS/HCC) Fibroid Foot [...] Relation Name Age of Onset Cancer Mother Jesscia hernandez Hypertension Mother Jessica hernandez Cancer Father [...] nursing note reviewed. Exam conducted with a diesel engine erector present. Vitals: Estimated body mass index is [...] reviewed, and patient is to proceed to [facility] OR. Reviewed patients results of ultrasound with patient and PVU results and plan of care with procedure. Follow Up: Patient is to follow up between 1-2 weeks post operative to assess proper healing and recovery from procedure. 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 Kale Mcgregor MS4 Department of Orthopedic Surgery 09/07/24 9:21 AM Montana Avery MD Orthopedic Surgery Resident Orthopedic Surgery Pager: [phone] 09/07/24 9:40 AM I did not personally examine the patient. I discussed the case with the resident and agree with the plan. [facility] 09-07-2024 Miscellaneous Notes Refill request documented in this encounter [facility] 09-07-2024 Telephone encounter Note Refill request [facility] 08-25-2024 Note Patient: Munira montes Procedure Summary Date: 08/25/24 Room / Location: [facility] OR [address] [place] [address] OR Anesthesia Start: 919 Anesthesia Stop: 1004 [...] per anesthesia protocol. No notable events documented. [facility] 08-25-2024 Note Patient: Munira montes Procedure Summary Date: 08/25/24 Room / Location: [address] OR Anesthesia Start: 919 Anesthesia Stop: 1004 Procedures: RELEASE,CARPAL TUNNEL ULTRASOUND GUIDED (SONEX) (Bilateral: Wrist) RELEASE, TRIGGER FINGER-RING (Right: Ring Finger) Diagnosis: Bilateral carpal tunnel syndrome (Bilateral carpal tunnel syndrome [G56.03]) Surgeons: Tera Montero MD Responsible Provider: Jewel Garner MD Anesthesia Type: MAC ASA Status: 3 Anesthesia Post Transport Note Transport to: [place] PACU O2 Route: face mask Oxygen Flow (L/min): 8 Patient Monitor: direct observation Transport: uneventful Patient condition is: stable Comments: Patient arousable, VSS, SV well, report to RN [facility] 08-25-2024 Note Patient: Munira montes Procedure Information Date/Time: 08/25/24 0930 Procedures: RELEASE,CARPAL TUNNEL ULTRASOUND GUIDED (SONEX) (Bilateral: Wrist) RELEASE, TRIGGER FINGER-RING (Right: Ring Finger) Location: [facility] OR [address] [place] [address] OR Surgeons: Tera Montero MD Relevant Problems [...] Plan discussed with CAA. Additional Equipment Requests [facility] 08-09-2024 History of Present illness Narrative Reason for Appointment: Patient ID: Munira Hernandez is a 54 y.o. female who presents for Post menopausal bleeding Patient presents today for Consult appointment. MEDICATIONS Current Outpatient Medications Medication Instructions ergocalciferol [...] PROBLEMS Active Ambulatory Problems Diagnosis Date Noted No Active Ambulatory Problems Resolved Ambulatory Problems Diagnosis Date Noted No Resolved Ambulatory Problems Past Medical History: Diagnosis Date Abnormal Pap smear of cervix Disease of thyroid gland (CMS/HCC) DVT (deep venous thrombosis) (CMS/HCC) Fibroid Foot [...] SYSTEMS Review of Systems: Review of Systems Genitourinary: Positive for pelvic pain and vaginal bleeding. All other systems reviewed and are negative. OBJECTIVE Objective: Physical Exam Constitutional: Appearance: Normal [...] nursing note reviewed. Exam conducted with a diesel engine erector present. Vitals: Estimated body mass index is 47.45 kg/m as calculated from the following: Height as of this encounter: 5' 6 . Weight as of this encounter: 294 lb. BP: 128/82 No LMP recorded. Patient is postmenopausal. ASSESSMENT & PLAN ICD-10-CM 1. Postmenopausal bleeding N95.0 Patient presents for post menopausal bleeding. Patient voiced that she has been seen in the past and had endometrial biopsies and diagnostic Lap and D&C for the past 3 years. Discussed options with patient and patient voiced she is done with the vaginal bleeding effecting her ADLs. Patient voiced that she has a thickened lining as well. Patient to have ultrasound done and endometrial biopsy. Informed patient that the reasoning for endometrial biopsy is to rule out cancer prior to surgical management. Patient would prefer not to have endometrial biopsy due to pain is causes and would like to have D&C done for sampling purpose and then setup for hysterectomy after D&C. Patient to setup appointments for pre-op D&C and surgical procedures. Patient to return to clinic as directed. Documented by Allyssa Salcedo LPN on behalf of: Ashok Reyes DO documented in this encounter [facility] 06-22-2024 Note Subjective 06/22/24 Munira Hernandez [...] be an additional personal documentation from me. [facility] 04-21-2024 Note Chief Complaint: nec k and [...] Intimate Partner Violence: Not At Risk (12/03/2023) [place] Safety & Environment Fear of Current or [...] reflex- 2 Babins (more content not included)... [facility] 12-12-2023 History of Present illness Narrative Subjective [...] for 1 dose. documented in this encounter [facility] 12-03-2023 Note Attestation signed by Mariano Burch [...] the patient octaviano (more content not included)... [facility] 11-25-2023 Miscellaneous Notes Patient wanted to know if she could get a refill of the meloxicam if okay to continue taking. She believes it is helping with her hips. She also states she is not taking pantoprazole anymore, flagged for removal. Please advise. documented in this encounter [facility] 11-25-2023 Telephone encounter Note Patient wanted to know if she could get a refill of the meloxicam if okay to continue taking. She believes it is helping with her hips. She also states she is not taking pantoprazole anymore, flagged for removal. Please advise. [facility] 11-21-2023 Miscellaneous Notes Refill request documented in this encounter [facility] 11-21-2023 Telephone encounter Note Refill request [facility] 11-19-2023 Miscellaneous Notes Patient is concerned about her abnormal results, specifically her B6 level. Any changes to do. I think a multivitamin daily should be sufficient. Spoke with patient, gave results and told to take a multivitamin documented in this encounter [facility] 11-19-2023 Telephone encounter Note Patient is concerned about her abnormal results, specifically her B6 level. Any changes to do. [facility] 11-19-2023 Telephone encounter Note I think a multivitamin daily should be sufficient. [facility] 11-19-2023 Telephone encounter Note Spoke with patient, gave results and told to take a multivitamin [facility] 10-27-2023 Note ASSESSMENT/PLAN: Munira was seen today [...] a 53 y.o. female who presents to [facility] today for EMG nerve conduction [...] Santana MD Authorized by: Mariano Burch MD [place] Protocol / Time: Immediately prior to the procedure a time out was called. Relevant documents were present and verified. Site/side verified. Patient identity confirmed verbally with patient. This timeout verifies correct patient, procedure, equipment, clinical support manager and site/side were marked as required. [...] This note was completed using a voice rfid technician system. Every effort was made to ensure accuracy; however, inadvertent computerized rfid technician errors may be present, please contact MD if any information is unclear. [facility] 09-22-2023 Note ASSESSMENT/PLAN: Munira was seen today [...] a 53 y.o. female who presents to [facility] today for bilateral UE EMG/NCS [...] commands, decreased sens (more content not included)... [facility] 04-21-2023 Evaluation note Encounter Date Diagnosis Assessment [...] Follow up with primary care provider or ob/gyn doctor if no improvement of symptoms. [employer] Other 02-04-2023 Evaluation note* Encounter Date Diagnosis [...] no improvement in 2 to 3 days. [employer] Other 01-20-2023 History general Narrative - Reported* Type Description Date Medical History acid reflux Medical History hx of blood clots in right leg a nd lung Medical History vertigo Surgical History cholecystectomy 1998 Hospitalization History blood clot in leg and rhina ngs 12/13 [employer] Other Evaluation noteNo assessment information available [facility] Work Phone: [employer] noteNo InformationNort [employer] Other evaluation note* Diagnosis Anxiety Anxiety state, unspecified documented in this encounter [facility]* Diagnosis Laryngitis- Primary Acute laryngitis, without mention of obstruction Non-recurrent acute serous otitis media of both ears documented in this encounter [facility]* Diagnosis Acquired hypothyroidism Unspecified hypothyroidism documented in this encounter [facility]* Diagnosis Pre-op examination Postmenopausal bleeding Thickened endometrium Nonspecific (abnormal) findings on radiological and other examination of genitourinary organs Uterine leiomyoma, unspecified location documented in this encounter [facility] Healthcare[facility] note* Diagnosis Disc displacement, lumbar- Primary Displacement of lumbar intervertebral disc without myelopathy Chronic bilateral low back pain without sciatica 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 current use of opiate analgesic documented in this encounter [facility]* Diagnosis Spinal stenosis of lumbar region with neurogenic claudication- Primary documented in this encounter [facility]* Diagnosis Pre-op examination Menorrhagia with regular cycle Pelvic pain in female Unspecified symptom associated with female genital organs Dyspareunia in female Dysmenorrhea Postmenopausal bleeding documented in this encounter [facility] HealthcareEvaluation note* Diagnosis Acute deep vein thrombosis (DVT) of distal vein of right lower extremity (CMS-HCC)- Primary Other acute pulmonary embolism without acute cor pulmonale ([facility]) documented in this encounter [facility]* Diagnosis Right kidney mass- Primary Unspecified disorder of kidney and ureter documented in this encounter [facility]* Diagnosis Postmenopausal bleeding Subserous leiomyoma of uterus documented in this encounter [facility] HealthcareHistory general Narrative - Reported* Type Description Date Medical History acid reflux Medical History hx of blood clots in right leg a nd lung Medical History vertigo Medical History Anxiety Surgical History cholecystectomy 1998 Hospitalization History blood clot in leg and rhina ngs 12/13 [employer] Other InstructionsNot on filedocumented in this encounter [...] Not Specified Deep vein thrombosis (DVT) Unknown Relationship Condition Age at Onset Recorded Date/T lara father Heart disease Unknown mother Deep vein thrombosis (DVT) Unknown father Malignant neoplasm Unknown Heart disease Unknown Unknown mother Heart disease Unknown Advance Directives No Advanced Directives Records Found Advance Directive Response Recorded Date/ Time Advance Directives No November 27, 2019 12:40pm Advance Directive Response Recorded Date/ Time Advance Directives No November 27, 2019 11:40am Chief Complaint and Reason for Visit Chief Complaint R30.0 Chief Complaint Admit Date Unknown October 08, 2024 11:11am Additional Source Comments INFORMATION SOURCE (unrecogn ized section and content) DATE CREATED AUTHOR 08/20/2021 [facility] DATE CREATED AUTHOR AUTHOR'S ORGANIZ ATION 06/13/2022 [facility] DATE CREATED AUTHOR AUTHOR'S ORGANIZ ATION 07/13/2024 [facility] DATE CREATED AUTHOR AUTHOR'S ORGANIZ ATION 09/13/2024 [facility] DATE CREATED AUTHOR AUTHOR'S ORGANIZ ATION 10/04/2024 [facility] DATE CREATED AUTHOR AUTHOR'S ORGANIZ ATION 10/13/2024 [facility] DATE CREATED AUTHOR AUTHOR'S ORGANIZ ATION 10/25/2024 [facility] DATE CREATED AUTHOR AUTHOR'S ORGANIZ ATION 11/03/2024 [facility] REASON FOR VISIT (unrecogniz ed section and content) Reason Onset Date Comments Results 11/19/2023 Reason Comments Med Refill Reason Comments Hoarse Feels like vocal cor ds are strained, no other symptoms Earache bilateral Reason Comments Pre-op Visit Reason Comments Neck Pain Back Pain Reason Comments Back Pain Reason Comments Post-op Visit Pre-op Visit Reason Onset Date Comments US schedule 10/29/2024 Reason Comments Post menopausal bleeding Care Teams (unrecognized sec tion and content) Team Status: Active Member Role Status Dates Abel Murry MD Primary Care Provider Active Team Status: Inactive Member Role Status Dates Abel Murry MD Primary Care Provider Active [employer] Attending Provider Activ e Broaching Machine Set Up Operator Relationship Specialty Start Date End Date Abel Murry MD [address] [place] [address], [address] [place] [address] PCP - General Pediatrics 08/03/18 Broaching Machine Set Up Operator Relationship Specialty Start Date End Date Abel Murry MD [address] [place] [address], [address] [place] [address] PCP - General Pediatrics 08/03/18 Broaching Machine Set Up Operator Relationship Specialty Start Date End Date Abel Murry MD [address] [place] [address], [address] [place] [address] PCP - General Pediatrics 08/03/18 Broaching Machine Set Up Operator Relationship Specialty Start Date End Date Abel Murry MD [address] [place] [address], [address] [place] [address] PCP - General Pediatrics 08/03/18 Broaching Machine Set Up Operator Relationship Specialty Start Date End Date Abel Murry MD [address] [place] [address], [address] [place] [address] PCP - General Pediatrics 08/03/18 Broaching Machine Set Up Operator Relationship Specialty Start Date End Date Abel Murry MD [address] [place] [address], [address] [place] [address] PCP - General Family Medicine 05/02/23 Broaching Machine Set Up Operator Relationship Specialty Start Date End Date Abel Murry MD [address] [place] [address], [address] [place] [address] PCP - General Family Medicine 05/02/23 Broaching Machine Set Up Operator Relationship Specialty Start Date End Date Abel Murry MD [address] [place] [address], [address] [place] [address] PCP - General Pediatrics 08/03/18 Team Status: Inactive Member Role Status Dates Abel Murry MD Primary Care Provider Active Start: October 08, 2024 End: October 08, 2024 Ashok Reyes DO Attending Provider Active Start : October 08, 2024 End: October 08, 2024 Broaching Machine Set Up Operator Relationship Specialty Start Date End Date Abel Murry MD [address] [place] [address], [address] [place] [address] PCP - General Family Medicine 05/02/23 Broaching Machine Set Up Operator Relationship Specialty Start Date End Date Abel Murry MD [address] [place] [address], [address] [place] [address] PCP - General Pediatrics 08/03/18 Broaching Machine Set Up Operator Relationship Specialty Start Date End Date Abel Murry MD [address] [place] [address], [address] [place] [address] PCP - General Pediatrics 08/03/18 Broaching Machine Set Up Operator Relationship Specialty Start Date End Date Abel Murry MD [address] [place] [address], [address] [place] [address] PCP - General Family Medicine 05/02/23 Broaching Machine Set Up Operator Relationship Specialty Start Date End Date Abel Murry MD [address] [place] [address], [address] [place] [address] PCP - General Pediatrics 08/03/18 Broaching Machine Set Up Operator Relationship Specialty Start Date End Date Abel Murry MD [address] [place] [address], [address] [place] [address] PCP - General Pediatrics 08/03/18 Broaching Machine Set Up Operator Relationship Specialty Start Date End Date Abel Murry MD [address] [place] [address], [address] [place], [place] [id number] PCP - General Family Medicine 05/02/23 Broaching Machine Set Up Operator Relationship Specialty Start Date End Date Abel Murry MD [address] [place] [address], [address] [place], [place] [id number] PCP - General Family Medicine 05/02/23 Goals (unrecognized section and content) Goals may [...] BE BASED ON THE PRIMARY CLINICAL RECORDS. [facility] [employer] [facility]. provides no warranty or guarantee of the accuracy or completeness of information in this document.
[2024-11-08 09:00] LABS: Basophils Percent Auto 0.3 % (0.2-2.0); Eosinophils Absolute Auto 0.1 10^3/uL (0.0-0.7); Eosinophils Percent Auto 1.8 % (0.9-7.0); Hematocrit 44.1 % (36.0-48.0); Hemoglobin 13.9 g/dL (12.0-16.0); Immature Granulocytes Abs Auto 0.03 10^3/uL (0.00-0.03); Immature Granulocytes Pct Auto 0.4 % (0.0-0.5); Lymphocytes Absolute Auto 1.1 10^3/uL (1.2-3.8); Lymphocytes Percent Auto 15.8 % (20.5-60.0); Mean Corpuscular HGB Conc 31.5 g/dL (29.9-35.2); Mean Corpuscular Hemoglobin 26.6 pg (26.7-34.0); Mean Corpuscular Volume 84.3 fL (81.0-99.0); Mean Platelet Volume 8.8 fL (9.5-13.5); Monocytes Absolute Auto 0.5 10^3/uL (0.3-0.8); Monocytes Percent Auto 7.1 % (1.7-12.0); Neutrophils Absolute Auto 5.3 10^3/uL (1.4-6.5); Neutrophils Percent Auto 74.6 % (43.0-75.0); Platelet Count 243 10^3/uL (150-450); Red Blood Count 5.23 10^6/uL (4.20-5.40); Red Cell Distribution Width 13.8 % (11.0-15.0)
[2024-11-08 09:08] LABS: INR 0.98; Partial Thromboplastin Time 21.1 sec (22.3-36.2); Prothrombin Time 10.4 sec (9.0-11.6)
[2024-11-08 09:30] LABS: Alanine Aminotransferase 28 U/L (14-59); Albumin Globulin Ratio 0.9; Albumin Level 3.3 g/dL (3.4-5.0); Alkaline Phosphatase 115 U/L (46-116); Anion Gap 12.2; Aspartate Amino Transferase 22 U/L (15-37); BUN Creatinine Ratio 17.6; Bilirubin Direct 0.1 mg/dL (0.0-0.2); Bilirubin Total 0.3 mg/dL (0.2-1.0); Calcium 8.8 mg/dL (8.5-10.1); Carbon Dioxide 30.2 mmol/L (21.0-32.0); Chloride 105 mmol/L (98-107); Estimated GFR (African America >60 (>=60 mL/min/1.73m^2); Estimated GFR (Non-African Ame >60 (>=60 mL/min/1.73m^2); Globulin 3.7 g/dL; Glucose 108 mg/dL (74-106); Potassium 4.4 mmol/L (3.5-5.1); Sodium 143 mmol/L (136-145)
== END 2024-11-08 07:53 | disposition home or self-care (01) ==
LOC: PST 07:53
PROVIDERS: PCP Internal Medicine; Visit Provider Obstetrics & Gynecology
DX: Z01.812 Encounter for preprocedural laboratory examination (principal); N92.0 Excessive and frequent menstruation with regular cycle; R10.2 Pelvic and perineal pain; N94.6 Dysmenorrhea, unspecified; N94.10 Unspecified dyspareunia
CPT/HCPCS: 36415; 80048; 80076; 85025; 85610; 85730; 86850; 86900; 86901

== ENCOUNTER 2024-11-11 10:55 | Day surgery (SDC) | payer OTHER, SELFPAY ==
[2024-11-08 08:41] VITALS: BP 121/68; PULSE 65; TEMP 36.2; O2SAT 99; BMI 46.3
--- OUTSIDE RECORDS SUMMARY | 2024-11-11 11:05 | XMS_ITS | CCD ---
Author Organization [facility] Care Team Providers Care [place] Coiling Machine Setter Name Role Phone DR ABEL MURRY Attending [...] Unavailable Abel Murry MD Primary Care Provider [phone] TERA MONTERO Admitting Unavailable TERA MONTERO Attending Unavailable TERA MONTERO Attending Unavailable DI, MARIANO Attending Unavailable DI, MARIANO Referring Unavailable DI, MARIANO Referring Unavailable GINA SANTANA Attending Unavailable ROMMELFY, MARIANO Referring Unavailable GINA SANTANA Attending Unavailable ELGAFY, MARIANO Referring Unavailable TERA MONTERO Attending Unavailable JHONY, MARIANO Attending Unavailable DINA JONES Referring Unavailable ABEL MURRY Primary Care Unavailable Abel Murry MD Primary Care Provider Ashok Reyes DO Attending Provider Abel Murry Primary Care Unavailable Ashok Reyes Attending Unavailable Ashok Reyes Admitting Unavailable GO JOHNSON Attending Unavailable ASHOK REYES Attending Unavailable ASHOK REYES Attending Unavailable ASHOK REYES Attending Unavailable SHARIESTAND, ABEL Grossman Referring Unavailable HIESTAND, ABEL Grossman [...] DINA JONES Attending Unavailable HIESTAND, ABEL Grossman Primary Care [...] Primary Care Unavailable DINA JONES Attending Unavailable ROBERT, DINA M Referring Unavailable HIESTAND, ABEL Grossman Referring Unavailable HIESTAND, ABEL Grossman Primary Care Unavailable DINA JONES M Attending Unavailable HIESTANDABEL Referring Unavailable HIESTAND, ABEL Grossman Primary Care Unavailable ISAURA COSTELLO Attending Unavailable HIESTAND, ABEL Grossman Attending Unavailable HIESTAND, ABEL Grossman Referring Unavailable HIESTAND, ABEL Grossman Primary Care Unavailable HIESTAND, ABEL Grossman Referring Unavailable HIESTAND, ABEL Grossman Primary Care Unavailable Allergies Allergy Classification Reported Allergen(s) Allergy Type Date of Onset Reaction(s) Facility (20 sources) Clarithromycin; Translations: [CLARITHROMYCIN] Drug Allergy 11-27-2019 [facility] Medications Current Medications Medication Drug Class(es) Dates [...] adult ([facility]) 1 tablet daily for [...] of distal vein of right lower extremity ([facility]) , Other acute pulmonary embolism without acute cor pulmonale ([facility]) Inject 0.4 mL (40 mg total) under the skin in the morning. 2 mL 10/28/2024 Active ergocalciferol 0.05 mg oral capsule (10 sources) Provitamin D2 Compound Start: 10-21-2023 ergocalciferol (Vitamin D-2) 50 MCG (1999 [place]) capsule 10/21/2023 Active esomeprazole 20 mg delayed release oral capsule (20 sources) Proton Pump Inhibitor take 1 capsule by mouth before mealtime esomeprazole (NexIUM) [address] capsule Take 20 mg by mouth in the morning. Take before meals. Active Esomeprazole Mag nesium Active fluconazole 150 mg oral tablet (1 source) Azole Antifungal Start: 12-12-2023 End: 12-12-2023 take 1 tablet by mouth once fluconazole (DIFLUCAN) 150 mg tablet Take 1 tablet (150 mg total) by mouth once for 1 dose. 1 tablet 0 12/12/2023 12/12/2023 Active levothyroxine sodium 0.05 mg oral tablet (18 sources) l-Thyroxine Start: 07-14-2024 End: 09-07-2024 take 1 tablet by mouth in the morning levothyroxine (Synthroid, Levoxyl) 50 MCG tablet Take 50 mcg by mouth in the morning. 07/14/2024 Active meloxicam 15 mg oral tablet (8 [...] minerals (Centrum) 9-200 mg-mcg tablet split tablet (10 sources) multivitamin wit h minerals (Centrum) 9-200 mg-mcg tablet split tablet Take by mouth Daily Active nabumetone 500 mg oral tablet (18 sources) Nonsteroidal Anti-inflammatory Drug Start: End: nabumetone (Relafen) 500 MG tablet 07/12/2024 Active nitrofurantoin, macrocrystals 25 mg / nitrofurantoin, [...] tablet (2 sources) Factor Xa Inhibitor Start: take 1 tablet [...] Active triamcinolone acetonide 1 mg/ml topical cream (10 sources) Corticosteroid triamcinolone (Kenalog) 0.1 % cream Apply topically. Active Completed/Discontinued Medications Medication Drug Class(es) Dates Sig (Normalized) Sig (Original) [id number] 200 actuat albuterol 0.09 mg/actuat metered dose [...] Anxiety; Translations: [Anxiety disorder, unspecified] 11-21-2023 Chronic Chronic obstructive pulmonary disease and bronchiectasis (1 source) Bronchitis, not specified as acute or chronic Episodic Genitourinary symptoms and ill-defined conditions (1 source) Dysuria Episodic Headache; including migraine (12 sources) Migraine; Translations: [Migraine, unspecified, not intractable, without status migrainosus] 06-14-2021 Chronic Menopausal disorders (15 sources) Postmenopausal bleeding; Translations: [Postmenopausal bleeding] Onset: 08-09-2024 08-09-2024 Chronic Menstrual disorders (5 sources) Menorrhagia; Translations: [Excessive and frequent menstruation with regular cycle] Onset: 08-16-2024 10-25-2024 Chronic Other aftercare (1 source) Long-term current use of opiate analgesic drug; Translations: [long-term (current) use of opiate analgesic] 09-28-2024 Episodic Other aftercare (2 sources) 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; Translations: [long-term (current) use of opiate analgesic] Onset: 09-28-2024 [...] Classification Problem Date Documented Da te Episodic/Chronic Benign neoplasm of uterus (13 sources) Subserous leiomyoma of uterus; Translations: [Subserosal leiomyoma of uterus] Onset: 08-09-2024 08-09-2024 Episodic Mood disorders (12 sources) Mood disorders Onset: [...] Test Name Value Interpretation Reference Range Facility [facility] APTTon 11-08-2024 aPTT Coag (Bld) [Time] 21.1 s Low [facility] Interpretation and review of laboratory results Abnormal [facility] No Panel Informationon 11-08 [facility] SRMCOH PROTHROMBIN TIME INR W/O COUMon 11-08-2024 PT Coag (PPP) [Time] 10.4 s [facility] TB INR 0.98 [facility] Comment on above: DESIRED INR: 2.0-3.0 CONDITIONS NOT LISTED BELOW 2.5-3.5 FOR PROSTHETIC HEART VALVE REPLACEMENT 2.5-3.5 RECURRENT THROMBOSIS MAMM SCREENING 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 Scores greater than 20% are considered high risk, and patient should consider supplemental screening with MRI per ACR guidelines. Patient may discuss this option with their healthcare provider. Finalized by Siddharth Lowery MD on 11/02/2024 12:13 PM 1 a MAMM 1 YR Normal [facility] US RETROPERITONEAL COMPLETEo n 11-01-2024 US [...] Lowery MD on 11/01/2024 10:22 AM [facility] MR LUMBAR SPINE WO CONTon MR LUMBAR SPINE WO CONT MR LUMBAR [...] Dempsey DO on 10/18/2024 1:54 PM Normal [facility] ALL CBC WITH AUTO DIFFon BASOPHILS ABSOLUTE AUTO [address] [facility] Basophils/100 WBC (Bld) 0.5 % 0.2 - 2.0 % [facility] Eosinophils/100 WBC (Bld) 1.4 % 0.9 - 7.0 % [facility] Erythrocyte distribution width (RBC) [Ratio] 13.9 % 11.0 - 15.0 % [facility] Hematocrit (Bld) [Volume fraction] 42 % 36.0 - 48.0 % [facility] Hemoglobin (Bld) [Mass/Vol] 13.8 g/dL 12.0 - 16.0 g/dL [facility] IMMATURE GRANULOCYTES ABS AUTO 0.[address] [facility] Immature granulocytes/100 WBC (Bld) 0.7 % High 0.0 - 0.5 % [facility] Interpretation and review of laboratory results Abnormal [facility] LYMPHOCYTES ABSOLUTE AUTO 1.[address] [facility] Lymphocytes/100 WBC (Bld) 17.8 % Low 20.5 - 60.0 % [facility] MCH (RBC) [Entitic mass] 27.3 pg 26.7 - 34.[address] [facility] MCHC (RBC) [Mass/Vol] 32.9 g/dL 29.9 - 35.2 g/dL [facility] MCV (RBC) [Entitic vol] 83.2 fL 81.0 - 99.[address] [facility] MONOCYTES ABSOLUTE AUTO 0.[address] [facility] Monocytes/100 WBC (Bld) 8.6 % 1.7 - 12.0 % [facility] NEUTROPHILS ABSOLUTE AUTO 5.[address] [facility] Neutrophils/100 WBC (Bld) 71 % 43.0 - 75.0 % [facility] Platelet mean volume (Bld) [Entitic vol] 8.2 fL Low 9.5 - 13.[address] [facility] TBH EO # 0.1 [facility] PLT 227 [facility] RBC 5.05 [facility] WBC 7.7 [facility] ANDREA Smith 10-08-2024 L --- Specimen: [id number] Received: 10/11/24 Status: BRIANMaryan Jw Num: [id number] Spec Type: Surgical Subm Dr: Ashok Reyes Tissues: A Endometrium - Curettings (ENDOMETRIAL CURETTINGS) Procedures: Cesar MOORE/Filiberto Hernandez Age/ Patient Sex Location Account Attending Physician Munira Hernandez 54/F LABELL [id number] Ashok Reyes SPEC NUM: [id number] RECD: 10/11/24 STATUS: OG JW NUM: [id number] GREGORY: 10/08/24 [facility] DR: Ashok Reyes ENTERED: 10/11/[address] [facility] [address]: Robert,Lab SPEC TYPE: Surgical DEPT: YANET REYES ENTERED BY: [id number] RECV BY: [id number] ORDERED: HE/2, Gross/Micro L4 ORDERED: HE/2, Gross/Micro [...] submitted in a single cassette. (1, ns, [id number]) PRINCESS Specimen: [id number] Received: 10/11/24 Status: OG Jw Num: [id number] Spec Type: Surgical Subm : Ashok Reyes Tissues: A Endometrium - Curettings (ENDOMETRIAL CURETTINGS) Procedures: HE/2, Gross/Micro L4 Patient: Munira Hernandez Salvador [id number] (Continued) Specimen: [id number] Received: 10/11/24 (Continued) Signed (signature on file) Rin Fishman MD 10/12/24 1359 Specimen: [id number] Received: 10/11/24 Status: OG Awad Num: [id number] Spec Type: Surgical Subm Dr: Ashok Reyes Tissues: A Endometrium - Curettings (ENDOMETRIAL CURETTINGS) Procedures: Cesar MOORE/Filiberto L4 Patient: HernandezMunira [id number] (Continued) Specimen: [id number] Received: 10/11/24 (Continued) Microscopic Description Microscopic examinations are performed supporting the above interpretation CPT Codes 52096 Specimen: [id number] Received: 10/11/24 Status: OG Awad Num: [id number] Spec Type: Surgical Subm Dr: Ashok Reyes Tissues: A Endometrium - Curettings (ENDOMETRIAL CURETTINGS) Procedures: MICHELLE/Cesar Haile/Filiberto L4 Patient: IsabelleMunira A [id number] (Continued) Signed (signature on file) Rin Fishman MD 10/12/24 1359 Normal [facility] Drugs of abuse panel Screen (U)on 09-28-2024 Control Substance Panel, Urine SEE COMMENTS 10/02/2024 11:08 AM Normal [facility] Comment on above: Result Comment: NOTE Test Result Flag Unit RefValue Controlled Substance Monitoring, U List Patient's Current SEE ATTACHMENT Medications ADDITIONAL INFORMATION Accuracy and completeness of declared medications on reports solely dependent on information submitted by client. Creatinine, U 217.3 mg/dL Specific [place] 1.027 pH 5.6 Oxidants Negative -- REFERENCE [...] Not Detected ng/mL Cutoff: 25 Tylenol 3 [place]-4-kpes- Not Detected ng/mL Cutoff: 100 glucuronide Metabolite of codeine Morphine Not Detected ng/mL Cutoff: 25 Avinza, Rhianna, MS Contin; Also a minor metabolite (10%) of codeine and can be seen in low concentrations (<2,000 ng/mL) with poppy seed ingestion. Epzdfnxn-8-hxeh- Not Detected ng/mL Cutoff: 100 glucuronide Metabolite of morphine 6-monoacetylmorphine Not Detected ng/mL Cutoff: 25 Metabolite of heroin Hydrocodone Not Detected ng/mL Cutoff: 25 Lortab, Downing, Vicodin; Also a very minor metabolite of codeine and impurity (<1%) of oxycodone. Norhydrocodone Not Detected ng/mL Cutoff: 25 Metabolite of hydrocodone Dihydrocodeine Not Detected ng/mL Cutoff: 25 Metabolite of hydrocodone Hydromorphone Not Detected ng/mL Cutoff: 25 Dilaudid, Exalgo; Also a metabolite of hydrocodone and a minor (<5%) metabolite of morphine. Oskpilffhsscy-6-hrck- Not Detected ng/mL Cutoff: 100 glucuronide Metabolite of hydromorphone Oxycodone Not Detected ng/mL Cutoff: 25 Endocet, Percocet, Oxycontin Noroxycodone Not Detected ng/mL Cutoff: 25 Metabolite of oxycodone Oxymorphone Not Detected ng/mL Cutoff: 25 Numorphan, Opana; Also a metabolite of oxycodone. Fgbexsckrmf-9-gikr- Not Detected ng/mL Cutoff: 100 glucuronide Metabolite [...] Naloxone Not Detected ng/mL Cutoff: 25 Narcan Nmwxvusc-2-gfrs- Not Detected ng/mL Cutoff: 100 glucuronide Metabolite [...] developed and its performance characteristics determined by [facility] in a manner consistent with CLIA requirements. [...] not included)... Office Visiton 09-07-2024 Follow-up visit [id number] Vickie Hernandez sa 1970 F Date Provider Department Center 09/07/2024 TERA OLEARY MP [facility] Family History Problem Relation Age of Onset Cancer Mother Cancer Father Cancer Sister Cancer Sister Diabetes Sister Family Status - Relation Status Age at Mother Father Sister Sister Sister Level of Service:79318 NE POSTOP FOLLOW UP VISIT RELATED TO ORIGINAL PX (GC) Reason for Visit and Comments: Post-op [483] Post-op [483] Normal [facility] HPon 08-25-2024 History Of Present Illness Munira Hernandez is a 54 y.o. female presenting with B CTS and a R ring trigger digit. Sahe is scheduled for B CTR and R [...] B CTR, R RF A1 release Normal [facility] OPNOTEon 08-25-2024 OPNOTE Operative Note Patient: Munira Hernandez Date of Surgery: 08/25/2024 : 1970 Pre-operative Diagnosis: 1. Carpal Tunnel Syndrome Both Hands 2. Trigger Digit Right Ring Finger Post-operative Diagnosis: same Operation: 1. Carpal Tunnel Release, Bilateral (08616) 2. Trigger Digit Release Right Ring Finger (22964) Surgeon: Tera Montero MD Captain Fishing Vessel: Fan De Leon MD Staff: It Sales Consultant: Shiloh Calvin RN Scrub Person: Ella Tapia CST Orientee It Sales Consultant: Ismael Frazier RN Anesthesia Type: MAC Indications: [...] the hamate as a landmark delete. The [employer] carpal tunnel release device was inserted into [...] the hamate as a landmark delete. The sonics carpal tunnel release device was inserted into the carpal tunnel and advanced to the distal end of the transverse carpal liga (more content not included)... Normal [facility] POCT GLUCOSE METER UNSOLICIT ED RESULTSon 08-25-2024 Glucose [Mass/Vol] 92 mg/dL Normal 70-105 [facility] Comment on above: Order Comment: Waive d Testing in the ED is performed under the ED CLIA certificate #[id number]. Result Comment: jhag eman Performed By: #### L [id number] ####[facility] (BEAKER)[address] [place] [address] Orders Onlyon 08-18-2024 Orders Only [id number] Vickie Hernandez sa A 1970 F Date Provider Department Center 08/18/2024 803-HCINO URIAS MP ORTHO MPORTHO Family History Problem Relation Age of Onset Cancer Mother Cancer Father Cancer Sister Cancer Sister Diabetes Sister Family Status - Relation Status Age at Mother Father Sister Sister Sister Normal [facility] CBC AND AUTO DIFFon 08-16-20 ABSOLUTE BASOPHIL 0.0 X10E9/L Normal 0.0-0.2 [facility] Comment on above: Performed By: #### C BCA, THYR, 2131-9, 64180-0 #### [facility] ([id number]) [address] [place] [address], [address] [place] [address] #### TTAG, 2900-9 #### [facility] ([id number]) [address] [facility], [place] [address] ABSOLUTE NEUTROPHIL 4.4 X10E9/L Normal 1.5-6.6 [facility] Comment on above: Performed By: #### C BCA, THYR, 2132-07, 47843-5 #### [facility] ([id number]) [address] [facility], [address] [place] [address] #### TTAG, [address] #### [facility] ([id number]) [address] [place] [address] Basophils/100 WBC (Bld) 0.7 % Normal [facility] Comment on above: Performed By: #### C BCA, THYR, 2132-07, 77116-6 #### [facility] ([id number]) [address] [facility], [address] [place] [address] #### TTAG, 29[address] #### [facility] ([id number]) [address] [place] [address] Eosinophils (Bld) [#/Vol] 0.1 10*3/uL Normal 0.0-0.4 [facility] Comment on above: Performed By: #### C BCA, THYR, 2132-07, 45856-7 #### [facility] ([id number]) [address] [facility], [address] [place] [address] #### TTAG, 2900-9 #### [facility] ([id number]) [address] [place] [address] Eosinophils/100 WBC (Bld) 1.8 % Normal [facility] Comment on above: Performed By: #### C BCA, THYR, 2132-07, 74240-9 #### [facility] ([id number]) [address] [facility], [facility] [address] [place] [address] #### TTAG, 2900-9 #### [facility] ([id number]) [address] [place] [address] Erythrocyte distribution width (RBC) [Ratio] 14.9 % Normal 11.5-15.0 [facility] Comment on above: Performed By: #### C BCA, THYR, 2132-07, 05907-1 #### [facility] ([id number]) [address], [address] [place] [address] #### TTAG, 2900-9 #### [facility] ([id number]) [address] [place] [address] Hematocrit (Bld) [Volume fraction] 41.8 % Normal 35-47 [facility] Comment on above: Performed By: #### C BCA, THYR, 2132-07, 85919-7 #### [facility] ([id number]) [address] [facility], [address] [place] [address] #### TTAG, [address] #### [facility] ([id number]) [address] [place] [address] Hemoglobin (Bld) [Mass/Vol] 13.9 g/dL Normal 11.7-15.5 [facility] Comment on above: Performed By: #### C BCA, THYR, 2132-07, 11807-8 #### [facility] ([id number]) [address] [facility], [address] [place] [address] #### TTAG, [address] #### [facility] ([id number]) [address] [place] [address] Lymphocytes (Bld) [#/Vol] 1.2 10*3/uL Normal 1.0-3.5 [facility] Comment on above: Performed By: #### C BCA, THYR, 2132-07, 81458-7 #### [facility] ([id number]) [address], [address] [place] [address] #### TTAG, 29[address] #### [facility] ([id number]) [address] [place] [address] [place] [address] Lymphocytes/100 WBC (Bld) 19.7 % Normal [facility] Comment on above: Performed By: #### C PAULINA, THYR, 2132-07, 61317-1 #### [facility] ([id number]) [address], [address] [place] [address] #### KASEY, 9 #### [facility] ([id number]) [address] [place] [address] MCH (RBC) [Entitic mass] 27.3 pg Normal 27-34 [facility] Comment on above: Performed By: #### C PAULINA, THYR, 2132-07, 65422-5 #### [facility] ([id number]) [address] [facility], [address] [place] [address] #### KASEY, 2900-07 #### [facility] ([id number]) [address] [place] [address] MCHC (RBC) [Mass/Vol] 33.2 g/dL Normal 32-36 [facility] Comment on above: Performed By: #### Velma GALLARDO, THYR, 2132-07, 18087-0 #### [facility] ([id number]) [address] [facility], [address] [place] [address] #### TTAMichael, 9 #### [facility] ([id number]) [address] [place] [address] MCV (RBC) [Entitic vol] 82 fL Normal 80-100 [facility] Comment on above: Performed By: #### C BCA, THYR, 2132-07, 42321-6 #### [facility] ([id number]) [address], [address] [place] [address] #### TTAG, 2900-07 #### [facility] ([id number]) [address] [place] [address] Monocytes (Bld) [#/Vol] 0.5 10*3/uL Normal 0-0.9 [facility] Comment on above: Performed By: #### C PAULINA, THYR, 2132-07, 10436-8 #### [facility] ([id number]) [address], [address] [place] [address] #### TTAMichael, 9 #### [facility] ([id number]) [address] [place] [address] Monocytes/100 WBC (Bld) 7.6 % Normal [facility] Comment on above: Performed By: #### C PAULINA, THYR, 2132-07, 67733-8 #### [facility] ([id number]) [address] [facility], [address] [place] [address] #### KASEY, 9 #### [facility] ([id number]) [address] [place] [address] Neutrophils/100 WBC (Bld) 70.2 % Normal [facility] Comment on above: Performed By: #### Velma GALLARDO, THYR, 2132-07, 94221-2 #### [facility] ([id number]) [address] [facility], [address] [place] [address] #### TTAMichael, 9 #### [facility] ([id number]) [address] [place] [address] Platelet mean volume (Bld) [Entitic vol] 6.9 fL Low 7-12 [facility] Comment on above: Performed By: #### Velma GALLARDO, THYR, 2132-07, 52732-9 #### [facility] ([id number]) [address], [address] [place] [address] #### TTAG, 9 #### [facility] ([id number]) [address] [place] [address] Platelets (Bld) [#/Vol] 245 10*3/uL Normal 150-450 [facility] Comment on above: Performed By: #### C BCA, THYR, 2132-07, 67169-5 #### [facility] ([id number]) [address] [place] [address], [facility] [address] [place] [address] #### TTAG, 2909 #### [facility] ([id number]) [address] [place] [address] RBC COUNT 5.10 X10E12/L Normal 3.80-5.20 [facility] Comment on above: Performed By: #### C BCA, THYR, 2132-07, 75724-9 #### [facility] ([id number]) [address] [place] [address], [facility] [address] [place] [address] #### TTAG, 29009 #### [facility] ([id number]) [address] [place] [address] WBC (Bld) [#/Vol] 6.3 10*3/uL Normal 4.0-11.0 [facility] Comment on above: Performed By: #### C BCA, THYR, 2132-07, 84719-8 #### [facility] ([id number]) [address] [place] [address], [address] [place] [address] #### TTAG, 2900-9 #### [facility] ([id number]) [address] [place] [address] 28461 HGB A1C (GLYCO-HGB)on 2023 Glucose [Mass/Vol] 114 mg/dL Normal [facility] Comment on above: Performed By: #### C BCA, THYR, 2132-07, 97086-5 #### [facility] ([id number]) [address] [place] [address], [address] [place] [address] #### TTAG, 2900-9 #### [facility] ([id number]) [address] [place] [address] 24877 HbA1c (Bld) [Mass fraction] 5.6 % Normal 4.4-5.6 [facility] Comment on above: Result Comment: NOTE ADA Guidelines Result HgbA1c Normal : less than 5.7 % Prediabetes : 5.7 % to 6.4 % Diabetes : > 6.4 % Use with caution in patients with abnormal hemoglobin variants as the half-life of red blood cells and in vivo glycation rates are affected. Performed By: #### C BCA, THYR, 2132-07, 46700-9 #### [facility] ([id number]) [address] [place] [address], [address] [place] [address] #### TTAG, 2900-9 #### [facility] ([id number]) [address] [place] [address] THYROID PROFILEon 08-16-2024 Free T4 [Mass/Vol] 0.81 ng/dL Normal 0.61-1.60 [facility] Comment on above: Performed By: #### C BCA, THYR, 2132-07, 26740-5 #### [facility] ([id number]) [address] [place] [address], [address] [place] [address] #### TTAG, 2900-9 #### [facility] ([id number]) [address] [place] [address] TSH 3.36 uIU/mL Normal 0.49-4.67 [facility] Comment on above: Performed By: #### C BCA, THYR, 2132-07, 63744-6 #### [facility] [facility] ([id number]) [address] [place] [address], [address] [place] [address] #### TTAG, 2900-9 #### [facility] ([id number]) [address] [place] [address] US PELVIC WITH TRANSVAGINALo n 08-16-2024 US PELVIC WITH TRANSVAGINAL US PELVIC [...] Horton MD on 08/16/2024 2:30 PM Normal [facility] THYROID PROFILEon 07-12-2024 Free T4 [Mass/Vol] 0.81 ng/dL Normal 0.61-1.60 [facility] Comment on above: Performed By: #### T HYR #### [facility] ([id number]) [address], [address] [place] [address] TSH 8.06 uIU/mL High 0.49-4.67 [facility] Comment on above: Performed By: #### T HYR #### [facility] ([id number]) [address], [address] [place] [address] XR LUMBAR SPINE AP, LATERAL, FLEXION AND [...] Bryan MD on 07/06/2024 6:05 PM Normal [facility] XR SPINE THORACIC MIN 4 VWSo [...] Martin Bryan MD on 07/06/2024 4:[address] [facility] 36on 06-22-[address] [facility] Follow-Upon 06-22-2024 Follow-Up [id number] Vickie Hernandez sa A 1970 F Date Provider Department Center 06/22/2024 TERA OLEARY MP ORTHO MPORTHO Family History Problem Relation Age of Onset Cancer Mother Cancer Father Cancer Sister Cancer Sister Diabetes Sister Family Status - Relation Status Age at Mother Father Sister Sister Sister Level of Service:39301 NE OFFICE/OUTPATIENT ESTABLISHED LOW MDM 20 MIN () Reason for Visit and Comments: Pain [136] Pain [136] [facility] Follow-Upon 04-21-2024 Follow-Up [id number] Vickie Hernandez sa A 1970 F Date Provider Department Center 04/21/2024 266-MARIANO BURCH MP ORTHO MPORTHO No family history on file Level of Service:82029 NE OFFICE/OUTPATIENT ESTABLISHED LOW MDM 20 MIN Reason for Visit and Comments: Follow-up [257463] - Patient here today to go MRI results. Pain [136] - Patient here today to go MRI results. [facility] 36on 02-25-2024 36 VM left advising patient we need the actual CD, not just the report. Asked to return call with any questions/concerns. [facility] 36on 02-24-2024 36 Returned call and le ft message with patient [facility] 36 Patient wanting to k now if pdi sent report of cervical spine mri [facility] 36on 01-28-2024 36 Spoke to [facility] Denial reason states need 6 weeks pt within past 6 months. I dont see that this has been completed. Will refer patient to PT. Call to patient - notified of referral, she verbalized understanding. She will call [facility] facility to cancel everything. [facility] 36 Per phone encounter on 01/02 the patient told me this was approved. Per phone encounter 01/14, message was sent back asking what they needed and I received no response. If it was denied they need to send me a denial letter so I have information to submit an appeal. [facility] 36 Mri denied and sandoval d office back on 01/16 and nothing was ever done by staff per the insurance company now robinedicsalvador denney is wanting further clarity, please return call PATIENT IS SCHEDULE THIS UPCOMING Friday02/02/24 [facility] 36on 01-14-2024 36 What do they need [facility] 36 Appeals number: [phone] Tracking number :[id number] Patient reschedule :02/02/24 Khadijah Schulz precert call if needed [facility] 36on 01-02-2024 36 See previous encounter. [facility] Patient states she h as talked to the facility and this has been approved. Advised her to call me if she has any issues. [facility] 36on 12-31-2023 36 [facility] pre cert calling- mri denied MRI cervical spine- peer to peer is available for up to 5 business days Denied on 12/29/2023 Wanting 6 weeks of neck pt or chiropractor treatment in the past 6 months [facility] Follow-Upon 12-03-2023 Follow-Up [id number] Vickie Hernandez sa A 1970 F Date Provider Department Center 12/03/2023 Jackeline-MARIANO BURCH MP ORTHO MPORTHO No family history on file Level of Service:39097 NE OFFICE/OUTPATIENT ESTABLISHED LOW MDM 20 MIN (GC) Reason for Visit and Comments: Follow-up [[id number]] - EMG results Follow-up [[id number]] Normal [facility] CBC AND AUTO DIFFon 11-10-20 ABSOLUTE BASOPHIL 0.0 X10E9/L Normal 0.0-0.2 [facility] Comment on above: Performed By: #### C BCA, THYR, 2132-07, 75842-4 #### [facility] ([id number]) [address] [place] [address], [address] [address] #### TTAG, 2900-9 #### [facility] ([id number]) [address] [place] [address] ABSOLUTE NEUTROPHIL 5.2 X10E9/L Normal 1.5-6.6 [facility] Comment on above: Performed By: #### C BCA, THYR, 2132-07, 92261-7 #### [facility] ([id number]) [address] [place] [address] #### TTAG, 2900-9 #### [facility] ([id number]) [address] [place] [address]361 Basophils/100 WBC (Bld) 0.4 % Normal [facility] Comment on above: Performed By: #### C BCA, THYR, 2132-07, 16641-4 #### [facility] ([id number]) [address] [place] [address], [address] [address] #### TTAG, 2900-9 #### [facility] ([id number]) [address] [place] [address]88 Eosinophils (Bld) [#/Vol] 0.1 10*3/uL Normal 0.0-0.4 [facility] Comment on above: Performed By: #### C BCA, THYR, 2132-07, 35542-0 #### [facility] ([id number]) [address], [address] [place] [address] #### TTAG, 29[address] #### [facility] ([id number]) [address] [place] [address] Eosinophils/100 WBC (Bld) 1.8 % Normal [facility] Comment on above: Performed By: #### C PAULINA, THYR, 2132-07, 70323-0 #### [facility] ([id number]) [address], [address] [place] [address] #### KASEY, [address] #### [facility] ([id number]) [address] [place] [address] Erythrocyte distribution width (RBC) [Ratio] 15.1 % High 11.5-15.0 [facility] Comment on above: Performed By: #### C PAULINA, THYR, 2132-07, 58184-0 #### [facility] ([id number]) [address], [address] [place] [address] #### TTAMichael, [address] #### [facility] ([id number]) [address] [place] [address] Hematocrit (Bld) [Volume fraction] 38.2 % Normal 35-47 [facility] Comment on above: Performed By: #### C BCA, THYR, 2132-07, 31204-3 #### [facility] ([id number]) [address], [address] [place] [address] #### TTAG, 29[address] #### [facility] ([id number]) [address] [place] [address]47 Hemoglobin (Bld) [Mass/Vol] 12.8 g/dL Normal 11.7-15.5 [facility] Comment on above: Performed By: #### C PAULINA, THYR, 2132-07, 34539-8 #### [facility] ([id number]) [address], [address] [place] [address] #### TTAG, 9 #### [facility] ([id number]) [address] [place] [address] Lymphocytes (Bld) [#/Vol] 1.3 10*3/uL Normal 1.0-3.5 [facility] Comment on above: Performed By: #### C BCA, THYR, 2132-07, 02273-1 #### [facility] ([id number]) [address], [address] [place] [address] #### TTAG, 9 #### [facility] ([id number]) [address] [place] [address]120 Lymphocytes/100 WBC (Bld) 18.4 % Normal [facility] Comment on above: Performed By: #### C PAULINA, THYR, 2132-07, 09681-5 #### [facility] ([id number]) [address], [address] [place] [address] #### TTAG, 9 #### [facility] ([id number]) [address] [place] [address] 37114 MCH (RBC) [Entitic mass] 27.1 pg Normal 27-34 [facility] Comment on above: Performed By: #### C BCA, THYR, 2132-07, 30306-8 #### [facility] ([id number]) [address], [address] [place] [address] #### TTAG, 2900-07 #### [facility] ([id number]) [address] [place] [address]33[address] MCHC (RBC) [Mass/Vol] 33.5 g/dL Normal 32-36 [facility] Comment on above: Performed By: #### C BCA, THYR, 2132-07, 22318-3 #### [facility] ([id number]) [address] [facility], [address] [place] [address] #### TTAG, 9 #### [facility] ([id number]) [address] [place] [address]1571 MCV (RBC) [Entitic vol] 81 fL Normal 80-100 [facility] Comment on above: Performed By: #### C BCA, THYR, 2132-07, 04224-0 #### [facility] ([id number]) [address] [facility], [address] [place] [address] #### TTAG, 9 #### [facility] ([id number]) [address] [place] [address] 16426 Monocytes (Bld) [#/Vol] 0.5 10*3/uL Normal 0-0.9 [facility] Comment on above: Performed By: #### Velma BCA, THYR, 2132-07, 72434-5 #### [facility] ([id number]) [address], [address] [place] [address] #### TTAG, 29[address] #### [facility] ([id number]) [address] [place] [address]3657 Monocytes/100 WBC (Bld) 7.2 % Normal [facility] Comment on above: Performed By: #### C BCA, THYR, 2132-07, 09893-1 #### [facility] ([id number]) [address], [address] [place] [address] #### TTAG, 2900-9 #### [facility] ([id number]) [address] [place] [address] 94894 Neutrophils/100 WBC (Bld) 72.2 % Normal [facility] Comment on above: Performed By: #### Velma BCA, THYR, 2132-07, 03532-1 #### [facility] ([id number]) [address], [address] [place] [address] #### TTAG, [address] #### [facility] ([id number]) [address] [place] [address] 70859 Platelet mean volume (Bld) [Entitic vol] 6.8 fL Low 7-12 [facility] Comment on above: Performed By: #### Velma GALLARDO, THYR, 2132-07, 49724-0 #### [facility] ([id number]) [address] [facility], [address] [place] [address] #### TTAG, [address] #### [facility] ([id number]) [address] [place] [address]2857 Platelets (Bld) [#/Vol] 254 10*3/uL Normal 150-450 [facility] Comment on above: Performed By: #### Velma BCA, THYR, 2132-07, 86046-2 #### [facility] ([id number]) [address] [facility], [address] [place] [address] #### TTAG, [address] #### [facility] ([id number]) [address] [place] [address] 21910 RBC COUNT 4.73 X10E12/L Normal 3.80-5.20 [facility] Comment on above: Performed By: #### Velma BCA, THYR, 2132-07, 97630-9 #### [facility] ([id number]) [address] [place] [address], [address] [place] [address] #### TTAG, 2900-9 #### [facility] ([id number]) [address] [place] [address] 12178 WBC (Bld) [#/Vol] 7.2 10*3/uL Normal 4.0-11.0 [facility] Comment on above: Performed By: #### C PAULINA, THYR, 2132-07, 03293-3 #### [facility] ([id number]) [address] [place] [address], [address] [place] [address] #### ORLYG, 2900-9 #### [facility] ([id number]) [address] [place] [address] 65089 Nuclear Ab IA Ql (S)on 11-10 SAMRA Screen w/reflex Negative Normal NEG [facility] Comment on above: Result Comment: Testing performed using multiplex flow immunoassay. Eleven different antigens associated with systemic autoimmune diseases (dsDNA,Sm,Sm/FUNDRAISING MANAGER,FUNDRAISING MANAGER,Chromatin, SSA,SSB,Yumiko-1,Scl70,Ribo P,Centromere B) are included in this screening test. Performed By: #### C BCA, THYR, 2132-07, 97679-4 #### [facility] ([id number]) [address] [place] [address], [address] [place] [address] #### TTAG, 2900-9 #### [facility] ([id number]) [address] [place] [address]44 Pyridoxine [Mass/Vol]on 10-24 VITAMIN B6 16.9 nmol/L Low 20.0-125.0 [facility] Comment on above: Result Comment: NOTE INTERPRETIVE INFORMATION: Vitamin B6 (Pyridoxal 5-Phosphate) Pyridoxal 5'-phosphate measured in a specimen collected following an 8-hour or overnight fast accurately indicates vitamin B6 nutritional status. Non-fasting specimen concentration reflects recent vitamin intake. This test was developed and its performance characteristics determined by [facility]. It has not been cleared or approved by the US Food and Drug Administration. This test was performed in a CLIA certified laboratory and is intended for clinical purposes. Performed By: [facility] [address] [place] [address] Submarine Advisory Team Watch Officer: Bryan Murray MD, PhD CLIA Number: [id number] Performed By: #### C BCA, THYR, 2132-9, 42994-1 #### [facility] ([id number]) [address] [place] [address], [address] [place] [address] #### TTAG, 2900-9 #### [facility] ([id number]) [address] [place] [address], [place] [address] Reference Lab Test IDon 10-24 HEAVY METALS SCR See Below Normal [facility] Comment on above: Result Comment: [...] developed and its performance characteristics determined by [facility]. It has not been cleared or approved [...] developed and its performance characteristics determined by [facility]. It has not been cleared or approved [...] developed and its performance characteristics determined by [facility]. It has not been cleared or approved [...] included)... Performed By: #### 3 0896-5 #### [facility] ([id number]) [address] [place] [address] 14787 THYROID PROFILEon 11-10-2023 Free T4 [Mass/Vol] 0.63 ng/dL Normal 0.61-1.60 [facility] Comment on above: Performed By: #### C BCA, THYR, 2132-07, 16356-1 #### [facility] ([id number]) [address] [place] [address], [address] [place] [address] #### TTAG, 2900-9 #### [facility] ([id number]) [address] [place] [address] TSH 4.88 uIU/mL High 0.49-4.67 [facility] Comment on above: Performed By: #### C BCA, THYR, 2132-07, 15342-9 #### [facility] ([id number]) [address] [place] [address], [address] [place] [address] #### TTAG, 2900-9 #### [facility] ([id number]) [address] [place] [address] 23199 TTG AB IGA IGGon 11-10-2023 TTG AB IGA <1.2 Normal <4.0 (Negative) [facility] Comment on above: Performed By: #### C BCA, THYR, 2132-07, 69229-9 #### [facility] ([id number]) [address] [place] [address], [address] [place] [address] #### TTAG, 2900-9 #### [facility] ([id number]) [address] [place] [address] 90656 TTG AB IGG 4.9 U/mL Normal <6.0 (Negative) [facility] Comment on above: Result Comment: NOTE Test Performed by: [facility] [address] [place] [address] Sea Shell Gatherer: Reinaldo Hare M.D. Ph.D.; CLIA# [id number] Performed By: #### C BCA, THYR, 2132-07, 24916-7 #### [facility] ([id number]) [address] [place] [address], [address] [place] [address] #### TTAG, 2900-9 #### [facility] ([id number]) [address] [place] [address] VITAMIN B12on 11-10-2023 Cobalamin (Vitamin B12) [Mass/Vol] 487 pg/mL Normal 180-914 [facility] Comment on above: Performed By: #### C BCA, THYR, 2132-07, 72458-9 #### [facility] ([id number]) [address] [place] [address], [address] [place] [address] #### TTAG, 2900-9 #### [facility] ([id number]) [address] [place] [address]87 Procedure Visiton 10-27-2023 Procedure Visit [id number] Vickie Hernandez sa A 1970 F Date Provider Department Center 10/27/2023 GINA YE MP [facility] Medical Pavi No family history on file Level of Service:34063 NE OFFICE/OUTPT VISIT,PROCEDURE ONLY Reason for Visit and Comments: EMG [Other] - EMG-BLE [facility] 36on 10-02-2023 36 scheduled [facility] 36 She will need to sierra k to Dr. Burch at her next appointment. [facility] 36 Patient was informed and will schedule EMG. Pt was also asking about some labs for neuropathy ??? [facility] 36on 10-01-2023 36 Ordered, please let patient know. [facility] 36 Patient had bilatera l UPPER EMG done yesterday but she is now requesting bilateral LOWER as well... Are you ok to order this or do you want her to be seen first? [facility] 36on 09-30-2023 36 She had an EMG today . Please schedule her an appointment for the first available for results and I will add her to my cancellation list. [facility] 36 Patient would like t o get an order for [place] lower extremities EMG recommended by PM&R [facility] Telephoneon 09-30-2023 Telephone [id number] Vickie Hernandez sa A 1970 F Date Provider Department Center 09/30/2023 Hailee-ARTUR MORALES MP ORTHO MPORTHO No family history on file Reason for Visit and Comments: Request For Order(s) [706] [facility] Procedure Visiton 09-22-2023 Procedure Visit [id number] Vickie Hernandez sa A 1970 F Date Provider Department Center 09/22/2023 GINA YE MP PHYS MED Medical Pavi No family history on file Level of Service:88192 NE OFFICE/OUTPT VISIT,PROCEDURE ONLY Reason for Visit and Comments: EMG [Other] - BUE [facility] Urinalysis - AUTOMATEDon Appearance (U) clear [employer] Other Bilirubin Ql (U) Negative [employer] Other Color (U) yellow [facility] Other Glucose Ql (U) Negative [employer] Other Hemoglobin Ql (U) Large [employer] Other Ketones Ql (U) Negative [employer] Other Leukocyte esterase Test strip Ql (U) Small [employer] [facility] [employer] Other Nitrite Ql (U) Negative [employer] Other pH (U) 6.0 [pH] [employer] Other Protein Ql (U) Negative [employer] Other Specific gravity (U) [Rel density] 1.010 [employer] [facility] Other Urobilinogen (U) [Mass/Vol] 0.2 E.U./dL [employer] [facility] [employer] Other Urinalysis - AUTOMATED [employer] [facility] [employer] Other [facility] CERVICAL SPINE 4 OR 5 VIEWS [facility] Department of Radiology [address] [place] [phone] ===== Patient Name: MUNIRA HERNANDEZ : [...] findings. Electronically signed: Marian Bacon. Transcribed by: [email or web address], User Resident: Electronically Signed by: MARIAN BACON @ 06/01/2022 07:47 AM Normal [facility] LUMBAR SPINE 4 OR 5 [facility] LUMBAR SPINE 4 OR 5 [facility] Department of Radiology [address] [place] [phone] ===== Patient Name: MUNIRA HERNANDEZ : [...] Exam: LUMBAR SPINE 4 OR 5 VWS ===== LUMBAR SPINE 4 OR 5 VWS [...] regions. Electronically signed: Marian Bacon. Transcribed by: [email or web address], User Resident: Electronically Signed by: MARIAN BACON @ 06/01/2022 07:41 AM Normal [facility] Comment on above: Order Comment: , , = ========= , Ordering Provider - MARIANO BURCH MD , CBC AUTO DIFFon 08-20-2021 BASO # 0.0 103/ul Normal 0.0-0.1 [facility] Comment on above: Performed By: #### C BC #### [facility] [address] [place] [address] Dr. Becky Fishman Basophils/100 WBC (Bld) 0.5 % Normal 0.2-2.0 [facility] Comment on above: Performed By: #### C BC #### [facility] [address] [place] [address] Dr. Becky Fishman EO # 0.1 103/ul Normal 0.0-0.7 [facility] Comment on above: Performed By: #### C BC #### [facility] [address] [place] [address] Dr. Becky Fishman Eosinophils/100 WBC (Bld) 1.8 % Normal 0.9-7.0 [facility] Comment on above: Performed By: #### C BC #### [facility] [address] [place] [address] Dr. Becky Fishman Erythrocyte distribution width (RBC) [Ratio] 14.6 % Normal 11.0-15.0 [facility] Comment on above: Performed By: #### C BC #### [facility] [address] [place] [address] Dr. Becky Fishman Hematocrit (Bld) [Volume fraction] 46.3 % Normal 36.0-48.0 [facility] Comment on above: Performed By: #### C BC #### [facility] [address] [place] [address] Dr. Becky Fishman Hemoglobin (Bld) [Mass/Vol] 14.4 g/dL Normal 12.0-16.0 [facility] Comment on above: Performed By: #### C BC #### [facility] [address] [place] [address] Dr. Becky Fishman IG # 0.01 10e3/ul Normal 0.00-0.03 [facility] Comment on above: Performed By: #### C BC #### [facility] [address] [place] [address] Dr. Becky Fishman IG % 0.2 % Normal 0.0-0.5 [facility] Comment on above: Performed By: #### C BC #### [facility] [address] [place] [address] Dr. Becky Fishman LYMPH # 1.4 103/ul Normal 1.2-3.8 [facility] Comment on above: Performed By: #### C BC #### [facility] [address] [place] [address] Dr. Becky Fishman Lymphocytes/100 WBC (Bld) 23.9 % Normal 20.5-60.0 [facility] Comment on above: Performed By: #### C BC #### [facility] [address] [place] [address] Dr. Becky Fishman MANUAL DIFF REQ NO Normal [facility] Comment on above: Performed By: #### C BC #### [facility] [address] [place] [address] Dr. Becky Fishman MCH (RBC) [Entitic mass] 26.4 pg Critically low 26.7-34.0 [facility] Comment on above: Performed By: #### C BC #### [facility] [address] [place] [address] Dr. Becky Fishman MCHC (RBC) [Mass/Vol] 31.1 g/dL Normal 29.9-35.2 [facility] Comment on above: Performed By: #### C BC #### [facility] [address] [place] [address] Dr. Becky Fishman MCV (RBC) [Entitic vol] 85.0 fL Normal 81.0-99.0 [facility] Comment on above: Performed By: #### C BC #### [facility] [address] [place] [address] Dr. Becky Fishman MONO # 0.5 103/ul Normal 0.3-0.8 [facility] Comment on above: Performed By: #### C BC #### [facility] [address] [place] [address] Dr. Becky Fishman Monocytes/100 WBC (Bld) 9.0 % Normal 1.7-12.0 [facility] Comment on above: Performed By: #### C BC #### [facility] [address] [place] [address] Dr. Becky Fishman NEUT # 3.7 103/ul Normal 1.4-6.5 [facility] Comment on above: Performed By: #### C BC #### [facility] [address] [address] [address] Becky Fishman Neutrophils/100 WBC (Bld) 64.6 % Normal 43.0-75.0 [facility] Comment on above: Performed By: #### C BC #### [facility] [address] [address] [address] Becky Fishman Platelet mean volume (Bld) [Entitic vol] 9.1 fL Critically low 9.5-13.5 [facility] Comment on above: Performed By: #### C BC #### [facility] [address] [address] [address] Becky Fishman PLT 257 103/ul Normal 150-450 [facility] Comment on above: Performed By: #### C BC #### [facility] [address] [address] [address] Becky Fishman RBC 5.45 106/ul Critically high 4.20-5.40 [facility] Comment on above: Performed By: #### C BC #### [facility] [address] [address] [address] Becky Fishman WBC 5.7 103/ul Normal 4.0-11.0 [facility] Comment on above: Performed By: #### C BC #### [facility] [address] [place] [address] Dr. Becky Fishman GLYCOHEMOGLOBIN A1Con 2020 ADA RECOMMENDATION ADA THERAPEUTIC TARG ET 6.0 - 7.0 ACTION SUGGESTED > 7.0 Normal [facility] Comment on above: Performed By: #### A 1C #### [facility] [address] [address] [address] Becky Fishman Glucose [Mass/Vol] 108 mg/dL Normal [facility] Comment on above: Performed By: #### A 1C #### [facility] [address] [place] [address] Dr. Becky Fishman HbA1c (Bld) [Mass fraction] 5.4 % Normal <=6.0 [facility] Comment on above: Performed By: #### A 1C #### [facility] [address] [address] [address] Becky Fishman LIPID PROFILEon 08-20-2021 CHOL-HDL RATIO NORM SEE BELOW Normal [facility] Comment on above: Result Comment: 3.3 - 4.4 LOW RISK 4.4 - 7.1 AVERAGE RISK 7.1 - 11.0 MODERATE RISK >11.0 HIGH RISK Performed By: #### B MP, LIPID, TSH #### [facility] [address] [address] [address] Becky Fishman Cholesterol [Mass/Vol] 159 mg/dL Normal <=200 [facility] Comment on above: Performed By: #### B MP, LIPID, TSH #### [facility] [address] [address] [address] Becky Fishman Cholesterol in HDL [Mass/Vol] 53 mg/dL Normal [facility] Comment on above: Performed By: #### B MP, LIPID, TSH #### [facility] [address] [address] [address] Becky Fishman Cholesterol in LDL [Mass/Vol] 88.0 mg/dL Normal [facility] Comment on above: Performed By: #### B MP, LIPID, TSH #### [facility] [address] [address] [address] Becky Fishman Cholesterol.total/C holesterol in HDL [Mass ratio] 3.0 {ratio} Normal [facility] Comment on above: Performed By: #### B MP, LIPID, TSH #### [facility] [address] [address] [address] Becky Fishman HDL NORMAL > or = 60 mg/dl - LO W CARDIOVASCULAR RISK <40 mg/dl - HIGH CARDIOVASCULAR RISK Normal [facility] Comment on above: Performed By: #### B MP, LIPID, TSH #### [facility] [address] [address] [address] Becky Fishman LDL CALC NORMAL SEE BELOW Normal [facility] Comment on above: Result Comment: <100 mg/dl OPTIMAL 100 - 129 mg/dl NEAR OR ABOVE OPTIMAL 130 - 159 mg/dl BORDERLINE HIGH 160 - 189 mg/dl HIGH >190 mg/dl VERY HIGH Performed By: #### B MP, LIPID, TSH #### [facility] [address] [place] [address] Dr. Becky Fishman Triglyceride [Mass/Vol] 90 mg/dL Normal <=150 [facility] Comment on above: Performed By: #### B MP, LIPID, TSH #### [facility] [address] [place] [address] Dr. Becky Fishman VLDL CALC 18.0 mg/dL Normal [facility] Comment on above: Performed By: #### B MP, LIPID, TSH #### [facility] [address] [address] [address] Becky Fishman PROF CHEM 8 (BAS METB)on Anion gap [Moles/Vol] 10.0 mmol/L Normal [facility] Comment on above: Performed By: #### B MP, LIPID, TSH #### [facility] [address] [place] [address] Dr. Becky Fishman Calcium [Mass/Vol] 9.4 mg/dL Normal 8.4-10.2 [facility] Comment on above: Performed By: #### B MP, LIPID, TSH #### [facility] [address] [place] [address] Dr. Becky Fishman Chloride [Moles/Vol] 106 mmol/L Normal 98-107 [facility] Comment on above: Performed By: #### B MP, LIPID, TSH #### [facility] [address] [place] [address] Dr. Becky Fishman CO2 [Moles/Vol] 28.0 mmol/L Normal 22.0-30.0 [facility] Comment on above: Performed By: #### B MP, LIPID, TSH #### [facility] [address] [place] [address] Dr. Becky Fishman Creatinine [Mass/Vol] 0.99 mg/dL Normal 0.52-1.04 [facility] Comment on above: Performed By: #### B MP, LIPID, TSH #### [facility] [address] [address] [address] Becky Fishman EGFR-AF [place] >60 Normal >=60 [facility] Comment on above: Performed By: #### B MP, LIPID, TSH #### [facility] [address] [address] [address] Becky Fishman EGFR-NON AF [place] 59 mL/min/1.73m2 Critically low >=60 [facility] Comment on above: Performed By: #### B MP, LIPID, TSH #### [facility] [address] [place] [address] Dr. Becky Fishman Glucose [Mass/Vol] 88 mg/dL Normal 74-106 [facility] Comment on above: Performed By: #### B MP, LIPID, TSH #### [facility] [address] [place] [address] Dr. Becky Fishman Potassium [Moles/Vol] 4.0 mmol/L Normal 3.4-5.0 [facility] Comment on above: Performed By: #### B MP, LIPID, TSH #### [facility] [address] [place] [address] Dr. Becky Fishman Sodium [Moles/Vol] 140 mmol/L Normal 137-145 [facility] Comment on above: Performed By: #### B MP, LIPID, TSH #### [facility] [address] [place] [address] Dr. Becky Fishman Urea nitrogen [Mass/Vol] 20.0 mg/dL Critically high 7.0-17.0 [facility] Comment on above: Performed By: #### B MP, LIPID, TSH #### [facility] [address] [place] [address] Dr. Becky Fishman Urea nitrogen/Creatinine [Mass ratio] 20.2 mg/mg Normal [facility] Comment on above: Performed By: #### B MP, LIPID, TSH #### [facility] [address] [place] [address] Dr. Becky Fishman TSHon 08-20-2021 TSH 5.466 uIU/mL Critically high 0.470-4.680 [facility] Comment on above: Performed By: #### B MP, LIPID, TSH #### [facility] [address] [place], [place] [address] Dr. Becky Fishman TSH RANGE SEE BELOW Normal [facility] Comment on above: Result Comment: <0.3 4 UIU/ml HYPERTHYROID 0.34-5.60 UIU/ml EUTHYROID >5.60 UIU/ml HYPOTHYROID Performed By: #### B MP, LIPID, TSH #### [facility] [address] [place], [place] [address] Dr. Becky Fishman Vital Signs Date Time Vital Sign Value Performing Clinician Facility 10-28-2024 08:50-0500 Body height 167.6 cm Isaura Costello MD Work Phone: [facility] 10-28-2024 08:50-0500 Body mass index (BMI) [Ratio] 46.38 kg/m2 Isaura Costello MD Work Phone: [facility] 10-28-2024 08:50-0500 Body temperature 97.3 [degF] Isaura Costello MD Work Phone: [facility] 10-28-2024 08:50-0500 Body weight 130.27 kg Isaura Costello MD Work Phone: [facility] 10-28-2024 08:50-0500 Diastolic blood pressure 62 mm[Hg] Isaura Costello MD Work Phone: [facility] 10-28-2024 08:50-0500 Heart rate 66 /min Isaura Costello MD Work Phone: [facility] 10-28-2024 08:50-0500 Respiratory rate 18 /min Isaura Costello MD Work Phone: [facility] 10-28-2024 08:50-0500 SaO2% (BldA) [Mass fraction] 100 % Isaura Costello MD Work Phone: [facility] 10-28-2024 08:50-0500 Systolic blood pressure 105 mm[Hg] Isaura Costello MD Work Phone: [facility] 10-26-2024 14:31-0500 Diastolic blood pressure 89 mm[Hg] Dina Jones CLOTH OPENER HAND-QUALITY ASSURANCE SUPERVISOR Work Phone: [facility] 10-26-2024 14:31-0500 Heart rate 64 /min Dina Jones CLOTH OPENER HAND-QUALITY ASSURANCE SUPERVISOR Work Phone: [facility] 10-26-2024 14:31-0500 Respiratory rate 18 /min Dina Jones CLOTH OPENER HAND-QUALITY ASSURANCE SUPERVISOR Work Phone: [facility] 10-26-2024 14:31-0500 SaO2% (BldA) [Mass fraction] 100 % Dina Jones CLOTH OPENER HAND-QUALITY ASSURANCE SUPERVISOR Work Phone: [facility] 10-26-2024 14:31-0500 Systolic blood pressure 145 mm[Hg] Dina Jones CLOTH OPENER HAND-QUALITY ASSURANCE SUPERVISOR Work Phone: [facility] 10-25-2024 08:49-0500 Body mass index (BMI) [Ratio] 46.55 kg/m2 Ashok Eric DO Work Phone: [facility] 10-25-2024 08:49-0500 Body weight 130.82 kg Ashok Eric DO Work Phone: [facility] 10-25-2024 08:49-0500 Diastolic blood pressure 76 mm[Hg] Ashok Eric DO Work Phone: [facility] 10-25-2024 08:49-0500 Systolic blood pressure 114 mm[Hg] Ashok Eric DO Work Phone: [facility] 09-28-2024 08:46-0500 Body height 167.6 cm Dina Jones CLOTH OPENER HAND-QUALITY ASSURANCE SUPERVISOR Work Phone: [facility] 09-28-2024 08:46-0500 Body mass index (BMI) [Ratio] 46.79 kg/m2 Dina Jones CLOTH OPENER HAND-QUALITY ASSURANCE SUPERVISOR Work Phone: [facility] 09-28-2024 08:46-0500 Body weight 131.5 kg Dina Jones APRN-QUALITY ASSURANCE SUPERVISOR Work Phone: [facility] 09-28-2024 08:46-0500 Diastolic blood pressure 74 mm[Hg] Dina Jones APRN-QUALITY ASSURANCE SUPERVISOR Work Phone: [facility] 09-28-2024 08:46-0500 Heart rate 62 /min Dina Jones APRN-QUALITY ASSURANCE SUPERVISOR Work Phone: [facility] 09-28-2024 08:46-0500 Respiratory rate 18 /min Dina Jones APRN-QUALITY ASSURANCE SUPERVISOR Work Phone: [facility] 09-28-2024 08:46-0500 SaO2% (BldA) [Mass fraction] 98 % Dina Jones APRN-QUALITY ASSURANCE SUPERVISOR Work Phone: [facility] 09-28-2024 08:46-0500 Systolic blood pressure 120 mm[Hg] Dina Jones APRN-QUALITY ASSURANCE SUPERVISOR Work Phone: [facility] 09-13-2024 11:52-0400 Body mass index (BMI) [Ratio] 47.19 kg/m2 Ashok Eric [facility] Work Phone: [facility] 09-13-2024 11:52-0400 Body weight 132.63 kg Ahsok Eric DO Work Phone: [facility] 09-13-2024 11:52-0400 Diastolic blood pressure 72 mm[Hg] Ashok Eric DO Work Phone: [facility] 09-13-2024 11:52-0400 Systolic blood pressure 116 mm[Hg] Ashok Eric DO Work Phone: [facility] 08-09-2024 08:48-0400 Body height 167.6 cm Ashok Eric DO Work Phone: [facility] 08-09-2024 08:48-0400 Body mass index (BMI) [Ratio] 47.45 kg/m2 Ashok Eric DO Work Phone: [facility] 08-09-2024 08:48-0400 Body weight 133.36 kg Ashok Eric DO Work Phone: [facility] 08-09-2024 08:48-0400 Diastolic blood pressure 82 mm[Hg] Ashok Eric DO Work Phone: [facility] 08-09-2024 08:48-0400 Systolic blood pressure 128 mm[Hg] Ashok Eric DO Work Phone: [facility] 12-12-2023 14:25-0500 Body mass index (BMI) [Ratio] 47.61 kg/m2 Abel Murry MD Work Phone: [facility] 12-12-2023 14:25-0500 Body temperature 90.81 [degF] Abel Murry MD Work Phone: [facility] 12-12-2023 14:25-0500 Body weight 133.81 kg Abel Murry MD Work Phone: [facility] 12-12-2023 14:25-0500 Diastolic blood pressure 73 mm[Hg] Abel Murry MD Work Phone: [facility] 12-12-2023 14:25-0500 Heart rate 65 /min Abel Murry MD Work Phone: [facility] 12-12-2023 14:25-0500 Systolic blood pressure 131 mm[Hg] Abel Murry MD Work Phone: [facility] 04-21-2023 14:25-0400 Body height 167.64 cm Theo Woodall Other [facility] Other 04-21-2023 14:25-0400 Body mass index (BMI) [Ratio] 43.57 kg/m2 Theo Woodall Other [facility] Other 04-21-2023 14:25-0400 Body temperature 98.1 [degF] Theo Woodall Other [facility] Other 04-21-2023 14:25-0400 Body weight 122.47 kg Theo Woodall Other [facility] Other 04-21-2023 14:25-0400 Respiratory rate 18 /min Theo Woodall Other [facility] Other 04-21-2023 14:25-0400 SaO2% (BldA) [Mass fraction] 98 % Theo Woodall Other [facility] Other 12-28-2022 14:25-0500 Body height 167.64 cm Gely Valenciamond Other [facility] Other 12-28-2022 14:25-0500 Body mass index (BMI) [Ratio] 42.77 kg/m2 Gely Sowmya Other [facility] Other 12-28-2022 14:25-0500 Body temperature 98.2 [degF] Gely Sowmya Other [facility] Other 12-28-2022 14:25-0500 Body weight 120.2 kg Gely Sowmya Other [facility] Other 12-28-2022 14:25-0500 Diastolic blood pressure 72 mm[Hg] Gely Sowmya Other [facility] Other 12-28-2022 14:25-0500 Respiratory rate 16 /min Gely Sowmya Other [facility] Other 12-28-2022 14:25-0500 SaO2% (BldA) [Mass fraction] 100 % Gely Sowmya Other [facility] Other 12-28-2022 14:25-0500 Systolic blood pressure 115 mm[Hg] Gely Deng Other [facility] Other Encounters Encounter Date Encounter Type Care Provider Facility Start: 11-08-2024 End: 11-08-2024 Clinisync Result Encounter Ashok Eric DO Work Phone: [facility] External [facility] Unsolicited Start: 11-08-2024 End: 11-08-2024 Clinisync Result Encounter Ashok Eric DO Work Phone: [facility] External [facility] Unsolicited Start: 11-01-2024 End: 11-01-2024 ambulatory [facility] Start: 11-01-2024 End: 11-01-2024 ambulatory [facility] Start: 10-29-2024 End: 10-29-2024 Telephone encounter Lili Diaz [facility] Internal Medicine/Pediatrics Comment on above: US schedule Start: 10-28-2024 End: 10-28-2024 Documentation procedure [facility] Comment on above: Right kidney mass (P rimary Dx) Start: 10-28-2024 End: 10-28-2024 ambulatory [facility] Start: 10-28-2024 End: 10-28-2024 Office outpatient visit 40 minutes Isaura Costello MD Work Phone: [facility] Comment on above: Acute deep vein thro mbosis (DVT) of distal vein of right lower extremity (CMS-HCC) (Primary Dx); Other acute pulmonary embolism without acute cor pulmonale (CMS-HCC) Start: 10-26-2024 End: 10-26-2024 Office outpatient visit 15 minutes Dina Jones CLOTH OPENER HAND-QUALITY ASSURANCE SUPERVISOR Work Phone: [facility] Comment on above: Spinal stenosis of l umbar region with neurogenic claudication (Primary Dx) Start: 10-26-2024 End: 10-26-2024 ambulatory ABEL MURRY [facility] Start: 10-25-2024 End: 10-25-2024 Bamboo flowsheet Ashok Eric DO Work Phone: [facility] Start: 10-25-2024 End: 10-25-2024 Bamboo flowsheet Ashok Eric DO Work Phone: [facility] Start: 10-25-2024 End: 10-25-2024 Office outpatient visit 15 minutes Ashok Eric DO Work Phone: [facility] Comment on above: Pre-op examination; Menorrhagia with regular cycle; Pelvic pain in female; Dyspareunia in female; Dysmenorrhea; Postmenopausal bleeding Start: 10-25-2024 End: 10-25-2024 Preprocedural examination done Ashok Eric DO Work Phone: [facility] Start: 10-25-2024 End: 10-25-2024 ambulatory ASHOK ERIC Not Available Start: 10-18-2024 End: 10-19-2024 Telephone encounter Dina Jones APRN-QUALITY ASSURANCE SUPERVISOR Work Phone: [facility] Start: 10-18-2024 End: 10-18-[facility] Start: 10-08-2024 End: 10-08-2024 Clinisync Result Encounter Ashok Eric DO Work Phone: [facility] External Department Unsolicited Start: 10-08-2024 End: 10-08-2024 Clinisync Result Encounter Ashok Eric DO Work Phone: [facility] External Department Unsolicited Start: 10-08-2024 End: 10-08-2024 ambulatory Abel Murry MD Work Phone: [facility] Work Phone: Start: 10-08-2024 End: 10-08-2024 Departed Referred Abel Murry MD Work Phone: [facility] Start: 09-28-2024 End: 09-28-2024 ambulatory DINALESLIE JONES [facility] Start: 09-28-2024 End: 09-28-2024 ambulatory ABEL MURRY [facility] Start: 09-28-2024 End: 09-28-2024 Office outpatient visit 25 minutes Dina Jones CLOTH OPENER HAND-QUALITY ASSURANCE SUPERVISOR Work Phone: [facility] Comment on above: Disc displacement, l umbar (Primary Dx); Chronic bilateral low back pain without sciatica; long-term current use of opiate analgesic Start: 09-13-2024 End: 09-13-2024 Bamboo flowsheet Ashok Eric DO Work Phone: [facility] Start: 09-13-2024 End: 09-13-2024 Bamboo flowsheet Ashok Eric DO Work Phone: [facility] Start: 09-13-2024 End: 09-13-2024 Office outpatient visit 15 minutes Ashok Eric DO Work Phone: [facility] Comment on above: Pre-op examination; Postmenopausal bleeding; Thickened endometrium; Uterine leiomyoma, unspecified location Start: 09-13-2024 End: 09-13-2024 Preprocedural examination done Ashok Eric DO Work Phone: [facility] Start: 09-13-2024 End: 09-13-2024 ambulatory ASHOK ERIC Not Available Start: 09-07-2024 End: 09-07-2024 Refill Abel Murry MD Work Phone: [facility] Internal Medicine/Pediatrics Comment on above: Acquired hypothyroid ism Start: 09-07-2024 ambulatory [facility] Start: 08-25-2024 End: 08-25-2024 ambulatory [facility] Start: 08-24-2024 ambulatory [facility] Start: 08-16-2024 End: 08-16-2024 ambulatory [facility] Start: 08-10-2024 End: 08-10-2024 ambulatory [facility] Start: 08-09-2024 End: 08-09-2024 Bamboo flowsheet Ashok Eric DO Work Phone: [facility] Start: 08-09-2024 End: 08-09-2024 Bamboo flowsheet Ashok Eric DO Work Phone: [facility] Start: 08-09-2024 End: 08-09-2024 Office outpatient visit 15 minutes Ashok Eric DO Work Phone: [facility] Comment on above: Postmenopausal bleed ing; Subserous leiomyoma of uterus Start: 08-09-2024 End: 08-09-2024 ambulatory ASHOK ERIC Not Available Start: 07-27-2024 ambulatory [facility] Start: 07-12-2024 End: 07-12-2024 ambulatory [facility] Start: 07-12-2024 End: 07-12-2024 ambulatory [facility] Start: 07-06-2024 End: 07-25-2024 ambulatory [facility] Start: 07-06-2024 End: 07-06-2024 ambulatory [facility] Start: 06-25-2024 End: 06-25-2024 ambulatory [facility] Start: 06-22-2024 ambulatory [facility] Start: 05-21-2024 End: 05-21-2024 ambulatory [facility] Start: 05-04-2024 End: 05-04-2024 ambulatory [facility] Start: 04-30-2024 End: 04-30-2024 ambulatory [facility] Start: 04-27-2024 End: 04-27-2024 ambulatory [facility] Start: 04-21-2024 End: 04-21-2024 ambulatory [facility] Start: 12-22-2023 End: 12-22-2023 ambulatory GO JOHNSON Not Available Start: 12-12-2023 End: 12-12-2023 Office outpatient visit 15 minutes [facility] MD [facility] Comment on above: Laryngitis (Primary Dx); Non-recurrent acute serous otitis media of both ears Start: 12-12-2023 End: 12-12-2023 ambulatory [facility] Start: 12-03-2023 End: 12-03-2023 ambulatory [facility] Start: 11-25-2023 [facility] Start: 11-21-2023 Refill Abel beck MD Work Phone: [facility] Comment on above: Anxiety Start: 11-19-2023 Telephone encounter Lili Diaz CMA [facility] Internal Medicine[facility] Comment on above: Results Start: 11-10-2023 End: 11-10-2023 ambulatory [facility] Start: 10-27-2023 ambulatory [facility] Start: 09-22-2023 ambulatory [facility] Start: 04-26-2023 End: 04-26-2023 ambulatory Theo Woodall Other [facility] Other Start: 04-26-2023 Telephone encounter Theo Rosales [facility] [address] Start: 04-21-2023 End: 04-21-2023 Departed Referred MD Abel Murry Work Phone: [facility] [place] Work Phone: Start: 04-21-2023 End: 04-21-2023 ambulatory MD Abel Murry Work Phone: [facility] Other Start: 04-21-2023 Office outpatient vi sit 15 minutes Theo Woodall [facility] Start: 12-28-2022 End: 12-28-2022 ambulatory Gely Deng Other [facility] Other Start: 12-28-2022 Office outpatient vi sit 15 minutes Gely Sowmya [facility] Start: 08-20-2021 End: 08-21-[address] ABEL MURRY Facility: Procedures Date Procedure Procedure Detail Performing Clinician Start: 11-08-2024 [facility] APTT Ashok Fazi o DO Work Phone: Start: 11-08-2024 [facility] PROTHROMBIN T LARA INR W/O COUM Ashok Eric DO Work Phone: Start: 11-01-2024 Mammography Ashok Fazi o DO Work Phone: Start: 10-08-2024 ALL CBC WITH AUTO DIFF Ashok Eric DO Work Phone: Start: 10-27-2023 Mammography Lili Diaz [employer] Start: 12-21-2022 Adult depression scr eening assessment Lili Diaz [employer] Start: 05-30-2022 Colonoscopy Lili Diaz [facility] Plan of Treatment Date Care Activity Detail Author Start: 05-30-2032 Screening for malign ant neoplasm of colon [facility] Start: 11-01-2025 Screening for malign ant neoplasm of breast Mammogram [facility] Start: 10-28-2025 Adult BMI Screening Adult BMI Screen ing [facility] Start: 10-28-2025 Tobacco Screening Tobacco Screening [facility] Start: 09-28-2025 Adult BMI Screening Adult BMI Screen ing [facility] Start: 09-28-2025 Tobacco Screening Tobacco Screening [facility] Start: 08-10-2025 Adult BMI Screening Adult BMI Screen ing [facility] Start: 08-10-2025 Tobacco Screening Tobacco Screening [facility] Start: 12-28-2024 End: 12-28-2024 Patient encounter procedure 12/28/2024 8:00 AM EST Office Visit [facility] [address] [place] [id number] Dina Jones, CLOTH OPENER HAND-QUALITY ASSURANCE SUPERVISOR [address] [place] [address] [facility] Start: 11-01-2024 End: 11-01-2024 Patient encounter procedure 11/01/2024 1:30 PM EST Appointment [facility] [address] [place] [id number] [facility] Start: 11-01-2024 Subsequent hospital visit by physician 11/01/2024 1:30 PM EST Hospital Encounter [facility] [address] [place] [phone] [facility] Start: 10-28-2024 End: 10-28-2025 US Retroperitoneum Ultrasound retroperitoneal complete Imaging Routine Right kidney mass Expected: 10/28/2024, Expires: 10/28/2025 [facility] Work Phone: Comment on above: Expected: 10/28/2024 , Expires: 10/28/2025 Start: 10-27-2024 Adult BMI Screening Adult BMI Screen ing [facility] Start: 10-27-2024 Screening for malign ant neoplasm of breast Mammogram [facility] Start: 10-26-2024 End: 10-26-2024 Patient encounter procedure 10/26/2024 2:30 PM EST Office Visit [facility] [address] [place] [phone] Dina Jones, CLOTH OPENER HAND-QUALITY ASSURANCE SUPERVISOR [address] [place] [address] [facility] Start: 10-25-2024 End: 10-25-2024 Patient encounter procedure [facility] Comment on above: Arrived Start: 10-20-2024 Tobacco Screening Tobacco Screening [facility] Start: 09-28-2024 End: 09-28-2025 MR Lumbar spine WO contrast MR lumbar spine without contrast Imaging Routine Disc displacement, lumbar Chronic bilateral low back pain without sciatica Expected: 09/28/2024, Expires: 09/28/2025 [employer] Phone: Comment on above: Expected: 09/28/2024 , Expires: 09/28/2025 Start: 09-28-2024 End: 09-28-2024 Patient encounter procedure 09/28/2024 8:15 AM EST Office Visit [facility] [address] [facility] [place] [address] Dina Jones, CLOTH OPENER HAND-QUALITY ASSURANCE SUPERVISOR [address] [facility] [address] [facility] Start: 09-13-2024 End: 09-13-2024 Patient encounter procedure [facility] Comment on above: Arrived Start: 08-09-2024 End: 08-09-2025 CBC W Auto Differential panel - Blood CBC and differential Lab Routine Postmenopausal bleeding Subserous leiomyoma of uterus Expected: 08/09/2024 (Approximate), Expires: 08/09/2025 [facility] Comment on above: Expected: 08/09/2024 (Approximate), Expires: 08/09/2025 Start: 08-09-2024 End: 08-09-2025 Hemoglobin A1c/Hemoglobin.total in Blood Hemoglobin A1c Lab Routine Postmenopausal bleeding Subserous leiomyoma of uterus Expected: 08/09/2024 (Approximate), Expires: 08/09/2025 [facility] Comment on above: Expected: 08/09/2024 (Approximate), Expires: 08/09/2025 Start: 08-09-2024 End: 08-09-2025 US for US PELVIS-TRANSVAG IF INDICATED Imaging Routine Postmenopausal bleeding Expected: 08/09/2024 (Approximate), Expires: 08/09/2025 [facility] Work Phone: Comment on above: Expected: 08/09/2024 (Approximate), Expires: 08/09/2025 Start: 08-09-2024 End: 08-09-2024 Patient encounter procedure 08/09/2024 8:50 AM EDT Office Visit [facility] [address] [place] [address] Ashok Reyes DO [address] [place] [address] Arrived [facility] Comment on above: Arrived Start: 07-25-2024 COVID-19 Vaccine ( season) COVID-19 Vaccine ( season) [facility] Start: 07-25-2024 COVID-19 Vaccine ( season) COVID-19 Vaccine ( season) [facility] Start: 07-25-2024 Influenza vaccination [facility] Start: 12-21-2023 Depression Screening Depression Scre ening [facility] Start: 07-25-2023 COVID-19 Vaccine ( season) COVID-19 Vaccine ( season) [facility] Start: 07-25-2023 Influenza vaccination Influenza Vacc ine [facility] Start: 04-21-2023 Bacteria identified in Urine by Culture [facility] Start: 2019 Administration of varicella zoster vaccine Zoster (Shingles) Vaccine (1 of 2) [facility] Start: 1999 Screening for malign ant neoplasm of cervix [facility] Start: 1990 Screening for malign ant neoplasm of cervix Pap Smear [facility] Start: 02-01-1988 DTaP,Tdap and Td Vac cines (1 - Tdap) DTaP,Tdap and Td Vaccines (1 - Tdap) [facility] Start: 1987 Adult BMI Follow Up Plan Adult BMI F ollow Up Plan [facility] Start: 1969 Screening for malign ant neoplasm of colon [facility] End: 09-28-2025 Controlled Substance Monitoring, U Controlled Substance Monitoring, U Lab Routine long-term current use of opiate analgesic 1 Occurrences starting 09/28/2024 until 09/28/2025 [facility] Comment on above: 1 Occurrences starti ng 09/28/2024 until 09/28/2025 End: 10-28-2025 D-Dimer D-Dimer Lab Routine Acute deep vein thrombosis (DVT) of distal vein of right lower extremity ([facility]) Other acute pulmonary embolism without acute cor pulmonale ([facility]) prn for 5 Occurrences starting 10/28/2024 until 10/28/2025 [facility] Work Phone: Comment on above: prn for 5 Occurrence s starting 10/28/2024 until 10/28/2025 Immunizations Immunization Date Immunization Notes Care Provider Fa cility 10-19-2022 influenza, injectabl e, quadrivalent, preservative free Ashok Eric DO Work Phone: [facility] 10-19-2022 influenza virus vaccine, unspecified formulation Lili Emily [facility] 09-24-2021 influenza, injectabl e, quadrivalent, preservative free Lili Emily [facility] 10-16-2020 influenza, injectabl e, quadrivalent, preservative free Ashok Eric DO Work Phone: [facility] 09-11-2020 influenza, seasonal, injectable, preservative free Lili Emily [facility] 10-20-2018 influenza, injectabl e, quadrivalent, preservative free Lili Emily [facility] Payers Date Payer Category Payer Self-pay [id number] 2022 Private Health Insurance KATIE BOOGIE [id number] 5 2021 Managed Care O (unspecified) [facility] [id number] .[id number] 2021 Unknown [id number]. 1.13.424 .2.7.3.359593.315 2021 Unknown [id number] 2.16.840.1.117763.19 2021 Other Government (Federal, State, Local not specified) [facility] [id number] .[id number] 1969 Unknown [id number] 2.16.840.1.067058.3.579 .2.1285 1969 Unknown [id number] 2.16.840.1.760483.3.579 .2.1285 1969 Unknown [id number] 2.16.840.1.714890.3.579 .2.1285 1969 Unknown [id number] 2.16.840.1.947472.3.579 .2.1258 1969 Unknown [id number] 2.16.840.1.389160.3.579 .2.1258 1969 Unknown [id number] 2.16.840.1.096104.3.579 .2.1258 1969 Unknown [id number] 2.840.1.427294.3.579 .2.1258 1969 Unknown [id number] 2.840.1.942758.3.579 .2.1285 1969 Unknown [id number] 2.840.1.911039.3.579 .2.1285 1969 Unknown [id number] 2.16840.1.305550.3.579 .2.1285 1969 Unknown [id number] 2.840.1.191322.3.579 .2.1285 1969 Unknown [id number] 2.16840.1.571016.3.579 .2.1285 1969 Unknown [id number] 2.16840.1.101336.3.579 .2.1285 1969 Unknown [id number] 2.16.840.1.847273.3.579 .2.1285 1969 Unknown [id number] 2.16840.1.640617.3.579 .2.1285 1969 Unknown [id number] 2.16.840.1.094061.3.579 .2.1285 1969 Unknown [id number] 2.16.840.1.448260.3.579 .2.1285 1969 Unknown [id number] 2.16.840.1.742960.3.579 .2.1285 1969 Unknown [id number] 2.840.1.902554.3.579 .2.1285 1969 Unknown [id number] 2.840.1.305962.3.579 .2.1285 1969 Unknown [id number] 2.840.1.699478.3.579 .2.1285 1969 Unknown [id number] 2.840.1.382196.3.579 .2.1285 1969 Unknown [id number] .840.1.337009.3.579 .2.1285 1969 Unknown [id number] 2.840.1.878480.3.579 .2.1285 1969 Unknown [id number] .840.1.274867.3.579 .2.1285 1969 Unknown [id number] 2.840.1.864040.3.579 .2.1285 1969 Unknown [id number] .840.1.533271.3.579 .2.1285 1969 Unknown [id number] 2.840.1.257962.3.579 .2.1285 1959 Self-pay [id number] Unknown [id number] 840.1.513394.3.579 .2.593 Unknown HCAP/HFA/FAP Active [id number] Unknown [id number] 2.840.1.885079.3.579 .2.531 Social History Date Type Detail Facility Unknown if ever smoked [facility] Other Start: 12-21-2022 End: 12-22-2023 [facility] Start: 11-27-2019 End: 05-19-2023 Tobacco smoking status NHIS Never smoked tobacco (finding) [facility] Start: 1970 Sex Assigned At Female [facility] Start: 12-03-2022 End: 05-19-2023 Tobacco use and exposure Smokeless tobacco non-user [facility] Start: 10-27-2023 End: 10-25-2024 Alcohol intake Current drinker of alcohol (finding) [facility] Start: 12-21-2022 End: 12-22-2023 History of Social function [facility] Do you belong to any clubs or organizations such as temple groups, unions, fraternal or athletic groups, or school groups? No [facility] Are you now , , , , never or living with a partner? Living with partner [facility] How often to you hav e a drink containing alcohol? Monthly or less [facility] How many standard dr inks containing alcohol do you have on a typical day? 1 or 2 [facility] How often do you hav e 6 or more drinks on 1 occasion? Less than monthly [facility] How hard is it for y ou to pay for the very basics like food, housing, medical care, and heating Somewhat hard [facility] Adolescent depressio n screening assessment 0 [facility] Do you feel stress - tense, restless, nervous, or anxious, or unable to sleep at night because your mind is troubled all the time - these days [OSQ] To some extent [facility] Start: 12-21-2022 Education [facility] Start: 05-29-2022 Alcohol Comment occasional [facility] Start: 1970 Sex Assigned At Not on file [facility] Start: 08-09-2024 Alcohol Comment Not very often [facility] Start: 06-29-2015 End: 10-12-2024 Sex Female (finding) [facility] Start: 06-13-2023 Alcohol Comment 1-2 drinks less than monthly in the past year [facility] Clinical Notes 12-13-2022 to 10-29-2024 Telephone Encounter [...] get it scheduled. documented in this encounter [facility] 10-29-2024 Telephone encounter Note Spoke with patient, Dr Murry looked at MRI and ordered an US of the kidney. Patient said she will call and get it scheduled. [facility] 10-28-2024 History of Present illness Narrative Patient [...] to private vehicle. documented in this encounter [facility] 10-28-2024 History of Present illness Narrative Images from the original note were not included. [facility]28[facility]24 Munira Hernandez is a 54 y.o. [...] 12/18/2022 Performed by Lucien Clarke MD at [facility] CARPAL TUNNEL RELEASE Bilateral and trigger finger release CHOLECYSTECTOMY COLONOSCOPY COLONOSCOPY N/A 05/30/2022 Performed by Laci Jackson MD at [facility] HYSTEROSCOPY DILATION CURETTAGE N/A 07/16/2023 Performed by Lucien Clarke MD at [facility] HYSTEROSCOPY DILATION CURETTAGE N/A 12/18/2022 Performed by Lucien Clarke MD at [facility] HYSTEROSCOPY MYOMECTOMY MYOSURE N/A 07/16/2023 Performed by Lucien Clarke MD at [facility] HYSTEROSCOPY MYOMECTOMY MYOSURE N/A 12/18/2022 Performed by Lucien Clarke MD at [facility] INCISION DRAINAGE GROIN Right 07/16/2023 Performed by Lucien Clarke MD at [facility] INJECTION BLOCK NERVE MEDIAL BRANCH: bilat L 02/26, 03/24 Bilateral 06/25/2024 Performed by Reinaldo Mai MD at [facility] Family History Problem Relation Age of [...] Patient declined Stress: Stress Concern Present (12/21/2022) [employer] [employer] - Occupational Stress Questionnaire Feeling of Stress : To some extent Social Connections: Moderately Isolated (12/21/2022) Social Connection and Isolation Panel [NHANES] Frequency of Communication with Friends and Family: More than three times a week Frequency of Social Gatherings with Friends and Family: Three times a week Attends Denominational Services: Never Active Member of Clubs or Organizations: No Attends Club or Organization Meetings: Never Marital Status: Living with partner Interpersonal Safety: Not At Risk (06/22/2024) Received from [facility] Humiliation, Afraid, Rape, and Kick questionnaire Fear [...] distal vein of right lower extremity (CMS-HCC) - Primary Relevant Medications enoxaparin (LOVENOX) 40 [...] this note were generated using voice recognition [employer] dictation software. Although every effort was made to ensure the accuracy of this automated die hardener, some errors in die hardener may have occurred. CC: Patient Care Team: Abel Murry MD as PCP - General (Pediatrics) Isaura Costello MD as Consulting Physician (Hematology) Melissa Forman APRN-EMANUEL as Nurse Practitioner (Internal Medicine) Ashok Reyes DO as Referring Physician (Obstetrics & Gynecology) PCP:Abel Murry Referring MD: Abel Murry MD [facility] 10-28-2024 Instructions Isaura Costello MD - 10/28/2024 8:45 AM EST Lovenox 40 mg daily from 11/12-11/16. Teach pt how to do self injection. Start eliquis 5 mg bid from 11/17/2025 for 30 days. Check d-dimer 12/13/24 documented in this encounter [facility] 10-26-2024 History of Present illness Narrative [facility] [address] [place] [address] Patient: Munira Hernandez Sex: female : 1970 [...] bilateral carpal tunnel surgery on 08/25/2024 at [facility] per Dr Montero Back Pain [...] Medical History: Diagnosis Date Deep vein thrombosis ([facility]) Extremity pain GERD (gastroesophageal reflux disease) Hiatal hernia Hypothyroid Low back pain Migraine Neck pain Obesity PONV (postoperative nausea and vomiting) Pulmonary embolism ([facility]) Visual impairment Past Surgical History: Procedure Laterality Date BIOPSY VULVA, labia majora and minora Right 12/18/2022 Performed by Lucien Clarke MD at [facility] CARPAL TUNNEL RELEASE Bilateral and trigger finger release CHOLECYSTECTOMY COLONOSCOPY COLONOSCOPY N/A 05/30/2022 Performed by Laci Jackson MD at [facility] HYSTEROSCOPY DILATION CURETTAGE N/A 07/16/2023 Performed by Lucien Clarke MD at [facility] HYSTEROSCOPY DILATION CURETTAGE N/A 12/18/2022 Performed by Lucien Clarke MD at [facility] HYSTEROSCOPY MYOMECTOMY MYOSURE N/A 07/16/2023 Performed by Lucien Clarke MD at [facility] HYSTEROSCOPY MYOMECTOMY MYOSURE N/A 12/18/2022 Performed by Lucien Clarke MD at [facility] INCISION DRAINAGE GROIN Right 07/16/2023 Performed by Lucien Clarke MD at [facility] INJECTION BLOCK NERVE MEDIAL BRANCH: bilat L 4/5, 5/ Bilateral 06/25/2024 Performed by Reinaldo Mai MD at [facility] Allergies Allergen Reactions Clarithromycin Hives Biaxin [...] Patient declined Stress: Stress Concern Present (12/21/2022) [employer] [employer] - Occupational Stress Questionnaire Feeling of Stress : To some extent Social Connections: Moderately Isolated (12/21/2022) Social Connection and Isolation Panel [NHANES] Frequency of Communication with Friends and Family: More than three times a week Frequency of Social Gatherings with Friends and Family: Three times a week Attends Denominational Services: Never Active Member of Clubs or Organizations: No Attends Club or Organization Meetings: Never Marital Status: Living with partner Interpersonal Safety: Not At Risk (06/22/2024) Received from [facility] Humiliation, Afraid, Rape, and Kick questionnaire Fear [...] Garcia 10/26/24 1522 documented in this encounter [facility] 10-25-2024 History of Present illness Narrative Reason for Appointment: Patient ID: Munira Hernandez is a 54 y.o. female who presents for Post-op Visit and Pre-op Visit Patient presents today for Pre Op/Post Op Follow Up appointment. Patient is scheduled to undergo Da Leroy assisted Laparoscopic Hysterectomy, possible exploratory laparotomy, possible BSO, possible cystoscopy on 11/11/[address] Reyes at [facility]. MEDICATIONS Current Outpatient Medications Medication Instructions ergocalciferol [...] nursing note reviewed. Exam conducted with a licensed investment sales assistant present. Vitals: Estimated body mass index is [...] having a D&C Hysteroscopy performed at [facility] with Dr. Reyes. Pathology results was reviewed [...] reviewed, and patient is to proceed to [facility] OR. Discussed possible second surgery if pathology returns cancerous. Pt understands risks and desires to continue with hysterectomy at [facility] with Dr Reyes. Pt has h/o blood clot from control. Pt to see supervisor molding for recommendations post surgery for anticoag treatment. Follow Up: Patient is to follow up at 1 & 6 weeks post operative to assess proper healing and recovery from procedure. Documented by Laura Cosby LPN on behalf of: Ashok Reyes DO documented in this encounter [facility] 10-18-2024 Miscellaneous Notes Lumbar MRI report forwarded to PCP for further review and evaluation. documented in this encounter [facility] 10-18-2024 Telephone encounter Note Lumbar MRI report forwarded to PCP for further review and evaluation. [facility] 09-28-2024 History of Present illness Narrative [facility] [address] [place] [address] Patient: Munira Hernandez Sex: female : 1970 [...] bilateral carpal tunnel surgery on 08/25/2024 at [facility] per Dr Montero Back Pain [...] Medical History: Diagnosis Date Deep vein thrombosis ([facility]) Extremity pain GERD (gastroesophageal reflux disease) Hiatal hernia Hypothyroid Low back pain Migraine Neck pain Obesity PONV (postoperative nausea and vomiting) Pulmonary embolism ([facility]) Visual impairment Past Surgical History: Procedure Laterality Date BIOPSY VULVA, labia majora and minora Right 12/18/2022 Performed by Lucien Clarke MD at [facility] CARPAL TUNNEL RELEASE Bilateral and trigger finger release CHOLECYSTECTOMY COLONOSCOPY COLONOSCOPY N/A 05/30/2022 Performed by Laci Jackson MD at [facility] HYSTEROSCOPY DILATION CURETTAGE N/A 07/16/2023 Performed by Lucien Clarke MD at [facility] HYSTEROSCOPY DILATION CURETTAGE N/A 12/18/2022 Performed by Lucien Clarke MD at [facility] HYSTEROSCOPY MYOMECTOMY MYOSURE N/A 07/16/2023 Performed by Lucien Clarke MD at [facility] HYSTEROSCOPY MYOMECTOMY MYOSURE N/A 12/18/2022 Performed by Lucien Clarke MD at [facility] INCISION DRAINAGE GROIN Right 07/16/2023 Performed by Lucien Clarke MD at [facility] INJECTION BLOCK NERVE MEDIAL BRANCH: bilat L 4, 03/24 Bilateral 06/25/2024 Performed by Reinaldo Mai MD at [facility] Allergies Allergen Reactions Clarithromycin Hives Biaxin Family History Problem Relation Age of Onset Kidney disease Mother COPD Mother Heart failure Mother Macular degeneration Mother Cancer Father esophageal with brain mets, prostate Heart disease Father Atrial fibrillation Father Deep vein thrombosis Sister Breast cancer Sister 50 Breast cancer Sister 68 Deep vein thrombosis Brother Uqincy Breast Cancer Neg Hx Social History Socioeconomic [...] Patient declined Stress: Stress Concern Present (12/21/2022) [employer] [employer] - Occupational Stress Questionnaire Feeling of Stress : To some extent Social Connections: Moderately Isolated (12/21/2022) Social Connection and Isolation Panel [NHANES] Frequency of Communication with Friends and Family: More than three times a week Frequency of Social Gatherings with Friends and Family: Three times a week Attends Denominational Services: Never Active Member of Clubs or Organizations: No Attends Club or Organization Meetings: Never Marital Status: Living with partner Interpersonal Safety: Not At Risk (06/22/2024) Received from [facility] Humiliation, Afraid, Rape, and Kick questionnaire Fear [...] bedtime. Do all this for 10 days. long-term current use of opiate analgesic - Controlled [...] described in the documentation, as scribed by Maime Mcgowan CNA in my presence, and it is both accurate and complete. Mamie Mcgowan CNA 09/28/24 [id number] KAREN Garcia 09/28/24 1006 documented in this encounter [facility] 09-13-2024 History of Present illness Narrative Reason for Appointment: Patient ID: Munira Hernandez is a 54 y.o. female who presents for Pre-op Visit Patient presents today for Pre Op appointment. Patient is scheduled to undergo D&C Hysteroscopy, possible Myosure on 10/08/[address] Reyes at [facility]. MEDICATIONS Current Outpatient Medications Medication Instructions ergocalciferol [...] nursing note reviewed. Exam conducted with a licensed investment sales assistant present. Vitals: Estimated body mass index is [...] reviewed, and patient is to proceed to [facility] OR. Reviewed patients results of ultrasound with patient and PVU results and plan of care with procedure. Follow Up: Patient is to follow up between 1-2 weeks post operative to assess proper healing and recovery from procedure. Documented by Allyssa Salcedo LPN on behalf of: Ashok Reyes DO documented in this encounter 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 Kale Mcgregor, MS4 Department of Orthopedic Surgery 09/07/24 9:21 AM [place] Avery MD Orthopedic Surgery Resident Orthopedic Surgery Pager: [phone] 09/07/24 9:40 AM I did not personally examine the patient. I discussed the case with the resident and agree with the plan. [facility] 09-07-2024 Miscellaneous Notes Refill request documented in this encounter [facility] 09-07-2024 Telephone encounter Note Refill request [facility] 08-25-2024 Note Patient: Munira montes Procedure Summary Date: 08/25/24 Room / Location: [address] [facility] OR Anesthesia Start: 919 Anesthesia Stop: [...] per anesthesia protocol. No notable events documented. [facility] 08-25-2024 Note Patient: Munira montes Procedure Summary Date: 08/25/24 Room / Location: [address] [facility] OR Anesthesia Start: 919 Anesthesia Stop: 100 Procedures: RELEASE,CARPAL TUNNEL ULTRASOUND GUIDED (SONEX) (Bilateral: Wrist) RELEASE, TRIGGER FINGER-RING (Right: Ring Finger) Diagnosis: Bilateral carpal tunnel syndrome (Bilateral carpal tunnel syndrome [G56.03]) Surgeons: Tera Montero MD Responsible Provider: Jewel Garner MD Anesthesia Type: MAC ASA Status: 3 Anesthesia Post Transport Note Transport to: [place] PACU O2 Route: face mask Oxygen Flow (L/min): 8 Patient Monitor: direct observation Transport: uneventful Patient condition is: stable Comments: Patient arousable, VSS, SV well, report to RN [facility] 08-25-2024 Note Patient: Munira montes Procedure Information Date/Time: 08/25/24929 Procedures: RELEASE,CARPAL TUNNEL ULTRASOUND GUIDED (SONEX) (Bilateral: Wrist) RELEASE, TRIGGER FINGER-RING (Right: Ring Finger) Location: [facility] OR [address] [place] [address] OR Surgeons: Tera Montero MD Relevant Problems [...] Plan discussed with CAA. Additional Equipment Requests [facility] 08-09-2024 History of Present illness Narrative Reason [...] nursing note reviewed. Exam conducted with a licensed investment sales assistant present. Vitals: Estimated body mass index is [...] Ashok Reyes DO documented in this encounter [facility] 06-22-2024 Note Subjective 06/22/24 Muinra Hernandez is a 54 y.o. year old [...] be an additional personal documentation from me. [facility] 04-21-2024 Note Chief Complaint: nec k and [...] Intimate Partner Violence: Not At Risk (12/03/2023) [place] Safety & Environment Fear of Current or [...] reflex- 2 Babins (more content not included)... [facility] 12-12-2023 History of Present illness Narrative Subjective [...] for 1 dose. documented in this encounter [employer] 12-03-2023 Note Attestation signed by Mariano Burch [...] the patient octaviano (more content not included)... [facility] 11-25-2023 Miscellaneous Notes Patient wanted to know if she could get a refill of the meloxicam if okay to continue taking. She believes it is helping with her hips. She also states she is not taking pantoprazole anymore, flagged for removal. Please advise. documented in this encounter [facility] 11-25-2023 Telephone encounter Note Patient wanted to know if she could get a refill of the meloxicam if okay to continue taking. She believes it is helping with her hips. She also states she is not taking pantoprazole anymore, flagged for removal. Please advise. [facility] 11-21-2023 Miscellaneous Notes Refill request documented in this encounter [facility] 11-21-2023 Telephone encounter Note Refill request [facility] 11-19-2023 Miscellaneous Notes Patient is concerned about her abnormal results, specifically her B6 level. Any changes to do. I think a multivitamin daily should be sufficient. Spoke with patient, gave results and told to take a multivitamin documented in this encounter [facility] 11-19-2023 Telephone encounter Note Patient is concerned about her abnormal results, specifically her B6 level. Any changes to do. [facility] 11-19-2023 Telephone encounter Note I think a multivitamin daily should be sufficient. [facility] 11-19-2023 Telephone encounter Note Spoke with patient, gave results and told to take a multivitamin [facility] 10-27-2023 Note ASSESSMENT/PLAN: Munira was seen [...] a 53 y.o. female who presents to [facility] today for EMG nerve conduction [...] Santana MD Authorized by: Mariano Burch MD [place] Protocol / Time: Immediately prior to the procedure a time out was called. Relevant documents were present and verified. Site/side verified. Patient identity confirmed verbally with patient. This timeout verifies correct patient, procedure, equipment, user support analyst supervisor and site/side were marked as required. Verbal [...] This note was completed using a voice die hardener system. Every effort was made to ensure accuracy; however, inadvertent computerized die hardener errors may be present, please contact MD if any information is unclear. [facility] 09-22-2023 Note ASSESSMENT/PLAN: Munira was seen today [...] a 53 y.o. female who presents to [facility] today for bilateral UE EMG/NCS [...] commands, decreased sens (more content not included)... [facility] 04-21-2023 Evaluation note Encounter Date Diagnosis Assessment [...] Follow up with primary care provider or environmental consultant if no improvement of symptoms. [facility] Other 02-04-2023 Evaluation note* Encounter Date Diagnosis [...] no improvement in 2 to 3 days. [facility] Other 01-20-2023 History general Narrative - Reported* Type Description Date Medical History acid reflux Medical History hx of blood clots in right leg a nd lung Medical History vertigo Surgical History cholecystectomy 1998 Hospitalization History blood clot in leg and rhina ngs 12/13 [facility] Other evaluation noteNo assessment information available [facility] Work Phone: evaluation noteNo [employer]Nort [employer] Other evaluation note* Diagnosis Anxiety Anxiety state, unspecified documented in this encounter [facility]* Diagnosis Laryngitis- Primary Acute laryngitis, without mention of obstruction Non-recurrent acute serous otitis media of both ears documented in this encounter [facility]* Diagnosis Acquired hypothyroidism Unspecified hypothyroidism documented in this encounter [facility]* Diagnosis Pre-op examination Postmenopausal bleeding Thickened endometrium Nonspecific (abnormal) findings on radiological and other examination of genitourinary organs Uterine leiomyoma, unspecified location documented in this encounter [facility]* Diagnosis Disc displacement, lumbar- Primary Displacement of lumbar intervertebral disc without myelopathy Chronic bilateral low back pain without sciatica long-term current use of opiate analgesic [facility]* Diagnosis Spinal stenosis of lumbar region with neurogenic claudication- Primary [facility] Diagnosis Pre-op examination Menorrhagia with regular cycle Pelvic pain in female Unspecified symptom associated with female genital organs Dyspareunia in female Dysmenorrhea Postmenopausal bleeding documented in this encounter [facility] HealthcareEvaluation note* Diagnosis Acute deep vein thrombosis (DVT) of distal vein of right lower extremity (CMS-HCC)- Primary Other acute pulmonary embolism without acute cor pulmonale (CMS-HCC) [facility] Right kidney mass- Primary Unspecified disorder of kidney and ureter [facility] Diagnosis Postmenopausal bleeding Subserous leiomyoma of uterus documented in this encounter [facility] Narrative - Reported* Type Description Date Medical History acid reflux Medical History hx of blood clots in right leg a nd lung Medical History vertigo Medical History Anxiety Surgical History cholecystectomy 1998 Hospitalization History blood clot in leg and rhina ngs 12/13 [facility] Other InstructionsNot on filedocumented in this encounter [...] [facility] Summary Purpose Family History Relationship Condition Age at Onset Recorded Date/T lara father Heart disease Unknown Not Specified Deep vein thrombosis (DVT) Unknown Relationship Condition Age at Onset Recorded Date/T lara father Heart disease Unknown mother Deep vein thrombosis (DVT) Unknown father Malignant neoplasm Unknown Heart disease Unknown Unknown mother Heart disease Unknown Advance Directives Advance Directive Response Recorded Date/ Time Advance Directives No November 27, 2019 12:40pm Advance Directive Response Recorded Date/ Time Advance Directives No November 27, 2019 11:40am Chief Complaint and Reason for Visit Chief Complaint R30.0 Chief Complaint Admit Date Unknown October 08, 2024 11:11am Additional Source Comments INFORMATION SOURCE (unrecogn ized section and content) DATE CREATED AUTHOR 08/20/2021 [facility] DATE CREATED AUTHOR AUTHOR'S ORGANIZ ATION 06/13/2022 [facility] DATE CREATED AUTHOR AUTHOR'S ORGANIZ ATION 07/13/2024 [facility] DATE CREATED AUTHOR AUTHOR'S ORGANIZ ATION 09/13/2024 [facility] DATE CREATED AUTHOR AUTHOR'S ORGANIZ ATION 10/04/2024 [facility] DATE CREATED AUTHOR AUTHOR'S ORGANIZ ATION 10/13/2024 [facility] DATE CREATED AUTHOR AUTHOR'S ORGANIZ ATION 10/25/2024 [facility] EPIC DATE CREATED AUTHOR AUTHOR'S ORGANIZ ATION 11/03/2024 [facility] REASON FOR VISIT (unrecogniz ed section and [...] Primary Care Provider Active Theo Woodall , [employer] Attending Provider Activ e [employer]ter Relationship Specialty Start Date End Date Abel Murry MD [address] [place] [address], [address] [place] [address] PCP - General Pediatrics 08/03/18 [employer] Relationship Specialty Start Date End Date Abel Murry MD [address] [place] [address], [address] [place] [address] PCP - General Pediatrics 08/03/18 [employer] Relationship Specialty Start Date End Date Abel Murry MD [address] [place] [address], [address] [place], [place] [id number] PCP - General Pediatrics 08/03/18 [employer] Relationship Specialty Start Date End Date Abel Murry MD [address] [place] [address], [address] [place], [place] [id number] PCP - General Pediatrics 08/03/18 [employer] Relationship Specialty Start Date End Date Abel Murry MD [address] [place] [address], [address] [place] [address] PCP - General Pediatrics 08/03/18 [employer] Relationship Specialty Start Date End Date Abel Murry MD [address] [place] [address], [address] [place] [address] PCP - General Family Medicine 05/02/23 [employer] Relationship Specialty Start Date End Date Abel Murry MD [address] [place] [address], [address] [place] [address] PCP - General Family Medicine 05/02/23 [employer]ter Relationship Specialty Start Date End Date Abel Murry MD [address] [place] [address], [address] [place] [address] PCP - General Pediatrics 08/03/18 Team Status: Inactive Member Role Status Dates Abel Murry MD Primary Care Provider Active Start: October 08, 2024 End: October 08, 2024 Ashko Reyes DO Attending Provider Active Start : October 08, 2024 End: October 08, 2024 [employer]ter Relationship Specialty Start Date End Date Abel Murry MD [address] [place] [address], [address] [place] [address] PCP - General Family Medicine 05/02/23 [employer] Setter Relationship Specialty Start Date End Date Abel Murry MD [address] [place] [address], [address] [place] [address] PCP - General Pediatrics 08/03/18 [employer] Relationship Specialty Start Date End Date Abel Murry MD [address] [place] [address], [address] [place] [address] PCP - General Pediatrics 08/03/18 [employer] Setter Relationship Specialty Start Date End Date Abel Murry MD [address] [place] [address], [address] [place] [address] PCP - General Family Medicine 05/02/23 [employer] Setter Relationship Specialty Start Date End Date Abel Murry MD [address] [place] [address], [address] [place] [address] PCP - General Pediatrics 08/03/18 [employer] Setter Relationship Specialty Start Date End Date Abel Murry MD [address] [place] [address], [address] [place] [address] PCP - General Pediatrics 08/03/18 [employer] Setter Relationship Specialty Start Date End Date Abel Murry MD [address] [place] [address], [address] [place] [address] PCP - General Family Medicine 05/02/23 [employer] Setter Relationship Specialty Start Date End Date Abel Murry MD [address] [place] [address], [address] [place] [address] PCP - General Family Medicine 05/02/23 Goals [...] BE BASED ON THE PRIMARY CLINICAL RECORDS. [email or web address] provides no warranty or guarantee of the accuracy or completeness of information in this document.
[2024-11-11 11:11] LABS: Basophils Percent Auto 0.3 % (0.2-2.0); Eosinophils Absolute Auto 0.1 10^3/uL (0.0-0.7); Hematocrit 42.6 % (36.0-48.0); Hemoglobin 13.7 g/dL (12.0-16.0); Immature Granulocytes Abs Auto 0.02 10^3/uL (0.00-0.03); Immature Granulocytes Pct Auto 0.3 % (0.0-0.5); Lymphocytes Absolute Auto 1.1 10^3/uL (1.2-3.8); Lymphocytes Percent Auto 15.8 % (20.5-60.0); Mean Corpuscular HGB Conc 32.2 g/dL (29.9-35.2); Mean Corpuscular Hemoglobin 26.7 pg (26.7-34.0); Mean Platelet Volume 8.4 fL (9.5-13.5); Monocytes Absolute Auto 0.6 10^3/uL (0.3-0.8); Monocytes Percent Auto 8.2 % (1.7-12.0); Neutrophils Absolute Auto 5.3 10^3/uL (1.4-6.5); Neutrophils Percent Auto 74.4 % (43.0-75.0); Platelet Count 231 10^3/uL (150-450); Red Blood Count 5.13 10^6/uL (4.20-5.40); Red Cell Distribution Width 13.5 % (11.0-15.0); White Blood Count 7.1 10^3/uL (4.0-11.0)
[2024-11-11 11:12] VITALS: BP 141/87; PULSE 76; TEMP 36.2; O2SAT 97; BMI 46.0
[2024-11-11 11:28] LABS: HCG Quantitative 2 mIU/mL
[2024-11-11] MEDS: LACTATED RINGER'S SOLUTION 1,000 ML 50 ML IV (11:54)
--- NOTE | 2024-11-11 13:21 | PC.NURSE ---
Procedure cancelled this day per Dr. Reyes related to some newer findings that patient divulged during her anesthesia interview. Dr Reyes discussed decision with patient.
== END 2024-11-11 13:18 | disposition home or self-care (01) ==
PROVIDERS: PCP Internal Medicine; Visit Provider Obstetrics & Gynecology
DX: N92.0 Excessive and frequent menstruation with regular cycle (principal); Z53.8 Procedure and treatment not carried out for other reasons; N94.6 Dysmenorrhea, unspecified; R10.2 Pelvic and perineal pain
CPT/HCPCS: 58570; 36415; 84702; 85025